=== PATIENT | male | born 1935 | race Caucasian/White ===

== ENCOUNTER 2016-10-24 06:24 | Outpatient (CLI) | payer MEDICARE, BC ==
[~2016-10-24] VITALS: Ht 177.8 cm; Wt 81.8 kg
--- NOTE | ~2016-10-24 | HEMODYNAMI ---
PATIENT:ILIR DINERO MEDICAL RECORD: [id number] : 33 LOCATION:D.CAT ADMISSION DATE: 10/24/16 Generatedon:10/24/20169:52 Patient name: ILIR DINERO Patient #: [id number] SSN: : 1935 Date of study: 10/24/2016 Page: Of Hemodynamic Procedure Report Patient Data Patient Demographics Procedure consent was obtained First Name: ILIR Gender: Male Last Name: BAR : 1935 Middle Initial: L Age: 81 year(s) Patient #: [id number] Race: Additional ID: [id number] Contact details [address]: [address] [place] [address] State: [place] City: [place] Zip code: [address] Past Medical History Allergies Allergen Reaction Date Comments Reported Codeine 12/21/2014 Penicillins 12/21/2014 Demerol 10/24/2016 Penicillins 10/24/2016 Codeine 10/24/2016 Admission Admission Data Admission Date: 10/24/2016 Admission Time: 6:24 Insurance Payor: Medicare Height (in.): 70 BSA: 2 (m2) Height (cm.): 177.8 BMI: 25.83 (kg/m2) Weight (lbs.): 180 Weight (kg.): 81.65 Lab Results Lab Result Date: 10/24/2016 Lab Result Time: 0:00 Biochemistry Name Units Result Min Max BUN mg/dl 15 --(--*-)-- 7 18 Creatinine mg/dl 1 --(--*-)-- 0.6 1.3 CBC Name Units Result Min Max Hemoglobin g/dl 16.5 --(--*-)-- 13.5 17.5 Procedure Procedure Types Cath Procedure Miscellaneous Procedures Moderate Sedation up to 45 minutes Peripheral Cath Diagnostic Procedure Cath Peripheral Xqguy-Ncjhsqu-Ron-Off Peripheral vascular Intervention Angioplasty Angioplasty Fem/Pop Procedure Description Procedure Date Procedure Date: 10/24/2016 Procedure Start Time: 9:14 Procedure End Time: 9:50 Procedure Staff Name Function Yao Irvin MD Performing Physician Dexter Hassan RN Nurse Lloyd Cruz RT Monitor Jose C Piper RT Scrub Procedure Data Cath Procedure Fluoroscopy Diagnostic fluoroscopy Total fluoroscopy Time: 5.6 time: 5.6 min min Diagnostic fluoroscopy Total fluoroscopy dose: 233 dose: 233 mGy mGy Contrast Material Contrast Material Type Amount (ml) Isovue 300 108 Entry Location Entry Primary Successful Side Size Upsize 1 Upsize Entry Closure Lassiter ccessful Closure Location (Fr) (Fr) 2 (Fr) Remarks Device Remarks Femoral Right 5 Fr 6 Fr 6 Fr Exoseal artery Mid-Length Short Estimated blood loss: 10 ml Diagnostic catheters Device Type Used For End Catheter Placement Cordis Tempo 5Fr UF Procedure catheter Diagnostic Infinity 5Fr Procedure IM catheter Procedure Complications No complications Procedure Medications Medication Administration Route Dosage Oxygen NC 2 l/min Lidocaine 2% added to field 20 Heparin Flush Bag added to field 2 bags (1000units/500ml NS) 0.9% NaCl I.V. 100 ml/hr Versed I.V. 1 mg Fentanyl I.V. 50 mcg Heparin Bolus I.V. 7000 units Versed I.V. 0.5 mg Fentanyl I.V. 25 mcg Plavix P.O. 600 mg Hemodynamics Rest BSA: 2 (m2) HGB: 16.5 (g/dl) O2 Consumption: Estimated: 225.86 (ml/min) O2 Consu mption indexed: Estimated:112.93 (ml/min/m) Heart Rate: 67 (bpm) Snapshots Pre Cath Intra NCS Post Cath Vital Signs Time Heart Resp SPO2 etCO2 [id number] NIBP (mmHg) Rhythm Pain Sedation Rate (ipm) (%) (mmHg) (mmHg) Status Level (bpm) 9:00:54 67 22 96 0 0 161/88(109) NSR 0 (11) 10(A) , No pain 9:05:16 67 17 96 0 0 167/86(134) NSR 0 (11) 10(A) , No pain 9:09:36 66 16 96 0 0 149/88(133) NSR 0 (11) 10(A) , No pain 9:13:56 64 16 96 0 0 161/75(109) NSR 0 (11) 10(A) , No pain 9:18:23 57 16 95 0 0 167/73(119) NSR 0 (11) 9(A) , No pain 9:22:43 58 15 96 0 0 150/78(132) NSR 0 (11) 9(A) , No pain 9:27:05 56 17 99 0 0 133/71(109) NSR 0 (11) 9(A) , No pain 9:32:12 57 15 100 0 0 160/81(131) NSR 0 (11) 9(A) , No pain 9:36:38 61 15 96 0 0 114/67(95) NSR 0 (11) 9(A) , No pain 9:40:50 58 15 94 0 0 110/59(92) NSR 0 (11) 9(A) , No pain 9:45:56 56 16 97 0 0 142/75(119) NSR 0 (11) 10(A) , No pain 9:50:12 57 16 96 0 0 156/78(130) NSR 0 (11) 10(A) , No pain Medications Time Medication Route Dose Verified Delivered Reason Notes Effectiveness by by 9:07:36 Oxygen NC 2 Yao Buffie used for l/min Emerson Hassan RN procedure 9:07:42 Lidocaine 2% added 20ml Yao Buffie used for to vial Emerson Hassan RN procedure field 9:07:48 Heparin Flush added 2 Yao Buffie used for Bag to bags Emerson Hassan RN procedure (1000units/500ml field NS) 9:08:10 0.9% NaCl I.V. 100 Yao Buffie Per physician ml/hr Emerson Hassan RN 9:14:06 Versed I.V. 1 mg Yao Buffie for sedation Emerson Hassan RN 9:14:13 Fentanyl I.V. 50 Yao Buffie for sedation mcg Emerson Hassan RN 9:32:48 Heparin Bolus I.V. 7,000 Yao Buffie for verifie d units Emerson Hassan RN anticoagulation with dr irvin 9:34:42 Versed I.V. 0.5 Yao Buffie for sedation mg Emerson Hassan RN 9:34:46 Fentanyl I.V. 25 Yao Buffie for sedation mcg Emerson Hassan RN 9:47:37 Plavix P.O. 600 Yao Buffie for mg Emerson Hassan RN antiplatelet therapy Procedure Log Time Note 8:30:42 Jose C Piper RT(R) sent for patient. Start room use. 8:39:43 Time tracking: Regular hours 8:39:46 Plan of Care:Hemodynamics will remain stable., Cardiac rhythm will remain stable., Comfort level will be maintained., Respiratory function will remain adequate., Patient/ family verbilizes understanding of procedure., Procedure tolerated without complication., Recovers from procedure without complications.. 8:51:33 Patient received from Pre/Post Procedure Room to CCL 1 Alert and oriented. Tansferred to table in Supine position. 8:51:34 Warm blankets applied, and elsa hugger turned on for patient comfort. 8:51:35 Correct patient and procedure confirmed by team. 8:51:36 Signed procedure consent form obtained from patient. 8:51:37 ECG and BP/O2 sat monitors applied to patient. 8:59:41 Vital chart was started 8:59:45 Baseline sample Acquired. 8:59:55 Rhythm: sinus rhythm 8:59:59 Full Disclosure recording started 9:00:28 H&P Date Dictated: 10/16/2016 Within 30 days and on chart., H&P Addendum completed by physician on day of procedure. (MUST COMPLETE FOR ALL OUTPATIENTS). 9:00:31 Pre-procedure instructions explained to patient. 9:00:37 Pre-op teaching completed and patient verbalized understanding. 9:00:41 Family in waiting room. 9:00:45 Patient NPO since Midnight. 9:00:56 Patient allergic to Demerol 9:01:03 Patient allergic to Penicillins 9:01:11 Patient allergic to Codeine 9:01:15 Is the patient allergic to Iodine/contrast media? No. 9:01:21 Is patient on blood thinner?Yes 9:01:30 Patient diabetic? Yes. 9:01:31 If diabetic: On Metformin? Yes 9:01:42 If on Metformin: Last Dose? 10/22/2016 9:01:47 ----Pre-sedation anethsthesia assessment.---- 9:01:53 Previous problem with sedation/anesthesia? No ? 9:01:54 Snore? Yes 9:01:56 Sleep apnea? No 9:01:58 Deviated septum? No 9:02:01 Opens mouth fully? Yes 9:02:03 Sticks out tongue? Yes 9:02:06 Airway obstruction? No ? 9:02:16 Dentures? Yes in tight 9:02:21 Pre procedure: right dorsailis pedis pulse 1+ Palpable, but thready & weak; easily obliterated 9::26 Pre procedure: left dorsailis pedis pulse Doppler 9:02:31 Patient pain scale 0/10 ?. 9:02:46 IV patent on arrival in left forearm with 0.9% NaCl at [facility]. 9::51 Lab Result : BUN 15 mg/dl 9::51 Lab Result : Hemoglobin 16.5 g/dl 9::51 Lab Result : Creatinine 1 mg/dl 9:04:12 Bilateral groins area was prepped with chlora-prep and draped in sterile fashion 9:04:20 Alarms reviewed by R. N. 9:04:21 Sharps counted by scrub and verified by R.N. 9:05:54 Patient Height : 70 inches 9:06:06 Patient Weight : 180 lbs 9:06:06 Insurance Payor : Medicare 9:07:36 Oxygen 2 l/min NC was given by Dexter Hassan RN; used for procedure; 9::42 Lidocaine 2% 20ml vial added to field was given by Dexter Hassan RN; used for procedure; 9:07:48 Heparin Flush Bag (1000units/500ml NS) 2 bags added to field was given by Dexter Hassan RN; used for procedure; 9:08:10 0.9% NaCl 100 ml/hr I.V. was given by Dexter Hassan RN; Per physician; ::02 Zero performed for pressure channel P1 9:: --------ALL STOP TIME OUT------ :: Final Timeout: patient, procedure, and site verified with staff and physician. All members of the team are in agreement. 9:13:11 Bilateral groins site verified by team. 9::15 Physical assessment completed. ASA score P 2 - A patient with mild systemic disease as per Yao Irvin MD. 9:13:19 Sedation plan: IV Moderate Sedation Versed, Fentanyl 9:13:42 Zero performed for pressure channel P1 9:14:06 Versed 1 mg I.V. was given by Buffie Hassan RN; for sedation; 9:14:13 Fentanyl 50 mcg I.V. was given by Dexter Hassan RN; for sedation; 9:14:18 Procedure started. 9:14:21 Local anesthetic to right femoral artery with Lidocaine 2% by Yao Irvin MD.INITIAL ACCESS ONLY 9:16:42 St Charlie 260cm J .035 wire opened to sterile field. 9:16:46 Acist Manifold opened to sterile field. 9:16:46 Acist Hand Control opened to sterile field. 9:16:50 Tegaderm 4 x 4 opened to sterile field. 9:16:51 Terumo 5Fr Oliver Sheath opened to sterile field. 9:16:53 Acist Syringe opened to sterile field. 9:16:54 Bag Decanter opened to sterile field. 9:16:55 Medline Cath Pack opened to sterile field. 9:17:07 A 5 Fr sheath was inserted into the Right Femoral artery 9:17:13 A Yoics 5Fr UF catheter was advanced over the wire and used for Procedure. 9:17:37 Abdominal angiogram w/ runoff was performed. 9:18:54 Left leg runoff performed. 9:19:04 Left leg runoff performed. 9:20:50 Catheter removed. 9:21:03 A Diagnostic Infinity 5Fr IM catheter was advanced over the wire and used for Procedure. 9:22:43 Left leg runoff performed. 9:29:59 Terumo ADVANTAGE 260CM glide wire opened to sterile field. 9:30:20 Terumo 6Fr Oliver Destination Sheath opened to sterile field. 9:32:27 glide wire advanced around horn and down Left SFA to exchange and advance the sheath 9:32:45 Sheath upsized to a 6 Fr Mid-Length. 9:32:48 Heparin Bolus 7,000 units I.V. was given by Dexter Hassan RN; for anticoagulation; verified with dr irvin 9:33:11 [place] Sci Choice PT Extra Support J 300cm .014 gu opened to sterile field. 9:33:12 Merit BasixCompak Inflation Kit opened to sterile field. 9:33:42 Terumo 6Fr Oliver Sheath opened to sterile field. 9:34:06 glide wire removed 9:34:12 PT Extra Support wire advanced. 9:34:42 Versed 0.5 mg I.V. was given by Dexter Hassan RN; for sedation; 9:34:46 Fentanyl 25 mcg I.V. was given by Dexter Hassan RN; for sedation; 9:36:36 Wire advanced across lesion. 9:39:17 Inflation number: 1 A Chocolate 5.0 x 80 x 120 balloon was prepped and advanced across the Proximal Popliteal, Left, then inflated to 8 HAN for 3:02 (min:sec). 9:41:27 Balloon removed over the wire. 9:41:51 Sheath upsized to a 6 Fr Short. 9:43:01 Cordis 6Fr Exoseal opened to sterile field. 9:44:05 Sheath removed intact; hemostasis achieved with Exoseal to the Right Femoral artery. 9:44:07 Procedure ended.(Physican Out) 9:44:10 Fluoroscopy time 05.60 minutes. 9:44:20 Fluoroscopy dose: 233 mGy 9:44:20 Flurop Dose total: 233 9:44:26 Contrast amount:Isovue 300 108ml. 9:44:27 Sharps counted by scrub and verified by R.N. 9:45:28 Insertion/operative site no bleeding no hematoma. 9:45:30 Post-op/insertion site Right Femoral artery dressed using a 4 x 4 and Tegaderm. 9:45:35 Post right femoral artery:stable, soft, clean and dry 9:45:38 Post Procedure Pulses reassessed and unchanged 9:45:40 Post-procedure physical assessment completed. ASA score P 2 - A patient with mild systemic disease as per Yao Irvin MD. 9:45:44 Post procedure rhythm: unchanged. 9:45:47 Estimated blood loss: 10 ml 9:45:49 Post procedure instruction explained to patient.Patient verbalizes understanding. 9:45:49 Patient needs reinforcement of post procedure teaching. 9:47:37 Plavix 600 mg P.O. was given by Dexter Hassan RN; for antiplatelet therapy; 9:48:42 Procedure type changed to Cath procedure, Miscellaneous Procedures, Moderate Sedation up to 45 minutes, Peripheral Cath Diagnostic Procedure, Cath Peripheral, Eguhd-Mguvdbu-Tqi-Off, Peripheral vascular Intervention, Angioplasty, Angioplasty Fem/Pop 9:50:32 Procedure and supply charges have been captured, reviewed, submitted and are correct. 9:50:34 Procedure Complication : No complications 9:50:36 Vital chart was stopped 9:50:37 See physician's report for complete and final results. 9:50:38 Report given to Pre/Post Procedure Room. 9:50:41 Patient transfered to Pre/Post Procedure Room with Stretcher. 9:50:43 Procedure ended. 9:50:43 Full Disclosure recording stopped 9:52:27 ACC-PCI Only Patient was given prescriptions, or instructed by Yao Irvin MD to start/continue the following medications upon discharge: Plavix 9:52:30 End room use (Document Last) Intervention Summary Intervention Notes Time ActionType Lesion and Equipment Action# Pressure Duration Attributes Used 9:39:17 Inflate Proximal Chocolate 1 8 03:02 balloon Popliteal, 5.0 x 80 Left x 120 balloon Device Usage Item Name Manufacture Quantity Catalog Number Hospital Part Current Minim al Lot# / Charge Number Stock Stock Serial# Code Acist Acist 1 [id number] [id number] 138699 5 Manifold [employer] Inc Acist Hand Acist 1 52208 215522 480357 231913 5 Control Medical Systems Inc Tegaderm 4 3M 1 [id number] 349977 315260 073228 5 x 4 Terumo 5Fr Terumo 1 [id number] 148099 171278 687756 40 Oliver Sheath Acist Acist 1 54300 420854 470733 005605 20 Syringe Medical Systems Inc Bag Microtek 1 2002S 796057 29236 721890 5 DecOn Demand [employer] Inc. Medline Cardinal 1 [id number] 705916 44471 330282 5 Cath Pack Health Cordis Cardinal 1 [id number] 004304 346389 781069 10 Tempo 5Fr Health UF catheter Diagnostic Cardinal 1 [id number] 656208 603859 035740 5 Infinity Health 5Fr IM catheter [facility] St Charlie 1 757682 277669 237174 205899 30 260cm J .035 wire Terumo Terumo 1 [id number] 356715 668417 5 ADVANTAGE 260CM glide wire Terumo 6Fr Terumo 1 RSR01 319409 81229 468265 5 Oliver Destination Sheath [place] Sci [place] 1 [id number] 736551 295511 419376 5 Choice PT Scientific Extra Support J 300cm .014 gu Merit Merit 1 [id number] 333412 873341 243547 15 BasixCompak Medical Inflation Kit Terumo 6Fr Terumo 1 [id number] 203407 124445 647888 40 Oliver Sheath Chocolate Cardinal 1 [id number] 089638 54128 529670 5 5.0 x 80 x Health O 120 balloon TW Cordis 6Fr Cardinal 1 EX600 273045 275261 654507 10 Exoseal Health Signature Audit [place] Stage Time Signature Unsigned Intra-Procedure 10/24/2016 Lloyd Cruz 9:52:45 AM RT(R) Signatures Monitor : Lloyd Cruz RT Signature : Date : Time : [id number] [place] [address]
[~2016-10-24 06:24] MED LIST: FLAGYL500 MG PO; GABAPENTIN100 MG PO; GLIPIZIDE10 MG PO; GLUCOPHAGE1000 MG PO; LISINOPRIL10 MG PO; PRILOSEC20 MG PO; TOPROL XL25 MG PO; ZOCOR20 MG PO
[2016-10-24] MEDS ORDERED: ALEVE220 MG PO (06:49)
[2016-10-24] MEDS ORDERED: BAYER CHEWABLE81 MG PO (06:49)
[2016-10-24 06:51] VITALS: BP 191/107; Ht 177.8 cm; Wt 81.8 kg
[2016-10-24 07:06] LABS: BASOPHILS 0.6 % (0.0-2.0); EOSINOPHILS 5.3 % (0-7); HEMATOCRIT 49.8 % (42.0-54.0); HEMOGLOBIN 16.5 g/dL (13.5-17.5); IMMATURE GRANULOCYTES 0.2 % (0-5); LYMPHOCYTES 23.3 % (15-50); MCH 30.1 pg (26.0-34.0); MCHC 33.1 g/dL (31.0-37.0); MCV 90.7 fL (80.0-100.0); MEAN PLATELET VOLUME 10.3 fL (7.4-10.4); MONOCYTES 12.1 % (2-11); NEUTROPHILS 58.5 % (40-80); PLATELET COUNT 182 10x3/uL (130-400); RBC 5.49 10x6/uL (4.20-6.10); RDW 13.9 % (11.5-14.5); WBC 5.1 10x3/uL (4.8-10.8)
[2016-10-24 07:24] LABS: CALC OSMOLALITY 284 mosm/kg (275-300); CALCIUM 9.6 mg/dL (8.5-10.1); CARBON DIOXIDE 27.2 mmol/L (21.0-32.0); CHLORIDE - SERUM 104 mmol/L (98-107); GLUCOSE 204 mg/dL (74-106); POTASSIUM - SERUM 4.1 mmol/L (3.5-5.1); SODIUM 139 mmol/L (136-145); UREA NITROGEN 15 mg/dL (7-18); eGFR NON AFRICAN AMERICAN 76 mL/min (90-120)
--- NOTE | 2016-10-24 07:50 | NUR ---
0750 DR AMBROCIO NOTIFIED OF BP 191/107, PT HAS TAKEN LISINOPRIL 10MG PO THIS AM. NEW ORDER RECEIVED FOR CLONIDINE 0.1MG PO X 1 AND THIS GIVEN PER ORDER.
--- NOTE | 2016-10-24 08:26 | NUR ---
0826 BP RECHECK 160/71 PT DENIES ANY C/O.
[2016-10-24] MEDS ORDERED: PLAVIX75 MG PO (10:16)
--- NOTE | 2016-10-24 10:28 | NUR ---
NSR RATE 68 BP 152/76 CHEST PAIN IS DENIED. 02 AT 2 LITERS NASAL NO DISTRESS NOTED. 6 FR EXOSEAL R/GROIN CDI NO BLEEDING NO HEMATOMA NOTED. PULSES PRESENT AND MARKED. INSTRUCTED PATIENT TO KEEP HEAD FLAT ON PILLOW WITH RLE STRAIGHT
--- NOTE | 2016-10-24 10:56 | NUR ---
VSS WITH CHEST PAIN DENIED. 6 FR EXOSEAL R/GROIN CDI NO BLEEDING NO HEMATOMA NOTED PULSES PRESENT AND MARKED.
--- NOTE | 2016-10-24 11:14 | NUR ---
PATIENT VOIDS 400 CC CLEAR YELLOW URINE TO COLLECTION. 6 FR EXOSEAL R/GROIN REMAINS CDI NO BLEEDING NO HEMATOMA NOTED. SANDWICH AND SODA PROVIDED TO BEDSIDE NAUSEA DENIED
--- NOTE | 2016-10-24 11:48 | NUR ---
1145 PT TOLERATING PO FLUIDS AND SANDWICH WITH NO C/O NAUSEA. 6 FR EXOSEAL TO RIGHT GROINIS CDI, NO BLEEDING OR HEMATOMA NOTED. PEDAL PULSES PALPABLE, CAP REFILL IS BRISK. PT DENIES ANY C/O. AT BEDSIDE, CALL LIGHT IN REACH.
--- NOTE | 2016-10-24 13:00 | NUR ---
1300 NO CHANGE IN ASSESSMENT PAIN IS DENIED VSS WITH AT SIDE
--- NOTE | 2016-10-24 13:44 | NUR ---
REPOSITIONED TO SITTING WITH HOB UP 45 DEGREES CHEST PAIN IS DENIED. VSS 6 FR EXOSEAL R/GROIN CDI
--- NOTE | 2016-10-24 14:19 | NUR ---
DISCHARGE INSTRUCTIONS GONE OVER WITH PATIENT AND BOTH VERBALIZED UNDERSTANDING. CHEST PAIN IS DENIED AND 6 FR EXOSEAL R/GROIN CDI NO BLEEDING NO HEMATOMA NOTED LEFT VIA WC TO PARKING FOR TO DRIVE HOME
--- NOTE | 2016-11-26 08:17 | OP ---
PATIENT NAME: ILIR DINERO MEDICAL RECORD: [id number] :33 LOCATION:D.CAT ADMISSION DATE: SURGEON: YOANNA AMBROCIO M.D. DATE OF OPERATION: 10/24/2016 REFERRING PHYSICIAN: Davin Dash DO PROCEDURES PERFORMED: 1. Aortofemoral runoff. 2. GORE CUTTER to the left popliteal artery INDICATION: An 81-year-old gentleman with history of peripheral vascular disease, presents with recurrent claudication. DESCRIPTION: Right common femoral artery was cannulated and a 5-S[place] Arabian sheath was inserted in retrograde fashion. Next, a UF catheter was advanced to the level of T12. Power injection was performed to visualize the distal aorta. Next, the catheter was pulled down to the level of bifurcation. At this point, right and left lower extremity angiogram was then performed. FINDINGS: The distal aorta is of good caliber. Each kidney received a single arterial supply. There is no evidence of renal artery stenosis. The distal aorta is free of atheroma or stenosis. The right common iliac artery is large in caliber and widely patent. The right common femoral artery is large in caliber and widely patent. Right superficial artery is moderate in caliber. There is no evidence of any stenosis throughout all segments. The right popliteal artery is moderate caliber and has no obstruction. Below the knee appears to be at least 2-vessel runoff. Left common iliac artery is large in caliber and widely patent. Left common femoral artery is large in caliber and widely patent. Left superficial artery has been stented. The stents appear widely patent. However, the left popliteal artery demonstrates a focal 80% stenosis right where the vessel crosses Maurice's canal. Below the knee appears to be at least 2-vessel runoff. DESCRIPTION OF INTERVENTION: A 6-Saudi Arabian Brite Tip sheath was placed in the right common femoral artery. Next, a UF catheter was used to cannulate the bifurcation. A long Glidewire was then placed in the left common femoral artery. Next, the Brite Tip sheath was advanced around the bifurcation and placed at the junction of the left common femoral and superficial arteries. A 7000 units of heparin was infused. A Choice PT guidewire was then directed and placed into the tibioperoneal junction. A 5 mm x 80 mm Chocolate balloon was then advanced and placed across the stenosis. A long inflation was performed at 8 atmospheres. Injections then revealed a 10% residual stenosis. There is no evidence of any flow-limiting dissection. There is brisk flow through the distal vessel beyond the stent. At this point, the wire was removed. IMPRESSION: Successful percutaneous transluminal coronary angioplasty to the left popliteal artery with a 10% residual. TRANSINT:[id number] Voice Confirmation ID: [id number] DOCUMENT ID: [id number] OPERATIVE REPORT [id number] ILIR DINERO TIMOTHY E M.D. at 0817 CC: [id number] DICTATION DATE: 10/24/16 0952 CONTINUING EDUCATION SPECIALIST: 10/24/16 1333 DEP CLI 10/24/16 [id number] [place] [address]
== END 2016-10-24 14:21 | disposition home or self-care (01) ==
LOC: D.CATH 06:24
PROVIDERS: Internal Medicine Cardiovascular Disease
DX: I70.213 Atherosclerosis of native arteries of extremities with intermittent claudication, bilateral legs (principal)

== ENCOUNTER 2017-06-01 18:33 | Inpatient (IN) | payer MEDICARE, BC ==
[~2017-06-01] VITALS: Ht 177.8 cm; Wt 75.6 kg
[~2017-06-01 18:33] MED LIST changes: +ALEVE220 MG PO; +BAYER CHEWABLE81 MG PO; +PLAVIX75 MG PO
[2017-06-01 19:06] LABS: BASOPHILS 0.7 % (0-2); EOSINOPHILS 2.7 % (0-7); HEMATOCRIT 48.1 % (42.0-54.0); HEMOGLOBIN 15.9 g/dL (13.5-17.5); IMMATURE GRANULOCYTES 0.2 % (0-5); LYMPHOCYTES 14.4 % (15-50); MCH 30.6 pg (26.0-34.0); MCHC 33.1 g/dL (31.0-37.0); MCV 92.5 fL (80.0-100.0); MEAN PLATELET VOLUME 10.3 fL (7.4-10.4); MONOCYTES 7.5 % (2-11); NEUTROPHILS 74.5 % (40-80); PLATELET COUNT 197 10x3/uL (130-400); RDW 13.5 % (11.5-14.5); WBC 5.5 10x3/uL (4.8-10.8)
[2017-06-01 19:11] LABS: APTT 32.2 SECONDS (22.8-39.4); INR 1.06 (0.85-1.17); PROTIME 13.7 SECONDS (11.6-15.0)
[2017-06-01 19:17] LABS: ALBUMIN 4.2 g/dL (3.4-5.0); ALKALINE PHOSPHATASE 85 U/L (46-116); ALT (SGPT) 22 U/L (10-68); CALC OSMOLALITY 282 mosm/kg (275-300); CALCIUM 9.8 mg/dL (8.5-10.1); CARBON DIOXIDE 29.3 mmol/L (21.0-32.0); CHLORIDE - SERUM 104 mmol/L (98-107); CREATININE - SERUM 0.9 mg/dL (0.6-1.3); GLUCOSE 162 mg/dL (74-106); POTASSIUM - SERUM 3.8 mmol/L (3.5-5.1); PROTEIN - SERUM 7.9 g/dL (6.4-8.2); SODIUM 140 mmol/L (136-145); UREA NITROGEN 12 mg/dL (7-18); eGFR NON AFRICAN AMERICAN 86 mL/min (90-120)
[2017-06-01 19:43] LABS: CREATINE KINASE 165 UL (21-232); PRO BNP 271 pg/mL (0-450); THYROID STIMULATING HORMONE 1.58 uIU/mL (0.36-3.74); TROPONIN-I < 0.017 ng/mL (0.000-0.060)
[2017-06-01 20:30] LABS: ERYTHROCYTE SEDIMENTATION RATE 5 mm/hr (0-20)
--- NOTE | 2017-06-01 22:25 | NUR ---
PT ARRIVES VIA WC TO ROOM WITH ER NURSE ACCOMPANIED BY DAUGHTER. ADMISSION HISTORY OBTAINED AND MEDICATIONS RECONCILED AT THE BEDSIDE. ASSESSMENT COMPLETED, VSS, AFEBRILE. PLACED ON TELE, NSR ON MONITOR, HR 69. NEURO ASSESSMENT WNL. SPEECH CLEAR. SWALLOWS WITHOUT COUGHING. EQUAL STRENGTH IN EXTREMITIES X4. PUPILS JINNY. UNIT ROUTINES AND PROTOCOLS DISCUSSED WITH PT AND HIS DAUGHTER, THEY BOTH VERBALIZED UNDERSTANDING. WILL CONT TO MONITOR.
[2017-06-01] MEDS ORDERED: LOPRESSOR25 MG PO (22:29)
[2017-06-01 22:33] VITALS: BP 173/79; Ht 177.8 cm; Wt 75.6 kg
[2017-06-02] VITALS: BP 173/79
--- NOTE | 2017-06-02 00:25 | NUR ---
NEURO CHECK COMPLETED AND UNCHANGED. NSR ON TELE, HR 60'S. NO NEEDS VOICED. DAUGHTER REMAINS AT THE BEDSIDE.
[2017-06-02 04:00] VITALS: BP 138/59
--- NOTE | 2017-06-02 07:05 | NUR ---
REPORT RECIVED. RR EVEN AND UNLABORED. PT DENIES NEEDS AT THIS TIME. NEURO CHECK PERFOMRED, NO DEFICITS NOTED. ALERT AND ORIENTED X4. WILL CTM.
[2017-06-02 08:00] VITALS: BP 161/78
[2017-06-02 12:00] VITALS: BP 130/59
--- NOTE | 2017-06-02 14:15 | NUR ---
RATIONALE FOR SCD'S EXPLAINED. REFUSES SCD'S
[2017-06-02 16:00] VITALS: BP 138/77
--- NOTE | 2017-06-02 18:34 | NUR ---
PT RESTING QUIELTY, RR EVEN AND UNLABORED. DENIES NEEDS AT THIS TIME. WILL GIVE REPORT ON PT CONDITON FOR THE DAY.
--- NOTE | 2017-06-02 19:52 | NUR ---
RECEIVED REPORT, WILL ASSUME CARE OF PT, PT SITTING UP IN CHAIR, DENIES ANY NEEDS, CALL LIGHT IN REACH, WILL CONTINUE PLAN OF CARE
[2017-06-02 20:51] VITALS: BP 148/63
[2017-06-03 01:15] VITALS: BP 124/55
[2017-06-03 03:45] VITALS: BP 116/61
--- NOTE | 2017-06-03 03:47 | NUR ---
PT SLEEPING, CALL LIGHT IN REACH, WILL MONITOR
[2017-06-03 05:52] LABS: BASOPHILS 0.5 % (0-2); EOSINOPHILS 5.2 % (0-7); HEMATOCRIT 46.6 % (42.0-54.0); HEMOGLOBIN 15.2 g/dL (13.5-17.5); IMMATURE GRANULOCYTES 0.2 % (0-5); LYMPHOCYTES 21.3 % (15-50); MCH 30.1 pg (26.0-34.0); MCHC 32.6 g/dL (31.0-37.0); MCV 92.3 fL (80.0-100.0); MEAN PLATELET VOLUME 10.6 fL (7.4-10.4); MONOCYTES 9.5 % (2-11); NEUTROPHILS 63.3 % (40-80); PLATELET COUNT 190 10x3/uL (130-400); RBC 5.05 10x6/uL (4.20-6.10); RDW 13.7 % (11.5-14.5); WBC 5.6 10x3/uL (4.8-10.8)
[2017-06-03 06:12] LABS: CALC OSMOLALITY 279 mosm/kg (275-300); CALCIUM 9.4 mg/dL (8.5-10.1); CARBON DIOXIDE 29.4 mmol/L (21.0-32.0); CHLORIDE - SERUM 104 mmol/L (98-107); CREATININE - SERUM 0.9 mg/dL (0.6-1.3); GLUCOSE 139 mg/dL (74-106); POTASSIUM - SERUM 4.1 mmol/L (3.5-5.1); SODIUM 139 mmol/L (136-145); UREA NITROGEN 13 mg/dL (7-18); eGFR NON AFRICAN AMERICAN 86 mL/min (90-120)
--- NOTE | 2017-06-03 07:15 | NUR ---
AM ROUNDS- PT UP TO CHAIR, RESP EVEN AND UNLABORED, LT AC SL. PT DENIES ANY NEEDS AT THIS TIME, CALL LIGHT IN REACH, NAD NOTED, WILL CONTINUE TO MONITOR.
[2017-06-03 08:00] VITALS: BP 141/60
--- NOTE | 2017-06-03 08:17 | NUR ---
AM MEDS GIVEN, PT UP TO SIDE OF BED, EATING BREAKFAST, DENIES ANY NEEDS. FAMILY AT BEDSIDE, CALL LIGHT IN REACH, NAD NOTED, WILL CONTINUE TO MONTIOR.
[2017-06-03 12:00] VITALS: BP 117/60
--- NOTE | 2017-06-03 13:53 | NUR ---
Patient Name: ILIR DINERO Admission Status: ER Accout number: [id number] Admission Date: 06-02-2017 : 1935 Admission Diagnosis: Attending: MIKE RAM Current LOS: 1 Anticipated DC Date:06-03-2017 Planned Disposition: Home Primary Insurance: MEDICARE A & B Discharge Planning Comments: * Is the patient Alert and Oriented? Yes 0 * How many steps to enter\exit or inside your home? 5 0 * PCP DR. RAM 0 * Pharmacy [facility], [facility] OR [facility] [employer] MAIL ORDER 0 * Preadmission Environment Home Alone 0 * ADLs Independent 0 * Equipment Cane 0 * Other Equipment NO MEDICAL EQUIPMENT PROVIDER PREFERENCE 0 * List name and contact numbers for known caregivers / representatives who currently or will assist patient after discharge: SKYLARRONN MULLER, DTR, BEVERLY MULLER, SON IN LAW, 0 * Community resources currently utilized None 0 * Please name any agencies selected above. NONE 0 * Additional services required to return to the preadmission environment? No 0 * Can the patient safely return to the preadmission environment? Yes 0 * Has this patient been hospitalized within the prior 30 days at any hospital? No 0 CM MET WITH PT IN ROOM TO DISCUSS DISCHARGE PLANNING AND NEEDS. PT REPORTS LIVING AT HOME INDEPENDENTLY AND ALONE. PT HAS A CANE WITH NO MEDICAL EQUIPMENT PROVIDER PREFERENCE. PT HAS NO OUTSIDE SERVICES ASSISTING IN THE HOME. CM DISCUSSED AVAILABILITY OF HOME HEALTH, REHAB SERVICES AND MEDICAL EQUIPMENT. PT DENIES DISCHARGE NEEDS, REPORTS HIS DAUGHTER IS HERE TO PICK HIM UP FOR DISCHARGE HOME TODAY. MULCHER OPERATOR NURSE NOTIFIED. Pipe Assembly Worker: Jose Pedro
--- NOTE | 2017-06-03 14:03 | NUR ---
PROVIDED VERBAL AND WRITTEN DISCHARGE TEACHING TO PT AND AT BEDSIDE, BOTH VERBALIZED UNDERSTANDING REGARDING TEACHING. D/C LT AC IV, TIP INTACT. REMOVED TELEMETRY AND TOOK IT TO [employer] OIL OPERATOR. PT LEFT UNIT VIA WHEELCHAIR, NAD NOTED.
--- NOTE | 2017-06-06 16:47 | EC ---
PATIENT:ILIR DINERO DATE OF SERVICE: 06/02/17 SEX: M MEDICAL RECORD: [id number] DATE OF : [birth year] LOCATION:D. D.211 AGE OF PATIENT: 81 ADMISSION DATE: 06/02/17 REFERRING PHYSICIAN: INTERPRETING PHYSICIAN: GABBI PIERCE MD ECHOCARDIOGRAM REPORT ECHO CHARGES 4 ECHO COMPLETE CLINICAL DIAGNOSIS: TIA ECHOCARDIOGRAPHIC MEASUREMENTS (adult normal given) AC root (d.<3.7cm) 2.9 cm LV Septum d (<1.2 cm> 1.5 cm Valve Excursion 1.0 cm LV Septum (systole) 2.1 cm Left Atria (s.<4.0cm> 3.4 cm LVPW d(<1.2cm) 1.4 cm RV (d.<2.3cm) 2.5 cm LVPW (sytole) 2.1 cm LV diastole(<5.6CM) 4.7 cm MV E-F(>70mm/sec) cm LV systole 2.0 cm LVOT Diameter 1.7 cm MV exc.(>10mm) cm Est.ejection fraction (50-75%) % Pericardial Effusion N DOPPLER: LVIT cm/sec A 111 cm/sec E 94.0 cm/sec LA cm/sec RVSP 55.0 mmHg LVOT 145 cm/sec AOP1/2T m/s Asc. Ao 225 cm/sec RVOT 72.0 cm/sec RA cm/sec PA 118 cm/sec AV Gradient Peak 20.3 mmHg AV Mean 11.0 mmHg AV Area 1.8 cm MV Gradient Peak 1.2 mmHg MV Mean 1.7 mmHg MV Area cm COMMENTS: Lens Examiner: Lori AVILADSOE Veneer Sander: 1 Dr. Pierce TAPE# PACS DATE OF SERVICE: 06/02/2017 PROCEDURE: Echocardiogram FINDINGS: 1. Left ventricular chamber size is within normal limits. Left ventricular systolic function is normal. Overall ejection fraction estimated at 65%. 2. Left atrium, right atrium, and right ventricle chamber sizes are within normal limits. 3. Valvular structures: Aortic valve demonstrates heavy calcium sclerosis, ECHOCARDIOGRAM REPORT [id number] ILIR DINERO only mild aortic stenosis present. Valve area calculates to 1.8 cm-squared and there is a gradient of 20 mm across the valve. The remaining valvular structures have normal structure and motion. 4. Doppler interrogation elsewise reveals mild mitral regurgitation, mild tricuspid regurgitation, no other valvular insufficiency or stenosis; however, pulmonary systolic pressure is elevated estimated at 55 mmHg. 5. No evidence of pericardial effusion or left ventricular thrombus. TRANSINT:[id number] Voice Confirmation ID: [id number] DOCUMENT ID: [id number] GABBI PIERCE MD at 1647 CC: [id number] DICTATION DATE: 06/03/17 1053 HAT LACER: 06/03/17 1159 DIS IN 06/03/17 [id number] [place] [address]
== END 2017-06-03 14:17 | disposition home or self-care (01) | DRG 69 ==
LOC: D.ER 18:33 → D.M2 21:09 → OBSVTIME 21:09 → D.M2 21:09
PROVIDERS: Emergency Medicine; Family Medicine; ADMIT Family Medicine
DX: G45.9 Transient cerebral ischemic attack, unspecified (principal); I25.10 Atherosclerotic heart disease of native coronary artery without angina pectoris; E11.65 Type 2 diabetes mellitus with hyperglycemia; E11.40 Type 2 diabetes mellitus with diabetic neuropathy, unspecified; I10 Essential (primary) hypertension; I08.1 Rheumatic disorders of both mitral and tricuspid valves; Z95.5 Presence of coronary angioplasty implant and graft; Z87.891 Personal history of nicotine dependence

== ENCOUNTER 2017-06-10 19:50 | Observation (INO) | payer MEDICARE, BC ==
[~2017-06-10 19:50] MED LIST changes: +LOPRESSOR25 MG PO
[2017-06-10 21:37] LABS: BASOPHILS 0.7 % (0-2); HEMATOCRIT 45.6 % (42.0-54.0); HEMOGLOBIN 14.9 g/dL (13.5-17.5); IMMATURE GRANULOCYTES 0.2 % (0-5); LYMPHOCYTES 15.8 % (15-50); MCH 30.4 pg (26.0-34.0); MCHC 32.7 g/dL (31.0-37.0); MCV 93.1 fL (80.0-100.0); MONOCYTES 10.4 % (2-11); NEUTROPHILS 67.9 % (40-80); PLATELET COUNT 192 10x3/uL (130-400); RDW 13.6 % (11.5-14.5); WBC 5.7 10x3/uL (4.8-10.8)
[2017-06-10 21:44] LABS: APTT 29.9 SECONDS (22.8-39.4); INR 0.96 (0.85-1.17); PROTIME 12.6 SECONDS (11.6-15.0)
[2017-06-10 21:49] LABS: ALBUMIN 3.9 g/dL (3.4-5.0); ALKALINE PHOSPHATASE 78 U/L (46-116); ALT (SGPT) 27 U/L (10-68); CALC OSMOLALITY 285 mosm/kg (275-300); CALCIUM 9.5 mg/dL (8.5-10.1); CARBON DIOXIDE 31.7 mmol/L (21.0-32.0); CHLORIDE - SERUM 105 mmol/L (98-107); CREATININE - SERUM 0.9 mg/dL (0.6-1.3); GLUCOSE 175 mg/dL (74-106); POTASSIUM - SERUM 4.3 mmol/L (3.5-5.1); PROTEIN - SERUM 7.5 g/dL (6.4-8.2); SODIUM 141 mmol/L (136-145); UREA NITROGEN 14 mg/dL (7-18); eGFR NON AFRICAN AMERICAN 86 mL/min (90-120)
[2017-06-10 21:59] LABS: THYROID STIMULATING HORMONE 1.86 uIU/mL (0.36-3.74)
[2017-06-11 01:30] VITALS: BP 198/87; BMI 24.4
[2017-06-11 04:00] VITALS: BP 147/72
--- NOTE | 2017-06-11 08:05 | NUR ---
PT AOX4 RESP EVEN AND NONLABORED PT DENIES NEEDS AT THIS TIME IV TO LEFT AC PATENT AND INTACT AT THIS TIME SRX2 BED IN LOWEST SETTING CALL LIGHT WITHIN REACH WILL CONTINUE TO MONITOR
[2017-06-11 08:54] VITALS: BP 166/77
[2017-06-11 10:29] LABS: ALBUMIN 3.7 g/dL (3.4-5.0); ALKALINE PHOSPHATASE 86 U/L (46-116); ALT (SGPT) 25 U/L (10-68); BILIRUBIN - TOTAL 0.37 mg/dL (0.2-1.3); CALC OSMOLALITY 282 mosm/kg (275-300); CALCIUM 9.5 mg/dL (8.5-10.1); CARBON DIOXIDE 30.8 mmol/L (21.0-32.0); CHLORIDE - SERUM 100 mmol/L (98-107); POTASSIUM - SERUM 4.1 mmol/L (3.5-5.1); PROTEIN - SERUM 7.7 g/dL (6.4-8.2); SODIUM 136 mmol/L (136-145); UREA NITROGEN 14 mg/dL (7-18); eGFR NON AFRICAN AMERICAN 76 mL/min (90-120)
[2017-06-11 10:31] LABS: BASOPHILS 0.6 % (0-2); EOSINOPHILS 4.8 % (0-7); GLUCOSE 270 mg/dL (74-106); HEMATOCRIT 46.9 % (42.0-54.0); HEMOGLOBIN 15.5 g/dL (13.5-17.5); IMMATURE GRANULOCYTES 0.4 % (0-5); LYMPHOCYTES 15.5 % (15-50); MCH 30.6 pg (26.0-34.0); MCV 92.5 fL (80.0-100.0); MEAN PLATELET VOLUME 10.5 fL (7.4-10.4); MONOCYTES 10.7 % (2-11); PLATELET COUNT 203 10x3/uL (130-400); RBC 5.07 10x6/uL (4.20-6.10); RDW 13.5 % (11.5-14.5)
--- NOTE | 2017-06-11 10:34 | NUR ---
Patient Name: ILIR DINERO Admission Status: ER Accout number: [id number] Admission Date: 06-10-2017 : 1935 Admission Diagnosis: Attending: TIMOTHY SANDERSON Current LOS: 1 Anticipated DC Date: 06-14-2017 Planned Disposition: Home Primary Insurance: MEDICARE A & B Discharge Planning Comments: CM MET WITH PATIENT AND DAUGHTER (TUCKER BRODY) REGARDING D/C NEEDS AND PLANS. PATIENT LIVES ALONE AND DAUGHTER WILL DRIVE HIM HOME AT DISCHARGE. PATIENT HAS 2 STEPS W/RAILS TO ENTER HOME AND NO STAIRS INSIDE. PATIENT STATED HE IS INDEPENDENT WITH HIS CARE AND HAS A WHEELCHAIR, WALKER, CANE, AND GLUCOMETER AT HOME. PATIENTS PCP IS DR. RAM AND PHARMACY IS [facility] [address]. PATIENT IS REFUSING HOME HEALTH AT THIS TIME. CM WILL CONTINUE TO FOLLOW PATIENT WITH D/C NEEDS AND PLANS. PCP DR[facility] LEAN[facility] [address] (PHARMACY) [phone] TUCKER BRODY (DAUGHTER) [phone] Investigator Welfare: Dennise Miranda Is the patient Alert and Oriented? Yes 0 * How many steps to enter\exit or inside your home? 2WRAILS 0 * PCP DR. RAM 0 * Pharmacy [facility] [address] 0 * Preadmission Environment Home Alone 0 * ADLs Independent 0 * Equipment Cane Glucometer Walker Wheelchair 0 * List name and contact numbers for known caregivers / representatives who currently or will assist patient after discharge: TUCKER MULLER (DAUGHTER) [phone] 0 * Community resources currently utilized None 0 * Additional services required to return to the preadmission environment? Yes 0 * Can the patient safely return to the preadmission environment? Yes 0 * Has this patient been hospitalized within the prior 30 days at any hospital? Yes 0 Grand Total: 0
[2017-06-11 17:34] VITALS: BP 139/69
--- NOTE | 2017-06-11 19:30 | NUR ---
RECEIVED REPORT FROM DESTINEE. PT AOX4, SITTING UP IN BED. DENIES ANY NEEDS AT THIS TIME. LEFT AC IV PATENT SALINE LOCKED. WILL CONTINUE TO MONITOR.
[2017-06-11 20:00] VITALS: BP 170/84
--- NOTE | 2017-06-11 21:48 | NUR ---
BLOOD SUGAR 227. ADMINISTERED 4 UNITS OF HUMALOG AT THIS TIME. PT STATES MINIMUM PAIN BEHING LEFT EYE STATES THAT IT IS DUE TO BLOOD SUGAR BEING HIGH. CALL LIGHT IN REACH, WILL CONTINUE TO MONITOR.
[2017-06-12 04:00] VITALS: BP 167/81
[2017-06-12 06:12] LABS: ALBUMIN 3.1 g/dL (3.4-5.0); ALKALINE PHOSPHATASE 75 U/L (46-116); ALT (SGPT) 23 U/L (10-68); BILIRUBIN - TOTAL 0.27 mg/dL (0.2-1.3); CALC OSMOLALITY 283 mosm/kg (275-300); CALCIUM 9.1 mg/dL (8.5-10.1); CARBON DIOXIDE 29.9 mmol/L (21.0-32.0); CHLORIDE - SERUM 103 mmol/L (98-107); CREATININE - SERUM 0.8 mg/dL (0.6-1.3); POTASSIUM - SERUM 4.1 mmol/L (3.5-5.1); PROTEIN - SERUM 6.7 g/dL (6.4-8.2); SODIUM 139 mmol/L (136-145); UREA NITROGEN 15 mg/dL (7-18); eGFR NON AFRICAN AMERICAN > 90 mL/min (90-120)
[2017-06-12 06:14] LABS: GLUCOSE 192 mg/dL (74-106)
[2017-06-12 06:20] LABS: BASOPHILS 0.5 % (0-2); EOSINOPHILS 5.7 % (0-7); HEMATOCRIT 45.3 % (42.0-54.0); HEMOGLOBIN 14.9 g/dL (13.5-17.5); IMMATURE GRANULOCYTES 0.2 % (0-5); LYMPHOCYTES 21.2 % (15-50); MCH 30.1 pg (26.0-34.0); MCHC 32.9 g/dL (31.0-37.0); MCV 91.5 fL (80.0-100.0); MEAN PLATELET VOLUME 10.5 fL (7.4-10.4); MONOCYTES 12.3 % (2-11); NEUTROPHILS 60.1 % (40-80); PLATELET COUNT 189 10x3/uL (130-400); RBC 4.95 10x6/uL (4.20-6.10); RDW 13.5 % (11.5-14.5); WBC 5.6 10x3/uL (4.8-10.8)
--- NOTE | 2017-06-12 07:40 | NUR ---
ASSESSMENT COMPLETE. SL TO L AC. PHOTO MANAGER SHOWING SR 68 PER TECH. DENIES ANY NEEDS AT THIS TIME.
[2017-06-12 08:32] VITALS: BP 139/67
[2017-06-12] MEDS ORDERED: ASPIRIN325 MG PO (11:59)
[2017-06-12 12:03] VITALS: BP 165/79
--- NOTE | 2017-06-12 12:39 | NUR ---
CM REASSESSMENT NOTE: PATIENT IS DISCHARGING HOME TODAY/DAUGHTER IS DRIVING HIM HOME. PATIENT STATED HE DID NOT WANT HOME HEALTH AND HAD NO OTHER NEEDS FOR DISCHARGE.
--- NOTE | 2017-06-12 13:55 | NUR ---
SL REMOVED. CATHETER TIP INTACT. ANALOG DEVICE DESIGNER REMOVED. DISCHARGE TEACHING GIVEN TO PATIENT. VOICED UNDERSTANDING. DC'D HOME WITH FAMILY. ESCORTED TO VEHICLE BY SUPERVISOR BELT AND LINK ASSEMBLY WITH BELONGINGS.
== END 2017-06-12 13:55 | disposition home or self-care (01) ==
LOC: D.ER 19:50 → D.MS 22:08 → OBSVTIME 22:08 → D.MS 22:08
PROVIDERS: Family Medicine; ADMIT Family Medicine
DX: G45.9 Transient cerebral ischemic attack, unspecified (principal); I10 Essential (primary) hypertension; E11.40 Type 2 diabetes mellitus with diabetic neuropathy, unspecified; E11.65 Type 2 diabetes mellitus with hyperglycemia; R47.81 Slurred speech; R20.2 Paresthesia of skin; E78.5 Hyperlipidemia, unspecified

== ENCOUNTER 2017-06-14 18:46 | Inpatient (IN) | payer MEDICARE, BC ==
--- NOTE | ~2017-06-14 | HEMODYNAMI ---
PATIENT:ILIR DINERO MEDICAL RECORD: [id number] : [birth year] LOCATION: [id number] ADMISSION DATE: 06/15/17 Generatedon:06/18/201715:49 Patient name: ILIR DINERO Patient #: [id number] SSN: : 1935 Date of study: 06/18/2017 Page: Of Hemodynamic Procedure Report Patient Data Patient Demographics Procedure consent was obtained First Name: ILIR Gender: Male Last Name: BAR : 1935 Middle Initial: L Age: 81 year(s) Patient #: [id number] Race: Additional ID: [id number] Contact details [address]: [address] [place] [address] State: [place] City: [place] Zip code: [address] Past Medical History Allergies Allergen Reaction Date Comments Reported Codeine 12/21/2014 Penicillins 12/21/2014 Demerol 10/24/2016 Penicillins 10/24/2016 Codeine 10/24/2016 Other allergy 06/18/2017 DEMEROL, PCN, CODEINE Admission Admission Data Admission Date: 06/15/2017 Admission Time: 0:27 Room #: [id number].2228 Procedure Procedure Types Cath Procedure Diagnostic Procedure RAYMUNDO Procedure Description Procedure Date Procedure Date: 06/18/2017 Procedure Start Time: 14:00 Procedure Staff Name Function Andrei Kelly MD Performing Physician Dexter Hassan RN Nurse Inés Arreola RT Monitor Rebeca Ochoa RT Circulation Supervisor Lorenzo Fuller CRNA Additional personnel Sergey Alegria RN Nurse Procedure Medications Medication Administration Route Dosage Oxygen NC 6 l/min Refer to Anesthesia Notes for Sedation Medications Hemodynamics Rest Heart Rate: 86 (bpm) Snapshots Pre Cath Intra NCS Post Cath Vital Signs Time Heart Resp SPO2 etCO2 NIBP (mmHg) Rhythm Pain Sedation Rate (ipm) (%) (mmHg) Status Level (bpm) 14:28:34 87 7 95 32.4 182/93(133) NSR 0 (11) 10(A) , No pain 14:33:16 85 14 94 28.6 191/90(145) NSR 0 (11) 10(A) , No pain 14:39:27 91 16 95 16.5 192/87(123) NSR 0 (11) 10(A) , No pain 14:44:14 86 17 94 33.9 159/81(127) NSR 0 (11) 10(A) , No pain 14:48:56 82 18 100 33.2 158/67(117) NSR 0 (11) 10(A) , No pain 15:00:25 84 17 100 18.8 172/79(133) NSR 0 (11) 10(A) , No pain 15:05:09 78 17 100 36.1 167/77(126) NSR 0 (11) 10(A) , No pain 15:09:52 79 16 100 33.9 167/71(118) NSR 0 (11) 10(A) , No pain 15:14:31 83 17 100 34.6 159/81(109) NSR 0 (11) 10(A) , No pain 15:19:07 80 18 100 36.1 170/76(112) NSR 0 (11) 10(A) , No pain 15:23:48 82 18 100 35.4 166/76(130) NSR 0 (11) 10(A) , No pain 15:28:47 89 17 100 15.8 Measuring NSR 0 (11) 10(A) , No pain 15:29:26 82 16 100 32.4 157/81(129) NSR 0 (11) 10(A) , No pain 15:34:02 85 17 100 32.4 167/74(119) NSR 0 (11) 10(A) , No pain 15:38:43 93 18 100 18.8 139/63(98) NSR 0 (11) 9(A) , No pain 15:43:07 89 16 100 21.1 105/45(74) NSR 0 (11) 9(A) , No pain 15:47:29 86 13 100 29.4 97/49(67) NSR 0 (11) 9(A) , No pain Medications Time Medication Route Dose Verified Delivered Reason Notes Effectiven ess by by 15:16:51 Oxygen NC 6 Andrei Renteria Per l/min St. Shamir Hassan RN physician 15:17:01 Refer to Andrei Rincon Anesthesia LeticiaShamir Alegria RN Notes for MD Sedation Medications Procedure Log Time Note 14:00:18 Dexter Hassan RN sent for patient. Start room use. 14:13:24 Time tracking: Regular hours 14:13:28 Plan of Care:Hemodynamics will remain stable., Cardiac rhythm will remain stable., Comfort level will be maintained., Respiratory function will remain adequate., Patient/ family verbilizes understanding of procedure., Procedure tolerated without complication., Recovers from procedure without complications.. 14:20:29 Patient received from Med/Surg to CCL 3 Alert and oriented. Tansferred to table in Supine position. 14:20:30 Warm blankets applied, and elsa hugger turned on for patient comfort. 14:20:31 Correct patient and procedure confirmed by team. 14:20:32 Signed procedure consent form obtained from patient. 14:20:33 ECG and BP/O2 sat monitors applied to patient. 14:20:34 Full Disclosure recording started 14:25:55 Vital chart was started 14:26:00 Rhythm: sinus rhythm 14:26:53 H&P Date Dictated: 06/15/2017 Within 30 days and on chart.. 14:26:55 Pre-procedure instructions explained to patient. 14:26:55 Pre-op teaching completed and patient verbalized understanding. 14:26:57 Family in patients room. 14:26:58 Patient NPO since Midnight. 14:27:24 Patient allergic to Other allergyDEMEROL, PCN, CODEINE 14:27:28 Is patient on blood thinner?No 14:27:30 Patient diabetic? No. 14:27:33 ----Pre-sedation anethsthesia assessment.---- 14:27:47 SEE ANESTHESIA NOTE FOR PRE ASSESSMENT. 14:27:57 Patient pain scale 0/10 ?. 14:28:04 IV patent on arrival in left forearm with 0.9% NaCl at KVO. 14:28:10 Lab results completed and on chart. 14:29:34 ANESTHESIA AND ECHO NOTIFIED PATIENT ARRIVED IN ROOM 14:37:39 LORENZO FULLER present and monitoring patient for TIVA. 14:37:50 OLGA ARSHAD Middleware Solutions Architect present for RAYMUNDO. 14:38:03 Alarms reviewed by RClifford NClifford 14:39:04 Baseline sample Acquired. 15:11:05 Timer 1 started at 2:42 PM, stopped at 3:11 PM, duration 00:28:22 sec. 15:16:51 Oxygen 6 l/min NC was administered by Dexter Hassan RN; Per physician; 15:17:01 Refer to Anesthesia Notes for Sedation Medications was administered by Sergey Alegria RN; ; 15:31:20 Final Timeout: patient, procedure, and site verified with staff and physician. All members of the team are in agreement. 15:31:24 Physical assessment completed. ASA score P 3 - A patient with severe systemic disease as per Andrei Kelly MD. 15:31:28 Sedation plan: TIVA Propofol 15:37:05 RAYMUNDO started. 15:42:04 Procedure ended.(Physican Out) 15:42:44 RAYMUNDO completed. 15:43:42 Post-procedure physical assessment completed. ASA score P 3 - A patient with severe systemic disease as per Andrei Kelly MD. 15:43:54 Post procedure rhythm: unchanged. 15:43:56 Procedure and supply charges have been captured, reviewed, submitted and are correct. 15:44:00 See physician's report for complete and final results. 15:48:43 Vital chart was stopped 15:48:45 Report given to Med/Surg. 15:48:48 Patient transfered to Med/Surg with Bed. 15:49:02 End room use (Document Last) Signature Audit [place] Stage Time Signature Unsigned Intra-Procedure 06/18/2017 Inés 3:49:20 PM Counts RT(R) Signatures Monitor : Inés Signature : Counts RT Date : Time : [id number] [place] [address]
[~2017-06-14 18:46] MED LIST changes: +ASPIRIN325 MG PO
[2017-06-14 20:18] LABS: BASOPHILS 0.4 % (0-2); EOSINOPHILS 4.7 % (0-7); HEMOGLOBIN 15.4 g/dL (13.5-17.5); IMMATURE GRANULOCYTES 0.2 % (0-5); LYMPHOCYTES 19.7 % (15-50); MCH 30.1 pg (26.0-34.0); MCHC 32.8 g/dL (31.0-37.0); MEAN PLATELET VOLUME 10.1 fL (7.4-10.4); MONOCYTES 8.9 % (2-11); NEUTROPHILS 66.1 % (40-80); PLATELET COUNT 176 10x3/uL (130-400); RBC 5.11 10x6/uL (4.20-6.10); RDW 13.4 % (11.5-14.5); WBC 5.3 10x3/uL (4.8-10.8)
[2017-06-14 20:23] LABS: APPEARANCE CLEAR (CLEAR); BILIRUBIN NEGATIVE (NEGATIVE); COLOR STRAW (YELLOW); GLUCOSE 250 mg/dL (NEGATIVE); KETONE NEGATIVE (NEGATIVE); NITRITE NEGATIVE (NEGATIVE); PROTEIN NEGATIVE (NEGATIVE); SPECIFIC GRAVITY 1.005 (1.005-1.020); UROBILINOGEN NORMAL (NORMAL)
[2017-06-14 20:25] LABS: RED CELLS - URINE OCC /hpf (0-5); WHITE CELLS - URINE NSEEN /hpf (0-5)
[2017-06-14 20:26] LABS: BACTERIA FEW /hpf (NONE SEEN); EPITHELIAL CELLS NSEEN /hpf (0-5)
[2017-06-14 20:52] LABS: ALBUMIN 3.7 g/dL (3.4-5.0); ALKALINE PHOSPHATASE 92 U/L (46-116); ALT (SGPT) 29 U/L (10-68); BILIRUBIN - TOTAL 0.35 mg/dL (0.2-1.3); CALC OSMOLALITY 277 mosm/kg (275-300); CALCIUM 9.5 mg/dL (8.5-10.1); CARBON DIOXIDE 28.5 mmol/L (21.0-32.0); CHLORIDE - SERUM 101 mmol/L (98-107); CREATININE - SERUM 0.8 mg/dL (0.6-1.3); GLUCOSE 227 mg/dL (74-106); POTASSIUM - SERUM 4.1 mmol/L (3.5-5.1); PROTEIN - SERUM 7.7 g/dL (6.4-8.2); SODIUM 136 mmol/L (136-145); UREA NITROGEN 11 mg/dL (7-18); eGFR NON AFRICAN AMERICAN > 90 mL/min (90-120)
[2017-06-14 21:04] LABS: CREATINE KINASE 90 UL (21-232); TROPONIN-I < 0.017 ng/mL (0.000-0.060)
--- NOTE | 2017-06-15 01:00 | NUR ---
PT ARRIVED TO UNIT VIA STRETCHER ESCORTED BY ER NURSE AND FAMILY MEMBER. IV IN LEFT HAND SALINE LOCKED. ORIENTED TO ROOM AND CALL LIGHT SYSTEM. BED ALARM IN USE FOR SAFETY.
--- NOTE | 2017-06-15 01:05 | NUR ---
PT STATES HE CANNOT STAND OR WALK. REFUSED TO ATTEMPT BEDSIDE SWALLOW EVAL. BUE WITH EQUAL STRENGTH. BLE WITH EQUAL STRENGTH. PERRLA - 3 MM, WITH NO VISUAL DEFICITS EXPRESSED. LEFT SIDE FACIAL DROOPING NOTED WITH SLIGHT SLURRED SPEECH. BLOOD PRESSURE 220/96 ON ARRIVAL. CALLED ER PHYSICIAN TO REPORT AND RECEIVED ORDER FOR HYDRALAZINE 10 MG IVP Q4 PRN FOR SBP >190, DBP >110.
--- NOTE | 2017-06-15 01:08 | NUR ---
CALLED DR MICHELLE TO REPORT PT HAD ARRIVED ON UNIT AND GAVE REPORT. NO NEW ORDERS.
[2017-06-15 01:23] VITALS: BP 220/96; BMI 25.1
--- NOTE | 2017-06-15 01:43 | NUR ---
GAVE HYDRALAZINE 10 MG IVP PER ORDER FOR BLOOD PRESSURE OF 220/96. WILL MONITOR FOR EFFECTIVENESS.
--- NOTE | 2017-06-15 01:48 | NUR ---
ADMISSION ASSESSMENT AND HISTORY COMPLETE.
[2017-06-15 04:00] VITALS: BP 127/60
--- NOTE | 2017-06-15 05:15 | NUR ---
PT C/O CHEST PAIN AND LEFT ARM PAIN. RECEIVED ORDER FOR EKG AND CARDIAC ENZYMES.
--- NOTE | 2017-06-15 05:21 | NUR ---
GAVE ZOFRAN PER NEW ORDER FOR NAUSEA / VOMITING.
--- NOTE | 2017-06-15 06:05 | NUR ---
PT FEELING BETTER...SITTING UP IN BED WATCHING TV. BED ALARM IN USE FOR SAFETY.
[2017-06-15 07:22] LABS: TROPONIN-I 0.026 ng/mL (0.000-0.060)
--- NOTE | 2017-06-15 08:02 | NUR ---
AWAKE AND ALERT. ORIENTED X3. C/O PAIN TO LEFT ARM AND LEG AT THIS TIME. LUNGS ARE CLEAR BILATERALLY, NO COUGH NOTED. SKIN IS INTACT WITHOUT REDNESS. IV TO LEFT FOREARM IS PATENT WITHOUT REDNESS AT INSERTION SITE. DENIES NEEDS. NEURO CHECKS WNL. REPORTS UNABLE TO SWALLOW EVEN HIS OWN SPIT. WILL MONITOR. HOB UP 45 DEGREES. DENIES NEEDS.
--- NOTE | 2017-06-15 08:12 | NUR ---
SCD'S IN PLACE.
[2017-06-15 08:39] VITALS: BP 110/53
[2017-06-15 11:46] VITALS: BP 155/79
[2017-06-15 16:01] VITALS: BP 190/83
--- NOTE | 2017-06-15 16:04 | NUR ---
GIVEN 10MG HYDRAALZYNE SLOW IVP FOR BP 190/83. WILL MONITOR.
--- NOTE | 2017-06-15 17:05 | NUR ---
RECHECK ON BP WAS 168/74. NO NEEDS NOTED.
--- NOTE | 2017-06-15 18:52 | NUR ---
RESTING QUIETLY IN BED. NO CHANGES NOTED. DENIES NEEDS.
--- NOTE | 2017-06-15 19:00 | NUR ---
REPORT RECEIVED AND CARE OF PT ASSUMED. PT LYING IN SUPINE POSITION WATCHING TV. PT REPORTS STILL UNABLE TO SWALLOW. IV IN LEFT FA PATENT WITH NS INFUSING AT 50 ML / HR. NPO STATUS STILL IN PLACE. WILL MONITOR CLOSLEY FOR NEEDS. BED ALARM IN USE.
[2017-06-15 20:00] VITALS: BP 148/74
--- NOTE | 2017-06-15 21:15 | NUR ---
HS MEDICATIONS GIVEN. FSBS 192 THIS CHECK REQUIRING COVERAGE WITH 2 UNITS OF INSULIN PER SLIDING SCALE. WILL CONTINUE TO MONITOR FOR NEEDS. BED ALARM IN USE.
[2017-06-16] VITALS: BP 137/65
--- NOTE | 2017-06-16 01:01 | NUR ---
PT RESTING IN SUPINE POSITION WITH EYES CLOSED AND UNLABORED BREATHING. BED ALARM IN USE FOR SAFETY.
[2017-06-16 04:00] VITALS: BP 139/65
--- NOTE | 2017-06-16 07:10 | NUR ---
REPORT RECEIVED, ASSUMED CARE OF PT. RESTING, NO COMPLAINTS AT THIS TIME. L FOREARM IV INFUSING ORDERED, DRSG C/D/I. BED IN LOWEST POSITION, SIDE RAILS UP X 2, CALL LIGHT WITHIN REACH.
[2017-06-16 08:30] VITALS: BP 198/90
[2017-06-16 09:41] LABS: BASOPHILS 0.4 % (0-2); EOSINOPHILS 2.7 % (0-7); HEMATOCRIT 46.6 % (42.0-54.0); HEMOGLOBIN 15.3 g/dL (13.5-17.5); IMMATURE GRANULOCYTES 0.1 % (0-5); LYMPHOCYTES 13.6 % (15-50); MCH 30.5 pg (26.0-34.0); MCHC 32.8 g/dL (31.0-37.0); MCV 92.8 fL (80.0-100.0); MEAN PLATELET VOLUME 10.2 fL (7.4-10.4); MONOCYTES 10.4 % (2-11); NEUTROPHILS 72.8 % (40-80); PLATELET COUNT 181 10x3/uL (130-400); RBC 5.02 10x6/uL (4.20-6.10); RDW 13.8 % (11.5-14.5)
[2017-06-16 09:59] LABS: CREATININE - SERUM 0.7 mg/dL (0.6-1.3); UREA NITROGEN 10 mg/dL (7-18)
[2017-06-16 10:00] LABS: ALBUMIN 3.2 g/dL (3.4-5.0); ALKALINE PHOSPHATASE 85 U/L (46-116); BILIRUBIN - TOTAL 0.54 mg/dL (0.2-1.3); CALCIUM 8.6 mg/dL (8.5-10.1); CARBON DIOXIDE 25.9 mmol/L (21.0-32.0); CHLORIDE - SERUM 107 mmol/L (98-107); POTASSIUM - SERUM 4.3 mmol/L (3.5-5.1); PROTEIN - SERUM 6.8 g/dL (6.4-8.2); SODIUM 141 mmol/L (136-145); eGFR NON AFRICAN AMERICAN > 90 mL/min (90-120)
[2017-06-16 10:01] LABS: ALT (SGPT) 20 U/L (10-68); CALC OSMOLALITY 281 mosm/kg (275-300); GLUCOSE 134 mg/dL (74-106)
--- NOTE | 2017-06-16 11:00 | NUR ---
Rehab Note- Acute Rehab Prescreen order received. The patient has an appropriate acute rehab diagnosis. He continues to have a work up- awaiting MBS with ST, is currently NPO and will possibly need a PEG placement, also awaiting PT eval for the patient's functional mobility. Will follow at this time. Will plan for an acute inpatient rehab stay when medically stable and acute hospital work up is completed. Thank you for this referral! Kesha Levin RN Clinical Liaison, [facility] Rehab
[2017-06-16 13:09] VITALS: BP 148/75
[2017-06-16 13:48] VITALS: BMI 22.0
[2017-06-16 16:39] VITALS: BP 205/89
--- NOTE | 2017-06-16 17:27 | NUR ---
OT NOTE: PT COMPLETED BUE AROM EXS FOR INCREASED I WITH FUNCTIONAL AXS. PT COMPLETED SIMPLE ADL WITH SET UP. THANK YOU, SANDRINE KOVACS/Ciro
--- NOTE | 2017-06-16 19:00 | NUR ---
REPORT RECEIVED AND CARE OF PT ASSUMED. PT LYING IN SEMI DELRAOSA'S POSITION WITH EYES CLOSED. IV IN LEFT WRIST PATENT WITH NS INFUSING AT 75 ML / HR AND PROCALAMINE INFUSING AT 75 ML / HR. WILL MONITOR CLOSLEY FOR NEEDS. WILL MONITOR CLOSLEY FOR NEEDS.
[2017-06-16 20:00] VITALS: BP 197/90
--- NOTE | 2017-06-16 20:33 | NUR ---
HS MEDICATION GIVEN TO INCLUDE HYDRALAZINE 10 MG IVP FOR ELEVATED BP OF 197/90. FSBS 127 THIS CHECK REQUIRING NO COVERAGE PER SLIDING SCALE. WILL CONTINUE TO MONITOR FOR NEEDS.
[2017-06-17] VITALS: BP 115/60
[2017-06-17 04:00] VITALS: BP 159/77
[2017-06-17 05:44] LABS: BASOPHILS 0.9 % (0-2); EOSINOPHILS 1.6 % (0-7); HEMOGLOBIN 15.5 g/dL (13.5-17.5); IMMATURE GRANULOCYTES 0.1 % (0-5); LYMPHOCYTES 12.9 % (15-50); MCH 30.2 pg (26.0-34.0); MCV 91.6 fL (80.0-100.0); MEAN PLATELET VOLUME 10.4 fL (7.4-10.4); MONOCYTES 10.6 % (2-11); NEUTROPHILS 73.9 % (40-80); PLATELET COUNT 204 10x3/uL (130-400); RBC 5.13 10x6/uL (4.20-6.10); RDW 13.6 % (11.5-14.5); WBC 6.8 10x3/uL (4.8-10.8)
[2017-06-17 05:53] LABS: ALKALINE PHOSPHATASE 83 U/L (46-116); ALT (SGPT) 20 U/L (10-68); BILIRUBIN - TOTAL 0.49 mg/dL (0.2-1.3); CALC OSMOLALITY 277 mosm/kg (275-300); CALCIUM 8.8 mg/dL (8.5-10.1); CARBON DIOXIDE 23.8 mmol/L (21.0-32.0); CHLORIDE - SERUM 103 mmol/L (98-107); CREATININE - SERUM 0.7 mg/dL (0.6-1.3); GLUCOSE 179 mg/dL (74-106); POTASSIUM - SERUM 3.7 mmol/L (3.5-5.1); PROTEIN - SERUM 6.8 g/dL (6.4-8.2); SODIUM 137 mmol/L (136-145); UREA NITROGEN 12 mg/dL (7-18); eGFR NON AFRICAN AMERICAN > 90 mL/min (90-120)
--- NOTE | 2017-06-17 07:00 | NUR ---
PT REC'D FROM BAMBI SAMUELS. RESTING IN BED WITH DAUGHTER AT BEDSIDE. AAOX4. NO COMPLAINTS OF PAIN. REGULAR HEART RATE AND RHYTHM. LUNG SOUNDS CLEAR AND EQUAL BILAT. BOWEL SOUNDS HYPOACTIVE X4 QUADS. ABD FLAT AND SOFT/FIRM. PIV TO L FA FREE OF REDNESS AND SWELLING. SCD'S ON AT THIS TIME. +2 PEDAL PULSES BILAT. BED LOW, CALL LIGHT IN REACH, DENIES NEEDS. CPOC.
--- NOTE | 2017-06-17 08:25 | NUR ---
MORNING MEDS PASSED AT THIS TIME. TOLERATED WELL. SCD'S UNHOOKED DUE TO PT REQUESTING TO SIT UP ON SIDE OF THE BED. BED LOW, CALL LIGHT IN REACH, DAUGHTER AT BEDSIDE. CPOC.
[2017-06-17 08:52] VITALS: BP 162/74
--- NOTE | 2017-06-17 09:48 | NUR ---
Patient Name: ILIR DINERO Admission Status: ER Accout number: [id number] Admission Date: 06-15-2017 : 1935 Admission Diagnosis: Attending: TIMOTHY SANDERSON Current LOS: 2 Anticipated DC Date: 06-19-2017 Planned Disposition: Inpatient Rehab Primary Insurance: MEDICARE A & B Discharge Planning Comments: CM MET WITH PATIENT AND DAUGHTER (TUCKER BRODY) REGARDING D/C NEEDS AND PLANS. DAUGHTER STATED PATIENT WILL PROBABLY GO TO HER HOME AFTER DISCHARGED FROM HOSPITAL REHAB. PATIENT SHOULD GO TO IP REHAB WHEN STABLE. PATIENT IS INDEPENDENT WITH HIS CARE AND HAS A CANE, WALKER, AND GLUCOMETER (CKS. DAILY) AT HOME. PATIENTS PCP IS DR. RAM AND PHARMACY IS [facility] [address]. CM WILL CONTINUE TO FOLLOW PATIENT WITH D/C NEEDS AND PLANS. PCP DR. LEANNA [facility] [address]- [phone] TUCKER BRODY (DAUGHTER) [phone] Denial Management Representative: Dennise Miranda Is the patient Alert and Oriented? Yes 0 * How many steps to enter\exit or inside your home? 4 /RAILS 0 * PCP DR. RAM 0 * Pharmacy [facility] [address] 0 * Preadmission Environment Home Alone 0 * ADLs Independent 0 * Equipment Cane Glucometer Walker 0 * List name and contact numbers for known caregivers / representatives who currently or will assist patient after discharge: TUCKER BRODY (DAUGHTER) [phone] 0 * Community resources currently utilized None 0 * Additional services required to return to the preadmission environment? Yes 0 * Can the patient safely return to the preadmission environment? No 0 * Has this patient been hospitalized within the prior 30 days at any hospital? Yes 0 Grand Total: 0
--- NOTE | 2017-06-17 11:00 | NUR ---
SENT TO GI LAB VIA BED.
--- NOTE | 2017-06-17 12:15 | NUR ---
REC'D BACK FROM GI LAB VIA BED. AAOX4. NO COMPLAINTS OF PAIN. VSS. DRESSING AROUND PEG TUBE TO RLQ CHANGED DUE TO SATURATION FROM BLOOD. BED LOW, CALL LIGHT IN REACH, DENIES NEEDS. CPOC.
--- NOTE | 2017-06-17 14:00 | NUR ---
ALERTED BY SHARIFA MONTANA, THAT PT WAS SHIVERING, BUT NOT COLD. UPON ENTRANCE OF PT ROOM PT IS SHAKING. CURRENT BP 192/109 ON RLE. PRN HYDRALIZINE ADMINISTERED. DRESSING AROUND PEG TUBE SATURATED AGAIN WITH BLOOD. CHANGED AND ICE APPLIED. STAT ORDERS ENTERED.
--- NOTE | 2017-06-17 14:11 | NUR ---
OT NOTE: PT SOON GOING FOR PEG PLACEMENT. ABLE TO PERFORM BED MOB WITH SBA; SUPINE TO SIT WITH MIN ASSIST. WILL CHECK ON PT IN PM ALSO
[2017-06-17 15:10] LABS: HEMATOCRIT 51.4 % (42.0-54.0); HEMOGLOBIN 16.8 g/dL (13.5-17.5)
--- NOTE | 2017-06-17 15:36 | NUR ---
PT STILL SHAKING. DRESSING CHANGED AGAIN BY BAMBI RAMÍREZ DUE TO SATURATION OF BLOOD. CURRENT BP 158/103 ON RLE, PULSE 110, O2 APPLIED AT 2L READING 95% NOW. ANA SOARES, NOTIFIED. DR. DUQUE PAGED WELL.
[2017-06-17 15:39] LABS: ALBUMIN 3.6 g/dL (3.4-5.0); ALKALINE PHOSPHATASE 99 U/L (46-116); ALT (SGPT) 22 U/L (10-68); BILIRUBIN - TOTAL 0.45 mg/dL (0.2-1.3); CALC OSMOLALITY 288 mosm/kg (275-300); CALCIUM 9.3 mg/dL (8.5-10.1); CARBON DIOXIDE 25.3 mmol/L (21.0-32.0); CHLORIDE - SERUM 105 mmol/L (98-107); GLUCOSE 173 mg/dL (74-106); POTASSIUM - SERUM 3.8 mmol/L (3.5-5.1); PROTEIN - SERUM 7.4 g/dL (6.4-8.2); SODIUM 143 mmol/L (136-145); UREA NITROGEN 13 mg/dL (7-18); eGFR NON AFRICAN AMERICAN 76 mL/min (90-120)
--- NOTE | 2017-06-17 15:57 | NUR ---
LABS REC'D AND STABLE AT THIS TIME. CURRENT BP 171/88. PT NO LONGER SHIVERING. BLOOD ON DRESSING STARTING TO CLOT. BED LOW, CALL LIGHT IN REACH, DENIES NEEDS. CPOC.
--- NOTE | 2017-06-17 16:15 | NUR ---
PATIENT ALERT IN BED WITH FAMILY AND PRIMARY NURSE AT BEDSIDE. NO SIGNS OF DISTRESS NOTED. DENIES NEEDS. SIDE RAILS UP X2. BED IN LOW POSITION. CALL LIGHT IN REACH.
[2017-06-17 16:23] VITALS: BP 156/73
[2017-06-17 17:04] LABS: INR 1.29 (0.85-1.17)
[2017-06-17 17:05] LABS: APTT 81.8 SECONDS (22.8-39.4)
--- NOTE | 2017-06-17 17:29 | NUR ---
OT NOTE: PT COMPLETED BUE AROM AXS FOR INCREASED AX TOLERANCE. THANK YOU, SANDRINE KOVACS/Ciro
--- NOTE | 2017-06-17 19:20 | NUR ---
REPORT RECEIVED. SHIFT ASSESSMENT COMPLETED PER FLOW SHEET. PT LAYING IN BED, AWAKE AND ALERT. S1S2 PRESENT. RADIAL AND PEDAL PULSES PALPABLE. TELEMETRY MONITORING RATE OF 84. BS HYPOACTIVE X4, PASSING FLATUS. PEG TUBE IN PLACE, BLOOD NOTED TO DRESSING, CLOT FORMED OVER INCISION, PRESSURE DRESSING APPLIED. SCD'S ON. LT WRIST PIV INFUSING NS AT 75 MLS/HR AND PROCALAMINE AT 75 MLS/HR. SEE FLOW SHEET FOR COMPLETE ASSESSMENT. DENIES NEEDS AT THIS TIME. CALL LIGHT WITHIN REACH. BED IN LOWEST POSITION. WILL CONTINUE TO MONITOR.
--- NOTE | 2017-06-17 20:27 | NUR ---
PT LAYING IN BED, AWAKE AND ALERT, DAUGHTER AT BEDSIDE. MEDS ADMINISTERED PER EMAR, SEE FOR DETAILS. DENIES NEEDS. DRESSING CDI. CALL LIGHT WITHIN REACH. BED IN LOWEST POSITION. WILL CONTINUE TO MONITOR.
--- NOTE | 2017-06-17 21:51 | NUR ---
PT COMPLAINING OF PAIN AT INCISION SITE, PRN MORPHINE ADMINISTERED, SEE EMAR FOR DETAILS. DRESSING CDI. DENIES FURTHER NEEDS. CALL LIGHT WITHIN REACH. BED IN LOWEST POSITION. WILL CONTINUE TO MONITOR.
--- NOTE | 2017-06-17 23:30 | NUR ---
PT LAYING IN BED, DAUGHTER AT BEDSIDE. DENIES NEEDS. CALL LIGHT WITHIN REACH. BED IN LOWEST POSITION. WILL CONTINUE TO MONITOR.
--- NOTE | 2017-06-18 01:00 | NUR ---
CLOTT NOTED UNDER PEG TUBE DRESSING, NO ACTIVE BLEEDING. PT DENIES NEEDS. DAUGHTER AT BEDSIDE. WILL CONTINUE TO MONITOR. CALL LIGHT WITHIN REACH. BED IN LOWEST POSITION.
[2017-06-18 04:00] VITALS: BP 147/71
--- NOTE | 2017-06-18 04:00 | NUR ---
PT LAYING IN BED,TRICKLING OF BLOOD NOTED RUNNING DOWN PEG TUBE SITE. DRESSING CHANGED. PRESSURE TAPE APPLIED. PT AWAKE AND ALERT, DENIES NAUSEA OR FEELING LIGHT HEADED. DENIES PAIN. STATES "I FEEL GOOD, RIGHT NOW." CALL LIGHT WITHIN REACH. BED IN LOWEST POSITION. WILL CONTINUE TO MONITOR.
--- NOTE | 2017-06-18 04:30 | NUR ---
PATIENT LAYING IN BED AWAKE AND ALERT. DAUGHTER AT BEDSIDE. DRESSING CDI. SCANT AMOUNT OF DRIED BLOOD NOTED TO LT ABDOMEN BUT NO TRICKLING OF BLOOD NOTED. WILL CONTINUE TO MONITOR.
--- NOTE | 2017-06-18 06:00 | NUR ---
PT LAYING IN BED AWAKE AND ALERT, DAUGHTER AT BEDSIDE. NO BLEEDING SEEPING THROUGH DRESSING. DENIES NEEDS. CALL LIGHT WITHIN REACH. BED IN LOWEST POSITION.
[2017-06-18 06:31] LABS: BASOPHILS 0.1 % (0-2); EOSINOPHILS 0.8 % (0-7); HEMATOCRIT 41.4 % (42.0-54.0); HEMOGLOBIN 13.7 g/dL (13.5-17.5); IMMATURE GRANULOCYTES 0.1 % (0-5); LYMPHOCYTES 10.8 % (15-50); MCH 30.4 pg (26.0-34.0); MCHC 33.1 g/dL (31.0-37.0); MEAN PLATELET VOLUME 10.3 fL (7.4-10.4); MONOCYTES 11.7 % (2-11); NEUTROPHILS 76.5 % (40-80); WBC 7.2 10x3/uL (4.8-10.8)
[2017-06-18 06:45] LABS: PLATELET COUNT 170 10x3/uL (130-400)
[2017-06-18 06:54] LABS: ALKALINE PHOSPHATASE 67 U/L (46-116); BILIRUBIN - TOTAL 0.48 mg/dL (0.2-1.3); CALCIUM 8.2 mg/dL (8.5-10.1); CARBON DIOXIDE 24.8 mmol/L (21.0-32.0); CHLORIDE - SERUM 105 mmol/L (98-107); CREATININE - SERUM 0.8 mg/dL (0.6-1.3); GLUCOSE 198 mg/dL (74-106); PROTEIN - SERUM 6.2 g/dL (6.4-8.2); SODIUM 138 mmol/L (136-145); eGFR NON AFRICAN AMERICAN > 90 mL/min (90-120)
[2017-06-18 06:58] LABS: ALBUMIN 2.5 g/dL (3.4-5.0); ALT (SGPT) 15 U/L (10-68); CALC OSMOLALITY 283 mosm/kg (275-300); UREA NITROGEN 17 mg/dL (7-18)
--- NOTE | 2017-06-18 07:45 | NUR ---
ASSESSMENT COMPLETE. IV TO L FA PATENT. NS INFUSING AT 75 CC/HR AND PROCALAMINE INFUSING AT 75 CC/HR VIA PUMP. NPO. PAN HELPER SHOWING SR 78 WITH OCCASIONAL PVC'S. DRESSING INTACT TO PEG TUBE WITH BLOODY DRAINAGE NOTED. DRESSING CHANGED. LARGE BLOOD CLOT NOTED AROUND PEG TUBE INSERTION SITE. AREA CLEANED AND REDRESSED WITH DRAIN SPONGES, 4X4'S, AND MEDIPORE TAPE. WHITE AREAS NOTED TO TONGUE. NYSTATIN IN USE.
[2017-06-18 09:18] VITALS: BP 144/70
--- NOTE | 2017-06-18 10:52 | NUR ---
DRESSING TO PEG TUBE SATURATED WITH BLOODY DRAINAGE AGAIN. AREA CLEANED AND REDRESSED WITH DRAIN SPONGES,4X4'S AND MEDIPORE TAPE. DENIES ANY OTHER NEEDS AT THIS TIME.
--- NOTE | 2017-06-18 12:00 | NUR ---
DRESSING TO PEG SITE REMAINS C/D/I. FAMILY AT BEDSIDE.
[2017-06-18 12:32] VITALS: BP 162/69
[2017-06-18 13:08] LABS: APPEARANCE SLT CLOUDY (CLEAR); BILIRUBIN NEGATIVE (NEGATIVE); COLOR DK YELLOW (YELLOW); GLUCOSE NEGATIVE (NEGATIVE); KETONE SMALL mg/dL (NEGATIVE); NITRITE NEGATIVE (NEGATIVE); PROTEIN NEGATIVE (NEGATIVE); UROBILINOGEN NORMAL (NORMAL)
--- NOTE | 2017-06-18 13:15 | NUR ---
OT NOTE: PT REPORTED NOT FEELING WELL TODAY. REPORTED THAT HIS PEG WAS STILL BLEEDING. PERFORMED BED MOB , BUT DID NOT FEEL LIKE SITTING UP IN CHAIR. BUE AROM IS GOOD. PT STATED THAT HE WOULD PARTICIPATE LATER IN DAY
--- NOTE | 2017-06-18 14:15 | NUR ---
OFF FLOOR TO MANAGER UTILIZATION MANAGEMENT FOR RAYMUNDO.
--- NOTE | 2017-06-18 14:37 | NUR ---
NUTRITION F/U S/P PEG PLACEMENT. NO TUBE FEEDS STARTED SECONDARY BLEEDING FROM PEG SITE. CONTINUES PROCALAMINE @ 75 CC/HR. TUBE FEED RECOMMENDATIONS AVAILABLE IN INITIAL PT NUTRITION ASSESSMENT. RD FOLLOWING
--- NOTE | 2017-06-18 16:10 | NUR ---
RETURNED TO ROOM FROM DIE MAKER TRIM. VSS. DRESSING TO PEG TUBE REMAINS C/D/I. FAMILY AT BEDSIDE. DENIES ANY NEEDS AT THIS TIME.
--- NOTE | 2017-06-18 17:30 | NUR ---
RESTING QUIETLY IN BED. DENIES ANY NEEDS AT THIS TIME.
--- NOTE | 2017-06-18 18:20 | NUR ---
CALLED TO ROOM BY PATIENT'S DAUGHTER. PATIENT SHIVERING. STATES THAT THIS HAS OCCURRED SEVERAL TIMES BEFORE. MORPHINE GIVEN SLOW IVP FOR COMPLAINT OF ABDOMINAL PAIN WITH COUGHING.
[2017-06-18 20:00] VITALS: BP 152/68
[2017-06-19] VITALS: BP 120/54; BP 129/64
--- NOTE | 2017-06-19 00:38 | NUR ---
PATIENT IS AWAKE, ALERT AND ORIENTED X'S 4. RESPIRATIONS ARE EVEN AND UNLABORED ON ROOM AIR. PATIENT HAS AN EMESIS BAG THAT HE IS SPITTING IN. HE STATED HE IS UNABLE TO SWALLOW HIS SPIT SO HE IS SPITTING IT INTO THE EMESIS BAG. ASSESSED PEG SITE, NO SIGNS OF BLEEDING. EDUCATED PATIENT ON SCDS, PATIENT AGREED TO LET ME PUT THEM BACK ON. APPLIED SCDS TO BILATERAL LEGS. PATIENT STATED HE CAN MOVE HIMSELF AROUND IN THE BED INDEPENDENTLY, HE STATED "IF SOMEONE IS IN THE ROOM WITH ME I CAN EVEN GET UP." AGREED WITH PATIENT NOT TO GET UP WITHOUT STAFF IN THE ROOM TO ASSIST. EDUCATED PATIENT ON FALL PRECAUTIONS, BED ALARM ON. EDUCATED PATIENT ON BED ALARM. BED IN LOWEST POSITION, CALL LIGHT IN REACH. BED RAILS UP X'S 2. HOB 30 DEGREES.
[2017-06-19 04:00] VITALS: BP 129/64
[2017-06-19 05:19] LABS: BASOPHILS 0.4 % (0-2); EOSINOPHILS 2.8 % (0-7); HEMATOCRIT 37.4 % (42.0-54.0); HEMOGLOBIN 12.1 g/dL (13.5-17.5); LYMPHOCYTES 12.2 % (15-50); MCHC 32.4 g/dL (31.0-37.0); MCV 92.8 fL (80.0-100.0); MEAN PLATELET VOLUME 10.3 fL (7.4-10.4); MONOCYTES 11.9 % (2-11); NEUTROPHILS 72.7 % (40-80); PLATELET COUNT 158 10x3/uL (130-400); RBC 4.03 10x6/uL (4.20-6.10); RDW 13.7 % (11.5-14.5); WBC 5.4 10x3/uL (4.8-10.8)
[2017-06-19 05:38] LABS: ALBUMIN 2.4 g/dL (3.4-5.0); ALKALINE PHOSPHATASE 54 U/L (46-116); ALT (SGPT) 14 U/L (10-68); CALC OSMOLALITY 285 mosm/kg (275-300); CALCIUM 8.4 mg/dL (8.5-10.1); CARBON DIOXIDE 26.9 mmol/L (21.0-32.0); CHLORIDE - SERUM 107 mmol/L (98-107); CREATININE - SERUM 0.8 mg/dL (0.6-1.3); GLUCOSE 180 mg/dL (74-106); POTASSIUM - SERUM 4.1 mmol/L (3.5-5.1); PROTEIN - SERUM 5.6 g/dL (6.4-8.2); SODIUM 140 mmol/L (136-145); UREA NITROGEN 17 mg/dL (7-18); eGFR NON AFRICAN AMERICAN > 90 mL/min (90-120)
--- NOTE | 2017-06-19 07:25 | NUR ---
RESTING QUIETLY IN BED. DENIES ANY NEEDS AT THIS TIME.
--- NOTE | 2017-06-19 08:10 | NUR ---
ASSESSMENT COMPLETE. IV TO L WRIST PATENT. NS INFUSING AT 30 CC/HR AND PROCALAMINE INFUSING AT 75 CC/HR VIA PUMP. POOL TECHNICIAN SHOWING SR WITH PVC'S 82 PER TECH. O2 2L NC IN USE. SCD'S IN USE TO BILAT LEGS. PEG TUBE CLAMPED. FAMILY AT BEDSIDE.
[2017-06-19 08:30] VITALS: BP 107/63
--- NOTE | 2017-06-19 10:17 | NUR ---
NUTRITION F/U PEG TUBE FEEDS STARTED. JEVITY 1.2 WITH GOAL RATE 65 CC/HR. WILL MONITOR TOLERANCE TO TUBE FEEDS. RD FOLLOWING
--- NOTE | 2017-06-19 10:47 | NUR ---
JEVITY 1.2 SOURAV STARTED AT 15 CC/HR VIA FEEDING PUMP THROUGH PEG TUBE. INSTRUCTED PATIENT NOT TO LAY HEAD ANY LOWER THAN 30 DEGREES OR ALLOW STAFF TO LOWER HEAD WITHOUT PLACING TUBE FEEDING ON HOLD. PATIENT AND DAUGHTER VOICED UNDERSTANDING. DRESSING TO PEG TUBE C/D/I.
[2017-06-19] MEDS ORDERED: Levaquin PREMIX IV (11:28)
[2017-06-19] MEDS ORDERED: LOVENOX60 MG/0.6 SC (11:29)
[2017-06-19] MEDS ORDERED: IPRAT-ALBUT 0.5-3 ML UPD (11:29)
[2017-06-19] MEDS ORDERED: HYDRALAZINE20 MG/ML IV (11:29)
[2017-06-19] MEDS ORDERED: NYSTATIN ORAL SU5 ML PO (11:29)
[2017-06-19] MEDS ORDERED: FLORAJEN3 CAPS460 MG PO (11:30)
[2017-06-19] MEDS ORDERED: HUMALOG 30100 UNITS/ SC (11:30)
[2017-06-19 12:01] VITALS: BP 112/47
--- NOTE | 2017-06-19 12:40 | TEE ---
PATIENT:ILIR DINERO MEDICAL RECORD: [id number] LOCATION:D.[facility] AGE OF PATIENT: 81 ADMISSION DATE: 06/15/17 SEX: M REFERRING PHYSICIAN: INTERPRETING PHYSICIAN: DIEGO GUPTA MD TRANSESOPHAGEAL ECHOCARDIOGRAM RAYMUNDO CHARGE Y INDICATIONS: TIA'S/CVA'S PREMEDICATIONS: PATIENT'S RESPONSE PROCEDURE DOPPLER MEASUREMENTS: LVIT LA PA RA LVOT RVOT Asc. Ao AV Gradient Peak AV Mean AV Area MV Gradient Peak MV Mean MV Area INTERPRETATION: Doppler: 2-D: COLOR FLOW DOPPLER NORMAL SALINE STUDY: MISCELLANOUS: DIAGNOSIS: PLAN: Steel Sampler:3 Dr. Kelly Milk Route Supervisor: 1 OLGA ARSHAD COMMENTS: DATE OF SERVICE: 06/18/2017 Transesophageal Note DESCRIPTION OF PROCEDURE: After general sedation via TIVA via anesthesia, transesophageal Omniplane probe was placed into the distal esophagus and proximal stomach without difficulty. FINDINGS: LVH and LV internal dimensions were normal. Wall motion is normal. TRANSESOPHAGEAL ECHOCARDIOGRAM REPORT [id number] ILIR DINERO EF greater than or equal to 55%. Next, the aortic valve is well visualized, this is tricuspid with good excursion, trivial AI. Left atrium has normal dimensions. Left atrial appendage is well visualized with excellent contractility via Doppler interrogation. The mitral valve is well visualized with good valve excursion and trivial mitral regurgitation. Right-sided chambers again these appear normal with only trivial TR by color flow imaging. Both interatrial and interventricular septa are well visualized without evidence of shunt by color flow imaging. At the end of the procedure, the probe was turned posteriorly and this showed minimal atherosclerotic debris in the descending aorta. IMPRESSION: No cardiac source of an embolic event visualized. TRANSINT:[id number] Voice Confirmation ID: [id number] DOCUMENT ID: [id number] at 1240 CC: [id number] DICTATION DATE: 06/18/17 1553 MECHANICAL PROCESS ENGINEER: 06/19/17 0157 ADM IN [facility] [address] [id number]
--- NOTE | 2017-06-19 14:03 | NUR ---
CM REASSESSMENT NOTE; PATIENT WILL D/C TO IP REHAB TODAY PER ASHANTI.
--- NOTE | 2017-06-19 15:58 | NUR ---
PT RESTING IN BED, FAMILY AT BEDSIDE. NO COMPLAINTS AT THIS TIME. BED IN LOWEST POSITION, SIDE RAILS UP X 2, CALL LIGHT WITHIN REACH.
[2017-06-19 16:13] VITALS: BP 119/56
--- NOTE | 2017-06-19 16:32 | NUR ---
OT NOTE: PT COMPLETED BUE AROM EXS FOR INCREASED FUNCTIONAL I WITH FOCUS ON LUE . PT COMPLETED BED MOB WITH MIN A. THANK YOU, SANDRINE KOVACS/Ciro
--- NOTE | 2017-06-19 17:38 | NUR ---
DISCHARGE INSTRUCTIONS GIVEN TO PT AND DAUGHTER, VERBALIZED UNDERSTANDING AND SIGNED. L WRIST IV SALINE LOCKED, TUBE FEEDINGS INFUSING. TELEMETRY REMOVED AND RETURNED. ALL QUESTIONS ANSWERED.
--- NOTE | 2017-06-19 17:49 | NUR ---
PT DISCHARGED TO REHAB VIA BED WITH HOSPITAL STAFF.
--- NOTE | 2017-06-20 12:36 | OP ---
PATIENT NAME: ILIR DINERO MEDICAL RECORD: [id number] :34 LOCATION:D[id number] ADMISSION DATE:06/15/17 SURGEON: MUNA DUQUE MD DATE OF OPERATION: 06/17/2017 PREOPERATIVE DIAGNOSES: 1. Dysphagia. 2. Cerebrovascular accident. 3. Coronary artery disease. 4. Hypertension. 5. Diabetes mellitus. POSTOPERATIVE DIAGNOSES: 1. Dysphagia. 2. Cerebrovascular accident. 3. Coronary artery disease. 4. Hypertension. 5. Diabetes mellitus. PROCEDURE: PEG tube placement. SURGEON: Muna Duque MD REPORT OF PROCEDURE: An Olympus endoscope was advanced through the mouth and esophagus and into the stomach. The stomach was insufflated and we found an area on the antrum of the stomach to house our PEG tube. The skin was prepped around this area and a total of 5mL of 1% lidocaine was infused into the surrounding tissues and Angiocath needle was inserted through the abdominal wall and a wire was passed through this. The wire was grasped with an Endograsper device and then pulled out through the mouth and esophagus. We then affixed the PEG tube to the wire and pulled this through the mouth and esophagus and out through the abdominal wall until it rested in good position at 5 cm at the skin. We reinserted the endoscope and saw that the PEG tube was in good position in the antrum of the stomach and there was no sign of any internal bleeding. The insufflation and the scope were then removed. COMPLICATIONS: None. CONDITION: Stable. ANESTHESIA: TIVA and local. BLOOD LOSS: Minimal. TRANSINT:[id number] Voice Confirmation ID: [id number] DOCUMENT ID: [id number] MUNA DUQUE MD at 1236 CC: [id number] DICTATION DATE: 06/17/17 1139 RANGE TECHNICIAN: 06/17/17 1151 DIS IN 06/19/[address] [place] [address]
== END 2017-06-19 17:49 | DRG 65 ==
LOC: D.ER 18:46 → D.MS 06-15 00:27
PROVIDERS: Family Medicine; Surgery; ADMIT Family Medicine
PROC: 0DH63UZ Insertion of Feeding Device into Stomach, Percutaneous Approach (ICD-10-PCS; principal; 2017-06-17 10:30)
DX: I63.212 Cerebral infarction due to unspecified occlusion or stenosis of left vertebral artery (principal); G81.94 Hemiplegia, unspecified affecting left nondominant side; I25.10 Atherosclerotic heart disease of native coronary artery without angina pectoris; E11.65 Type 2 diabetes mellitus with hyperglycemia; E78.5 Hyperlipidemia, unspecified; R29.810 Facial weakness; R47.1 Dysarthria and anarthria; I10 Essential (primary) hypertension; R47.02 Dysphasia; E11.40 Type 2 diabetes mellitus with diabetic neuropathy, unspecified

== ENCOUNTER 2017-06-19 17:05 | Inpatient (IN) | payer MEDICARE, BC ==
[~2017-06-19 17:05] MED LIST changes: +FLORAJEN3 CAPS460 MG PO; +HUMALOG 30100 UNITS/ SC; +HYDRALAZINE20 MG/ML IV; +IPRAT-ALBUT 0.5-3 ML UPD; +LOVENOX60 MG/0.6 SC; +Levaquin PREMIX IV; +NYSTATIN ORAL SU5 ML PO
--- NOTE | 2017-06-19 20:00 | NUR ---
PATIENT IN BED, AWAKE. EMPTIED 300ML FROM HIS BEDSIDE URINAL. DENIES NEEDS.
--- NOTE | 2017-06-19 21:32 | NUR ---
PT RESTING IN BED WITH EYES OPEN. ALERT AND ORIENTED X 3. VOICED COMPLAINT OF ABD PAIN LEVEL OF 7 WHICH WAS CAUSING HIM TO HAVE "SHAKES". VSS. O2 IS ON @ 2LPM PER NC. SALINE LOCK NOTED TO LEFT WRIST. JEVITY INFUSING TO PEG TUBE WITHOUT DIFFICULTY. TUBE FLUSHES EASILY WITH H2O. HOB UP 25 DEGREES.SR'S ARE UP X 3 IN BED. CALL LIGHT AND BEDSIDE TABLE ARE WITHIN EASY REACH. BED ALARM IS ON.
--- NOTE | 2017-06-19 21:36 | NUR ---
PT RESTING IN BED WATCHING TV. USING URINAL PRN. NO NEEDS VOICED.
[2017-06-19 22:45] VITALS: BMI 24.4
--- NOTE | 2017-06-20 00:01 | NUR ---
RESTING IN BED WITH EYES CLOSED.
--- NOTE | 2017-06-20 02:10 | NUR ---
GAVE PATIENT 2MG MORPHINE SLOW IVP (DILUTED IN 10ML NS) IN LEFT WRIST S/L FOR PAIN LEVEL OF 8/10 IN HIS PEG SITE.
--- NOTE | 2017-06-20 02:49 | NUR ---
PT IS RESTING IN BED WITH EYES CLOSED.
--- NOTE | 2017-06-20 06:28 | NUR ---
DRESSING TO PEG TUBE SITE CHANGED. SMALL AMOUNT OF DRIED BLOOD NOTED AROUND THE INSERTION SITE. CLEANSED WITH WOUND COMMUNITY MANAGER AND NEW DRESSING APPLIED. PT STATES HE DIDNT SLEEP WELL LAST NIGHT, BUT THOUGHT THAT HE WAS FEELING BETTER THIS AM. NO NEEDS VOICED.
[2017-06-20 07:12] LABS: BASOPHILS 0.3 % (0-2); EOSINOPHILS 4.2 % (0-7); HEMATOCRIT 40.3 % (42.0-54.0); IMMATURE GRANULOCYTES 0.2 % (0-5); LYMPHOCYTES 11.9 % (15-50); MCHC 32.3 g/dL (31.0-37.0); MCV 92.9 fL (80.0-100.0); MEAN PLATELET VOLUME 10.9 fL (7.4-10.4); MONOCYTES 10.7 % (2-11); NEUTROPHILS 72.7 % (40-80); PLATELET COUNT 178 10x3/uL (130-400); RBC 4.34 10x6/uL (4.20-6.10); RDW 13.8 % (11.5-14.5); WBC 5.7 10x3/uL (4.8-10.8)
[2017-06-20 07:22] LABS: CALC OSMOLALITY 282 mosm/kg (275-300); CALCIUM 8.8 mg/dL (8.5-10.1); CARBON DIOXIDE 26.4 mmol/L (21.0-32.0); CHLORIDE - SERUM 103 mmol/L (98-107); CREATININE - SERUM 0.7 mg/dL (0.6-1.3); POTASSIUM - SERUM 3.8 mmol/L (3.5-5.1); SODIUM 138 mmol/L (136-145); UREA NITROGEN 13 mg/dL (7-18); eGFR NON AFRICAN AMERICAN > 90 mL/min (90-120)
[2017-06-20 07:23] LABS: GLUCOSE 229 mg/dL (74-106)
--- NOTE | 2017-06-20 07:35 | NUR ---
SITTING UP IN BED.CL IN REACH.WAIFE AT BEDSIDE.
--- NOTE | 2017-06-20 08:22 | NUR ---
PT RESTING IN BED WITH EYE OPEN CALL LIGHT IN REACH WILL MONITER
[2017-06-20 09:36] VITALS: BP 146/65
[2017-06-20 14:19] VITALS: BMI 24.3
--- NOTE | 2017-06-20 18:18 | NUR ---
PT RESTING IN BED WITH EYES OPEN CALL LIGHT IN REACH WILL MONITER
--- NOTE | 2017-06-20 19:30 | NUR ---
PT IS RESTING IN BED WATCHING TV. ALERT AND ORIENTED X 3. PT STATES: "I DIDNT REALLY HAVE A GOOD DAY", BUT CANNOT STATE ANY SPECIFIC REASON FOR IT. PEG TUBE IS INFUSING GLUCERNA @ 35 CC/HR WITHOUT DIFFICULTY. PT DENIES NAUSEA. 02 IS ON @ 2LPM PER NC. NO SOB NOTED. YANKAUR SUCTION AT BEDSIDE FOR PRN USE. LEFT WRIST SALINE LOCK NOTED. SR'S ARE UP X 3 IN BED. CALL LIGHT AND BEDSIDE TABLE ARE WITHIN EASY REACH.
[2017-06-20 20:00] VITALS: BP 141/76
--- NOTE | 2017-06-20 20:00 | NUR ---
IN BED, AWAKE. DENIES NEEDS.
--- NOTE | 2017-06-20 21:51 | NUR ---
PT RESTING IN BED WITH EYES OPEN. NO NEEDS VOICED. PEG TUBING CHANGED. DRESSING NOT CHANGED, IT WAS ALREADY CHANGED TWICE TODAY. NO NEEDS VOICED.
--- NOTE | 2017-06-21 00:17 | NUR ---
RESTING IN BED WITH EYES CLOSED.
--- NOTE | 2017-06-21 02:25 | NUR ---
ADMISSION ASSESSMENT COMPLETE. DENIES CURRENT NEEDS.
--- NOTE | 2017-06-21 06:25 | NUR ---
PT IS RESTING IN BED WITH EYES CLOSED. NO DISTRESS NOTED.
--- NOTE | 2017-06-21 07:30 | NUR ---
SITTING UP IN BED RESTING QUIETLY. DENIES ANY PAIN OR NEEDS. ALERT AND ORIENTED X4. NO S/SX OF ACUTE DISTRESS. CALL LIGHT WITHIN REACH, BED IN LOWEST POSITION AND ALARM ON. WILL CONTINUE TO MONITOR
[2017-06-21 08:00] VITALS: BP 134/67
--- NOTE | 2017-06-21 08:18 | NUR ---
PT EATING BREAKFAST, DENIES NEEDS. WCTM.
--- NOTE | 2017-06-21 10:24 | NUR ---
SITTING UP IN BED RESTING QUIELTY. FEEDING PUMP RUNNING 45CC/HR NO S/SX OF ACUTE DISTRESS. FAMILY AT BEDSIDE. CALL LIGHT WITHIN REACH, BED LOWEST POSITION AND ALARM ON. WILL CONTINUE TO MONITOR
--- NOTE | 2017-06-21 11:45 | NUR ---
CHECKED RESIDUAL AND NOTICED MEDS STILL FLOATING IN THE RESIDUAL SPOKE TO CRYSTAL ANIMAL CONTROL SPECIALIST AND ADVISED HER THAT HE IS NOT DIGESTING FAST HE SHOULD BE PULLED 225CC RESIDUAL. SHE ADVISED TO HOLD FEEDING FOR AN HOUR AND RECHECK RESIDUAL WELL NOT TO INCREASE FEED AT 1400 PLANNED.
--- NOTE | 2017-06-21 12:01 | NUR ---
Nutrition Follow Up: Pt denied any nausea and stated that he felt better today. Spoke with nursing who reported that pt had significant residuals this am; said that his meds were present in residuals. Nursing and RD agreed that TF may need to advance even slower to encourage tolerance. Will put order in to advance TF 10 ml every 24 hours as tolerated to goal of 80 ml/hr. Water flushes 15 ml/hr. RD following.
--- NOTE | 2017-06-21 13:00 | NUR ---
RECHECKED RESIDUAL AND PULLED 175CC, WILL HOLD FEEDING FOR ANOTHER HOUR AND RECHECK RESIDUAL.
--- NOTE | 2017-06-21 14:10 | NUR ---
RECHECKED RESIDUAL PULLED 30ML, RESTARTED FEEDING 45ML/HR WITH 25ML/HR FLUSH. WILL MONITOR FOR ANY NAUSEA OR DISCOMFORT.
--- NOTE | 2017-06-21 16:24 | NUR ---
IN THERAPY GYM WITH GO/PT. NO S/SX OF DISTRESS.
--- NOTE | 2017-06-21 18:31 | NUR ---
LYING IN BED RESTING QUIETLY. FEEDING RUNNING AT 45ML/HR TOLERATING WELL AT THIS TIME. DENIES ANY NEEDS. CALL LIGHT WITHIN REACH, BED IN LOWEST POSITION AND ALARM ON. WILL CONTINUE TO MONITOR
--- NOTE | 2017-06-21 19:44 | NUR ---
PT IS RESTING IN BED WATCHING TV. NO NEEDS VOICED.
[2017-06-21 20:30] VITALS: BP 139/77
--- NOTE | 2017-06-21 22:05 | NUR ---
RESTING QUIETLY IN BED WITH EYES CLOSED.
--- NOTE | 2017-06-22 01:11 | NUR ---
RESTING IN BED WITH EYES CLOSED.
--- NOTE | 2017-06-22 03:19 | NUR ---
RESTING IN BED WITH EYES CLOSED. NO S/S OF DISTRESS OBSERVED. LEFT WRIST SALINE LOCK PATENT WITH DRESSING INTACT. PEG TUBE CHECKED FOR PATENCY WITH 0 ASPIRATED. GLUCERNA RUNNING CONTINOUS AT 45CC/HR WITH AUTO FLUSH. REMAINS NPO. HOB ELEVATED TO 30 DEGREES. CALL LIGHT AND OVERBED TABLE IN REACH.
--- NOTE | 2017-06-22 06:28 | NUR ---
PT ASSISTED UP TO THE BATHROOM. LARGE FORMED BM NOTED. PT OPTED TO SIT UP IN AND READ THE NEWSPAPER AFTERWARD.
--- NOTE | 2017-06-22 07:30 | NUR ---
SITTING UP IN W/C, ALERT AND ORIENTED X4. DENIES ANY NEEDS OR PAIN. NO S/SX OF ACUTE DISTRESS. CALL LIGHT WITHIN REACH AND W/C ALARM ON AND BRAKES LOCKED. WILL CONTINUE TO MONITOR
--- NOTE | 2017-06-22 11:40 | NUR ---
IN SHOWER ASSISTED BY OMERO SKAGGS. NO S/SX OF DISTRESS. WILL CONTINUE TO MONITO
[2017-06-22 12:07] VITALS: BP 138/67
--- NOTE | 2017-06-22 12:29 | NUR ---
PT RESTING IN ROOM, DENIES NEEDS. WCTM.
--- NOTE | 2017-06-22 15:36 | NUR ---
SITTING UP IN RECLINER. NO S/SX OF ACUTE DISTRESS. FEEDING AT 55ML/HR WITH 25ML/HR FLUSH TOLERATING WELL SO FAR. RESIDUAL 50ML. DENIES ANY NEEDS OR PAIN. CALL LIGHT WITHIN REACH. WILL CONTINUE TO MONITOR
--- NOTE | 2017-06-22 19:24 | NUR ---
PT IS SITTING IN A WC IN HIS ROOM. ALERT AND ORIENTED X 3. DENIES NEEDS AT THIS TIME. PT STATES HE WANTS TO SLEEP IN THE RECLINER TONIGHT. PEG TUBE INFUSING WITHOUT DIFFICULTY. LEFT WRIST SALINE LOCK NOTED. CALL LIGHT AND BEDSIDE TABLE ARE WITHIN EASY REACH.
[2017-06-22 19:56] VITALS: BP 109/63
--- NOTE | 2017-06-22 21:30 | NUR ---
PT RESTING IN A RECLINER IN HIS ROOM. PEG TUBE RESIDUAL NOTED TO BE 40 CC. FEEDING ON HOLD FOR 1 HR. NO NEEDS VOICED.
--- NOTE | 2017-06-22 23:30 | NUR ---
PT RESTING IN RECLINER WITH EYES OPEN. NO COMPLAINT VOICED. PEG TUBE INFUSING WITHOUT DIFFICULTY.
--- NOTE | 2017-06-23 02:04 | NUR ---
ASPIRATED 110CC. WILL PLACE FEEDING ON HOLH AND HOLD INCREASE OF FEEDING. WILL NOTIFY
--- NOTE | 2017-06-23 04:06 | NUR ---
RECHED RESIDUE APPRX. 3 AM. 30CC OF RESIDUE OBTAINED. RECONNECTED FEEDING AND INCREASED 5CC TO 60CC/HR. 3WILL REASSESS AND REPORT TO ONCOMMING NURSE. IV TO LEFT WRIST SALINE LOCKED. NO REDNESS OR SWELLING TO SITE. DRESSING INTACT.
[2017-06-23 05:52] LABS: BASOPHILS 0.6 % (0-2); HEMATOCRIT 40.6 % (42.0-54.0); HEMOGLOBIN 13.3 g/dL (13.5-17.5); IMMATURE GRANULOCYTES 0.2 % (0-5); LYMPHOCYTES 14.4 % (15-50); MCH 30.4 pg (26.0-34.0); MCHC 32.8 g/dL (31.0-37.0); MCV 92.7 fL (80.0-100.0); MEAN PLATELET VOLUME 10.2 fL (7.4-10.4); NEUTROPHILS 69.8 % (40-80); RBC 4.38 10x6/uL (4.20-6.10); RDW 13.4 % (11.5-14.5)
[2017-06-23 05:54] LABS: PLATELET COUNT 225 10x3/uL (130-400)
[2017-06-23 06:14] LABS: CALC OSMOLALITY 287 mosm/kg (275-300); CALCIUM 9.7 mg/dL (8.5-10.1); CARBON DIOXIDE 30.6 mmol/L (21.0-32.0); CHLORIDE - SERUM 102 mmol/L (98-107); CREATININE - SERUM 0.7 mg/dL (0.6-1.3); GLUCOSE 210 mg/dL (74-106); POTASSIUM - SERUM 3.7 mmol/L (3.5-5.1); SODIUM 141 mmol/L (136-145); UREA NITROGEN 15 mg/dL (7-18); eGFR NON AFRICAN AMERICAN > 90 mL/min (90-120)
--- NOTE | 2017-06-23 06:55 | NUR ---
RESTING QUIETLY IN BED. BED IN LOWEST POSITION. CALL LIGHT IN REACH.
--- NOTE | 2017-06-23 08:15 | NUR ---
PT SITTING IN BED SIDE CHAIR WATCHING TV CALL LIGHT IN REACH NO PROBLEMS WILL MONITER
[2017-06-23 08:38] VITALS: BP 132/55
--- NOTE | 2017-06-23 18:15 | NUR ---
PT RESTING IN BED WITH EYES OPEN CALL LIGHT IN REACH NO PROBLEMS WILL MONITER
--- NOTE | 2017-06-23 19:55 | NUR ---
PT. SITTING UP IN W/C AND IS WATCHING TV. TB INFUSING VIA PUMP WITHOUT ANY ALARMS AND PT. HAS HIS CALL LIGHT WITHIN REACH.
--- NOTE | 2017-06-23 20:00 | NUR ---
PT IN WC. TUBE FEEDING INFUSING @ 60ML/HR AND 15ML/HR FLUSH. NPO. FSBS ACHS. RIGHT WRIST SL. NO O2. YONKER. CONTINENT. AISHA ALARM. BED IN LOWEST POSITION AND CALL LIGHT WITHIN REACH.
--- NOTE | 2017-06-23 20:33 | NUR ---
TUBE FEEDING BAG CHANGED.
[2017-06-23 21:00] VITALS: BP 104/63
--- NOTE | 2017-06-23 22:02 | NUR ---
PT HAD 150 ML OF RESIDUAL. WILL HOLD TUBE FEEDINGS AND MEDS FOR 1HR AND WILL RECHECK RESIDUAL.
--- NOTE | 2017-06-23 22:14 | NUR ---
LEFT WRIST IV D/C PER ORDER WITH CATH TIP INTACT. PT STATES "THAT FEELS BETTER."
--- NOTE | 2017-06-23 23:13 | NUR ---
RESIDUAL RECHECKED AND GOT 53ML. TUBE FEEDING RESTARTED.
--- NOTE | 2017-06-24 02:45 | NUR ---
GOT 44ML RESIDUAL. PT NOT TOLERATING 60ML/HR TUBE FEEDING DT HAVING 150ML RESIDUAL EARLIER THIS EVENING.
--- NOTE | 2017-06-24 06:30 | NUR ---
ASSISTED PT INTO WC AND TO BATHROOM. PT SHAVED HIS FACE AND IS NOW SITTING IN WC BY BED.
--- NOTE | 2017-06-24 07:25 | NUR ---
SITTING UP IN W/C ALERT AND ORIENTED X4. TF RUNNING AT 60ML/HR WITH 15ML/HR FLUSH. CHECKED RESIDUAL 60ML. NO ACTION REQUIRED. PT SEEMS TO BE TOLERATING WELL. C/O COLD SORES AND ORAL SECRETIONS. WILL DISCUSS WITH DR. NESS WHEN HE COMES IN. NO OTHER CONCERNS VOICED. CALL LIGHT WITHIN REACH, W/C BRAKES LOCKED. WILL CONTINUE TO MONITOR
[2017-06-24 08:40] VITALS: BP 123/63
--- NOTE | 2017-06-24 12:55 | NUR ---
LYING IN BED RESTING QUIETLY EYES CLOSED. APPROPRIATE RISE AND FALL OF CHEST. NO S/SX OF ACUTE DISTRESS. CALL LIGHT WITHIN REACH, BED IN LOWEST POSITION AND ALARM ON. WILL CONTINUE TO MONITOR
--- NOTE | 2017-06-24 13:54 | NUR ---
Nutrition Follow Up: Pt was asleep at the time of RD visit. Interview deferred. Chart reviewed and spoke with nursing. TF of Glucerna 1.0 infusing at 60 ml/hr. Residuals<100 ml. Per nursing pt's daughter reported that ONION FARMER pt ate a good breakfast, no lunch and a fair dinner. Daughter thinks this may be contributing to pt feeling full with TF. Nursing stated that pt may tolerate bolus TF better so that it is more like his home eating schedule. Will put order in to begin bolus TF of Glucerna 1.0: 2 cans @ 0800 1.5 cans @ 1200 1.5 cans @ 1700 Flush PEG with 60 ml H2O before and after each bolus. Will put order in to start nocturnal continuous TF from 1900 to 0700 @ 60 ml/hr. H2O flush 10 ml/hr. Total kcal, g protein and free water from bolus and nocturnal TF, water flushes are: 1905 kcal, 79 g protein and 2096 ml free water. Rec consider Reglan. RD will continue to monitor pt progress.
--- NOTE | 2017-06-24 15:44 | NUR ---
PATIENT ADMITTED TO REHAB FROM ACUTE FLOOR. PCP IS DR. RAM AND [facility] [address] IS HIS [facility]ARM[facility]Y. DME AT HOME IS [facility]. WILL CONTINUE TO FOLLOW WITH PATIENT AND WILL ASSIST WITH DISCHARGE NEEDS.
--- NOTE | 2017-06-24 16:23 | NUR ---
IN THERAPY GYM WITH LILIA PHYSICAL THERAPIST. NO S/SX OF ACUTE DISTRESS. DENIES ANY NEEDS OR PAIN. WILL CONTINUE TO MONITOR
--- NOTE | 2017-06-24 19:36 | NUR ---
PT. IN BED WITH HOB UP FOR COMFORT AND HAS A VISITOR COMING IN TO SEE HIM. CALL LIGHT WITHIN REACH.
--- NOTE | 2017-06-24 20:00 | NUR ---
PT IN WC. TUBE FEEDING INFUSING @ 60ML/HR AND 10ML/HR FLUSH. NPO. FSBS ACHS. NO IV. NO O2. YONKER. CONTINENT. AISHA ALARM. BED IN LOWEST POSITION AND CALL LIGHT WITHIN REACH.
[2017-06-24 22:09] VITALS: BP 94/48
--- NOTE | 2017-06-25 | NUR ---
PT IN BED WITH HOB UP FOR COMFORT. RESTING QUIETLY. RESPIRATIONS EVEN AND UNLABORED. BED IN LOWEST POSITION AND CALL LIGHT WITHIN REACH.
[2017-06-25 06:11] LABS: BASOPHILS 0.4 % (0-2); EOSINOPHILS 4.6 % (0-7); HEMOGLOBIN 13.4 g/dL (13.5-17.5); IMMATURE GRANULOCYTES 0.3 % (0-5); LYMPHOCYTES 15.4 % (15-50); MCH 29.8 pg (26.0-34.0); MCHC 31.9 g/dL (31.0-37.0); MCV 93.3 fL (80.0-100.0); MEAN PLATELET VOLUME 10.8 fL (7.4-10.4); MONOCYTES 9.6 % (2-11); NEUTROPHILS 69.7 % (40-80); RDW 13.5 % (11.5-14.5)
[2017-06-25 06:32] LABS: PLATELET COUNT 284 10x3/uL (130-400); WBC 6.7 10x3/uL (4.8-10.8)
[2017-06-25 06:38] LABS: CALCIUM 9.9 mg/dL (8.5-10.1); CARBON DIOXIDE 30.8 mmol/L (21.0-32.0); CHLORIDE - SERUM 101 mmol/L (98-107); GLUCOSE 182 mg/dL (74-106); POTASSIUM - SERUM 3.8 mmol/L (3.5-5.1); SODIUM 141 mmol/L (136-145); eGFR NON AFRICAN AMERICAN 86 mL/min (90-120)
[2017-06-25 06:39] LABS: CALC OSMOLALITY 288 mosm/kg (275-300); CREATININE - SERUM 0.9 mg/dL (0.6-1.3); UREA NITROGEN 22 mg/dL (7-18)
[2017-06-25 08:42] VITALS: BP 96/51
--- NOTE | 2017-06-25 09:42 | NUR ---
SITTING IN W/C IN ROOM. DENIES NEEDS. FAMILY IN ROOM WITH PT.
--- NOTE | 2017-06-25 15:19 | NUR ---
CARE TEAM MEETING: DAUGHTER ATTENDED MEETING. DISCHARGE PLANS ARE FOR PATIENT TO DISCHARGE WITH DAUGHTER. TENATIVE DISCHARGE DATE IS 07/03/17. WILL CONTINUE TO FOLLOW WITH PATIENT AND WILL ASSIST WITH DISCHARGE NEEDS.
--- NOTE | 2017-06-25 18:17 | NUR ---
RESTING QUIETLY IN BED. CALL LIGHT IN REACH
--- NOTE | 2017-06-25 19:17 | NUR ---
PT. IN BED WITH HOB UP FOR COMFORT AND TV IS ON. TF VIA PUMP WITHOUT ANY ALARMS. CALL LIGHT WITHIN REACH.
--- NOTE | 2017-06-25 19:30 | NUR ---
PT IN BED WITH HOB @ 30 DEGREES. RESTING QUIETLY. ALERT @ ORIENTED. TF RUNNING AT 60ML/HR AND 10ML/HR FLUSH. NPO. NO O2. NO IV. FSBS ACHS. YONKER. CONTINENT. URINAL. WC. STANDBY TO MIN. ASSIST. AISHA ALARM. BED IN LOWEST POSITION AND CALL LIGHT WITHIN REACH.
[2017-06-25 20:30] VITALS: BP 112/48
--- NOTE | 2017-06-25 20:58 | NUR ---
GOT 72ML RESIDUAL GAVE LOPRESSOR CRUSHED IN 15ML OF WATER. CONTINUED TF ORDERED.
--- NOTE | 2017-06-26 | NUR ---
PT IN BED WITH HOB UP FOR COMFORT. EYES CLOSED. CHEST RISING AND FALLING. BED IN LOWEST POSITION AND CALL LIGHT WITHIN REACH. TUBE FEEDING RUNNING.
--- NOTE | 2017-06-26 03:30 | NUR ---
PT IN BED WITH HOB UP FOR COMFORT. EYES CLOSED. CHEST RISING AND FALLING. BED IN LOWEST POSITION AND CALL LIGHT WITHIN REACH. TUBE FEEDING RUNNING.
--- NOTE | 2017-06-26 06:50 | NUR ---
PT UP IN WC. CL IN REACH.
--- NOTE | 2017-06-26 07:20 | NUR ---
RESTING QUIETLY IN BED. BED IN LOWEST POSITION. CALL LIGHT IN REACH
--- NOTE | 2017-06-26 07:40 | NUR ---
SITTING UP IN W/C. ALERT AND ORIENTED X4. NO S/SX OF DISTRESS. DENIES ANY NEEDS OR PAIN. CALL LIGHT WITHIN REACH, BRAKES LOCKED AND ALARM ON. WILL CONTINUE TO MONITOR
[2017-06-26 08:04] VITALS: BP 139/60
--- NOTE | 2017-06-26 12:15 | NUR ---
SITTING UP IN CHAIR. DENIES ANY NEEDS. CALL LIGHT WITHIN REACH AND ALARM ON. WILL CONTINUE TO MONITOR.
--- NOTE | 2017-06-26 14:16 | NUR ---
SITTING UP IN W/C VISITING WITH FAMILY. DENIES ANY PAIN OR NEEDS. CALL LIGHT WITHIN REACH, ALARM ON AND W/C BRAKES LOCKED. WILL CONTINUE TO MONITOR
[2017-06-26 14:25] LABS: APPEARANCE CLEAR (CLEAR); BILIRUBIN NEGATIVE (NEGATIVE); COLOR YELLOW (YELLOW); GLUCOSE NEGATIVE (NEGATIVE); KETONE NEGATIVE (NEGATIVE); NITRITE NEGATIVE (NEGATIVE); PROTEIN NEGATIVE (NEGATIVE); UROBILINOGEN NORMAL (NORMAL)
--- NOTE | 2017-06-26 19:55 | NUR ---
CHANGING PEG TUBE DRESSING ORDERED.
--- NOTE | 2017-06-26 20:35 | NUR ---
REST IN BED, HOB 30 DEGREE, CALL LIGHT IN REACH.
--- NOTE | 2017-06-26 21:10 | NUR ---
STOPPED FEEDING PUMP AND WITH ASSIST, HELPED PATIENT UP IN BED. HOB UP 30 DEGREES. NOTED PATIENT CONTINUES TO HAVE LIGHT JASPAL BLEEDING (OOZING) FROM [place] HIS PEG SITE. PATIENTS PRIMARY NURSE ALREADY CHANGED HIS DRESSING AND FRESH OOZING IS EVIDENT. PATIENT TRIES TO BE ACTIVE IN BED ATTEMPTING TO PULL HIMSELF UP AND REPOSITION HIMSELF AND I BELIVE THE TRAUMA TO HIS PEG SITE IS DUE TO EXCESSIVE MOVEMENT IN BED AND NOT MAKING SURE HIS FEEDING TUBE IS FREE OF OBSTRUCTION CAUSING SUSANA ON HIS PEG TUBE. BOLSTER IS CINCHED DOWN TO ABD. WALL.
--- NOTE | 2017-06-26 22:50 | NUR ---
PT HAS MODERATE AMOUNT OF BLEEDING IN PEG TUBE SITE, REPORTED IT TO CHARGE, AND CHARGE NURSE CHANGE DRESSING IN PEG TUBE.
[2017-06-26 22:56] VITALS: BP 151/66
--- NOTE | 2017-06-27 01:00 | NUR ---
RESTING IN BED, EYES CLOSED.
--- NOTE | 2017-06-27 02:15 | NUR ---
CONTINUES IN BED, EYES CLOSED. NO DISTRESS EVIDENT.
--- NOTE | 2017-06-27 03:50 | NUR ---
RESTING QUIETLY IN BED. RESPIRING QUIETLY.
[2017-06-27 05:17] LABS: BASOPHILS 0.5 % (0-2); EOSINOPHILS 5.4 % (0-7); HEMATOCRIT 40.1 % (42.0-54.0); HEMOGLOBIN 12.7 g/dL (13.5-17.5); IMMATURE GRANULOCYTES 0.5 % (0-5); LYMPHOCYTES 11.9 % (15-50); MCH 29.5 pg (26.0-34.0); MCHC 31.7 g/dL (31.0-37.0); MEAN PLATELET VOLUME 10.6 fL (7.4-10.4); MONOCYTES 10.3 % (2-11); NEUTROPHILS 71.4 % (40-80); PLATELET COUNT 278 10x3/uL (130-400); RBC 4.31 10x6/uL (4.20-6.10); RDW 13.3 % (11.5-14.5); WBC 5.7 10x3/uL (4.8-10.8)
[2017-06-27 05:30] LABS: CALC OSMOLALITY 292 mosm/kg (275-300); CALCIUM 9.8 mg/dL (8.5-10.1); CARBON DIOXIDE 32.3 mmol/L (21.0-32.0); CHLORIDE - SERUM 103 mmol/L (98-107); CREATININE - SERUM 0.7 mg/dL (0.6-1.3); GLUCOSE 193 mg/dL (74-106); POTASSIUM - SERUM 4.3 mmol/L (3.5-5.1); SODIUM 143 mmol/L (136-145); UREA NITROGEN 21 mg/dL (7-18); eGFR NON AFRICAN AMERICAN > 90 mL/min (90-120)
--- NOTE | 2017-06-27 05:45 | NUR ---
CHANGED PATIENT'S PEG DRESSING USING DRAIN SPONGE TOPPED WITH SPLIT ABD PAD SECURED TIGHTLY TO ABDOMEN WITH MEDIPORE TAPE. CONTINUES TO OOZE DARK BLOOD FROM PEG SITE. FSBS 193. GAVE PATIENT 2 UNITS HUMALOG S/S INSULIN SC IN RIGHT UPPER ARM.
[2017-06-27 09:00] VITALS: BP 171/67
--- NOTE | 2017-06-27 09:03 | RHP ---
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 HISTORY OF PRESENT ILLNESS: The patient is admitted to an inpatient rehab with a stroke secondary to left pontocerebellar infarction with left peripheral pattern. An 81-year-old gentleman, Dr. Dash who discharged on June 12, who is presenting with a left middle cerebral artery distribution, TIA of lacunar type and he is on aspirin 325 daily. On June 14, he begun having an episode of problems with his left eye, but on this occasion over the next hour, he developed incoordination of his left upper extremities and lower extremities without weakness or sensory loss. Now, the next 30 minutes, weakness of the left side of face, slurred speech and inability to swallow, even his own saliva, has lasted by report 2-3 hours and then resolved and recurred. He failed a bedside swallow eval as well as modified barium swallow, was made n.p.o., he states that he has been having problems eating for several months, but over the last 4 days, he has been unable to eat and swallow his own saliva. He underwent a PEG placement on June 17. He has some postop bleeding around the PEG site and his anticoagulants were held, but had been restarted. The bleeding has resolved and tube feedings have been started on Jevity 1.2 with a goal rate of 65 cc per hour. He also has noted this weakness. He is noted to have very high fall risk and lean to the left when standing upright. The patient lives alone and was independent with his ADLs and moderately independent with mobility. He is currently min assist to total assist for ADLs and moderate assist to total assist for mobility. Plan is to return home, hopefully on his prior level of functioning. He does have a daughter that lives close town and he may discharge home with her, he is unable to go home on its own after an acute stay here in the rehab. COMORBIDITIES: Include diabetes, dysphagia, profound pharyngeal deficits, previous left middle cerebral artery distribution, TIA, speech dysarthria, gross dysmetria of the left upper and lower extremities, CVA, dysphagia, hypertension, coronary artery disease, hyperlipidemia and diabetes with acute hyperglycemia. PAST MEDICAL HISTORY: Significant for neuropathy, diabetes, hypertension, angina, coronary artery disease, peripheral vascular disease, claudication, colon cancer, skin cancer, arthritis and some chronic back pain. PAST SURGICAL HISTORY: Includes gallbladder surgery, appendectomy, TURP, left knee fracture in the past, aortic aneurysm, he has had a lumbar epidural spinal injections in the past, colon resection and angioplasty with stent placement. ALLERGIES: MEPERIDINE, PENICILLIN AND CODEINE. CURRENT MEDICATIONS: Include simvastatin 40 mg at bedtime, Glucophage 100 mg b.i.d., Zestril 10 mg daily, Levaquin 500 mg daily, Floranex daily, Glucotrol 10 mg daily, Lovenox 60 mg subQ daily and aspirin 325 mg daily. He is on a glucose replacement protocol as needed. He is on morphine 2 mg q.4 hours p.r.n., Zofran HISTORY AND PHYSICAL [id number] ILIR DINERO 4 mg q.4 hours p.r.n. nausea and vomiting, Nystatin suspension 5 cc t.i.d., metoprolol 25 mg b.i.d. and DuoNeb as needed. He is on a low resistant sliding scale, Apresoline 10 mg q.4 hours p.r.n. systolic blood pressure greater than 190, diastolic blood pressure greater than 110, and polyethylene glycol 17 grams in 8 ounces of water daily. HABITS: No alcohol or tobacco use. FAMILY HISTORY: Noncontributory. SOCIAL HISTORY: The patient once again would like to return home; if not, he will return home with his daughter. REVIEW OF SYSTEMS: GENERAL: Does complain of weakness, worse on one side. HEENT: Denies cold, cough, or congestion. CARDIOVASCULAR: Denies any chest pain. LUNGS: Complains of no shortness of breath. PHYSICAL EXAMINATION: VITAL SIGNS: Stable, afebrile. GENERAL: Elderly gentleman in no acute distress, alert upon exam. HEENT: Normocephalic and atraumatic. Mucosa moist. NECK: Supple. No lymphadenopathy. LUNGS: Clear at this time. HEART: Regular rate and rhythm. ABDOMEN: Soft. His PEG area appears normal and not bleeding or oozing at this time. EXTREMITIES: No clubbing, cyanosis, or edema. NEUROLOGIC: Consistent with CVA. LABORATORY DATA: His white count is 5.7, H&H 13 and 40, and platelet count is 178. Sodium is 138, potassium 3.8, BUN and creatinine of 13 and 0.7, and blood sugars noted to be 229. ASSESSMENT: This is an 81-year-old gentleman, who is admitted to rehab with a working diagnosis of cerebrovascular accident. The patient has potential to make improvement. We instituted the following multidisciplinary therapies including to, but not limited to physical, occupational, respiratory, speech, nutritional services, prosthetics and orthotics. Given his complex condition and risk for more complications, rehabilitation services cannot be provided at a lower level of care such as a [facility] facility. PLAN: 1. Admit to [facility] rehab for intensive inpatient therapy to include the following disciplines: A. Physical therapy to improve gait, all transfer skills and bed mobility to a modified independent level. B. Occupational therapy to improve activities of daily living to a modified independent level. C. Case management to assist with discharge planning and placement options. D. Nutrition to assist with nutritional needs. E. Rehabilitation nursing to assist in monitoring the patient's underlying medical conditions and to assist with any type of bowel or bladder management. 2. The patient's current medications and medical care will be continued. HISTORY AND PHYSICAL [id number] ILIR DINERO 3. The patient will be placed on standard fall precautions. 4. The patient's estimated length of stay is approximately 7-10 days. 5. We will discuss this patient during care team staff meeting this week. Hopefully, get him back home on his own. TRANSINT:[id number] Voice Confirmation ID: [id number] DOCUMENT ID: [id number] BECKY notes whether there has been none or any medical/functional change since admission: - BECKY attests patient continues to be appropriate for IRF: - ELVI NESS MD at 0903 CC: [id number] DICTATION DATE: 06/20/17 0832 SPECIAL EDUCATION SCIENCE TEACHER: 06/20/17 112 ADM IN [facility] [address] [place] [address]
--- NOTE | 2017-06-27 09:15 | NUR ---
PT AM MEDS CRUSHED AND ADMINISTERED THROUGH PEG TUBE. PT TF OF TWO CANS GIVEN AT THIS TIME. PT DENIES NEEDS.
--- NOTE | 2017-06-27 11:21 | NUR ---
Nutrition Follow Up: Pt reported that he felt some better but still feels nauseated throughout the day. Pt is receiving Glucerna 1.0 5 cans/d and nocturnal continuous feeds at 60 ml/hr x 12 hours. +BM 06/26/17. No new wt. Meds and labs reviewed. Rec continue current TF, water flush regimen. Rec consider Reglan. RD following.
--- NOTE | 2017-06-27 13:05 | NUR ---
PT PEG TUBE INSERTION SITE CONTINUES TO BLEED. DR DUQUE CONSULTED AND NOTIFIED.
--- NOTE | 2017-06-27 13:51 | NUR ---
PT TF HELD AT 1220 DUE TO GREATER THAN 240 ML RESIDUAL. PT BOLUS TF GIVEN AT THIS TIME. 110 ML RESIDUAL NOTED PRIOR TO GIVING. PT TAKEN BACK TO THERAPY GYM. WCTM.
--- NOTE | 2017-06-27 14:04 | NUR ---
Wound care consult: LUQ PEG tube noted with large amount of blood on dressing. Dressing removed, skin cleansed and dried. PEG appears stationary, but bleeding at incision site. Redressed with 4x4s and medipore tape. Primary nurse called to inform Dr. Bhatt who placed the PEG on 06/17/17. Will continue to monitor.
--- NOTE | 2017-06-27 18:09 | NUR ---
PT TF RESIDUAL IS 30 MLS. PT TF OF 1.5 CANS GIVEN. PT TOLERATED WELL.
[2017-06-27 18:15] VITALS: BP 115/59
--- NOTE | 2017-06-27 19:11 | NUR ---
PT TF RESIDUAL GREATER THAN 240 MLS AT THIS TIME. WILL START TF AT LATER TIME.
--- NOTE | 2017-06-27 19:15 | NUR ---
DAY SHIFT NURSE REPORTS RESIDUAL IN EXCESS OF 240ML. TF DEFERRED UNTIL <100ML.
--- NOTE | 2017-06-27 20:00 | NUR ---
REINFORCED PEG BULKY PEG DRESSING WITH SPLIT ABD PAD A FEW OF THE 4X4'S HAD FALLEN OUT. TAPED SECURELY WITH MEDIPORE TAPE.
--- NOTE | 2017-06-27 20:25 | NUR ---
DR. DUQUE SAW PATIENT. AFTER REMOVING DRESSING HE CINCHED DOWN THE ABDOMINAL DISC BOLSTER AND HAD ME INSERT A DRAIN SPONGE. SAID HE WILL HOLD PATIENT'S LOVENOX TOMORROW.
--- NOTE | 2017-06-27 21:40 | NUR ---
ASSESSMENT AND HS MEDS COMPLETE. PEG RESIDUAL NOW 25ML. STARTED GLUCERNA 1.0 TF @ 60ML/HR WITH 10ML H2O FLUSH PER HOUR PER FEEDING PUMP. ATTACHED LOPWZ VALVE TO PEG TF SET NIPPLE WOULD NOT ADHERE STAY SECURE IN PEG SOCKET, EVEN AFTER DRYING IT OUT WITH A TISSUE. PATIENT DENIES NEEDS. HOB NOW UP 45 DEGREES TO PROMOTE BETTER GASTRIC DRAINAGE INTO DUODENUM.
--- NOTE | 2017-06-27 22:50 | NUR ---
RESTING IN BED, EYES CLOSED.
--- NOTE | 2017-06-28 00:30 | NUR ---
RESTING IN BED, EYES CLOSED.
--- NOTE | 2017-06-28 02:15 | NUR ---
IN BED, AWAKE. EMPTIED 150 ML FROM BEDSIDE URINAL. SO FAR URINE OUTPUT IS SATISFACTORY, BUT SOMEWHAT DECREASED FROM LAST NIGHT AT THIS TIME.
--- NOTE | 2017-06-28 03:55 | NUR ---
RESTING QUIETLY, EYES CLOSED. RESPIRATIONS UNLABORED. EMPTIED 250 ML FROM BEDSIDE URINAL.
--- NOTE | 2017-06-28 06:25 | NUR ---
FSBS 157. GAVE PATIENT 2 UNITS HUMALOG S/S INSULIN SC IN RIGHT UPPER ARM. ASSISTED HIM TO CHANGE SHIRT. PATIENT HAD REMOVED HIS PULL-UP TO FACILITATE USING URINAL. ASKED THAT IT BE LEFT OFF FOR NOW.
--- NOTE | 2017-06-28 07:31 | NUR ---
sitting up in bed resting. denies any needs. alert and oriented x4. no s/sx of distress. call light within reach, bed alarm on and in lowest position. will continue to monitor
[2017-06-28 08:00] VITALS: BP 134/82
--- NOTE | 2017-06-28 10:03 | NUR ---
SITTING UP IN W/C VISITING WITH DAUGHTERS. DENIES ANY PAIN OR NEEDS. NO S/SX OF DISTRESS. CALL LIGHT WITHIN REACH, W/C BRAKES LOCKED AND BOX ALARM ON. WILL CONTINUE TO MONITOR
--- NOTE | 2017-06-28 11:33 | NUR ---
NUTRITION F/U CHART REVIEWED, PT VISIT. SPOKE WITH PEDRO(NURSING). TRIAL CHANGE TUBE FEED SCHEDULE PT NOT RESTING WELL AT NITE. CURRENT SCHEDULE WILL PROVIDE SLIGHTLY FEWER CALORIES, BUT PT VOICED CONCERNS WITH 2 CAN BOLUS. WILL MONITOR AND ADJUST TUBE FEEDS NEEDED FOR OPTIMAL CALORIES AND PT COMFORT. RD FOLLOWING
--- NOTE | 2017-06-28 13:46 | NUR ---
ASSISTED TO RESTROOM WITH MIN ASSIST. ORIENTED TO CALL LIGHT IN RESTROOM AND WILL CALL WHEN READY.
--- NOTE | 2017-06-28 14:38 | NUR ---
NAPPING.CL IN REACH.
--- NOTE | 2017-06-28 16:00 | NUR ---
ASSISTED WITH SHOWER MIN ASSIST. PT WAS ABLE TO DRESS SELF. SHAVE AND GROOM WHILE SITTING IN W/C AT SINK. CHANGED BED LINENS. DENIES ANY NEEDS OR PAIN. CALL LIGHT WITHIN REACH, W/C BRAKES LOCKED. WILL CONTINUE TO MONITOR
--- NOTE | 2017-06-28 18:34 | NUR ---
SITTING UP IN W/C. DENIES ANY NEEDS OR PAIN. NO S/SX OF ACUTE DISTRESS. CALL LIGHT WITHIN REACH AND W/C BRAKES LOCKED. WILL CONTINUE TO MONITOR
--- NOTE | 2017-06-28 20:10 | NUR ---
REST IN BED, HOB 45 DEGREE, CALL LIGHT IN REACH.
--- NOTE | 2017-06-28 21:05 | NUR ---
CHECK RESIDUAL 35ML, AND GIVEN BOLUS FEEDING ORDERED.
[2017-06-28 22:42] VITALS: BP 126/68
--- NOTE | 2017-06-29 01:25 | NUR ---
IN BED, EYES CLOSED. NO DISTRESS EVIDENT.
--- NOTE | 2017-06-29 03:25 | NUR ---
REST IN BED, EYE CLOSE, CALL LIGHT IN REACH.
--- NOTE | 2017-06-29 05:10 | NUR ---
CHECK PT RESIDUAL 25ML, AND BOLUS FEEDING ORDERED.
--- NOTE | 2017-06-29 07:26 | NUR ---
SITTING UP IN W/C ALERT AND ORIENTED X4. DENIES ANY NEEDS OR PAIN. NO S/SX OF ACUTE DISTRESS. CALL LIGHT WITHIN REACH, W/C BRAKES LOCKED, PERSONAL ITEMS WITHIN REACH. WILL CONTINUE TO MONITOR
[2017-06-29 08:00] VITALS: BP 110/48
--- NOTE | 2017-06-29 08:05 | NUR ---
CHECKED RESIDUAL 110ML, FLUSH 60ML H2O, ADMINISTERED MORNING MEDS, BOLUS 1.5 CANS GLUCERNA 1.0 VIA PEG TUBE FOLLOWED WITH 60ML H20 FLUSH. TOLERATED WELL. DENIES ANY DISCOMFORT. STATES HE FEELS FULL BUT NOT OVER FULL. PT IS SITTING UP IN HIS W/C, BRAKES LOCKED, AND CALL LIGHT WITHIN REACH.
--- NOTE | 2017-06-29 10:48 | NUR ---
SITTING UP IN W/C VISITING WITH FAMILY. DENIES ANY NEEDS OR PAIN. NO S/SX OF ACUTE DISTRESS. CALL LIGHT WITHIN REACH, W/C BRAKES LOCKED. WILL CONTINUE TO MONITOR
--- NOTE | 2017-06-29 12:15 | NUR ---
CHECKED RESIDUAL BEFORE TF 200ML FLUSHED WITH 30ML H2O FLUSH. HELD 1200 BOLUS D/T RESIDUAL.
--- NOTE | 2017-06-29 14:00 | NUR ---
UP IN CHAIR.CL IN REACH.
--- NOTE | 2017-06-29 14:34 | NUR ---
SITTING UP IN CHAIR RESTING. DENIES ANY NEEDS OR PAIN. CALL LIGHT WITHIN REACH. WILL CONTINUE TO MONITOR
--- NOTE | 2017-06-29 16:45 | NUR ---
CHECKED RESIDUAL BEFORE BOLUS NO RESIDUAL. FLUSHED 60ML H2O, BOLUS 1.5 CANS GLUCERNA 1.0 FOLLOWED BY 60ML H2O FLUSH. TOLERATED WELL.
--- NOTE | 2017-06-29 19:30 | NUR ---
PT IS RESTING IN BED WITH EYES OPEN. ALERT AND ORIENTED X 3. DENIES ANY PAIN OR DISCOMFORT AT THIS TIME. PEG TUBE NOTED. DRESSING IS CDI. YANKEUR SUCTION NOTED AT BEDSIDE FOR PRN USE. SR'S ARE UP X 3 IN BED. CALL LIGHT AND BEDSIDE TABLE ARE WITHIN EASY REACH.
[2017-06-29 20:00] VITALS: BP 124/59
--- NOTE | 2017-06-29 20:20 | NUR ---
PT. IN BED LYING ON HIS RIGHT SIDE WITH EYES CLOSED AND RESP. EVEN. CALL LIGHT WITHIN REACH.
--- NOTE | 2017-06-29 20:44 | NUR ---
PT IS RESTING IN BED WITH EYES OPEN. PEG TUBE RESIDUAL NOTED TO BE 28 CC. PT STATES HE IS NOT HUNGRY AT ALL AND REQUESTED TO SKIP THIS FEEDING TIME. GLUCERNA HELD PER HIS REQUEST. MEDS GIVEN, AND TUBE FLUSHED WITH 120 CC H2O.
--- NOTE | 2017-06-30 00:01 | NUR ---
PT ASSISTED UP TO THE BATHROOM WITH SBA. LARGE FORMED BM NOTED. NO FURTHER NEEDS VOICED.
--- NOTE | 2017-06-30 02:47 | NUR ---
RESTING QUIETLY IN BED WITH EYES CLOSED.
[2017-06-30 05:52] LABS: BASOPHILS 0.7 % (0-2); EOSINOPHILS 4.6 % (0-7); HEMATOCRIT 39.7 % (42.0-54.0); HEMOGLOBIN 12.5 g/dL (13.5-17.5); IMMATURE GRANULOCYTES 0.7 % (0-5); LYMPHOCYTES 12.6 % (15-50); MCH 29.5 pg (26.0-34.0); MCHC 31.5 g/dL (31.0-37.0); MCV 93.6 fL (80.0-100.0); MEAN PLATELET VOLUME 10.9 fL (7.4-10.4); MONOCYTES 8.1 % (2-11); NEUTROPHILS 73.3 % (40-80); PLATELET COUNT 309 10x3/uL (130-400); RBC 4.24 10x6/uL (4.20-6.10); RDW 13.4 % (11.5-14.5); WBC 7.1 10x3/uL (4.8-10.8)
--- NOTE | 2017-06-30 06:06 | NUR ---
PT RESTING IN BED WITH EYES CLOSED. AWOKE EASILY TO VERBAL STIMULI. TOLERATED AM TUBE FEEDING WELL THIS AM. 2CC RESIDUAL NOTED PRIOR TO FEEDING.
[2017-06-30 06:07] LABS: CALC OSMOLALITY 282 mosm/kg (275-300); CALCIUM 9.6 mg/dL (8.5-10.1); CARBON DIOXIDE 33.9 mmol/L (21.0-32.0); CHLORIDE - SERUM 102 mmol/L (98-107); CREATININE - SERUM 0.8 mg/dL (0.6-1.3); POTASSIUM - SERUM 4.7 mmol/L (3.5-5.1); SODIUM 139 mmol/L (136-145); UREA NITROGEN 20 mg/dL (7-18); eGFR NON AFRICAN AMERICAN > 90 mL/min (90-120)
[2017-06-30 06:08] LABS: GLUCOSE 126 mg/dL (74-106)
--- NOTE | 2017-06-30 07:58 | NUR ---
SITTING UP EATING BREAKFAST. BED IN LOWEST POSITION. CALL LIGHT IN REACH.
[2017-06-30 09:13] VITALS: BP 135/58
--- NOTE | 2017-06-30 10:08 | NUR ---
PATIENT IN REHAB ROOM. WORKING WITH OCCUPATIONAL THERAPIST. DENIES ANY PAIN/DISC AT THIS TIME.
--- NOTE | 2017-06-30 11:04 | NUR ---
Nutrition Follow Up: Pt reported that he felt okay. He denied any nausea, diarrhea, etc with new TF regimen. Pt said that he likes only doing bolus feeds and no nocturnal TF. RD encouraged pt to make staff aware of any changes - nausea, etc. Pt understood. Rec continue current TF, water flush regimen. RD following.
--- NOTE | 2017-06-30 19:28 | NUR ---
PT IS RESTING IN BED WITH EYES CLOSED. AWOKE EASILY TO VERBAL STIMULI. DENIES NEEDS. NO DISTRESS NOTED. PEG TUBE INTACT TO LUQ ABDOMEN. NO DRAINAGE NOTED. SR'S ARE UP X 3 IN BED. CALL LIGHT AND BEDSIDE TABLE ARE WITHIN EASY REACH.
[2017-06-30 20:00] VITALS: BP 131/66
--- NOTE | 2017-06-30 22:05 | NUR ---
PT IS RESTING QUIELTY IN BED WITH EYES CLOSED. RESPS ARE EVEN AND UNLABORED. NO ACUTE DISTRESS NOTED.
--- NOTE | 2017-06-30 23:52 | NUR ---
RESTING IN BED WITH EYES CLOSED.
--- NOTE | 2017-07-01 03:06 | NUR ---
RESTING IN BED WITH EYES CLOSED. USING URINAL PRN.
--- NOTE | 2017-07-01 05:34 | NUR ---
UP IN W/C WITH EYES CLOSED AT THIS TIME. NO S/S OF DISTRESS OBSERVED. PEG TUBE CHECKED FOR PATENCY WITH 0 ASPIRATED. GLUCERNA 1.O BOLUS 5 TIMES A DAY. CALL LIGHT AND OVERBED TABLE IN REACH.
--- NOTE | 2017-07-01 07:20 | NUR ---
SITTING UP IN W/C ALERT AND ORIENTED X4. PEG SITE WNL BOLSTER AT 6. DENIES ANY PAIN. NO S/SX OF ACUTE DISTRESS. CALL LIGHT WITHIN REACH, W/C BRAKES LOCKED, PERSONAL ITEMS WITHIN REACH. WILL CONTINUE TO MONITOR
[2017-07-01 08:35] VITALS: BP 123/55
--- NOTE | 2017-07-01 11:14 | NUR ---
IN THERAPY GYM WITH LUZMARIA BESS
--- NOTE | 2017-07-01 11:41 | NUR ---
MINNA WITH SPEECH THERAPY REQUESTED TO HAVE SCOPOLAMINE PATCH REMOVED IN ORDER FOR THE PT TO PRODUCE MORE SALIVA FOR SWALLOW STUDY STATES THAT THE PATCH IS KEEPING HIS MOUTH TOO DRY. REMOVED PATCH IN ORDER FOR TEST TO BE PERFORMED.
--- NOTE | 2017-07-01 14:23 | NUR ---
SITTING UP IN W/C RESTING. DENIES ANY PAIN OR NEEDS. CALL LIGHT WITHIN REACH, W/C BRAKES LOCKED. WILL CONTINUE TO MONITOR
[2017-07-01 20:00] VITALS: BP 142/75
--- NOTE | 2017-07-01 20:00 | NUR ---
PT IS RESTING IN HIS WC IN HIS ROOM. ALERT AND ORIENTED X 3. DENIES ANY DISCOMFORT AT THIS TIME. STATES: "I HAD A PRETTY GOOD DAY." PEG TUBE IS INTACT TO LEFT UPPER QUADRANT ABD. NO NEEDS VOICED. AT THIS TIME. BEDSIDE TABLE AND CALL LIGHT ARE WITHIN EASY REACH.
--- NOTE | 2017-07-01 22:11 | NUR ---
TUBE FEEDING AND DRESSING CHANGE DONE TO PEG SITE. 3CC RESIDUAL NOTED PRIOR TO FEEDING. PT DENIES ANY OTHER NEEDS.
--- NOTE | 2017-07-02 01:33 | NUR ---
RESTINGIN BED WITH EYES CLOSED. NO S/S OF DISTRESS OBSERVED. HOB ELEVATED. PEG TUBE CHECKED FOR PATENCY AMD FLUSHED PER ORDERS. CONTINUES TO RECIEVE BOLUS FEEDINGS. CALL LIGHT AND OVERBED TABLE IN REACH.
--- NOTE | 2017-07-02 04:38 | NUR ---
RESTING IN BED WITH EYES CLOSED.
[2017-07-02 07:03] LABS: BASOPHILS 0.5 % (0-2); EOSINOPHILS 2.6 % (0-7); HEMATOCRIT 39.2 % (42.0-54.0); HEMOGLOBIN 12.5 g/dL (13.5-17.5); IMMATURE GRANULOCYTES 0.4 % (0-5); LYMPHOCYTES 15.8 % (15-50); MCH 29.8 pg (26.0-34.0); MCHC 31.9 g/dL (31.0-37.0); MCV 93.6 fL (80.0-100.0); MEAN PLATELET VOLUME 11.4 fL (7.4-10.4); MONOCYTES 8.3 % (2-11); NEUTROPHILS 72.4 % (40-80); PLATELET COUNT 329 10x3/uL (130-400); RBC 4.19 10x6/uL (4.20-6.10); RDW 13.5 % (11.5-14.5); WBC 7.8 10x3/uL (4.8-10.8)
[2017-07-02 07:25] LABS: CALC OSMOLALITY 286 mosm/kg (275-300); CALCIUM 9.6 mg/dL (8.5-10.1); CARBON DIOXIDE 32.9 mmol/L (21.0-32.0); CHLORIDE - SERUM 101 mmol/L (98-107); CREATININE - SERUM 0.9 mg/dL (0.6-1.3); GLUCOSE 143 mg/dL (74-106); POTASSIUM - SERUM 4.9 mmol/L (3.5-5.1); SODIUM 141 mmol/L (136-145); UREA NITROGEN 25 mg/dL (7-18); eGFR NON AFRICAN AMERICAN 86 mL/min (90-120)
[2017-07-02 08:14] VITALS: BP 139/61
--- NOTE | 2017-07-02 08:15 | NUR ---
PT AM MEDS ADMINISTERED. PT DENIES NEEDS AT THIS TIME.
--- NOTE | 2017-07-02 12:15 | NUR ---
PT EATING LUNCH, DENIES NEEDS. WCTM.
--- NOTE | 2017-07-02 15:35 | NUR ---
PATIENT DISCHARGING HOME WITH DAUGHTER.[facility] WILL PROVIDE THERAPY AT HOME. [facility] WILL DELIVER A HOSPITAL BED, WHEELCHAIR AND SHOWER CHAIR TO PATIENT HOME. DR. RAM 07/04/17 @ 9:00, RECORDS SENT TO DR. BARRETO OFFICE AND THEY WILL CALL PATIENT WITH AN APPOINTMENT. DR. DUQUE PATIENT TO CALL IF ANY PROBLEMS FOR AN APPOINTMENT. PATIENT CHOICE FORM FOR HOME HEALTH AND [facility] FORM SIGNED, EXPLAINED AND FILED IN CHART. WILL CONTINUE TO FOLLOW WITH PATIENT UNTIL DISCHARGED
--- NOTE | 2017-07-02 19:03 | NUR ---
PT RESTING IN ROOM, DENIES NEEDS. WCTM.
[2017-07-02 19:45] VITALS: BP 90/49
--- NOTE | 2017-07-02 19:45 | NUR ---
ASSESSMENT PER FLOW SHEET, PEG TUBE NOTED WITH NO REDNESS OR EDEMA AROUND SITE, PT DENIES NEEDS OR PAIN AT THIS TIME
--- NOTE | 2017-07-02 20:30 | NUR ---
PT AWAKE, WATCHING TV, DENIES NEEDS OR PAIN AT THIS TIME
--- NOTE | 2017-07-02 21:12 | NUR ---
THIS RN AND NATHAN GURROLA RN IN ROOM, NATHAN GURROLA RN CHECKS PLACEMENT AND RESIDUAL, RESIDUAL NOTED TO BE 50 MLS AT THIS TIME, NATHAN GURROLA RN ADM REGLAN VIA PEG TUBE, PEG TUBE FLUSHED, NATHAN GURROLA STATES TO WAIT AN HOUR TO RECHECK RESIDUAL AND THEN ADM FEEDING
--- NOTE | 2017-07-02 22:30 | NUR ---
THIS RN AND NATHAN GURROLA, RN IN ROOM, THIS RN CHECKS PLACEMENT AND RESIDUAL, RESIDUAL NOTED TO BE 20ML, ADM GLUCERNA VIA GRAVITY, PEG TUBE FLUSHED WITH 60MLS OF H20, PT LOUISE WELL, BED IN LOW POSITION, SIDE RAILS X 2, CALL LIGHT IN REACH, PT DENIES NEEDS AT THIS TIME
--- NOTE | 2017-07-03 00:08 | NUR ---
PT RESTING WITH EYES CLOSED, RESP QUIET, NO DISTRESS NOTED, LEFT UNDISTURBED AT THIS TIME, BED IN LOW POSITION, SIDE RAILS X 2, CALL LIGHT IN REACH
--- NOTE | 2017-07-03 04:39 | NUR ---
PT AWAKE, NEEDS TO USE THE URINAL, EMPTIED 150 MLS FROM URINAL FIRST FOR PT, PT HANDED URINAL, INFORMED PT THAT I WILL COME BACK IN A FEW MINUTES TO EMPTY THE URINAL AGAIN, PT VERBALIZES UNDERSTANDING
--- NOTE | 2017-07-03 05:13 | NUR ---
PT RESTING WITH EYES CLOSED, AROUSES TO SOFT VERBAL STIMULATION, PEG TUBE PLACEMENT CHECKED, FLUSHED, ADM GLUCERNA TO SLOW GRAVITY, FLUSHED WITH 60MLS OF H20, ADM 0600 MED PER MD ORDERS, SEE GENNA, FSBS 180, INFORMED PT WHAT HIS BLOOD SUGAR WAS AND THAT HE WILL RECEIVE 2 UNITS OF INSULIN, PT VERBALIZES UNDERSTANDING, WASH CLOTH PROVIDED FOR MOUTH, EMPTIED 200 MLS OF URINE FROM URINAL, PT DENIES FURTHER NEEDS OR PAIN AT THIS TIME
--- NOTE | 2017-07-03 06:25 | NUR ---
ADM REGLAN VIA PEG TUBE, FLUSHED BEFORE AND AFTER MED, ADM INSULIN PER MD ORDERS, SEE EMAR, PT DENIES NEEDS OR PAIN AT THIS TIME
--- NOTE | 2017-07-03 06:44 | NUR ---
SHIFT REPORT TO DAY SHIFT
--- NOTE | 2017-07-03 08:09 | NUR ---
PT RESTING, EYES CLOSED. BED LOW. CL IN REACH.
[2017-07-03 08:51] VITALS: BP 141/64
[2017-07-03] MEDS ORDERED: REGLAN5 MG PO (08:56)
[2017-07-03] MEDS ORDERED: TRANSDERM-SCO1 PATCH TRANSDERM (08:57)
--- NOTE | 2017-07-03 09:55 | NUR ---
PT AM MEDS ADMINISTERED WITH AM TF. NOTIFIED AT 0930 THAT PT WAS VOMITING. WILL CONSULT WITH DIETARY.
--- NOTE | 2017-07-03 12:37 | NUR ---
PT RESIDUAL GREATER THAN 120. HOLDING TF AT THIS TIME. MEDS ADMINISTERED.
--- NOTE | 2017-07-03 12:55 | NUR ---
DR NESS NOTIFIED OF PT CONDITION. XRAY 2 VIEW OF ABD ORDERED. WCTM.
--- NOTE | 2017-07-03 12:58 | NUR ---
Nutrition Follow Up: Chart reviewed. Spoke with nursing, RESPIRATORY EQUIPMENT ASSISTANT and pt. Nursing reported that pt has vomited last night and again this am after bolus feedings. Pt stated that he felt "okay." Nursing reported gastric residual >120 so noon bolus was held. Noted pt was to d/c today but this has been held. RD following.
--- NOTE | 2017-07-03 13:50 | NUR ---
RECHECKED STOMACH CONTENTS. PT RESIDUAL IS AT 80 MLS AND IS DARK GREEN/BROWN IN COLOR WITH VERY ACIDIC SMELL. STILL AWAITING XRAY RESULTS AT THIS TIME.
--- NOTE | 2017-07-03 15:30 | NUR ---
DR NESS CONTACTED WITH XRAY RESULTS. REGLAN INCREASED TO 10MG. WCTM.
--- NOTE | 2017-07-03 16:53 | NUR ---
PT GIVEN PRN MIRALAX WITH TF AT THIS TIME. WCTM.
--- NOTE | 2017-07-03 18:19 | NUR ---
PT SITTING UP IN WC. PT STATES HE FEELS FINE. NO N/V REPORTED. WCTM.
--- NOTE | 2017-07-03 19:35 | NUR ---
SITTING UP IN W/C AT BEDSIDE.
[2017-07-03 22:10] VITALS: BP 107/53
--- NOTE | 2017-07-03 22:10 | NUR ---
PATIENT NOW IN BED. ASSESSMENT AND HS MEDS COMPLETE. HELD LOPRESSOR FOR LOW BP OF 107/53. PEG RESIDUAL 20 ML. PATIENT WAS GIVEN SCHEDULED 360ML TF WITH REGLAN 10MG DISSOLVED IN IT. PEG TUBE WAS THEN FLUSHED WITH FRESH WATER. PATIENT DENIES NEEDS. HOB UP 45 DEGREES.
--- NOTE | 2017-07-04 00:20 | NUR ---
RESTING IN BED, EYES CLOSED. HOB REMAINS UP 45 DEGREES. APPEARS COMFORTABLE.
--- NOTE | 2017-07-04 02:15 | NUR ---
CONTINUES IN BED, EYES CLOSED. NO DISTRESS EVIDENT.
--- NOTE | 2017-07-04 04:05 | NUR ---
REMAINS IN BED, RESTING QUIETLY.
--- NOTE | 2017-07-04 07:41 | NUR ---
RESTING QUIETLY IN BED. CALL LIGHT IN REACH. BED IN LOWEST POSITION.
--- NOTE | 2017-07-04 08:15 | NUR ---
PT RESTING IN BED WITH EYES OPEN CALL LIGHT IN REACH NO PROBLEMS WILL MONITER
[2017-07-04 08:18] VITALS: BP 138/70
--- NOTE | 2017-07-04 12:51 | NUR ---
PT UP IN BEDSIDE CHAIR CALL LIGHT IN REACH WILL MONITER
--- NOTE | 2017-07-04 13:48 | NUR ---
Nutrition Note: Pt to be d/c on TF of Glucerna 1.0 7.5 cans/d. This will provide: 1778 kcal (23 kcal/kg), 74 g protein (1 g/kg), 1515 ml free water. Pt may use discretion in times to administer bolus TF. Pt needs to receive 7.5 cans/d with 60 ml water flush before and after each bolus. Each TF bolus should be at least be [address] following.
--- NOTE | 2017-07-04 15:06 | NUR ---
CASE MANAGEMENT NOTE Dr. Nick's office called for appointment. The human service coordinator is off until Friday. I was instructed to fax the referral to the office and told the coordinator will call to schedule appointment when she returns. Fax was sent to request appointment as requested. Noemí Govea [facility] Binding Folder Machine
--- NOTE | 2017-07-04 15:51 | NUR ---
Patient's discharge held due to concerns over swallowing. Discussed with the patient's daughter who request an appt be made with Dr Nick after discharge. See note from Noemí Govea re appt. Patient is to continue home tube feeding bolus with Glucerna 1.0. Ordered Glucerna from [facility]. They will deliver it to the patient this afternoon. HH for PT, ST and OT set up with [facility]. Called [facility] who was unable to supply all three disciplines. Discussed with the patient and he chose [facility] right of choice was signed and witnessed. Faxed the order, H&P, Med Rec, Discharge summary to [facility]. They will see the patient on Friday. Dannielle Moon RN CM .
--- NOTE | 2017-07-04 20:30 | NUR ---
REMAISN UP IN W/C. DENIES NEEDS.
[2017-07-04 22:20] VITALS: BP 115/53
--- NOTE | 2017-07-04 23:00 | NUR ---
ASSISTED PATIENT TO BR VIA W/C. URINATED AND RETURNED TO BED. ASSESSMENT AND HS MEDS COMPLETE. HELD LOPRESSOR DOSE FOR BP OF 115/53. PEG RESIDUAL 20ML. TF GIVEN AND TUBE FLUSHED. PATIENT IN BED NOW WITH HOB UP 45 DEGREES. DENIES CURRENT NEEDS. DID NYSTATIN SWISH AND SPIT ROUTINE WITH MILD RESERVATION, BUT NO APPARENT DIFFICULTY.
--- NOTE | 2017-07-05 00:15 | NUR ---
RESTING IN BED, HOB UP 45 DEGREES. APPEARS COMFORTABLE.
--- NOTE | 2017-07-05 02:00 | NUR ---
RESTING IN BED, HOB UP 45 DEGREES. NO DISTRESS EVIDENT.
[2017-07-05 04:35] VITALS: BP 180/73
[2017-07-05 05:15] VITALS: BP 144/66
--- NOTE | 2017-07-05 05:15 | NUR ---
AT 0435, PATIENT CALLED TO C/O "SHAKING". SAYS DID NOT FEEL COLD AND SINCE HE WAS WARM TO TOUCH, TOOK HIS VS. INITIALLY VS WERE FOLLOWS: T 100.9 ORAL, PULSE 117, RR 22, BP 179/80 WITH PULSEOX MAXING AT 88% ON RA. PLACED PATIENT ON O2 @ 2L AND PULSEOX RESPONDED TO 96%. SERIAL BP'S Q 5 MINUTES SHOWED DECREASE TO 144/66. PATIENT C/O "REFLUX AND FEELING FULL". PEG RESIDUAL IS 25ML. DECLINED SCHEDULED TF AT THIS TIME. GAVE PATIENT X1 DOSE OF TYLENOL 650MG WELL SCHEDULED REGLAN 10MG MIXED IN WATER VIA PEG AND FLUSHED PEG WITH TOTAL OF 120ML BETWEEN MED DILUENT AND FLUSH AFTERWARDS. SINCE PLACING HIM ON O2, SAYS HE'S IS FEELING BETTER AND SHAKING LESS. GAVE PATIENT 4 UNITS HUMALOG S/S INSULIN FOR FSBS 214. PATIENT WAS REPOSITIONED HIGHER UP IN BED WITH HOB AT 45 DEGREES. OF NOTE IS THE FACT THAT PATIENT HAS DEVELOPED SOFT CRACKLES IN HIS LEFT BASE, ALL OTHER SIMMS REMAINING CLEAR TO AUSCULTATION AT THIS TIME. WILL NOTIFY DR. NESS AT END OF SHIFT PATIENT IS CURRENTLY STABLE AND COMFORTABLE, OR CALL HIM SOONER IF FURTHER NEGATIVE CHANGES OCCUR. INFORMED VESSEL SCRAPPER HELPER OF THESE PATIENT CHANGES AND ACTIONS WHEN SHE JUST ROUNDED ON UNIT.
--- NOTE | 2017-07-05 06:45 | NUR ---
PATIENT REMAINS IN BED, HOB UP 45 DEGREES. LOOKS BETTER THAN EARLIER AND SAYS HE FEELS BETTER. CONTINUES ON O2 @ 2L PER N/C.
--- NOTE | 2017-07-05 08:10 | NUR ---
PT RESTING IN BED WITH EYES OPEN NO COMPLAINTS B/P WILL CONTINUE TO MONITER
[2017-07-05 09:03] VITALS: BP 88/42
--- NOTE | 2017-07-05 10:30 | NUR ---
DR NESS NOTIFIED OF PT CHANGE IN VITALS DRS ORDER TO HOLD DISCHARGE AND NEW ORDERS FOR LABS AND CHEST X-RAY NOTIFED DAUGHTER THAT HIS DISCHARGE IS ON HOLD WILL CONTINUE TO MONITER PT
[2017-07-05 10:55] LABS: BASOPHILS 0.2 % (0-2); EOSINOPHILS 0.1 % (0-7); HEMATOCRIT 35.8 % (42.0-54.0); HEMOGLOBIN 11.4 g/dL (13.5-17.5); IMMATURE GRANULOCYTES 0.3 % (0-5); LYMPHOCYTES 4.6 % (15-50); MCH 29.6 pg (26.0-34.0); MCHC 31.8 g/dL (31.0-37.0); MEAN PLATELET VOLUME 10.6 fL (7.4-10.4); MONOCYTES 6.6 % (2-11); NEUTROPHILS 88.2 % (40-80); PLATELET COUNT 333 10x3/uL (130-400); RBC 3.85 10x6/uL (4.20-6.10); RDW 13.2 % (11.5-14.5); WBC 12.9 10x3/uL (4.8-10.8)
[2017-07-05 11:10] LABS: ANION GAP 10.4 mmol/L (8-16); CALCIUM 9.4 mg/dL (8.5-10.1); CARBON DIOXIDE 30.9 mmol/L (21.0-32.0); CREATININE - SERUM 1.2 mg/dL (0.6-1.3); POTASSIUM - SERUM 4.3 mmol/L (3.5-5.1)
--- NOTE | 2017-07-05 13:22 | NUR ---
PT RESTING IN BED WITH EYES OPEN CALL LIGHT IN REACH WILL
--- NOTE | 2017-07-05 14:43 | NUR ---
UP IN W/C WITH FAMILY AT BEDSIDE. PLEASANT AND COOPERATIVE. ALERT AND ORIENTED. DENIES ANY PAIN. PEG TUBE CHECKED FOR PATENCY WITH 75CC ASPIRATED. CONTINUES TO RECIEVE BOLUS FEEDINGS. TOLERATES FEEDINGS. CALL IGHT AND OVERBED TABLE IN REACH.
[2017-07-05 16:30] LABS: APPEARANCE CLEAR (CLEAR); BILIRUBIN NEGATIVE (NEGATIVE); COLOR DK YELLOW (YELLOW); GLUCOSE NEGATIVE (NEGATIVE); KETONE NEGATIVE (NEGATIVE); NITRITE NEGATIVE (NEGATIVE); PROTEIN NEGATIVE (NEGATIVE); SPECIFIC GRAVITY 1.015 (1.005-1.020); UROBILINOGEN NORMAL (NORMAL)
[2017-07-05 19:00] VITALS: BP 131/52
--- NOTE | 2017-07-05 19:20 | NUR ---
SITTING UP IN W/C AT BEDSIDE. DENIES NEEDS.
--- NOTE | 2017-07-05 20:20 | NUR ---
REMAINS UP IN W/C. SAYS HE WANTS TO REMAIN UP AWHILE LONGER.
[2017-07-05 22:20] VITALS: BP 125/65
--- NOTE | 2017-07-05 22:40 | NUR ---
ASSESSMENT AND HS MEDS COMPLETE. MEDS GIVEN PER PEG TUBE DISSOLVED IN WATER, INCLUDING NEWLY-ORDERED FLAGYL 500MG TAB. GLUCERNA 1.0 TUBE FEEDING THEN COMPLETED AND PEG TUBE WAS FLUSHED. PATIENT HAS BEEN IN BED SINCE 2119 HRS.
--- NOTE | 2017-07-06 00:35 | NUR ---
RESTING IN BED, EYES CLOSED. NO DISTRESS EVIDENT.
--- NOTE | 2017-07-06 02:20 | NUR ---
RESTING IN BED, HOB UP 45 DEGREES, EYES CLOSED.
--- NOTE | 2017-07-06 04:40 | NUR ---
RESTING IN BED, EYES CLOSED. RESPIRATIONS UNLABORED.
--- NOTE | 2017-07-06 06:35 | NUR ---
ASSISTED PATIENT TO SHOWER AND CHANGED HIS CLOTHES. CHANGED ALL BED LINENS. ON RETURN TO BED, GAVE HIM HIS SCHEDULED MEDS AND HIS BOLUS TF. CURRENTLY UP IN WITH HOB 45 DEGREES. DENIES NEEDS. SAYS HE FEELS, "PRETTY GOOD", THIS MORNING.
[2017-07-06 08:05] VITALS: BP 128/58
--- NOTE | 2017-07-06 09:28 | NUR ---
AM MEDS CRUSHED AND GIVEN THROUGH PEG TUBE. PT RESIDUAL GREATER THAN 12O AT THIS TIME. 8:00 TF BEING HELD UNTIL RESIDUAL IS LESS THAN 100. WILL RECHECK.
--- NOTE | 2017-07-06 10:26 | NUR ---
PT 8:00 TF GIVEN AT THIS TIME. 10 ML RESIDUAL PRESENT PRIOR TO TF.
--- NOTE | 2017-07-06 14:20 | NUR ---
PT 12:00 TF GIVEN AT THIS TIME. RESIDUAL PRIOR TO TF WAS 50ML.
--- NOTE | 2017-07-06 18:10 | NUR ---
PT 1700 TF ADMINISTERED AT THIS TIME. PT HAD 30ML RESIDUAL PRIOR TO TF. WCTM.
[2017-07-06 19:00] VITALS: BP 128/57
--- NOTE | 2017-07-06 19:20 | NUR ---
UP IN W/C. DENIES NEEDS.
[2017-07-06 21:35] VITALS: BP 110/60
--- NOTE | 2017-07-06 21:35 | NUR ---
AWOKE PATIENT TO TAKE BLOOD PRESSURE AND PEG RESIDUAL TOLD HIM I WILL NOW PREPARE HIS HS MEDS AND TF.
--- NOTE | 2017-07-06 22:05 | NUR ---
ASSESSMENT AND HS MEDS COMPLETE WELL IS SCHEDULED BOLUS TUBE FEEDING. HELD LOPRESSOR FOR BP OF 110/60. HOB IS ELEVATED 45 DEGREES.
--- NOTE | 2017-07-06 22:05 | NUR ---
RESTING WITH EYES CLOSED. APPEARS COMFORTABLE.
--- NOTE | 2017-07-07 00:35 | NUR ---
IN BED, EYES CLOSED. NO EVIDENT DISCOMFORT. HOB REMAINS UP 45 DEGREES.
--- NOTE | 2017-07-07 02:25 | NUR ---
PATIENT AWAKE. EMPTIED 150ML FROM HIS BEDSIDE URINAL.
[2017-07-07 05:38] LABS: BASOPHILS 0.7 % (0-2); EOSINOPHILS 4.8 % (0-7); HEMATOCRIT 36.1 % (42.0-54.0); HEMOGLOBIN 11.5 g/dL (13.5-17.5); IMMATURE GRANULOCYTES 0.7 % (0-5); LYMPHOCYTES 12.6 % (15-50); MCH 29.6 pg (26.0-34.0); MCHC 31.9 g/dL (31.0-37.0); MCV 92.8 fL (80.0-100.0); MEAN PLATELET VOLUME 10.6 fL (7.4-10.4); MONOCYTES 11.9 % (2-11); NEUTROPHILS 69.3 % (40-80); PLATELET COUNT 306 10x3/uL (130-400); RBC 3.89 10x6/uL (4.20-6.10); RDW 13.2 % (11.5-14.5)
[2017-07-07 05:41] LABS: CALCIUM 9.4 mg/dL (8.5-10.1); CARBON DIOXIDE 32.6 mmol/L (21.0-32.0); CHLORIDE - SERUM 101 mmol/L (98-107); POTASSIUM - SERUM 4.3 mmol/L (3.5-5.1); SODIUM 139 mmol/L (136-145); UREA NITROGEN 25 mg/dL (7-18)
[2017-07-07 05:42] LABS: WBC 5.8 10x3/uL (4.8-10.8)
[2017-07-07 05:44] LABS: CALC OSMOLALITY 284 mosm/kg (275-300); CREATININE - SERUM 0.8 mg/dL (0.6-1.3); GLUCOSE 157 mg/dL (74-106); eGFR NON AFRICAN AMERICAN > 90 mL/min (90-120)
--- NOTE | 2017-07-07 06:35 | NUR ---
ASSISTED PATIENT TO COMPLETE DRESSING, THEN TRANSFERRED HIM TO [facility] VIA W/C. WILL CALL WHEN FINISHED.
[2017-07-07] MEDS ORDERED: FLAGYL500 MG PO (08:25)
[2017-07-07 09:00] VITALS: BP 116/57
--- NOTE | 2017-07-07 09:20 | NUR ---
PT AM TF AND MEDS ADMINISTERED AT THIS TIME. PT RESIUDAL 10 ML PRIOR TO TF. PT DISCHARGE INSTRUCTIONS REVIEWED AND PAPERWORK SIGNED. PT DENIES NEEDS.
--- NOTE | 2017-07-07 11:01 | NUR ---
PATIENTS DISCHARGED WAS HELD ON 07/02/17 DUE TO PATIENT NOT FEELING WELL. PATIENT DISCHARGING HOME TODAY WITH DAUGHTER SAME APPOINTMENTS , BUT DR. MOORE OFFICE TO CALL PATIENT WITH AN APPOINTMENT. AND [employer] [facility] WILL PROVIDE THERAPY AT HOME.
--- NOTE | 2017-07-07 12:01 | NUR ---
PT DISCHARGED HOME WITH FAMILY VIA WHEELCHAIR. HOME HEALTH TO FOLLOW.
== END 2017-07-07 12:02 | disposition home health service (06) | DRG 66 ==
LOC: D.REHAB 17:05
PROVIDERS: ADMIT Emergency Medicine
DX: I63.9 Cerebral infarction, unspecified (principal); R47.1 Dysarthria and anarthria; R27.8 Other lack of coordination; R13.12 Dysphagia, oropharyngeal phase; R13.13 Dysphagia, pharyngeal phase; I10 Essential (primary) hypertension; I25.10 Atherosclerotic heart disease of native coronary artery without angina pectoris; E78.5 Hyperlipidemia, unspecified; E11.65 Type 2 diabetes mellitus with hyperglycemia; R53.1 Weakness

== ENCOUNTER 2017-08-28 17:38 | Emergency (ER) | payer MEDICARE, BC ==
[~2017-08-28 17:38] MED LIST changes: +REGLAN5 MG PO; +TRANSDERM-SCO1 PATCH TRANSDERM
[2017-08-28 18:05] LABS: COLOR STRAW (YELLOW)
[2017-08-28 18:06] LABS: APPEARANCE CLEAR (CLEAR); BILIRUBIN NEGATIVE (NEGATIVE); GLUCOSE NEGATIVE (NEGATIVE); KETONE NEGATIVE (NEGATIVE); NITRITE NEGATIVE (NEGATIVE); PROTEIN NEGATIVE (NEGATIVE); UROBILINOGEN NORMAL (NORMAL)
[2017-08-28 18:21] LABS: BASOPHILS 0.1 % (0-2); EOSINOPHILS 0.7 % (0-7); HEMATOCRIT 33.3 % (42.0-54.0); IMMATURE GRANULOCYTES 0.2 % (0-5); MCH 28.9 pg (26.0-34.0); MCV 87.6 fL (80.0-100.0); MEAN PLATELET VOLUME 9.8 fL (7.4-10.4); MONOCYTES 8.7 % (2-11); NEUTROPHILS 77.3 % (40-80); RDW 13.7 % (11.5-14.5); WBC 8.1 10x3/uL (4.8-10.8)
[2017-08-28 18:22] LABS: PLATELET COUNT 199 10x3/uL (130-400)
[2017-08-28 18:45] LABS: ALBUMIN 2.8 g/dL (3.4-5.0); ANION GAP 9.3 mmol/L (8-16); BILIRUBIN - TOTAL 0.18 mg/dL (0.2-1.3); CALCIUM 9.3 mg/dL (8.5-10.1); CREATININE - SERUM 1.1 mg/dL (0.6-1.3); POTASSIUM - SERUM 4.3 mmol/L (3.5-5.1); PROTEIN - SERUM 6.8 g/dL (6.4-8.2)
== END 2017-08-28 19:50 | disposition home or self-care (01) ==
LOC: D.ER 17:38
PROVIDERS: Family Medicine
DX: E11.649 Type 2 diabetes mellitus with hypoglycemia without coma (principal); I63.9 Cerebral infarction, unspecified; R13.10 Dysphagia, unspecified; Z93.1 Gastrostomy status; E87.1 Hypo-osmolality and hyponatremia

== ENCOUNTER → 2017-10-08 12:16 | Outpatient (CLI) | payer MEDICARE, BC | END | disposition home or self-care (01) | LOC: D.RAD 09-29 13:00 | DX: E11.9 Type 2 diabetes mellitus without complications (principal); I10 Essential (primary) hypertension; R13.10 Dysphagia, unspecified; I63.9 Cerebral infarction, unspecified; C18.9 Malignant neoplasm of colon, unspecified ==

== ENCOUNTER → 2017-10-10 19:37 | Outpatient (CLI) | payer MEDICARE, BC ==
[2017-10-10 20:29] LABS: HEMOGLOBIN A1C 8.4 % (4.8-6.0)
[2017-10-10 20:31] LABS: ALBUMIN 3.3 g/dL (3.4-5.0); ALKALINE PHOSPHATASE 100 U/L (46-116); ALT (SGPT) 32 U/L (10-68); BILIRUBIN - TOTAL 0.12 mg/dL (0.2-1.3); CALC OSMOLALITY 277 mosm/kg (275-300); CALCIUM 9.2 mg/dL (8.5-10.1); CARBON DIOXIDE 32.5 mmol/L (21.0-32.0); CHLORIDE - SERUM 97 mmol/L (98-107); CHOLESTEROL, TOTAL 112 mg/dL (0-200); CREATININE - SERUM 0.7 mg/dL (0.6-1.3); HDL CHOLESTEROL 38 mg/dL (32-96); LDL CHOLESTEROL 58 mg/dL (0-100); LDL-HDL RATIO 1.5 ratio (1.5-3.5); POTASSIUM - SERUM 5.4 mmol/L (3.5-5.1); PROTEIN - SERUM 6.3 g/dL (6.4-8.2); SODIUM 136 mmol/L (136-145); TRIGLYCERIDE 83 mg/dL (30-200); UREA NITROGEN 23 mg/dL (7-18); eGFR NON AFRICAN AMERICAN > 90 mL/min (90-120)
[2017-10-10 20:32] LABS: GLUCOSE 140 mg/dL (74-106)
== END | disposition home or self-care (01) ==
LOC: D.LABREF 19:37
PROVIDERS: Family Medicine
DX: E11.9 Type 2 diabetes mellitus without complications (principal)

== ENCOUNTER → 2017-10-15 17:57 | Outpatient (CLI) | payer MEDICARE, BC | END | disposition home or self-care (01) | LOC: D.LABREF 17:57 | DX: E11.9 Type 2 diabetes mellitus without complications (principal); R13.10 Dysphagia, unspecified; Z93.1 Gastrostomy status ==

== ENCOUNTER → 2018-01-08 08:23 | Outpatient (CLI) | payer MEDICARE, BC | END | disposition home or self-care (01) | LOC: D.RAD 08:23 | DX: R13.10 Dysphagia, unspecified (principal) ==

== ENCOUNTER 2018-03-05 06:22 | Outpatient (CLI) | payer MEDICARE, BC ==
[~2018-03-05] VITALS: Ht 177.8 cm; Wt 68.2 kg
--- NOTE | ~2018-03-05 | HEMODYNAMI ---
PATIENT:ILIR DINERO MEDICAL RECORD: [id number] : 33 LOCATION:D.CAT ADMISSION DATE: 03/05/18 Generatedon:03/05/20189:53 Patient name: ILIR DINERO Patient #: [id number] SSN: : 1935 Date of study: 03/05/2018 Page: Of Hemodynamic Procedure Report Patient Data Patient Demographics Procedure consent was obtained First Name: ILIR Gender: Male Last Name: BAR : 1935 Middle Initial: L Age: 82 year(s) Patient #: [id number] Race: Additional ID: [id number] Contact details Address: [address] [place] [address] State: [place] City: [place] Zip code: [address] Past Medical History Allergies Allergen Reaction Date Comments Reported Codeine 12/21/2014 Penicillins 12/21/2014 Demerol 10/24/2016 Penicillins 10/24/2016 Codeine 10/24/2016 Other allergy 06/18/2017 DEMEROL, PCN, CODEINE Other allergy 03/05/2018 CODEINE, DEMEROL, PCN Admission Admission Data Admission Date: 03/05/2018 Admission Time: 6:22 Lab Results Lab Result Date: 03/05/2018 Lab Result Time: 0:00 Biochemistry Name Units Result Min Max BUN mg/dl 27 --(----)-* 7 18 Creatinine mg/dl 0.8 --(-*--)-- 0.6 1.3 CBC Name Units Result Min Max Hemoglobin g/dl 12.2 *-(----)-- 13.5 17.5 Procedure Procedure Types Cath Procedure Peripheral Cath Diagnostic Procedure Cath Peripheral Kbqlm-Yfzeskl-Kat-Off Peripheral vascular Intervention Angioplasty Angioplasty Fem/Pop Procedure Description Procedure Date Procedure Date: 03/05/2018 Procedure Start Time: 9:00 Procedure End Time: 9:48 Procedure Staff Name Function Yao Norman MD Performing Physician Rebeca Ochoa RT Scrub Shelby Jimenez RT Monitor Dextre Hassan RN Nurse Procedure Data Cath Procedure Fluoroscopy Diagnostic fluoroscopy Total fluoroscopy Time: 8.4 time: 8.4 min min Diagnostic fluoroscopy Total fluoroscopy dose: 224 dose: 224 mGy mGy Contrast Material Contrast Material Type Amount (ml) Isovue 300 109 Entry Location Entry Primary Successful Side Size Upsize Upsize Entry Closure Succes sful Closure Location (Fr) 1 (Fr) 2 (Fr) Remarks Device Remarks Femoral Right 5 Fr 6 Fr 6 Fr Exoseal artery Short Long Estimated blood loss: 10 ml Diagnostic catheters Device Type Used For End Catheter Placement DIAGNOSTIC UF 5Fr Procedure catheter ([id number]) DIAGNOSTIC IM 5Fr Procedure catheter ([id number]) Procedure Complications No complications Procedure Medications Medication Administration Route Dosage Oxygen NC 2 l/min Lidocaine 2% added to field 20 Heparin Flush Bag added to field 2 bags (1000units/500ml NS) 0.9% NaCl I.V. 100 ml/hr Versed I.V. 1 mg Fentanyl I.V. 50 mcg Versed I.V. 0.5 mg Fentanyl I.V. 25 mcg Versed I.V. 0.5 mg Fentanyl I.V. 25 mcg Heparin Bolus I.V. 6000 units Plavix 600 mg Hemodynamics Rest HGB: 12.2 (g/dl) Heart Rate: 60 (bpm) Snapshots Pre Cath Intra NCS Post Cath Vital Signs Time Heart Resp SPO2 etCO2 NIBP (mmHg) Rhythm Pain Sedation Rate (ipm) (%) (mmHg) Status Level (bpm) 8:42:58 62 15 93 0 174/80(138) NSR 0 (11) 10(A) , No pain 8:47:18 63 13 96 35.9 161/86(132) NSR 0 (11) 10(A) , No pain 8:51:36 60 15 98 32.2 157/79(119) NSR 0 (11) 10(A) , No pain 8:55:52 59 17 97 0.7 142/80(115) NSR 0 (11) 10(A) , No pain 9:00:04 60 15 95 0 135/76(114) NSR 0 (11) 9(A) , No pain 9:04:14 61 19 99 20.2 139/76(118) NSR 0 (11) 9(A) , No pain 9:08:26 60 17 100 10.4 137/69(111) NSR 0 (11) 9(A) , No pain 9:12:38 61 18 100 14.2 139/69(100) NSR 0 (11) 9(A) , No pain 9:16:50 61 16 100 13.4 136/69(107) NSR 0 (11) 9(A) , No pain 9:20:58 64 18 100 19.4 155/81(99) NSR 0 (11) 9(A) , No pain 9:25:18 58 17 100 0 140/60(102) NSR 0 (11) 9(A) , No pain 9:29:32 62 17 100 12.7 132/69(106) NSR 0 (11) 9(A) , No pain 9:33:42 59 18 100 0 141/69(111) NSR 0 (11) 9(A) , No pain 9:37:58 59 18 100 14.9 125/61(92) NSR 0 (11) 9(A) , No pain 9:42:02 65 15 98 0 146/80(117) NSR 0 (11) 10(A) , No pain 9:46:18 63 18 96 0 116/68(99) NSR 0 (11) 10(A) , No pain Medications Time Medication Route Dose Verified Delivered Reason Notes Effectiveness by by 8:41:25 Oxygen NC 2 Yao Buffie used for l/min Emerson Hassan RN procedure 8:42:31 Lidocaine 2% added 20ml Yao Yao for local to vial Emerson Norman MD anesthetic field 8:42:39 Heparin Flush added 2 Yao Yao used for Bag to bags Emerson Norman MD procedure (1000units/500ml field NS) 8:42:49 0.9% NaCl I.V. 100 Yao Buffie Per physician ml/hr Emerson Hassan RN 8:54:12 Versed I.V. 1 mg Yao Buffie for sedation Emerson Hassan RN 8:54:20 Fentanyl I.V. 50 Yao Buffie for sedation mcg Emerson Hassan RN 9:03:33 Versed I.V. 0.5 Yao Buffie for sedation mg Emerson Hassan RN 9:03:39 Fentanyl I.V. 25 Yao Buffie for sedation mcg Emerson Hassan RN 9:21:52 Versed I.V. 0.5 Yao Chrisie for sedation mg Emerson Hassan RN 9:21:56 Fentanyl I.V. 25 Yao Chrisie for sedation mcg Emerson Hassan RN 9:23:54 Heparin Bolus I.V. 6000 Yao Buffie for verifie d units Emerson Hassan RN anticoagulation with dr norman 9:50:27 Plavix via 600 Yao Buffie for PEG mg Emerson Hassan RN antiplatelet tube therapy Procedure Log Time Note 8:25:13 Diagnostic Cath Status : Elective 8:25:34 Dexter Hassan RN sent for patient. Start room use. 8:25:36 Time tracking: Regular hours (M-F 7:00 - 5:00) 8:25:40 Plan of Care:Hemodynamics will remain stable., Cardiac rhythm will remain stable., Comfort level will be maintained., Respiratory function will remain adequate., Patient/ family verbilizes understanding of procedure., Procedure tolerated without complication., Recovers from procedure without complications.. 8:28:16 H&P Date Dictated: 02/24/2018 Within 30 days and on chart., H&P Addendum completed by physician on day of procedure. (MUST COMPLETE FOR ALL OUTPATIENTS). 8:28:40 Patient allergic to Other allergyCODEINE, DEMEROL, PCN 8:30:55 Lab Result : BUN 27 mg/dl 8:30:55 Lab Result : Creatinine 0.8 mg/dl 8:30:55 Lab Result : Hemoglobin 12.2 g/dl 8:36:13 Patient received from Pre/Post Procedure Room to CCL 2 Alert and oriented. Tansferred to table in Supine position. 8:36:15 Warm blankets applied, and elsa hugger turned on for patient comfort. 8:36:15 Correct patient and procedure confirmed by team. 8:36:16 Signed procedure consent form obtained from patient. 8:36:18 ECG and BP/O2 sat monitors applied to patient. 8:41:25 Oxygen 2 l/min NC was administered by Dexter Hassan RN; used for procedure; 8:41:48 Vital chart was started 8:41:49 Baseline sample Acquired. 8:41:54 Full Disclosure recording started 8:41:55 Pre-procedure instructions explained to patient. 8:41:55 Pre-op teaching completed and patient verbalized understanding. 8:41:57 Family in waiting room. 8:41:59 Patient NPO since Midnight. 8:42:01 Is the patient allergic to Iodine/contrast media? No. 8:42:02 Was the patient premedicated? No 8:42:17 Is patient on blood thinner?No 8:42:19 Patient diabetic? Yes. 8:42:21 If diabetic: On Metformin? Yes 8:42:26 If on Metformin: Last Dose? 03/03/2018 8:42:29 Previous problem with sedation/anesthesia? No ? 8:42:31 Lidocaine 2% 20ml vial added to field was administered by Yao Norman MD; for local anesthetic; 8:42:32 Snore? No 8:42:33 Sleep apnea? No 8:42:34 Deviated septum? No 8:42:35 Opens mouth fully? Yes 8:42:36 Sticks out tongue? Yes 8:42:37 Airway obstruction? No ? 8:42:39 Heparin Flush Bag (1000units/500ml NS) 2 bags added to field was administered by Yao Norman MD; used for procedure; 8:42:41 Dentures? Yes out 8:42:49 0.9% NaCl 100 ml/hr I.V. was administered by Dexter Hassan RN; Per physician; 8:42:51 Pre procedure: right dorsailis pedis pulse 1+ Palpable, but thready & weak; easily obliterated 8:42:54 Pre procedure: left dorsailis pedis pulse 1+ Palpable, but thready & weak; easily obliterated 8:42:56 Patient pain scale 0/10 ?. 8:43:04 IV patent on arrival in left forearm with 0.9% NaCl at O. 8:43:06 Lab results completed and on chart. 8:43:11 Bilateral groins area was prepped with chlora-prep and draped in sterile fashion 8:43:11 Alarms reviewed by R. N. 8:43:12 Sharps counted by scrub and verified by R.N. 8:49:34 Use device set CATH PACK 8:49:35 ACIST Syringe (36039) opened to sterile field. 8:49:36 ACIST Hand Control (71020) opened to sterile field. 8:49:36 ACIST Manifold (75599) opened to sterile field. 8:49:36 Medline Cath Pack ([id number]) opened to sterile field. 8:49:37 Bag Decanter () opened to sterile field. 8:49:37 DIAGNOSTIC WIRE .035 260cm J wire (091182) opened to sterile field. 8:49:43 SHEATH 5FR Orlando (IOQ937) opened to sterile field. 8:52:49 --------ALL STOP TIME OUT------ 8:52:50 Final Timeout: patient, procedure, and site verified with staff and physician. All members of the team are in agreement. 8:52:52 Bilateral groins site verified by team. 8:52:55 Physical assessment completed. ASA score P 2 - A patient with mild systemic disease as per Yao Norman MD. 8:52:58 Sedation plan: IV Moderate Sedation Medication:Versed, Fentanyl 8:54:12 Versed 1 mg I.V. was administered by Dexter Hassan RN; for sedation; 8:54:20 Fentanyl 50 mcg I.V. was administered by Dexter Hassan RN; for sedation; 8:55:44 Zero performed for pressure channel P1 8:55:57 Zero performed for pressure channel P1 8:56:09 Zero performed for pressure channel P1 8:56:28 Zero performed for pressure channel P1 8:56:36 Zero performed for pressure channel P1 8:56:52 Zero performed for pressure channel P1 9:00:33 Baseline sample Acquired. 9:00:41 Rhythm: sinus rhythm 9:00:45 Procedure started. 9:00:55 Local anesthetic to right femoral artery with Lidocaine 2% by Yao Norman MD.INITIAL ACCESS ONLY 9:03:33 Versed 0.5 mg I.V. was administered by Dexter Hassan RN; for sedation; 9:03:39 Fentanyl 25 mcg I.V. was administered by Dexter Hassan RN; for sedation; 9:03:47 A 5 Fr sheath was inserted into the Right Femoral artery 9:04:20 A DIAGNOSTIC UF 5Fr catheter ([id number]) was advanced over the wire and used for Procedure. 9:05:54 Abdominal angiogram w/ runoff was performed. 9:06:29 Right leg runoff performed. 9:07:42 WIRE ADVANCED TO CROSS OVER TO LEFT 9:07:48 Catheter exchanged over wire. 9:08:08 A DIAGNOSTIC IM 5Fr catheter ([id number]) was advanced over the wire and used for Procedure. 9:10:00 Left leg runoff performed. 9:16:30 GLIDE WIRE Angled Super Stiff 180cm ([id number]) opened to sterile field. 9:16:47 GLIDE WIRE EXCHANGED AND ADVANCED 9:17:30 Catheter exchanged over wire. 9:17:56 TUBING High Pressure Extension Tubing (Emerson) ([id number]) opened to sterile field. 9:17:57 INFLATOR Merit BasixCompak (IR9577) opened to sterile field. 9:17:57 SHEATH 6FR Orlando (QYX389) opened to sterile field. 9:19:00 SHEATH 6FR Destination (RSR01) opened to sterile field. 9:19:24 Sheath upsized to a 6 Fr Short. 9:20:12 Sheath upsized to a 6 Fr Long. 9:21:52 Versed 0.5 mg I.V. was administered by Dexter Hassan RN; for sedation; 9:21:56 Fentanyl 25 mcg I.V. was administered by Dexter Hassan RN; for sedation; 9:23:54 Heparin Bolus 6000 units I.V. was administered by Dexter Hassan RN; for anticoagulation; verified with dr norman 9:29:18 Inflate balloon Inflation number: 1 A POWERFLEX PRO 5.0 X 80 X 135 balloon ([id number]) was prepped and advanced across the Distal Femoral, Left, then inflated to 5 HAN for 2:38 (min:sec). 9:29:31 Balloon removed over the wire. 9:35:07 Inflation number: 2 The POWERFLEX PRO 5.0 X 80 X 135 balloon ([id number]) was reinflated across the Distal Femoral, Left, to 7 HAN for 3:14 (min:sec). 9:35:36 Balloon removed over the wire. 9:41:48 LONG SHEATH EXHANCHED FOR SHORT SHEATH 9:42:28 EXOSEAL 6Fr (EX600) opened to sterile field. 9:42:53 Sheath removed intact; hemostasis achieved with Exoseal to the Right Femoral artery. 9:43:30 Procedure ended.(Physican Out) 9:44:00 Fluoroscopy time 08.40 minutes. 9:44:03 Flurop Dose total: 224 9:44:03 Fluoroscopy dose: 224 mGy 9:44:07 Contrast amount:Isovue 300 109ml. 9:44:08 Sharps counted by scrub and verified by R.N. 9:44:14 Post-op/insertion site Right Femoral artery dressed using a 4 x 4 and Tegaderm. 9:44:17 Post right femoral artery:stable, soft, clean and dry 9:44:20 Post-procedure physical assessment completed. ASA score P 2 - A patient with mild systemic disease as per Yao Norman MD. 9:44:23 Post procedure rhythm: sinus rhythm 9:44:25 Estimated blood loss: 10 ml 9:44:29 Post procedure instruction explained to patient.Patient verbalizes understanding. 9:44:29 Patient needs reinforcement of post procedure teaching. 9:45:59 Procedure type changed to Cath procedure, Peripheral Cath Diagnostic Procedure, Cath Peripheral, Wyvca-Lflyqmw-Elb-Off, Peripheral vascular Intervention, Angioplasty, Angioplasty Fem/Pop 9:47:59 Procedure and supply charges have been captured, reviewed, submitted and are correct. 9:48:01 Procedure Complication : No complications 9:48:03 Vital chart was stopped 9:48:03 See physician's report for complete and final results. 9:48:05 Report given to Pre/Post Procedure Room. 9:48:09 Patient transfered to Pre/Post Procedure Room with Bed. 9:48:15 Procedure ended. 9:48:15 Full Disclosure recording stopped 9:48:21 End room use (Document Last) 9:50:27 Plavix 600 mg via PEG tube was administered by Dexter Hassan RN; for antiplatelet therapy; Intervention Summary Intervention Notes Time ActionType Lesion and Equipment Action# Pressure Duration Attributes Used 9:29:18 Inflate Distal POWERFLEX 1 5 02:38 balloon Femoral, PRO 5.0 X Left 80 X 135 balloon ([id number]) 9:35:07 Reinflate Distal POWERFLEX 2 7 03:14 balloon Femoral, PRO 5.0 X Left 80 X 135 balloon ([id number]) Device Usage Item Name Manufacture Quantity Catalog Hospital Part Current Minimal L ot# / Number Charge Number Stock Stock Serial# Code ACIST Acist 1 14397 510073 008150 674376 20 Syringe Ampla [employer]aceuticals (64651) Systems Inc ACIST Hand Acist 1 70020 269228 421403 623675 5 Control Ampla [employer]aceuticals (40758) Systems Inc ACIST Acist 1 97989 622294 062365 601106 5 Manifold Medical (70695) Systems Inc Medline Cardinal 1 [id number] 705111 77001 140836 5 Cath Pack Health ([id number]) Bag Microtek 1 2001S 966473 91995 839504 5 Decanter Medical Inc. () DIAGNOSTIC St Charlie 1 689221 185486 842420 652569 30 WIRE .035 260cm J wire (411341) SHEATH 5FR Terumo 1 SXG951 323619 503454 414738 40 Orlando (BLO358) DIAGNOSTIC Cardinal 1 [id number] 812610 465769 421412 10 UF 5Fr Health catheter ([id number]) DIAGNOSTIC Cardinal 1 [id number] 117832 333384 349476 5 IM 5Fr Health catheter ([id number]) GLIDE WIRE Terumo 1 HE5874 446741 220547 5 Angled Super Stiff 180cm (UJ0074) TUBING High Merit 1 [id number] 306964 14588 392477 10 Pressure Medical Extension Tubing (Norman) (SN8786O) INFLATOR Merit 1 GT8379 325776 006463 887785 15 Merit Medical BasixCompak (WV0675) SHEATH 6FR Terumo 1 HPM178 562350 935147 392738 40 Orlando (GWH517) SHEATH 6FR Terumo 1 RSR01 053001 26686 938050 5 Destination (RSR01) POWERFLEX Cardinal 1 [id number] 916667 821201 5 PRO 5.0 X Health 80 X 135 balloon ([id number]) EXOSEAL 6Fr Cardinal 1 EX600 650590 635464 473537 10 (EX600) Health Signature Audit Hester Stage Time Signature Unsigned Intra-Procedure 03/05/2018 Shelby Jimenez 9:53:33 AM RT(R) Signatures Monitor : Shelby Jimenez Signature : RT Date : Time : [address] [address]
[2018-03-05] MEDS ORDERED: GABAPENTIN100 MG PO (06:36)
[2018-03-05 06:44] VITALS: BP 127/61; Ht 177.8 cm; Wt 68.2 kg
[2018-03-05 06:55] LABS: BASOPHILS 0.8 % (0-2); EOSINOPHILS 7.1 % (0-7); HEMATOCRIT 39.5 % (42.0-54.0); HEMOGLOBIN 12.2 g/dL (13.5-17.5); IMMATURE GRANULOCYTES 0.3 % (0-5); LYMPHOCYTES 15.5 % (15-50); MCHC 30.9 g/dL (31.0-37.0); MCV 90.6 fL (80.0-100.0); MEAN PLATELET VOLUME 10.9 fL (7.4-10.4); MONOCYTES 8.9 % (2-11); NEUTROPHILS 67.4 % (40-80); RBC 4.36 10x6/uL (4.20-6.10); WBC 6.7 10x3/uL (4.8-10.8)
[2018-03-05 07:09] LABS: PLATELET COUNT 258 10x3/uL (130-400)
[2018-03-05 07:22] LABS: CALC OSMOLALITY 293 mosm/kg (275-300); CALCIUM 9.9 mg/dL (8.5-10.1); CARBON DIOXIDE 34.5 mmol/L (21.0-32.0); CHLORIDE - SERUM 101 mmol/L (98-107); CREATININE - SERUM 0.8 mg/dL (0.6-1.3); POTASSIUM - SERUM 4.2 mmol/L (3.5-5.1); SODIUM 142 mmol/L (136-145); UREA NITROGEN 27 mg/dL (7-18); eGFR NON AFRICAN AMERICAN > 90 mL/min (90-120)
[2018-03-05 07:24] LABS: GLUCOSE 214 mg/dL (74-106)
[2018-03-05] MEDS ORDERED: PLAVIX75 MG PO (10:04)
== END 2018-03-05 14:00 | disposition home or self-care (01) ==
LOC: D.CATH 06:22
PROVIDERS: Internal Medicine Cardiovascular Disease
DX: I70.212 Atherosclerosis of native arteries of extremities with intermittent claudication, left leg (principal); Z01.812 Encounter for preprocedural laboratory examination

== ENCOUNTER 2018-09-21 23:21 | Inpatient (IN) | payer MEDICARE, BC ==
[~2018-09-21] VITALS: Ht 177.8 cm; Wt 65.0 kg
[2018-09-22] VITALS (9 sets, daily range): BP systolic 87–121; BP diastolic 43–53; Ht 177.8 cm; Wt 65.0 kg
[2018-09-22 00:33] LABS: HEMATOCRIT 36.9 % (42.0-54.0); HEMOGLOBIN 11.5 g/dL (13.5-17.5); LYMPHOCYTES 1.9 % (15-50); MCH 26.1 pg (26.0-34.0); MCHC 31.2 g/dL (31.0-37.0); MCV 83.7 fL (80.0-100.0); MEAN PLATELET VOLUME 10.9 fL (7.4-10.4); NEUTROPHILS 89.8 % (40-80); PLATELET COUNT 276 10x3/uL (130-400); RBC 4.41 10x6/uL (4.20-6.10); RDW 15.8 % (11.5-14.5); WBC 14.5 10x3/uL (4.8-10.8)
[2018-09-22 00:49] LABS: APTT 25.2 SECONDS (22.8-39.4); INR 1.09 (0.85-1.17); PROTIME 13.6 SECONDS (11.6-15.0)
[2018-09-22 00:55] LABS: ALBUMIN 3.2 g/dL (3.4-5.0); ALKALINE PHOSPHATASE 101 U/L (46-116); ALT (SGPT) 20 U/L (10-68); BILIRUBIN - TOTAL 0.34 mg/dL (0.2-1.3); CALC OSMOLALITY 292 mosm/kg (275-300); CALCIUM 9.4 mg/dL (8.5-10.1); CARBON DIOXIDE 32.4 mmol/L (21.0-32.0); CHLORIDE - SERUM 98 mmol/L (98-107); GLUCOSE 215 mg/dL (74-106); POTASSIUM - SERUM 4.5 mmol/L (3.5-5.1); PROTEIN - SERUM 7.8 g/dL (6.4-8.2); SODIUM 139 mmol/L (136-145); UREA NITROGEN 39 mg/dL (7-18); eGFR NON AFRICAN AMERICAN 76 mL/min (90-120)
[2018-09-22 01:03] LABS: CKMB 0.6 U/L (0.0-3.6); CREATINE KINASE 41 UL (21-232); MAGNESIUM - SERUM 1.7 mg/dL (1.8-2.4); TROPONIN-I 0.018 ng/mL (0.000-0.060)
[2018-09-22 05:08] LABS: BASOPHILS 0.1 % (0-2); EOSINOPHILS 0 % (0-7); HEMATOCRIT 32.1 % (42.0-54.0); IMMATURE GRANULOCYTES 0.2 % (0-5); LYMPHOCYTES 4.4 % (15-50); MCH 26.5 pg (26.0-34.0); MCHC 31.2 g/dL (31.0-37.0); MCV 84.9 fL (80.0-100.0); MEAN PLATELET VOLUME 10.8 fL (7.4-10.4); MONOCYTES 7.6 % (2-11); NEUTROPHILS 87.7 % (40-80); PLATELET COUNT 265 10x3/uL (130-400); RBC 3.78 10x6/uL (4.20-6.10); RDW 16.5 % (11.5-14.5); WBC 16.9 10x3/uL (4.8-10.8)
[2018-09-22 05:27] LABS: ANION GAP 9.9 mmol/L (8-16); CALCIUM 8.2 mg/dL (8.5-10.1); CARBON DIOXIDE 32.2 mmol/L (21.0-32.0); CREATININE - SERUM 1.1 mg/dL (0.6-1.3); POTASSIUM - SERUM 5.1 mmol/L (3.5-5.1)
--- NOTE | 2018-09-22 11:32 | MORECARE ---
CASE MANAGEMENT DISCHARGE SUMMARY PATIENT: ILIR DINERO UNIT: [id number] ADM DATE: 09/22/18 AGE: 83 : 34 SEX: M ROOM/BED: D.E12 AUTHOR: ALMA MAC PHYSICIAN: REFERRING PHYSICIAN: RUDY BARROSO MD DATE OF SERVICE: 09/22/18 Discharge Plan Patient Name: ILIR DINERO Facility: [facility]:[place] : 1935 Planned Disposition: Anticipated Discharge Date: 09/26/18 Discharge Date: Expected LOS: 4 Initial Reviewer: [email or web address] Initial Review Date: 09/22/2018 Generated: 09/22/18 12:31 pm Patient Name: ILIR DINERO Page 09491 at 1132 All edits/amendments must be made on the electronic document DICTATION DATE: 09/22/18 113 GLAZE SPRAYER: JERI 09/22/18 1131 RPT#: [id number] DC DATE: STATUS: ADM IN [facility] [address] [place] [address] END OF REPORT
--- NOTE | 2018-09-22 11:41 | MORECARE ---
CASE MANAGEMENT DISCHARGE SUMMARY PATIENT: ILIR DINERO UNIT: [id number] ADM DATE: 09/22/18 AGE: 83 : 34 SEX: M ROOM/BED: D.E12 AUTHOR: ESTEFANIADOC PHYSICIAN: REFERRING PHYSICIAN: RUDY BARROSO MD DATE OF SERVICE: 09/22/18 Discharge Plan Patient Name: ILIR DINERO Facility: [facility]:[place] : 1935 Planned Disposition: Anticipated Discharge Date: 09/26/18 Discharge Date: Expected LOS: 4 Initial Reviewer: [email or web address] Initial Review Date: 09/22/2018 Generated: 09/22/18 12:41 pm DCP- Discharge Planning Updated by [email or web address]: Keke Rincon on 09/22/18 10:[address] Patient Name: ILIR DINERO Admission Status: ER Accout number: [id number] Admission Date: 09-22-2018 : 1935 Admission Diagnosis: Attending: RUDY BARROSO Current LOS: 1 Anticipated DC Date: 09-26-2018 Planned Disposition: Primary Insurance: MEDICARE A & B Discharge Planning Comments: CM met with patient and his daughter to complete initial dc planning assessment. CM educated patient and daughter on the CM role and verbal consent given by patient's daughter to complete assessment. Patient lives at home with her and is independent in his care at home. Patient's sole source of nutrition is through a feeding tube. He is not able to swallow. At discharge patient;s daughter plans for him to return home with her and feels this is a safe discharge. She said he may need therapy to regain his strength if he is weak. CM discussed availability of home health, rehab services, and medical equipment. Patient's denied known discharge needs at this time. CM will continue to follow and will assist as needed with dc plans/needs. Gsa Coordinator: Keke Rincon RN, [facility] DCPIA - Discharge Planning Initial Assessment Updated by [email or web address]: Keke Rincon on 09/22/18 11:38 am * Is the patient Alert and Oriented? Yes * How many steps to enter\exit or inside your home? ramp or 4 * PCP Dr. Dash * Pharmacy [facility] * Preadmission Environment Home with Family * ADLs Independent * Equipment Hospital Bed Rolling Walker Shower Chair Wheelchair * List name and contact numbers for known caregivers / representatives who currently or will assist patient after discharge: Adriana Martinez - daughter - [phone] * Verbal permission to speak to the caregivers and representatives has been obtained from the patient. Yes * Community resources currently utilized None * Please name any agencies selected above. None * Can the patient safely return to the preadmission environment? No * Has this patient been hospitalized within the prior 30 days at any hospital? No Last DP export: 09/22/18 10:32 a Patient Name: ILIR DINERO Page 51207 at 1141 All edits/amendments must be made on the electronic document DICTATION DATE: 09/22/181139 EXTENSION WORK INSTRUCTOR: JERI 09/22/18 1140 RPT#: [id number] DC DATE: STATUS: ADM IN [facility] [address] [place] [address] END OF REPORT
[2018-09-22 14:16] LABS: APPEARANCE HAZY (CLEAR); BILIRUBIN NEGATIVE (NEGATIVE); COLOR YELLOW (YELLOW); GLUCOSE NEGATIVE (NEGATIVE); KETONE MODERATE mg/dL (NEGATIVE); NITRITE NEGATIVE (NEGATIVE); PROTEIN TRACE mg/dL (NEGATIVE); SPECIFIC GRAVITY 1.015 (1.005-1.020); UROBILINOGEN NORMAL (NORMAL)
[2018-09-22 14:18] LABS: BACTERIA MODERATE /hpf (NONE SEEN); EPITHELIAL CELLS RARE /hpf (0-5); RED CELLS - URINE RARE /hpf (0-5)
[2018-09-22 18:42] LABS: COLOR YELLOW (YELLOW)
[2018-09-22 18:43] LABS: APPEARANCE CLEAR (CLEAR); BACTERIA FEW /hpf (NONE SEEN); BILIRUBIN NEGATIVE (NEGATIVE); GLUCOSE NEGATIVE (NEGATIVE); KETONE NEGATIVE (NEGATIVE); NITRITE NEGATIVE (NEGATIVE); PROTEIN TRACE mg/dL (NEGATIVE); RED CELLS - URINE 0-5 /hpf (0-5); SPECIFIC GRAVITY 1.015 (1.005-1.020); UROBILINOGEN NORMAL (NORMAL); WHITE CELLS - URINE 25-50 /hpf (0-5)
[2018-09-23] VITALS: BP 118/56
[2018-09-23 05:41] LABS: BASOPHILS 0.2 % (0-2); EOSINOPHILS 0.5 % (0-7); HEMATOCRIT 31.6 % (42.0-54.0); HEMOGLOBIN 9.6 g/dL (13.5-17.5); IMMATURE GRANULOCYTES 0.3 % (0-5); LYMPHOCYTES 5.9 % (15-50); MCH 25.9 pg (26.0-34.0); MCHC 30.4 g/dL (31.0-37.0); MCV 85.4 fL (80.0-100.0); MEAN PLATELET VOLUME 10.9 fL (7.4-10.4); MONOCYTES 7.3 % (2-11); NEUTROPHILS 85.8 % (40-80); PLATELET COUNT 259 10x3/uL (130-400); RDW 16.9 % (11.5-14.5)
[2018-09-23 05:52] LABS: WBC 10.7 10x3/uL (4.8-10.8)
[2018-09-23 06:22] LABS: CALC OSMOLALITY 296 mosm/kg (275-300); CALCIUM 8.8 mg/dL (8.5-10.1); CARBON DIOXIDE 33.1 mmol/L (21.0-32.0); CHLORIDE - SERUM 103 mmol/L (98-107); CREATININE - SERUM 0.9 mg/dL (0.6-1.3); GLUCOSE 224 mg/dL (74-106); MAGNESIUM - SERUM 1.9 mg/dL (1.8-2.4); PHOSPHOROUS 2.1 mg/dL (2.5-4.9); POTASSIUM - SERUM 3.6 mmol/L (3.5-5.1); PRO BNP 969 pg/mL (0-450); SODIUM 142 mmol/L (136-145); UREA NITROGEN 31 mg/dL (7-18); eGFR NON AFRICAN AMERICAN 85 mL/min (90-120)
[2018-09-23 08:15] VITALS: BP 131/57
[2018-09-23 11:14] VITALS: BP 133/58
[2018-09-23 14:39] LABS: % SATURATION 5 % (15-55); IRON 12 ug/dl (35-150); TOTAL IRON BIND CAPACITY 228 ug/dl (260-445); UNSAT IRON BIND CAPACITY 216 ug/dl (150-375)
[2018-09-23 15:09] VITALS: BP 129/60
[2018-09-23 20:00] VITALS: BP 145/66
[2018-09-24 00:14] VITALS: BP 120/57
[2018-09-24 04:00] VITALS: BP 135/66
[2018-09-24 06:16] LABS: BASOPHILS 0.3 % (0-2); EOSINOPHILS 2.6 % (0-7); HEMATOCRIT 30.7 % (42.0-54.0); HEMOGLOBIN 9.2 g/dL (13.5-17.5); IMMATURE GRANULOCYTES 0.1 % (0-5); LYMPHOCYTES 6.4 % (15-50); MCH 25.8 pg (26.0-34.0); MCV 86.2 fL (80.0-100.0); MEAN PLATELET VOLUME 10.8 fL (7.4-10.4); MONOCYTES 8.2 % (2-11); NEUTROPHILS 82.4 % (40-80); PLATELET COUNT 250 10x3/uL (130-400); RBC 3.56 10x6/uL (4.20-6.10)
[2018-09-24 06:30] LABS: CALC OSMOLALITY 290 mosm/kg (275-300); CALCIUM 8.6 mg/dL (8.5-10.1); CARBON DIOXIDE 33.6 mmol/L (21.0-32.0); CHLORIDE - SERUM 103 mmol/L (98-107); CREATININE - SERUM 0.7 mg/dL (0.6-1.3); GLUCOSE 249 mg/dL (74-106); POTASSIUM - SERUM 3.6 mmol/L (3.5-5.1); SODIUM 141 mmol/L (136-145); eGFR NON AFRICAN AMERICAN > 90 mL/min (90-120)
[2018-09-24 06:34] LABS: WBC 7.7 10x3/uL (4.8-10.8)
[2018-09-24 06:36] LABS: UREA NITROGEN 19 mg/dL (7-18)
[2018-09-24 08:03] VITALS: BP 122/50
[2018-09-24 09:19] LABS: FOLATE (FOLIC ACID) - SERUM >20.0 ng/mL (>3.0)
[2018-09-24 11:30] VITALS: BP 117/54
[2018-09-24 15:29] VITALS: BP 135/58
[2018-09-24 20:00] VITALS: BP 144/68
[2018-09-25] VITALS: BP 162/75
[2018-09-25 04:00] VITALS: BP 154/70
[2018-09-25 06:11] LABS: BASOPHILS 0.5 % (0-2); EOSINOPHILS 5.6 % (0-7); HEMATOCRIT 31.8 % (42.0-54.0); HEMOGLOBIN 9.5 g/dL (13.5-17.5); IMMATURE GRANULOCYTES 0.1 % (0-5); LYMPHOCYTES 10.1 % (15-50); MCH 25.9 pg (26.0-34.0); MCHC 29.9 g/dL (31.0-37.0); MCV 86.6 fL (80.0-100.0); MEAN PLATELET VOLUME 10.9 fL (7.4-10.4); MONOCYTES 8.9 % (2-11); NEUTROPHILS 74.8 % (40-80); PLATELET COUNT 252 10x3/uL (130-400); RBC 3.67 10x6/uL (4.20-6.10); RDW 16.9 % (11.5-14.5); WBC 7.3 10x3/uL (4.8-10.8)
[2018-09-25 06:31] LABS: CARBON DIOXIDE 32.6 mmol/L (21.0-32.0); CHLORIDE - SERUM 104 mmol/L (98-107); CREATININE - SERUM 0.6 mg/dL (0.6-1.3); GLUCOSE 247 mg/dL (74-106); SODIUM 143 mmol/L (136-145); eGFR NON AFRICAN AMERICAN > 90 mL/min (90-120)
[2018-09-25 06:34] LABS: CALC OSMOLALITY 293 mosm/kg (275-300); POTASSIUM - SERUM 4.6 mmol/L (3.5-5.1); UREA NITROGEN 14 mg/dL (7-18)
[2018-09-25 09:21] VITALS: BP 145/64
[2018-09-25 12:52] VITALS: BP 122/63
[2018-09-25 16:12] VITALS: BP 142/70
--- NOTE | 2018-09-25 16:39 | MORECARE ---
CASE MANAGEMENT DISCHARGE SUMMARY PATIENT: ILIR DINERO UNIT: [id number] ADM DATE: 09/22/18 AGE: 83 : 34 SEX: M ROOM/BED: D.2106 AUTHOR: ESTEFANIADOC PHYSICIAN: REFERRING PHYSICIAN: RUDY BARROSO MD DATE OF SERVICE: 09/25/18 Discharge Plan Patient Name: ILIR DINERO Facility: [facility]:[place] : 1935 Planned Disposition: Home with Home Health Anticipated Discharge Date: 09/26/18 Discharge Date: Expected LOS: 4 Initial Reviewer: [email or web address] Initial Review Date: 09/22/2018 Generated: 09/25/18 5:39 pm DCP- Discharge Planning Updated by [id number]: Keke Rincon on 09/22/18 10:[address] Patient Name: ILIR DINERO Admission Status: ER Accout number: [id number] Admission Date: 09-22-2018 : 1935 Admission Diagnosis: Attending: RUDY BARROSO Current LOS: 1 Anticipated DC Date: 09-26-2018 Planned Disposition: Primary Insurance: MEDICARE A & B Discharge Planning Comments: CM met with patient and his daughter to complete initial dc planning assessment. CM educated patient and daughter on the CM role and verbal consent given by patient's daughter to complete assessment. Patient lives at home with her and is independent in his care at home. Patient's sole source of nutrition is through a feeding tube. He is not able to swallow. At discharge patient;s daughter plans for him to return home with her and feels this is a safe discharge. She said he may need therapy to regain his strength if he is weak. CM discussed availability of home health, rehab services, and medical equipment. Patient's denied known discharge needs at this time. CM will continue to follow and will assist as needed with dc plans/needs. Tire Repairman: Keke Rincon RN, [facility] DCPIA - Discharge Planning Initial Assessment Updated by [email or web address]: Keke Rincon on 09/22/18 11:38 am * Is the patient Alert and Oriented? Yes * How many steps to enter\exit or inside your home? ramp or 4 * PCP Dr. Dash * Pharmacy [facility] * Preadmission Environment Home with Family * ADLs Independent * Equipment Hospital Bed Rolling Walker Shower Chair Wheelchair * List name and contact numbers for known caregivers / representatives who currently or will assist patient after discharge: Adriana Martinez - daughter - [phone] * Verbal permission to speak to the caregivers and representatives has been obtained from the patient. Yes * Community resources currently utilized None * Please name any agencies selected above. None * Can the patient safely return to the preadmission environment? No * Has this patient been hospitalized within the prior 30 days at any hospital? No External Providers External Provider: [facility] Next Contact Date: 09/25/2018 Service Request Date: Service Type: Resolution: Reviewer: Comments: Coverage Notice Reviewer: [id number] Jairo Pedro Notice Issued Date-Time: 09/25/2018 15:30 Notice Type: Patient Choice Letter Notice Delivered To: Family Member Relationship to Patient: Daughter Carbon Lamp Cleaner Name: TUCKER MARTINEZ Delivery Method: HAND - Hand Delivered Yenifer Days: Prior Verbal Notification: Recipient Understood Notice: Yes Recipient Signature: Yes Med Rec Note Co-signed by Attending: Coverage Notice Comment: [facility] Reviewer: [id number] Jairo Pedro Notice Issued Date-Time: 09/25/2018 15:30 Notice Type: IM Discharge Notice Notice Delivered To: Family Member Relationship to Patient: Daughter Carbon Lamp Cleaner Name: TUCKER MARTINEZ Delivery Method: HAND - Hand Delivered Yenifer Days: Prior Verbal Notification: Recipient Understood Notice: Yes Recipient Signature: Yes Med Rec Note Co-signed by Attending: Coverage Notice Comment: Last DP export: 09/22/18 10:41 a Patient Name: ILIR DINERO Page 11643 at 1639 All edits/amendments must be made on the electronic document DICTATION DATE: 09/25/181637 DIRECTOR STRATEGIC ACCOUNT MANAGEMENT: JERI 09/25/18 163 RPT#: [id number] DC DATE: STATUS: ADM IN [facility] [address] [place] [address] END OF REPORT
--- NOTE | 2018-09-25 17:02 | MORECARE ---
CASE MANAGEMENT DISCHARGE SUMMARY PATIENT: ILIR DINERO UNIT: [id number] ADM DATE: 09/22/18 AGE: 83 : 34 SEX: M ROOM/BED: D.2106 AUTHOR: ESTEFANIA,DOC PHYSICIAN: REFERRING PHYSICIAN: RUDY BARROSO MD DATE OF SERVICE: 09/25/18 Discharge Plan Patient Name: ILIR DINERO Facility: [facility]:[place] : 1935 Planned Disposition: Home with Home Health Anticipated Discharge Date: 09/26/18 Discharge Date: Expected LOS: 4 Initial Reviewer: [id number] Initial Review Date: 09/22/2018 Generated: 09/25/18 6:02 pm Comments DCP- Discharge Planning Updated by [email or web address]: Lori Pierre on 09/25/18 4:[address] Patient Name: ILIR DINERO Encounter No: [id number] : 1935 Primary Insurance: MEDICARE A & B Anticipated DC Date: 09-26-2018 Planned Disposition: Home with Home Health External Planned Provider: [facility] DCP follow-up note: CM RECEIVED ORDER FOR INPATIENT REHAB PRESCREENING. CM MET WITH PT AND DAUGHTER IN ROOM TO DISCUSS DISCHARGE PLANNING AND NEEDS. ERIKA DINERO provided verbal consent to discuss current and ongoing needs with/in the presence of: DAUGHTER TUCKER BRODY. CM DISCUSSED AVAILABILITY OF INPATIENT AND SENIOR LIVING REHAB SERVICES. PT DECLINED BOTH. PT WILL ACCEPT HOME HEALTH WITH [facility] FOR NURSING AND THERAPY AT HOME. CHOICE SIGNED. IMPORTANT MESSAGE FROM MEDICARE PROVIDED AND EXPLAINED. PT'S DAUGHTER REPORTS PT GETS TUBE FEEDING SUPPLIES AND FOOD FROM [facility] ([facility]), THEY WERE DOING BOLUS FEEDS AT HOME PRIOR TO THIS. DAUGHTER IS UNSURE IF PT WILL NEED A MACHINE OR IF HIS NUTRITIONAL MATERIAL WILL CHANGE. IF SO, SHE ASKED THAT [facility] BE CONSULTED TO PROVIDE WHAT PT NEEDS AT HOME. DR. BARROSO ADVISED PT WILL NEED HOME HEALTH FOLLOW UP AT DISCHARGE HOME. DAUGHTER WILL TRANSPORT HOME AT DISCHARGE. CM CALLED [facility], , SPOKE TO ALHAJI WHO TOOK REFERRAL. CM FAXED REFERRAL FOR HOME HEALTH TO [facility] AT [phone]. PHYSICAL ADDRESS FOR DISCHARGE IS [address] [place], [place] [address]. FOR DISCHARGE, IF PT'S FEEDING MATERIAL HAS CHANGED OR IF PT NEEDS FEEDING PUMP, CONTACT [facility] IN [place]. DOCTOR WILL N JOSÉ ANTONIO TO PROVIDE SPECIFIC HOME HEALTH ORDER, FAX WITH DISCHARGE INFORMATION TO [facility] AT [phone]. NOTIFY [facility] AT [phone]. LORI PIERRE, CASE MANAGEMENT DCP- Discharge Planning Updated by [email or web address]: Keke Rincon on 09/22/18 10:[address] Patient Name: ILIR DINERO Admission Status: ER Accout number: [id number] Admission Date: 09-22-2018 : 1935 Admission Diagnosis: Attending: RUDY BARROSO Current LOS: 1 Anticipated DC Date: 09-26-2018 Planned Disposition: Primary Insurance: MEDICARE A & B Discharge Planning Comments: CM met with patient and his daughter to complete initial dc planning assessment. CM educated patient and daughter on the CM role and verbal consent given by patient's daughter to complete assessment. Patient lives at home with her and is independent in his care at home. Patient's sole source of nutrition is through a feeding tube. He is not able to swallow. At discharge patient;s daughter plans for him to return home with her and feels this is a safe discharge. She said he may need therapy to regain his strength if he is weak. CM discussed availability of home health, rehab services, and medical equipment. Patient's denied known discharge needs at this time. CM will continue to follow and will assist as needed with dc plans/needs. Blood Typer: Keke Rincon RN, [facility] DCPIA - Discharge Planning Initial Assessment Updated by [email or web address]: Keke Rincon on 09/22/18 11:38 am * Is the patient Alert and Oriented? Yes * How many steps to enter\exit or inside your home? ramp or 4 * PCP Dr. Dash * Pharmacy [facility] * Preadmission Environment Home with Family * ADLs Independent * Equipment Hospital Bed Rolling Walker Shower Chair Wheelchair * List name and contact numbers for known caregivers / representatives who currently or will assist patient after discharge: Adriana Martinez - daughter - [phone] * Verbal permission to speak to the caregivers and representatives has been obtained from the patient. Yes * Community resources currently utilized None * Please name any agencies selected above. None * Can the patient safely return to the preadmission environment? No * Has this patient been hospitalized within the prior 30 days at any hospital? No Coverage Notice Reviewer: [id number] Pierre Notice Issued Date-Time: 09/25/2018 15:30 Notice Type: Patient Choice Letter Notice Delivered To: Family Member Relationship to Patient: Daughter Frame Straightener Name: TUCKER MARTINEZ Delivery Method: HAND - Hand Delivered Yenifer Days: Prior Verbal Notification: Recipient Understood Notice: Yes Recipient Signature: Yes Med Rec Note Co-signed by Attending: Coverage Notice Comment: [facility] Reviewer: [id number] Jairo Pierre Notice Issued Date-Time: 09/25/2018 15:30 Notice Type: IM Discharge Notice Notice Delivered To: Family Member Relationship to Patient: Daughter Frame Straightener Name: TUCKER MARTINEZ Delivery Method: HAND - Hand Delivered Yenifer Days: Prior Verbal Notification: Recipient Understood Notice: Yes Recipient Signature: Yes Med Rec Note Co-signed by Attending: Coverage Notice Comment: Last DP export: 09/25/18 3:39 p Patient Name: ILIR DINERO Page 05541 at 1702 All edits/amendments must be made on the electronic document DICTATION DATE: 09/25/181701 KINESIOLOGY PROFESSOR: JERI 09/25/181701 RPT#: [id number] DC DATE: STATUS: ADM IN [facility] [address] [place] [address] END OF REPORT
--- NOTE | 2018-09-25 18:02 | OP ---
PATIENT NAME: ILIR DINERO MEDICAL RECORD: [id number] :[birth year] LOCATION:D. D.2106 ADMISSION DATE:09/22/18 SURGEON: ALVIN WHITT MD DATE OF OPERATION: 09/24/2018 PREOPERATIVE DIAGNOSIS: Infected sebaceous cyst of the back. POSTOPERATIVE DIAGNOSIS: Infected sebaceous cyst of the back. PROCEDURE: Incision and evacuation of infected sebaceous cyst of the back. SURGEON: Alvin Whitt MD WOOD BOATBUILDER: None. BLOOD LOSS: Minimal. ANESTHESIA: Local. This procedure was performed at the bedside. The risks, possible complications, and alternatives to the procedure were explained to the patient. He elects to proceed. OPERATIVE COURSE: The patient was positioned in a sitting position with his arms over a bedside stand. The back was sterilely prepped and draped. A local anesthetic was used to infiltrate skin and subcutaneous tissues around the inflamed, infected sebaceous cyst. I then incised into the cyst, unroofing a portion of the cyst. I was able to express not only keratin debris but also purulent material. A sterile dressing was then applied. The patient has a number of other sebaceous cysts. I told him that when his condition improves, if he would like to have these incised and evacuated, I would be happy to see him in my office. His infected sebaceous cyst should be self-limiting and the antibiotic he is currently on should be sufficient to resolve the infectious process. No follow up is necessary unless he develops a complication related to this operative procedure. TRANSINT:[id number] Voice Confirmation ID: [id number] DOCUMENT ID: [id number] ALVIN WHITT MD at 1802 CC: RUDY BARROSO MD [id number] DICTATION DATE: 09/24/18 1402 QUALITY ASSURANCE MANAGER: 09/24/18 1751 ADM IN [facility] [address] [place] [address]
[2018-09-25 20:00] VITALS: BP 132/66
[2018-09-26] VITALS: BP 163/77
[2018-09-26 04:00] VITALS: BP 138/73
[2018-09-26 06:22] LABS: CALC OSMOLALITY 285 mosm/kg (275-300); CALCIUM 8.9 mg/dL (8.5-10.1); CARBON DIOXIDE 33.5 mmol/L (21.0-32.0); CHLORIDE - SERUM 103 mmol/L (98-107); CREATININE - SERUM 0.7 mg/dL (0.6-1.3); GLUCOSE 229 mg/dL (74-106); SODIUM 139 mmol/L (136-145); UREA NITROGEN 15 mg/dL (7-18); eGFR NON AFRICAN AMERICAN > 90 mL/min (90-120)
[2018-09-26 06:38] LABS: POTASSIUM - SERUM 3.9 mmol/L (3.5-5.1)
[2018-09-26 07:01] LABS: HEMATOCRIT 29.7 % (42.0-54.0); HEMOGLOBIN 9.2 g/dL (13.5-17.5); LYMPHOCYTES 11.9 % (15-50); MCH 26.4 pg (26.0-34.0); MCV 85.1 fL (80.0-100.0); MEAN PLATELET VOLUME 10.2 fL (7.4-10.4); NEUTROPHILS 75.6 % (40-80); PLATELET COUNT 223 10x3/uL (130-400); RBC 3.49 10x6/uL (4.20-6.10); RDW 15.8 % (11.5-14.5); WBC 4.4 10x3/uL (4.8-10.8)
[2018-09-26 10:34] VITALS: BP 151/70
[2018-09-26 13:06] VITALS: BP 112/69
[2018-09-26 16:17] VITALS: BP 133/66
[2018-09-26 19:54] VITALS: BP 154/74
[2018-09-27 03:44] VITALS: BP 154/77
[2018-09-27 05:16] LABS: BASOPHILS 0.5 % (0-2); EOSINOPHILS 6.7 % (0-7); HEMATOCRIT 31.4 % (42.0-54.0); HEMOGLOBIN 9.5 g/dL (13.5-17.5); IMMATURE GRANULOCYTES 0.2 % (0-5); LYMPHOCYTES 11.6 % (15-50); MCH 25.7 pg (26.0-34.0); MCHC 30.3 g/dL (31.0-37.0); MCV 84.9 fL (80.0-100.0); MEAN PLATELET VOLUME 10.2 fL (7.4-10.4); MONOCYTES 11.4 % (2-11); NEUTROPHILS 69.6 % (40-80); PLATELET COUNT 245 10x3/uL (130-400); RDW 16.6 % (11.5-14.5); WBC 5.5 10x3/uL (4.8-10.8)
[2018-09-27 05:26] LABS: CALC OSMOLALITY 290 mosm/kg (275-300); CALCIUM 8.8 mg/dL (8.5-10.1); CARBON DIOXIDE 32.4 mmol/L (21.0-32.0); CHLORIDE - SERUM 104 mmol/L (98-107); CREATININE - SERUM 0.6 mg/dL (0.6-1.3); GLUCOSE 274 mg/dL (74-106); POTASSIUM - SERUM 4.2 mmol/L (3.5-5.1); SODIUM 141 mmol/L (136-145); UREA NITROGEN 13 mg/dL (7-18); eGFR NON AFRICAN AMERICAN > 90 mL/min (90-120)
[2018-09-27 09:27] VITALS: BP 159/78
--- NOTE | 2018-09-27 10:52 | EC ---
PATIENT:ILIR DINERO DATE OF SERVICE: 09/22/18 SEX: M MEDICAL RECORD: [id number] DATE OF : [birth year] LOCATION:D.M2 D.210 AGE OF PATIENT: 83 ADMISSION DATE: 09/22/18 REFERRING PHYSICIAN: INTERPRETING PHYSICIAN: GABBI PIERCE MD ECHOCARDIOGRAM REPORT ECHO CHARGES 4 ECHO COMPLETE Date: 09/24/18 CLINICAL DIAGNOSIS: CHF HX OF CAD/STENTS ECHOCARDIOGRAPHIC MEASUREMENTS (adult normal given) AC root (d.<3.7cm) 3.3 cm LV Septum d (<1.2 cm> 1.1 cm Valve Excursion 1.1 cm LV Septum (systole) 1.2 cm Left Atria (s.<4.0cm> 3.9 cm LVPW d(<1.2cm) 1.3 cm RV (d.<2.3cm) 3.6 cm LVPW (sytole) 1.5 cm LV diastole(<5.6CM) 5.0 cm MV E-F(>70mm/sec) cm LV systole 3.6 cm LVOT Diameter 1.8 cm MV exc.(>10mm) 1.3 cm Est.ejection fraction (50-75%) % DOPPLER: LVIT cm/sec A 101 cm/sec E 89.0 cm/sec LA cm/sec RVSP 30 mmHg LVOT 102 cm/sec AOP1/2T m/s Asc. Ao 111 cm/sec RVOT 104 cm/sec RA cm/sec PA 136 cm/sec AV Gradient Peak 4.96 mmHg AV Mean 2.67 mmHg AV Area 2.2 cm MV Gradient Peak mmHg MV Mean mmHg MV Area cm COMMENTS: Barrel Assembler: Alie VALE Nursing Staffing Coordinator: 1 Dr. Pierce TAPE# PACS Pericardial Effusion N DATE OF SERVICE: 09/24/2018 PROCEDURE: Echocardiogram. FINDINGS: 1. Left ventricular chamber size is within normal limits. Left ventricular systolic function is normal. Overall ejection fraction estimated 55% to 60%. 2. Left atrium, right atrium, and right ventricle chamber sizes are within normal limits. 3. Valvular structures have normal structure and motion. ECHOCARDIOGRAM REPORT [id number] ILIR DINERO 4. Doppler interrogation reveals mild aortic insufficiency, mild mitral regurgitation, mild tricuspid regurgitation, no other valvular insufficiency or stenosis. Pulmonary systolic pressure is normal estimated 30 mmHg. 5. No evidence of pericardial effusion or left ventricular thrombus. TRANSINT:[id number] Voice Confirmation ID: [id number] DOCUMENT ID: [id number] GABBI PIERCE MD at 1052 CC: [id number] DICTATION DATE: 09/24/18 1213 CHIEF PHARMACIST: 09/24/18 1306 ADM IN [facility] [address] [place] [id number]
[2018-09-27 11:42] VITALS: BP 155/76
[2018-09-27 15:57] VITALS: BP 181/78
[2018-09-27 20:00] VITALS: BP 176/81
[2018-09-28 04:00] VITALS: BP 149/68
[2018-09-28 08:56] VITALS: BP 145/68
[2018-09-28 14:47] LABS: BASOPHILS 0.7 % (0-2); EOSINOPHILS 4.8 % (0-7); HEMATOCRIT 32.8 % (42.0-54.0); HEMOGLOBIN 10.1 g/dL (13.5-17.5); IMMATURE GRANULOCYTES 0.4 % (0-5); LYMPHOCYTES 10.1 % (15-50); MCHC 30.8 g/dL (31.0-37.0); MCV 84.3 fL (80.0-100.0); MEAN PLATELET VOLUME 9.7 fL (7.4-10.4); MONOCYTES 10.4 % (2-11); NEUTROPHILS 73.6 % (40-80); PLATELET COUNT 273 10x3/uL (130-400); RBC 3.89 10x6/uL (4.20-6.10); RDW 16.5 % (11.5-14.5); WBC 5.5 10x3/uL (4.8-10.8)
[2018-09-28 15:09] LABS: ALBUMIN 2.2 g/dL (3.4-5.0); ALKALINE PHOSPHATASE 109 U/L (46-116); ALT (SGPT) 35 U/L (10-68); CALC OSMOLALITY 288 mosm/kg (275-300); CALCIUM 8.9 mg/dL (8.5-10.1); CARBON DIOXIDE 32.7 mmol/L (21.0-32.0); CHLORIDE - SERUM 104 mmol/L (98-107); CREATININE - SERUM 0.7 mg/dL (0.6-1.3); POTASSIUM - SERUM 4.1 mmol/L (3.5-5.1); PROTEIN - SERUM 6.7 g/dL (6.4-8.2); SODIUM 142 mmol/L (136-145); UREA NITROGEN 13 mg/dL (7-18); eGFR NON AFRICAN AMERICAN > 90 mL/min (90-120)
[2018-09-28 15:10] LABS: GLUCOSE 213 mg/dL (74-106)
[2018-09-28 20:00] VITALS: BP 169/82
[2018-09-29 00:30] VITALS: BP 160/81
[2018-09-29 04:00] VITALS: BP 143/66
[2018-09-29 05:17] LABS: BASOPHILS 0.8 % (0-2); HEMATOCRIT 33.6 % (42.0-54.0); HEMOGLOBIN 10.4 g/dL (13.5-17.5); IMMATURE GRANULOCYTES 0.4 % (0-5); LYMPHOCYTES 10.8 % (15-50); MCH 25.9 pg (26.0-34.0); MCV 83.8 fL (80.0-100.0); MEAN PLATELET VOLUME 10.2 fL (7.4-10.4); MONOCYTES 11.6 % (2-11); NEUTROPHILS 69.4 % (40-80); PLATELET COUNT 306 10x3/uL (130-400); RBC 4.01 10x6/uL (4.20-6.10); RDW 16.5 % (11.5-14.5)
[2018-09-29 05:40] LABS: ALBUMIN 2.2 g/dL (3.4-5.0); ALKALINE PHOSPHATASE 110 U/L (46-116); ALT (SGPT) 30 U/L (10-68); BILIRUBIN - TOTAL 0.19 mg/dL (0.2-1.3); CALC OSMOLALITY 284 mosm/kg (275-300); CALCIUM 8.9 mg/dL (8.5-10.1); CARBON DIOXIDE 31.7 mmol/L (21.0-32.0); CHLORIDE - SERUM 103 mmol/L (98-107); CREATININE - SERUM 0.6 mg/dL (0.6-1.3); GLUCOSE 177 mg/dL (74-106); MAGNESIUM - SERUM 1.8 mg/dL (1.8-2.4); POTASSIUM - SERUM 3.5 mmol/L (3.5-5.1); PROTEIN - SERUM 6.7 g/dL (6.4-8.2); SODIUM 141 mmol/L (136-145); UREA NITROGEN 12 mg/dL (7-18); eGFR NON AFRICAN AMERICAN > 90 mL/min (90-120)
[2018-09-29 07:00] VITALS: BP 146/73
--- NOTE | 2018-09-29 08:30 | MORECARE ---
CASE MANAGEMENT DISCHARGE SUMMARY PATIENT: ILIR DINERO UNIT: [id number] ADM DATE: 09/22/18 AGE: 83 : [birth year] SEX: M ROOM/BED: D.2106 AUTHOR: ESTEFANIA,DOC PHYSICIAN: REFERRING PHYSICIAN: RUDY BARROSO MD DATE OF SERVICE: 09/29/18 Discharge Plan Patient Name: ILIR DINERO Facility: [facility]:[place] : 1935 Planned Disposition: Home with Home Health Anticipated Discharge Date: 09/26/18 Discharge Date: Expected LOS: 4 Initial Reviewer: [email or web address] Initial Review Date: 09/22/2018 Generated: 09/29/18 9:29 am Comments DCP- Discharge Planning Updated by [id number]: Lori Pierre on 09/25/18 4:[address] Patient Name: ILIR DINERO Encounter No: [id number] : 1935 Primary Insurance: MEDICARE A & B Anticipated DC Date: 09-26-2018 Planned Disposition: Home with Home Health External Planned Provider: [facility] DCP follow-up note: CM RECEIVED ORDER FOR INPATIENT REHAB PRESCREENING. CM MET WITH PT AND DAUGHTER IN ROOM TO DISCUSS DISCHARGE PLANNING AND NEEDS. ERIKA DINERO provided verbal consent to discuss current and ongoing needs with/in the presence of: DAUGHTER TUCKER BRODY. CM DISCUSSED AVAILABILITY OF INPATIENT AND [facility]P REHAB SERVICES. PT DECLINED BOTH. PT WILL ACCEPT HOME HEALTH WITH [facility] FOR NURSING AND THERAPY AT HOME. CHOICE SIGNED. IMPORTANT MESSAGE FROM MEDICARE PROVIDED AND EXPLAINED. PT'S DAUGHTER REPORTS PT GETS TUBE FEEDING SUPPLIES AND FOOD FROM [facility] ([facility]), THEY WERE DOING BOLUS FEEDS AT HOME PRIOR TO THIS. DAUGHTER IS UNSURE IF PT WILL NEED A MACHINE OR IF HIS NUTRITIONAL MATERIAL WILL CHANGE. IF SO, SHE ASKED THAT [facility] BE CONSULTED TO PROVIDE WHAT PT NEEDS AT HOME. DR. BARROSO ADVISED PT WILL NEED HOME HEALTH FOLLOW UP AT DISCHARGE HOME. DAUGHTER WILL TRANSPORT HOME AT DISCHARGE. CM CALLED [facility], , SPOKE TO ALHAJI WHO TOOK REFERRAL. CM FAXED REFERRAL FOR HOME HEALTH TO [facility] AT [phone]. PHYSICAL ADDRESS FOR DISCHARGE IS [address] [place], [place] [address]. FOR DISCHARGE, IF PT'S FEEDING MATERIAL HAS CHANGED OR IF PT NEEDS FEEDING PUMP, CONTACT [facility] IN [place]. DOCTOR WILL N JOSÉ ANTONIO TO PROVIDE SPECIFIC HOME HEALTH ORDER, FAX WITH DISCHARGE INFORMATION TO [facility] AT [phone]. NOTIFY [facility] AT [phone]. LORI PIERRE, CASE MANAGEMENT DCP- Discharge Planning Updated by [id number]: Keke Rincon on 09/22/18 10:[address] Patient Name: ILIR DINERO Admission Status: ER Accout number: [id number] Admission Date: 09-22-2018 : 1935 Admission Diagnosis: Attending: RUDY BARROSO Current LOS: 1 Anticipated DC Date: 09-26-2018 Planned Disposition: Primary Insurance: MEDICARE A & B Discharge Planning Comments: CM met with patient and his daughter to complete initial dc planning assessment. CM educated patient and daughter on the CM role and verbal consent given by patient's daughter to complete assessment. Patient lives at home with her and is independent in his care at home. Patient's sole source of nutrition is through a feeding tube. He is not able to swallow. At discharge patient;s daughter plans for him to return home with her and feels this is a safe discharge. She said he may need therapy to regain his strength if he is weak. CM discussed availability of home health, rehab services, and medical equipment. Patient's denied known discharge needs at this time. CM will continue to follow and will assist as needed with dc plans/needs. Vapor Coater: Keke Rincon RN, [facility] DCPIA - Discharge Planning Initial Assessment Updated by [email or web address]: Keke Rincon on 09/22/18 11:38 am * Is the patient Alert and Oriented? Yes * How many steps to enter\exit or inside your home? ramp or 4 * PCP Dr. Dash * Pharmacy [facility] * Preadmission Environment Home with Family * ADLs Independent * Equipment Hospital Bed Rolling Walker Shower Chair Wheelchair * List name and contact numbers for known caregivers / representatives who currently or will assist patient after discharge: Adriana Martinez - daughter - [phone] * Verbal permission to speak to the caregivers and representatives has been obtained from the patient. Yes * Community resources currently utilized None * Please name any agencies selected above. None * Can the patient safely return to the preadmission environment? No * Has this patient been hospitalized within the prior 30 days at any hospital? No External Providers External Provider: Jevon Welch Contact Date: 09/29/2018 Service Request Date: Service Type: Resolution: Reviewer: Comments: Coverage Notice Reviewer: LONA Pierre Notice Issued Date-Time: 09/25/2018 15:30 Notice Type: Patient Choice Letter Notice Delivered To: Family Member Relationship to Patient: Daughter Trophy Assembler Name: TUCKER MARTINEZ Delivery Method: HAND - Hand Delivered Yenifer Days: Prior Verbal Notification: Recipient Understood Notice: Yes Recipient Signature: Yes Med Rec Note Co-signed by Attending: Coverage Notice Comment: [facility] Reviewer: [email or web address] Pierre Notice Issued Date-Time: 09/25/2018 15:30 Notice Type: IM Discharge Notice Notice Delivered To: Family Member Relationship to Patient: Daughter Trophy Assembler Name: TUCKER MARTINEZ Delivery Method: HAND - Hand Delivered Yenifer Days: Prior Verbal Notification: Recipient Understood Notice: Yes Recipient Signature: Yes Med Rec Note Co-signed by Attending: Coverage Notice Comment: Reviewer: LONA Pierre Notice Issued Date-Time: 09/29/2018 8:15 Notice Type: IM Discharge Notice Notice Delivered To: Patient Relationship to Patient: Trophy Assembler Name: Delivery Method: HAND - Hand Delivered Yenifer Days: Prior Verbal Notification: Recipient Understood Notice: Yes Recipient Signature: Yes Med Rec Note Co-signed by Attending: Coverage Notice Comment: Last DP export: 09/25/18 4:02 p Patient Name: ILIR DINERO Page 26152 at 0830 All edits/amendments must be made on the electronic document DICTATION DATE: 09/29/18828 WELL DRILL OPERATOR ROTARY DRILL: DM 09/29/18828 RPT#: [id number] DC DATE: STATUS: ADM IN [facility] [address] [place] [address] END OF REPORT
--- NOTE | 2018-09-29 08:57 | MORECARE ---
CASE MANAGEMENT DISCHARGE SUMMARY PATIENT: ILIR DINERO UNIT: [id number] ADM DATE: 09/22/18 AGE: 83 : 34 SEX: M ROOM/BED: D.2106 AUTHOR: ESTEFANIA,DOC PHYSICIAN: REFERRING PHYSICIAN: RUDY BARROSO MD DATE OF SERVICE: 09/29/18 Discharge Plan Patient Name: ILIR DINERO Facility: [facility]:[place] : 1935 Planned Disposition: Home with Home Health Anticipated Discharge Date: 09/26/18 Discharge Date: Expected LOS: 4 Initial Reviewer: [id number] Initial Review Date: 09/22/2018 Generated: 09/29/18 9:57 am Comments DCP- Discharge Planning Updated by [id number]: Jose Pierre on 09/25/18 4:[address] Patient Name: ILIR DINERO Encounter No: [id number] : 1935 Primary Insurance: MEDICARE A & B Anticipated DC Date: 09-26-2018 Planned Disposition: Home with Home Health External Planned Provider: [facility] DCP follow-up note: CM RECEIVED ORDER FOR INPATIENT REHAB PRESCREENING. CM MET WITH PT AND DAUGHTER IN ROOM TO DISCUSS DISCHARGE PLANNING AND NEEDS. ERIKA DINERO provided verbal consent to discuss current and ongoing needs with/in the presence of: DAUGHTER TUCKER BRODY. CM DISCUSSED AVAILABILITY OF INPATIENT AND SENIOR LIVING REHAB SERVICES. PT DECLINED BOTH. PT WILL ACCEPT HOME HEALTH WITH [facility] FOR NURSING AND THERAPY AT HOME. CHOICE SIGNED. IMPORTANT MESSAGE FROM MEDICARE PROVIDED AND EXPLAINED. PT'S DAUGHTER REPORTS PT GETS TUBE FEEDING SUPPLIES AND FOOD FROM [facility] ([place]), THEY WERE DOING BOLUS FEEDS AT HOME PRIOR TO THIS. DAUGHTER IS UNSURE IF PT WILL NEED A MACHINE OR IF HIS NUTRITIONAL MATERIAL WILL CHANGE. IF SO, SHE ASKED THAT [facility] BE CONSULTED TO PROVIDE WHAT PT NEEDS AT HOME. DR. BARROSO ADVISED PT WILL NEED HOME HEALTH FOLLOW UP AT DISCHARGE HOME. DAUGHTER WILL TRANSPORT HOME AT DISCHARGE. CM CALLED [facility], , SPOKE TO ALHAJI WHO TOOK REFERRAL. CM FAXED REFERRAL FOR HOME HEALTH TO [facility] AT [phone]. PHYSICAL ADDRESS FOR DISCHARGE IS [address] [place], [place] [address]. FOR DISCHARGE, IF PT'S FEEDING MATERIAL HAS CHANGED OR IF PT NEEDS FEEDING PUMP, CONTACT [facility] IN [place]. DOCTOR WILL N JOSÉ ANTONIO TO PROVIDE SPECIFIC HOME HEALTH ORDER, FAX WITH DISCHARGE INFORMATION TO [facility] AT [phone]. NOTIFY [facility] AT [phone]. JOSE PIERRE, CASE MANAGEMENT DCP- Discharge Planning Updated by [email or web address]: Keke Rincon on 09/22/18 10:[address] Patient Name: ILIR DINERO Admission Status: ER Accout number: [id number] Admission Date: 09-22-2018 : 1935 Admission Diagnosis: Attending: RUDY BARROSO Current LOS: 1 Anticipated DC Date: 09-26-2018 Planned Disposition: Primary Insurance: MEDICARE A & B Discharge Planning Comments: CM met with patient and his daughter to complete initial dc planning assessment. CM educated patient and daughter on the CM role and verbal consent given by patient's daughter to complete assessment. Patient lives at home with her and is independent in his care at home. Patient's sole source of nutrition is through a feeding tube. He is not able to swallow. At discharge patient;s daughter plans for him to return home with her and feels this is a safe discharge. She said he may need therapy to regain his strength if he is weak. CM discussed availability of home health, rehab services, and medical equipment. Patient's denied known discharge needs at this time. CM will continue to follow and will assist as needed with dc plans/needs. Obstetric Assistant: Keke Rincon RN, [facility] DCPIA - Discharge Planning Initial Assessment Updated by [email or web address]: Keke Rincon on 09/22/18 11:38 am * Is the patient Alert and Oriented? Yes * How many steps to enter\exit or inside your home? ramp or 4 * PCP Dr. Dash * Pharmacy [facility] * Preadmission Environment Home with Family * ADLs Independent * Equipment Hospital Bed Rolling Walker Shower Chair Wheelchair * List name and contact numbers for known caregivers / representatives who currently or will assist patient after discharge: Adriana Martinez - daughter - [phone] * Verbal permission to speak to the caregivers and representatives has been obtained from the patient. Yes * Community resources currently utilized None * Please name any agencies selected above. None * Can the patient safely return to the preadmission environment? No * Has this patient been hospitalized within the prior 30 days at any hospital? No External Providers External Provider: OTHER-OTHER Next Contact Date: 09/29/2018 Service Request Date: Service Type: Resolution: Reviewer: Comments: Coverage Notice Reviewer: LONA Pierre Notice Issued Date-Time: 09/25/2018 15:30 Notice Type: Patient Choice Letter Notice Delivered To: Family Member Relationship to Patient: Daughter Account Manager Education Name: TUCKER MARTINEZ Delivery Method: HAND - Hand Delivered Yenifer Days: Prior Verbal Notification: Recipient Understood Notice: Yes Recipient Signature: Yes Med Rec Note Co-signed by Attending: Coverage Notice Comment: [facility] Reviewer: [email or web address] Pierre Notice Issued Date-Time: 09/25/2018 15:30 Notice Type: IM Discharge Notice Notice Delivered To: Family Member Relationship to Patient: Daughter Account Manager Education Name: TUCKER MARTINEZ Delivery Method: HAND - Hand Delivered Yenifer Days: Prior Verbal Notification: Recipient Understood Notice: Yes Recipient Signature: Yes Med Rec Note Co-signed by Attending: Coverage Notice Comment: Reviewer: LONA Pierre Notice Issued Date-Time: 09/29/2018 8:15 Notice Type: IM Discharge Notice Notice Delivered To: Patient Relationship to Patient: Account Manager Education Name: Delivery Method: HAND - Hand Delivered Yenifer Days: Prior Verbal Notification: Recipient Understood Notice: Yes Recipient Signature: Yes Med Rec Note Co-signed by Attending: Coverage Notice Comment: Last DP export: 09/29/18 7:29 a Patient Name: ILIR DINERO Page 08002 at 0857 All edits/amendments must be made on the electronic document DICTATION DATE: 09/29/18 0857 RETAIL PERFORMANCE SPECIALIST: DM 09/29/18 0857 RPT#: [id number] DC DATE: STATUS: ADM IN [facility] [address] [place] [address] END OF REPORT
--- NOTE | 2018-09-29 09:29 | MORECARE ---
CASE MANAGEMENT DISCHARGE SUMMARY PATIENT: ILIR DINERO UNIT: [id number] ADM DATE: 09/22/18 AGE: 83 : 34 SEX: M ROOM/BED: D.2106 AUTHOR: ESTEFANIA,DOC PHYSICIAN: REFERRING PHYSICIAN: RUDY BARROSO MD DATE OF SERVICE: 09/29/18 Discharge Plan Patient Name: ILIR DINERO Facility: [facility]:[place] : 1935 Planned Disposition: Home with Home Health Anticipated Discharge Date: 09/29/18 Discharge Date: Expected LOS: 7 Initial Reviewer: [email or web address] Initial Review Date: 09/22/2018 Generated: 09/29/18 10:28 am Comments DCP- Discharge Planning Updated by [email or web address]: Lori Pierre on 09/25/18 4:[address] Patient Name: ILIR DINERO Encounter No: [id number] : 1935 Primary Insurance: MEDICARE A & B Anticipated DC Date: 09-26-2018 Planned Disposition: Home with Home Health External Planned Provider: [facility] DCP follow-up note: CM RECEIVED ORDER FOR INPATIENT REHAB PRESCREENING. CM MET WITH PT AND DAUGHTER IN ROOM TO DISCUSS DISCHARGE PLANNING AND NEEDS. ERIKA DINERO provided verbal consent to discuss current and ongoing needs with/in the presence of: DAUGHTER TUCKER BRODY. CM DISCUSSED AVAILABILITY OF INPATIENT AND [facility]DC REHAB SERVICES. PT DECLINED BOTH. PT WILL ACCEPT HOME HEALTH WITH [facility] FOR NURSING AND THERAPY AT HOME. CHOICE SIGNED. IMPORTANT MESSAGE FROM MEDICARE PROVIDED AND EXPLAINED. PT'S DAUGHTER REPORTS PT GETS TUBE FEEDING SUPPLIES AND FOOD FROM [facility]), THEY WERE DOING BOLUS FEEDS AT HOME PRIOR TO THIS. DAUGHTER IS UNSURE IF PT WILL NEED A MACHINE OR IF HIS NUTRITIONAL MATERIAL WILL CHANGE. IF SO, SHE ASKED THAT [facility] BE CONSULTED TO PROVIDE WHAT PT NEEDS AT HOME. DR. BARROSO ADVISED PT WILL NEED HOME HEALTH FOLLOW UP AT DISCHARGE HOME. DAUGHTER WILL TRANSPORT HOME AT DISCHARGE. CM CALLED [facility], , SPOKE TO ALHAJI WHO TOOK REFERRAL. CM FAXED REFERRAL FOR HOME HEALTH TO [facility] AT [phone]. PHYSICAL ADDRESS FOR DISCHARGE IS [address] [place], [place] [address]. FOR DISCHARGE, IF PT'S FEEDING MATERIAL HAS CHANGED OR IF PT NEEDS FEEDING PUMP, CONTACT [facility] IN [place]. DOCTOR WILL N JOSÉ ANTONIO TO PROVIDE SPECIFIC HOME HEALTH ORDER, FAX WITH DISCHARGE INFORMATION TO [facility] AT [phone]. NOTIFY [facility] AT [phone]. LORI PIERRE, CASE MANAGEMENT DCP- Discharge Planning Updated by [email or web address]: Keke Rincon on 09/22/18 10:[address] Patient Name: ILIR DINERO Admission Status: ER Accout number: [id number] Admission Date: 09-22-2018 : 1935 Admission Diagnosis: Attending: RUDY BARROSO Current LOS: 1 Anticipated DC Date: 09-26-2018 Planned Disposition: Primary Insurance: MEDICARE A & B Discharge Planning Comments: CM met with patient and his daughter to complete initial dc planning assessment. CM educated patient and daughter on the CM role and verbal consent given by patient's daughter to complete assessment. Patient lives at home with her and is independent in his care at home. Patient's sole source of nutrition is through a feeding tube. He is not able to swallow. At discharge patient;s daughter plans for him to return home with her and feels this is a safe discharge. She said he may need therapy to regain his strength if he is weak. CM discussed availability of home health, rehab services, and medical equipment. Patient's denied known discharge needs at this time. CM will continue to follow and will assist as needed with dc plans/needs. Bottle House Quality Control Technician: Keke Rincon RN, [facility] DCPIA - Discharge Planning Initial Assessment Updated by [email or web address]: Keke Rincon on 09/22/18 11:38 am * Is the patient Alert and Oriented? Yes * How many steps to enter\exit or inside your home? ramp or 4 * PCP Dr. Dash * Pharmacy [facility] * Preadmission Environment Home with Family * ADLs Independent * Equipment Hospital Bed Rolling Walker Shower Chair Wheelchair * List name and contact numbers for known caregivers / representatives who currently or will assist patient after discharge: Adriana Martinez - daughter - [phone] * Verbal permission to speak to the caregivers and representatives has been obtained from the patient. Yes * Community resources currently utilized None * Please name any agencies selected above. None * Can the patient safely return to the preadmission environment? No * Has this patient been hospitalized within the prior 30 days at any hospital? No Coverage Notice Reviewer: LONA Pierre Notice Issued Date-Time: 09/25/2018 15:30 Notice Type: Patient Choice Letter Notice Delivered To: Family Member Relationship to Patient: Daughter Claim Processing Specialist Name: TUCKER MARTINEZ Delivery Method: HAND - Hand Delivered Yenifer Days: Prior Verbal Notification: Recipient Understood Notice: Yes Recipient Signature: Yes Med Rec Note Co-signed by Attending: Coverage Notice Comment: [facility] Reviewer: LONA Pierre Notice Issued Date-Time: 09/25/2018 15:30 Notice Type: IM Discharge Notice Notice Delivered To: Family Member Relationship to Patient: Daughter Claim Processing Specialist Name: TUCKER MARTINEZ Delivery Method: HAND - Hand Delivered Yenifer Days: Prior Verbal Notification: Recipient Understood Notice: Yes Recipient Signature: Yes Med Rec Note Co-signed by Attending: Coverage Notice Comment: Reviewer: LONA Pierre Notice Issued Date-Time: 09/29/2018 8:15 Notice Type: IM Discharge Notice Notice Delivered To: Patient Relationship to Patient: Claim Processing Specialist Name: Delivery Method: HAND - Hand Delivered Yenifer Days: Prior Verbal Notification: Recipient Understood Notice: Yes Recipient Signature: Yes Med Rec Note Co-signed by Attending: Coverage Notice Comment: Last DP export: 09/29/18 7:57 a Patient Name: ILIR DINERO Page 31337 at 0929 All edits/amendments must be made on the electronic document DICTATION DATE: 09/29/18927 ELECTRICAL INSTRUMENT REPAIRER: JERI 09/29/18927 RPT#: [id number] DC DATE: STATUS: ADM IN [facility] [address] [place] [address] END OF REPORT
--- NOTE | 2018-09-29 09:41 | MORECARE ---
CASE MANAGEMENT DISCHARGE SUMMARY PATIENT: ILIR DINERO UNIT: [id number] ADM DATE: 09/22/18 AGE: 83 : 34 SEX: M ROOM/BED: D.2106 AUTHOR: ESTEFANIA,DOC PHYSICIAN: REFERRING PHYSICIAN: RUDY BARROSO MD DATE OF SERVICE: 09/29/18 Discharge Plan Patient Name: ILIR DINERO Facility: [facility]:[place] : 1935 Planned Disposition: Home with Home Health Anticipated Discharge Date: 09/29/18 Discharge Date: Expected LOS: 7 Initial Reviewer: [id number] Initial Review Date: 09/22/2018 Generated: 09/29/18 10:41 am Comments DCP- Discharge Planning Updated by [email or web address]: Lori Pedro on 09/29/18 8:[address] Patient Name: ILIR DINERO Encounter No: [id number] : 1935 Primary Insurance: MEDICARE A & B Anticipated DC Date: 09-29-2018 Planned Disposition: Home with Home Health External Planned Provider: [facility] DCP follow-up note: CM RECEIVED ORDERS FOR TUBE FEEDING PUMP, NEBULIZER AND NEBULIZER MEDICATION WELL HOME HEALTH. CM MET WITH PT IN ROOM TO DISCUSS DISCHARGE PLANNING AND NEEDS. PT WOULD LIKE TO GO HOME TODAY WITH [facility] FOR NURSE AND THERAPY. PT WOULD LIKE EQUIPMENT FROM [facility]. IMPORTANT MESSAGE FROM MEDICARE PROVIDED AND DISCUSSED. CM CALLED [facility], , SPOKE TO HARDEEP AND PROVIDED NEBULIZER AND DUONEB ORDERS. CM FAXED REFERRAL TO [facility] AT [phone]. HARDEEP TO ORDER DUONEB AND ARRANGE DELIVERY OF NEBULIZER WITH PT'S DAUGHTER FOR DISCHARGE HOME TODAY. CM CALLED [facility], , SPOKE TO DUSTIN AND PROVIDED ORDERS FOR PUMP AND NEW FORMULA. CM FAXED REFERRAL TO [facility] AT [phone]. DUSTIN WILL ARRANGE DELIVERY OF EQUIPMENT AND FEEDING SUPPLIES FOR DISCHARGE HOME TODAY AND WILL ALSO SEND BUTTON BROACHER TO EDUCATE PT AND DAUGHTER ON NEW PUMP FEEDINGS. CM CALLED [facility], , SPOKE TO ALHAJI WHO HAS PT'S INFORMATION AND WAITING DISCHARGE FOR HOME HEALTH ADMISSION. CM NOTIFIED OF PLANNED DISCHARGE TODAY, PT ON SCHEDULE FOR HOME HEALTH ADMIT TOMORROW. CM FAXED UPDATE TO [facility] AT [phone]. FOR DISCHARGE, NOTIFY [facility] AT [phone], FAX DISCHARGE INFORMATION TO [facility] AT [phone]. CM TO CONTINUE TO FOLLOW AND ASSIST NEEDED. Lori Pedro CASE MANAGEMENT DCP- Discharge Planning Updated by [id number]: Lori Pedro on 09/25/18 4:[address] Patient Name: ILIR DINERO Encounter No: [id number] : 1935 Primary Insurance: MEDICARE A & B Anticipated DC Date: 09-26-2018 Planned Disposition: Home with Home Health External Planned Provider: [facility] DCP follow-up note: CM RECEIVED ORDER FOR INPATIENT REHAB PRESCREENING. CM MET WITH PT AND DAUGHTER IN ROOM TO DISCUSS DISCHARGE PLANNING AND NEEDS. ERIKA DINERO provided verbal consent to discuss current and ongoing needs with/in the presence of: DAUGHTER TUCKER BRODY. CM DISCUSSED AVAILABILITY OF INPATIENT AND FDC REHAB SERVICES. PT DECLINED BOTH. PT WILL ACCEPT HOME HEALTH WITH [facility] FOR NURSING AND THERAPY AT HOME. CHOICE SIGNED. IMPORTANT MESSAGE FROM MEDICARE PROVIDED AND EXPLAINED. PT'S DAUGHTER REPORTS PT GETS TUBE FEEDING SUPPLIES AND FOOD FROM [facility]), THEY WERE DOING BOLUS FEEDS AT HOME PRIOR TO THIS. DAUGHTER IS UNSURE IF PT WILL NEED A MACHINE OR IF HIS NUTRITIONAL MATERIAL WILL CHANGE. IF SO, SHE ASKED THAT [facility] BE CONSULTED TO PROVIDE WHAT PT NEEDS AT HOME. DR. BARROSO ADVISED PT WILL NEED HOME HEALTH FOLLOW UP AT DISCHARGE HOME. DAUGHTER WILL TRANSPORT HOME AT DISCHARGE. CM CALLED [facility], , SPOKE TO ALHAJI WHO TOOK REFERRAL. CM FAXED REFERRAL FOR HOME HEALTH TO [facility] AT [phone]. PHYSICAL ADDRESS FOR DISCHARGE IS [address] [place] [address]. [id number]. FOR DISCHARGE, IF PT'S FEEDING MATERIAL HAS CHANGED OR IF PT NEEDS FEEDING PUMP, CONTACT [facility] IN [place]. DOCTOR WILL N EED TO PROVIDE SPECIFIC HOME HEALTH ORDER, FAX WITH DISCHARGE INFORMATION TO [facility] AT [phone]. NOTIFY [facility] AT [phone]. LORI IGNACIO, CASE MANAGEMENT DCP- Discharge Planning Updated by [id number]: Keke Rincon on 09/22/18 10:[address] Patient Name: ILIR DINERO Admission Status: ER Accout number: [id number] Admission Date: 09-22-2018 : 1935 Admission Diagnosis: Attending: RUDY BARROSO Current LOS: 1 Anticipated DC Date: 09-26-2018 Planned Disposition: Primary Insurance: MEDICARE A & B Discharge Planning Comments: CM met with patient and his daughter to complete initial dc planning assessment. CM educated patient and daughter on the CM role and verbal consent given by patient's daughter to complete assessment. Patient lives at home with her and is independent in his care at home. Patient's sole source of nutrition is through a feeding tube. He is not able to swallow. At discharge patient;s daughter plans for him to return home with her and feels this is a safe discharge. She said he may need therapy to regain his strength if he is weak. CM discussed availability of home health, rehab services, and medical equipment. Patient's denied known discharge needs at this time. CM will continue to follow and will assist as needed with dc plans/needs. Floor Scraper: Keke Rincon RN, [facility] DCPIA - Discharge Planning Initial Assessment Updated by [id number]: Keke Rincon on 09/22/18 11:38 am * Is the patient Alert and Oriented? Yes * How many steps to enter\exit or inside your home? ramp or 4 * PCP Dr. Dash * Pharmacy [facility] * Preadmission Environment Home with Family * ADLs Independent * Equipment Hospital Bed Rolling Walker Shower Chair Wheelchair * List name and contact numbers for known caregivers / representatives who currently or will assist patient after discharge: Adriana Martinez - daughter - [phone] * Verbal permission to speak to the caregivers and representatives has been obtained from the patient. Yes * Community resources currently utilized None * Please name any agencies selected above. None * Can the patient safely return to the preadmission environment? No * Has this patient been hospitalized within the prior 30 days at any hospital? No Coverage Notice Reviewer: [id number] - Lori Pedro Notice Issued Date-Time: 09/25/2018 15:30 Notice Type: Patient Choice Letter Notice Delivered To: Family Member Relationship to Patient: Daughter Board Writer Name: TUCKER MARTINEZ Delivery Method: HAND - Hand Delivered Yenifer Days: Prior Verbal Notification: Recipient Understood Notice: Yes Recipient Signature: Yes Med Rec Note Co-signed by Attending: Coverage Notice Comment: [facility] Reviewer: [id number] Pedro Notice Issued Date-Time: 09/25/2018 15:30 Notice Type: IM Discharge Notice Notice Delivered To: Family Member Relationship to Patient: Daughter Board Writer Name: TUCKER MARTINEZ Delivery Method: HAND - Hand Delivered Yenifer Days: Prior Verbal Notification: Recipient Understood Notice: Yes Recipient Signature: Yes Med Rec Note Co-signed by Attending: Coverage Notice Comment: Reviewer: LONA Pedro Notice Issued Date-Time: 09/29/2018 8:15 Notice Type: IM Discharge Notice Notice Delivered To: Patient Relationship to Patient: Board Writer Name: Delivery Method: HAND - Hand Delivered Yenifer Days: Prior Verbal Notification: Recipient Understood Notice: Yes Recipient Signature: Yes Med Rec Note Co-signed by Attending: Coverage Notice Comment: Last DP export: 09/29/18 8:28 a Patient Name: ILIR DINERO Page 34902 at 0941 All edits/amendments must be made on the electronic document DICTATION DATE: 09/29/18939 SUPERVISOR REFRACTORY PRODUCTS: JERI 09/29/18939 RPT#: [id number] DC DATE: STATUS: ADM IN [facility] [address] [place] [address] END OF REPORT
--- NOTE | 2018-09-29 12:06 | MORECARE ---
CASE MANAGEMENT DISCHARGE SUMMARY PATIENT: ILIR DINERO UNIT: [id number] ADM DATE: 09/22/18 AGE: 83 : [birth year] SEX: M ROOM/BED: D.2106 AUTHOR: ESTEFANIA,DOC PHYSICIAN: REFERRING PHYSICIAN: RUDY BARROSO MD DATE OF SERVICE: 09/29/18 Discharge Plan Patient Name: ILIR DINERO Facility: [facility]:[place] : 1935 Planned Disposition: Home with Home Health Anticipated Discharge Date: 09/29/18 Discharge Date: Expected LOS: 7 Initial Reviewer: [id number] Initial Review Date: 09/22/2018 Generated: 09/29/18 1:05 pm Comments DCP- Discharge Planning Updated by [id number]: Lori Pierre on 09/29/18 11:[address] Patient Name: ILIR DINERO Encounter No: [id number] : 1935 Primary Insurance: MEDICARE A & B Anticipated DC Date: 09-29-2018 Planned Disposition: Home with Home Health External Planned Provider: [facility] DCP follow-up note: CM RECEIVED ORDERS FOR TUBE FEEDING PUMP, NEBULIZER AND NEBULIZER MEDICATION WELL HOME HEALTH. CM MET WITH PT IN ROOM TO DISCUSS DISCHARGE PLANNING AND NEEDS. PT WOULD LIKE TO GO HOME TODAY WITH [facility] FOR NURSE AND THERAPY. PT WOULD LIKE EQUIPMENT FROM [facility]. IMPORTANT MESSAGE FROM MEDICARE PROVIDED AND DISCUSSED. CM CALLED [facility], , SPOKE TO HARDEEP AND PROVIDED NEBULIZER AND DUONEB ORDERS. CM FAXED REFERRAL TO [facility] AT [phone]. HARDEEP TO ORDER DUONEB AND ARRANGE DELIVERY OF NEBULIZER WITH PT'S DAUGHTER FOR DISCHARGE HOME TODAY. CM CALLED [facility], , SPOKE TO DUSTIN AND PROVIDED ORDERS FOR PUMP AND NEW FORMULA. CM FAXED REFERRAL TO [facility] AT [phone]. DUSTIN WILL ARRANGE DELIVERY OF EQUIPMENT AND FEEDING SUPPLIES FOR DISCHARGE HOME TODAY AND WILL ALSO SEND ASSOCIATE FIELD SERVICE ENGINEER TO EDUCATE PT AND DAUGHTER ON NEW PUMP FEEDINGS. CM CALLED [facility], , SPOKE TO ALHAJI WHO HAS PT'S INFORMATION AND WAITING DISCHARGE FOR HOME HEALTH ADMISSION. CM NOTIFIED OF PLANNED DISCHARGE TODAY, PT ON SCHEDULE FOR HOME HEALTH ADMIT TOMORROW. CM FAXED UPDATE TO [facility] AT [phone]. FOR DISCHARGE, NOTIFY [facility] AT [phone], FAX DISCHARGE INFORMATION TO [facility] AT [phone]. CM TO CONTINUE TO FOLLOW AND ASSIST NEEDED. Lori Pierre, CASE MANAGEMENT Appended by Lori Pierre on 09/29/2018 12:05 LAMINATION MACHINE OPERATOR: CM SPOKE TO YO OF [facility], THEY HAVE PLACED PT ON SCHEDULE FOR HOME HEALTH ADMIT TONIGHT. FOR DISCHARGE, NOTIFY [facility] AT [phone], FAX DISCHARGE INFORMATION TO [facility] AT [phone]. CM TO CONTINUE TO FOLLOW AND ASSIST NEEDED. Lori Pierre, CASE MANAGEMENT DCP- Discharge Planning Updated by [id number]: Lori Pierre on 09/25/18 4:[address] Patient Name: ILIR DINERO Encounter No: [id number] : 1935 Primary Insurance: MEDICARE A & B Anticipated DC Date: 09-26-2018 Planned Disposition: Home with Home Health External Planned Provider: [facility] DCP follow-up note: CM RECEIVED ORDER FOR INPATIENT REHAB PRESCREENING. CM MET WITH PT AND DAUGHTER IN ROOM TO DISCUSS DISCHARGE PLANNING AND NEEDS. ERIKA MCCARTNEYEY provided verbal consent to discuss current and ongoing needs with/in the presence of: DAUGHTER TUCKER BRODY. CM DISCUSSED AVAILABILITY OF INPATIENT AND CARE HOME REHAB SERVICES. PT DECLINED BOTH. PT WILL ACCEPT HOME HEALTH WITH [facility] FOR NURSING AND THERAPY AT HOME. CHOICE SIGNED. IMPORTANT MESSAGE FROM MEDICARE PROVIDED AND EXPLAINED. PT'S DAUGHTER REPORTS PT GETS TUBE FEEDING SUPPLIES AND FOOD FROM [facility] [place]), THEY WERE DOING BOLUS FEEDS AT HOME PRIOR TO THIS. DAUGHTER IS UNSURE IF PT WILL NEED A MACHINE OR IF HIS NUTRITIONAL MATERIAL WILL CHANGE. IF SO, SHE ASKED THAT [facility] BE CONSULTED TO PROVIDE WHAT PT NEEDS AT HOME. DR. BARROSO ADVISED PT WILL NEED HOME HEALTH FOLLOW UP AT DISCHARGE HOME. DAUGHTER WILL TRANSPORT HOME AT DISCHARGE. CM CALLED [facility], , SPOKE TO ALHAJI WHO TOOK REFERRAL. CM FAXED REFERRAL FOR HOME HEALTH TO [facility] AT [phone]. PHYSICAL ADDRESS FOR DISCHARGE IS [address] [place]. [address]. FOR DISCHARGE, IF PT'S FEEDING MATERIAL HAS CHANGED OR IF PT NEEDS FEEDING PUMP, CONTACT [facility] IN [place]. DOCTOR WILL N JOSÉ ANTONIO TO PROVIDE SPECIFIC HOME HEALTH ORDER, FAX WITH DISCHARGE INFORMATION TO [facility] AT [phone]. NOTIFY [facility] AT [phone]. LORI PIERRE, CASE MANAGEMENT DCP- Discharge Planning Updated by [id number]: Keke Rincon on 09/22/18 10:[address] Patient Name: ILIR DINERO Admission Status: ER Accout number: [id number] Admission Date: 09-22-2018 : 1935 Admission Diagnosis: Attending: RUDY BARROSO Current LOS: 1 Anticipated DC Date: 09-26-2018 Planned Disposition: Primary Insurance: MEDICARE A & B Discharge Planning Comments: CM met with patient and his daughter to complete initial dc planning assessment. CM educated patient and daughter on the CM role and verbal consent given by patient's daughter to complete assessment. Patient lives at home with her and is independent in his care at home. Patient's sole source of nutrition is through a feeding tube. He is not able to swallow. At discharge patient;s daughter plans for him to return home with her and feels this is a safe discharge. She said he may need therapy to regain his strength if he is weak. CM discussed availability of home health, rehab services, and medical equipment. Patient's denied known discharge needs at this time. CM will continue to follow and will assist as needed with dc plans/needs. Instructor Of Education: Keke Rincon RN, [facility] DCPIA - Discharge Planning Initial Assessment Updated by [id number]: Keke Rincon on 09/22/18 11:38 am * Is the patient Alert and Oriented? Yes * How many steps to enter\exit or inside your home? ramp or 4 * PCP Dr. Dash * Pharmacy [facility] * Preadmission Environment Home with Family * ADLs Independent * Equipment Hospital Bed Rolling Walker Shower Chair Wheelchair * List name and contact numbers for known caregivers / representatives who currently or will assist patient after discharge: Adriana Martinez - daughter - [phone] * Verbal permission to speak to the caregivers and representatives has been obtained from the patient. Yes * Community resources currently utilized None * Please name any agencies selected above. None * Can the patient safely return to the preadmission environment? No * Has this patient been hospitalized within the prior 30 days at any hospital? No Coverage Notice Reviewer: [id number] Pierre Notice Issued Date-Time: 09/25/2018 15:30 Notice Type: Patient Choice Letter Notice Delivered To: Family Member Relationship to Patient: Daughter Cash Poster Name: TUCKER MARTINEZ Delivery Method: HAND - Hand Delivered Yenifer Days: Prior Verbal Notification: Recipient Understood Notice: Yes Recipient Signature: Yes Med Rec Note Co-signed by Attending: Coverage Notice Comment: [facility] Reviewer: [id number] Jairo Pierre Notice Issued Date-Time: 09/25/2018 15:30 Notice Type: IM Discharge Notice Notice Delivered To: Family Member Relationship to Patient: Daughter Cash Poster Name: TUCKER MARTINEZ Delivery Method: HAND - Hand Delivered Yenifer Days: Prior Verbal Notification: Recipient Understood Notice: Yes Recipient Signature: Yes Med Rec Note Co-signed by Attending: Coverage Notice Comment: Reviewer: [id number] Pierre Notice Issued Date-Time: 09/29/2018 8:15 Notice Type: IM Discharge Notice Notice Delivered To: Patient Relationship to Patient: Cash Poster Name: Delivery Method: HAND - Hand Delivered Yenifer Days: Prior Verbal Notification: Recipient Understood Notice: Yes Recipient Signature: Yes Med Rec Note Co-signed by Attending: Coverage Notice Comment: Last DP export: 09/29/18 8:41 a Patient Name: ILIR DINERO Page 30060 at 1206 All edits/amendments must be made on the electronic document DICTATION DATE: 09/29/18 1205 FREELANCE DISPLAYER: DM 09/29/18 1205 RPT#: [id number] DC DATE: STATUS: ADM IN [facility] [address] [place] [address] END OF REPORT
[2018-09-29 13:02] VITALS: BP 137/65
--- NOTE | 2018-09-29 15:12 | MORECARE ---
CASE MANAGEMENT DISCHARGE SUMMARY PATIENT: ILIR DINERO UNIT: [id number] ADM DATE: 09/22/18 AGE: 83 : 34 SEX: M ROOM/BED: D.2106 AUTHOR: ESTEFANIA,DOC PHYSICIAN: REFERRING PHYSICIAN: RUDY BARROSO MD DATE OF SERVICE: 09/29/18 Discharge Plan Patient Name: ILIR DINERO Facility: [facility]:[place] : 1935 Planned Disposition: Home with Home Health Anticipated Discharge Date: 09/29/18 Discharge Date: Expected LOS: 7 Initial Reviewer: [id number] Initial Review Date: 09/22/2018 Generated: 09/29/18 4:12 pm Comments DCP- Discharge Planning Updated by [email or web address]: Lori Pierre on 09/29/18 11:[address] Patient Name: ILIR DINERO Encounter No: [id number] : 1935 Primary Insurance: MEDICARE A & B Anticipated DC Date: 09-29-2018 Planned Disposition: Home with Home Health External Planned Provider: [facility] DCP follow-up note: CM RECEIVED ORDERS FOR TUBE FEEDING PUMP, NEBULIZER AND NEBULIZER MEDICATION WELL HOME HEALTH. CM MET WITH PT IN ROOM TO DISCUSS DISCHARGE PLANNING AND NEEDS. PT WOULD LIKE TO GO HOME TODAY WITH [facility] FOR NURSE AND THERAPY. PT WOULD LIKE EQUIPMENT FROM [facility]. IMPORTANT MESSAGE FROM MEDICARE PROVIDED AND DISCUSSED. CM CALLED [facility], , SPOKE TO HARDEEP AND PROVIDED NEBULIZER AND DUONEB ORDERS. CM FAXED REFERRAL TO [facility] AT [phone]. HARDEEP TO ORDER DUONEB AND ARRANGE DELIVERY OF NEBULIZER WITH PT'S DAUGHTER FOR DISCHARGE HOME TODAY. CM CALLED [facility], , SPOKE TO DUSTIN AND PROVIDED ORDERS FOR PUMP AND NEW FORMULA. CM FAXED REFERRAL TO [facility] AT [phone]. DUSTIN WILL ARRANGE DELIVERY OF EQUIPMENT AND FEEDING SUPPLIES FOR DISCHARGE HOME TODAY AND WILL ALSO SEND NUMERICAL TOOL PROGRAMMER TO EDUCATE PT AND DAUGHTER ON NEW PUMP FEEDINGS. CM CALLED [facility], , SPOKE TO ALHAJI WHO HAS PT'S INFORMATION AND WAITING DISCHARGE FOR HOME HEALTH ADMISSION. CM NOTIFIED OF PLANNED DISCHARGE TODAY, PT ON SCHEDULE FOR HOME HEALTH ADMIT TOMORROW. CM FAXED UPDATE TO [facility] AT [phone]. FOR DISCHARGE, NOTIFY [facility] AT [phone], FAX DISCHARGE INFORMATION TO [facility] AT [phone]. CM TO CONTINUE TO FOLLOW AND ASSIST NEEDED. Lori Pierre, CASE MANAGEMENT Appended by Lori Pierre on 09/29/2018 12:05 WEB COORDINATOR: CM SPOKE TO YO OF [facility], THEY HAVE PLACED PT ON SCHEDULE FOR HOME HEALTH ADMIT TONIGHT. FOR DISCHARGE, NOTIFY [facility] AT [phone], FAX DISCHARGE INFORMATION TO [facility] AT [phone]. CM TO CONTINUE TO FOLLOW AND ASSIST NEEDED. Lori Pierre, CASE MANAGEMENT DCP- Discharge Planning Updated by [email or web address]: Lori Pierre on 09/25/18 4:[address] Patient Name: ILIR DINERO Encounter No: [id number] : 1935 Primary Insurance: MEDICARE A & B Anticipated DC Date: 09-26-2018 Planned Disposition: Home with Home Health External Planned Provider: [facility] DCP follow-up note: CM RECEIVED ORDER FOR INPATIENT REHAB PRESCREENING. CM MET WITH PT AND DAUGHTER IN ROOM TO DISCUSS DISCHARGE PLANNING AND NEEDS. ERIKA MCCARTNEYEY provided verbal consent to discuss current and ongoing needs with/in the presence of: DAUGHTER TUCKER BRODY. CM DISCUSSED AVAILABILITY OF INPATIENT AND [facility] REHAB SERVICES. PT DECLINED BOTH. PT WILL ACCEPT HOME HEALTH WITH [facility] FOR NURSING AND THERAPY AT HOME. CHOICE SIGNED. IMPORTANT MESSAGE FROM MEDICARE PROVIDED AND EXPLAINED. PT'S DAUGHTER REPORTS PT GETS TUBE FEEDING SUPPLIES AND FOOD FROM [facility]), THEY WERE DOING BOLUS FEEDS AT HOME PRIOR TO THIS. DAUGHTER IS UNSURE IF PT WILL NEED A MACHINE OR IF HIS NUTRITIONAL MATERIAL WILL CHANGE. IF SO, SHE ASKED THAT [facility] BE CONSULTED TO PROVIDE WHAT PT NEEDS AT HOME. DR. BARROSO ADVISED PT WILL NEED HOME HEALTH FOLLOW UP AT DISCHARGE HOME. DAUGHTER WILL TRANSPORT HOME AT DISCHARGE. CM CALLED [facility], , SPOKE TO ALHAJI WHO TOOK REFERRAL. CM FAXED REFERRAL FOR HOME HEALTH TO [facility] AT [phone]. PHYSICAL ADDRESS FOR DISCHARGE IS [address], [place] [address]. FOR DISCHARGE, IF PT'S FEEDING MATERIAL HAS CHANGED OR IF PT NEEDS FEEDING PUMP, CONTACT [facility] IN [place]. DOCTOR WILL N JOSÉ ANTONIO TO PROVIDE SPECIFIC HOME HEALTH ORDER, FAX WITH DISCHARGE INFORMATION TO [facility] AT [phone]. NOTIFY [facility] AT [phone]. LORI PIERRE, CASE MANAGEMENT DCP- Discharge Planning Updated by [id number]: Keke Rincon on 09/22/18 10:[address] Patient Name: ILIR DINERO Admission Status: ER Accout number: [id number] Admission Date: 09-22-2018 : 1935 Admission Diagnosis: Attending: RUDY BARROSO Current LOS: 1 Anticipated DC Date: 09-26-2018 Planned Disposition: Primary Insurance: MEDICARE A & B Discharge Planning Comments: CM met with patient and his daughter to complete initial dc planning assessment. CM educated patient and daughter on the CM role and verbal consent given by patient's daughter to complete assessment. Patient lives at home with her and is independent in his care at home. Patient's sole source of nutrition is through a feeding tube. He is not able to swallow. At discharge patient;s daughter plans for him to return home with her and feels this is a safe discharge. She said he may need therapy to regain his strength if he is weak. CM discussed availability of home health, rehab services, and medical equipment. Patient's denied known discharge needs at this time. CM will continue to follow and will assist as needed with dc plans/needs. Client Relation Specialist: Keke Rincon RN, [facility] DCPIA - Discharge Planning Initial Assessment Updated by [email or web address]: Keke Rincon on 09/22/18 11:38 am * Is the patient Alert and Oriented? Yes * How many steps to enter\exit or inside your home? ramp or 4 * PCP Dr. Dash * Pharmacy [facility] * Preadmission Environment Home with Family * ADLs Independent * Equipment Hospital Bed Rolling Walker Shower Chair Wheelchair * List name and contact numbers for known caregivers / representatives who currently or will assist patient after discharge: Adriana Martinez - daughter - [phone] * Verbal permission to speak to the caregivers and representatives has been obtained from the patient. Yes * Community resources currently utilized None * Please name any agencies selected above. None * Can the patient safely return to the preadmission environment? No * Has this patient been hospitalized within the prior 30 days at any hospital? No Coverage Notice Reviewer: [id number] Pierre Notice Issued Date-Time: 09/25/2018 15:30 Notice Type: Patient Choice Letter Notice Delivered To: Family Member Relationship to Patient: Daughter Hourly Associate Name: TUCKER MARTINEZ Delivery Method: HAND - Hand Delivered Yenifer Days: Prior Verbal Notification: Recipient Understood Notice: Yes Recipient Signature: Yes Med Rec Note Co-signed by Attending: Coverage Notice Comment: [facility] Reviewer: [id number] Jairo Pierre Notice Issued Date-Time: 09/25/2018 15:30 Notice Type: IM Discharge Notice Notice Delivered To: Family Member Relationship to Patient: Daughter Hourly Associate Name: TUCKER MARTINEZ Delivery Method: HAND - Hand Delivered Yenifer Days: Prior Verbal Notification: Recipient Understood Notice: Yes Recipient Signature: Yes Med Rec Note Co-signed by Attending: Coverage Notice Comment: Reviewer: [id number] Pierre Notice Issued Date-Time: 09/29/2018 8:15 Notice Type: IM Discharge Notice Notice Delivered To: Patient Relationship to Patient: Hourly Associate Name: Delivery Method: HAND - Hand Delivered Yenifer Days: Prior Verbal Notification: Recipient Understood Notice: Yes Recipient Signature: Yes Med Rec Note Co-signed by Attending: Coverage Notice Comment: Last DP export: 09/29/18 11:06 a Patient Name: ILIR DINERO Page [id number] at 1512 All edits/amendments must be made on the electronic document DICTATION DATE: 09/29/18 1511 CAMERA TECHNICIAN: JERI 09/29/18 1511 RPT#: [id number] DC DATE: STATUS: ADM IN [facility] [address] [place] [address] END OF REPORT
--- NOTE | 2018-09-29 15:20 | MORECARE ---
CASE MANAGEMENT DISCHARGE SUMMARY PATIENT: ILIR DINERO UNIT: [id number] ADM DATE: 09/22/18 AGE: 83 : 34 SEX: M ROOM/BED: D.2106 AUTHOR: ESTEFANIA,DOC PHYSICIAN: REFERRING PHYSICIAN: RUDY BARROSO MD DATE OF SERVICE: 09/29/18 Discharge Plan Patient Name: ILIR DINERO Facility: [facility]:[place] : 1935 Planned Disposition: Home with Home Health Anticipated Discharge Date: 09/29/18 Discharge Date: Expected LOS: 7 Initial Reviewer: [id number] Initial Review Date: 09/22/2018 Generated: 09/29/18 4:20 pm Comments DCP- Discharge Planning Updated by [email or web address]: Lori Pierre on 09/29/18 2:[address] Patient Name: ILIR DINERO Encounter No: [id number] : 1935 Primary Insurance: MEDICARE A & B Anticipated DC Date: 09-29-2018 Planned Disposition: Home with Home Health External Planned Provider: [facility] DCP follow-up note: CM RECEIVED ORDERS FOR TUBE FEEDING PUMP, NEBULIZER AND NEBULIZER MEDICATION WELL HOME HEALTH. CM MET WITH PT IN ROOM TO DISCUSS DISCHARGE PLANNING AND NEEDS. PT WOULD LIKE TO GO HOME TODAY WITH [facility] FOR NURSE AND THERAPY. PT WOULD LIKE EQUIPMENT FROM [facility]. IMPORTANT MESSAGE FROM MEDICARE PROVIDED AND DISCUSSED. CM CALLED [facility], , SPOKE TO HARDEEP AND PROVIDED NEBULIZER AND DUONEB ORDERS. CM FAXED REFERRAL TO [facility] AT [phone]. HARDEEP TO ORDER DUONEB AND ARRANGE DELIVERY OF NEBULIZER WITH PT'S DAUGHTER FOR DISCHARGE HOME TODAY. CM CALLED [facility], , SPOKE TO DUSTIN AND PROVIDED ORDERS FOR PUMP AND NEW FORMULA. CM FAXED REFERRAL TO [facility] AT [phone]. DUSTIN WILL ARRANGE DELIVERY OF EQUIPMENT AND FEEDING SUPPLIES FOR DISCHARGE HOME TODAY AND WILL ALSO SEND CITY DESIGNER TO EDUCATE PT AND DAUGHTER ON NEW PUMP FEEDINGS. CM CALLED [facility], , SPOKE TO ALHAJI WHO HAS PT'S INFORMATION AND WAITING DISCHARGE FOR HOME HEALTH ADMISSION. CM NOTIFIED OF PLANNED DISCHARGE TODAY, PT ON SCHEDULE FOR HOME HEALTH ADMIT TOMORROW. CM FAXED UPDATE TO [facility] AT [phone]. FOR DISCHARGE, NOTIFY [facility] AT [phone], FAX DISCHARGE INFORMATION TO [facility] AT [phone]. CM TO CONTINUE TO FOLLOW AND ASSIST NEEDED. Lori Pierre, CASE MANAGEMENT Appended by Lori Pierre on 09/29/2018 12:05 [place]ER: CM SPOKE TO [place] OF [facility], THEY HAVE PLACED PT ON SCHEDULE FOR HOME HEALTH ADMIT TONIGHT. FOR DISCHARGE, NOTIFY [facility] AT [phone], FAX DISCHARGE INFORMATION TO [facility] AT [phone]. CM TO CONTINUE TO FOLLOW AND ASSIST NEEDED. Lori Pierre CASE MANAGEMENT Appended by Lori Pierre on 09/29/2018 15:13 SPRING WINDER: CM RECEIVED DISCHARGE ORDERS, NOTIFIED [facility] AT [phone], FAXED DISCHARGE INFORMATION TO [facility] AT [phone]. NO FURHTER DISCHARGE NEEDS IDENTIFIED. LORI PIERRE CASE MANAGEMENT DCP- Discharge Planning Updated by [email or web address]: Lori Pierre on 09/25/18 4:[address] Patient Name: ILIR DINERO Encounter No: [id number] : 1935 Primary Insurance: MEDICARE A & B Anticipated DC Date: 09-26-2018 Planned Disposition: Home with Home Health External Planned Provider: [facility] DCP follow-up note: CM RECEIVED ORDER FOR INPATIENT REHAB PRESCREENING. CM MET WITH PT AND DAUGHTER IN ROOM TO DISCUSS DISCHARGE PLANNING AND NEEDS. ERIKA MCCARTNEYEY provided verbal consent to discuss current and ongoing needs with/in the presence of: DAUGHTER TUCKER BRODY. CM DISCUSSED AVAILABILITY OF INPATIENT AND ALF REHAB SERVICES. PT DECLINED BOTH. PT WILL ACCEPT HOME HEALTH WITH [facility] FOR NURSING AND THERAPY AT HOME. CHOICE SIGNED. IMPORTANT MESSAGE FROM MEDICARE PROVIDED AND EXPLAINED. PT'S DAUGHTER REPORTS PT GETS TUBE FEEDING SUPPLIES AND FOOD FROM [facility] THEY WERE DOING BOLUS FEEDS AT HOME PRIOR TO THIS. DAUGHTER IS UNSURE IF PT WILL NEED A MACHINE OR IF HIS NUTRITIONAL MATERIAL WILL CHANGE. IF SO, SHE ASKED THAT [facility] BE CONSULTED TO PROVIDE WHAT PT NEEDS AT HOME. DR. BARROSO ADVISED PT WILL NEED HOME HEALTH FOLLOW UP AT DISCHARGE HOME. DAUGHTER WILL TRANSPORT HOME AT DISCHARGE. CM CALLED [facility], , SPOKE TO ALHAJI WHO TOOK REFERRAL. CM FAXED REFERRAL FOR HOME HEALTH TO [facility] AT [phone]. PHYSICAL ADDRESS FOR DISCHARGE IS [address] [place] [address]. FOR DISCHARGE, IF PT'S FEEDING MATERIAL HAS CHANGED OR IF PT NEEDS FEEDING PUMP, CONTACT [facility] IN [place]. DOCTOR WILL N EED TO PROVIDE SPECIFIC HOME HEALTH ORDER, FAX WITH DISCHARGE INFORMATION TO [facility] AT [phone]. NOTIFY [facility] AT [phone]. LORI PIERRE, CASE MANAGEMENT DCP- Discharge Planning Updated by [id number]: Keke Rincon on 09/22/18 10:[address] Patient Name: ILIR DINERO Admission Status: ER Accout number: [id number] Admission Date: 09-22-2018 : 1935 Admission Diagnosis: Attending: RUDY BARROSO Current LOS: 1 Anticipated DC Date: 09-26-2018 Planned Disposition: Primary Insurance: MEDICARE A & B Discharge Planning Comments: CM met with patient and his daughter to complete initial dc planning assessment. CM educated patient and daughter on the CM role and verbal consent given by patient's daughter to complete assessment. Patient lives at home with her and is independent in his care at home. Patient's sole source of nutrition is through a feeding tube. He is not able to swallow. At discharge patient;s daughter plans for him to return home with her and feels this is a safe discharge. She said he may need therapy to regain his strength if he is weak. CM discussed availability of home health, rehab services, and medical equipment. Patient's denied known discharge needs at this time. CM will continue to follow and will assist as needed with dc plans/needs. Retread Operator: Keke Rincon RN, [facility] DCPIA - Discharge Planning Initial Assessment Updated by [id number]: Keke Rincon on 09/22/18 11:38 am * Is the patient Alert and Oriented? Yes * How many steps to enter\exit or inside your home? ramp or 4 * PCP Dr. Dash * Pharmacy [facility] * Preadmission Environment Home with Family * ADLs Independent * Equipment Hospital Bed Rolling Walker Shower Chair Wheelchair * List name and contact numbers for known caregivers / representatives who currently or will assist patient after discharge: Adriana Martinez - daughter - [phone] * Verbal permission to speak to the caregivers and representatives has been obtained from the patient. Yes * Community resources currently utilized None * Please name any agencies selected above. None * Can the patient safely return to the preadmission environment? No * Has this patient been hospitalized within the prior 30 days at any hospital? No Coverage Notice Reviewer: LONA Pierre Notice Issued Date-Time: 09/25/2018 15:30 Notice Type: Patient Choice Letter Notice Delivered To: Family Member Relationship to Patient: Daughter [place] Hand Name: TUCKER MARTINEZ Delivery Method: HAND - Hand Delivered Yenifer Days: Prior Verbal Notification: Recipient Understood Notice: Yes Recipient Signature: Yes Med Rec Note Co-signed by Attending: Coverage Notice Comment: BRANDON CASTILLO Reviewer: LONA Pierre Notice Issued Date-Time: 09/25/2018 15:30 Notice Type: IM Discharge Notice Notice Delivered To: Family Member Relationship to Patient: Daughter [place] Hand Name: TUCKER MARTINEZ Delivery Method: HAND - Hand Delivered Yenifer Days: Prior Verbal Notification: Recipient Understood Notice: Yes Recipient Signature: Yes Med Rec Note Co-signed by Attending: Coverage Notice Comment: Reviewer: LONA Pierre Notice Issued Date-Time: 09/29/2018 8:15 Notice Type: IM Discharge Notice Notice Delivered To: Patient Relationship to Patient: [place] Hand Name: Delivery Method: HAND - Hand Delivered Yenifer Days: Prior Verbal Notification: Recipient Understood Notice: Yes Recipient Signature: Yes Med Rec Note Co-signed by Attending: Coverage Notice Comment: Last DP export: 09/29/18 2:12 p Patient Name: ILIR DINERO Page [id number] at 1520 All edits/amendments must be made on the electronic document DICTATION DATE: 09/29/18 152 BEHAVIORIST: JERI 09/29/18 1520 RPT#: [id number] DC DATE: STATUS: ADM IN [facility] [address] [place] [address] END OF REPORT
== END 2018-09-29 16:33 | disposition home health service (06) | DRG 177 ==
LOC: D.ER 23:21 → D.EDHOLD 09-22 01:34 → D.M2 09-22 01:34
PROVIDERS: Family Medicine; ADMIT Internal Medicine Nephrology
PROC: 0H96XZZ Drainage of Back Skin, External Approach (ICD-10-PCS; principal; 2018-09-23)
DX: J69.0 Pneumonitis due to inhalation of food and vomit (principal); J96.01 Acute respiratory failure with hypoxia; N17.9 Acute kidney failure, unspecified; N39.0 Urinary tract infection, site not specified; E83.42 Hypomagnesemia; D64.9 Anemia, unspecified; L72.3 Sebaceous cyst; E78.5 Hyperlipidemia, unspecified; I10 Essential (primary) hypertension; I25.10 Atherosclerotic heart disease of native coronary artery without angina pectoris; J44.9 Chronic obstructive pulmonary disease, unspecified; K21.9 Gastro-esophageal reflux disease without esophagitis; E11.40 Type 2 diabetes mellitus with diabetic neuropathy, unspecified; E11.51 Type 2 diabetes mellitus with diabetic peripheral angiopathy without gangrene; K59.00 Constipation, unspecified; Z86.73 Personal history of transient ischemic attack (TIA), and cerebral infarction without residual deficits

== ENCOUNTER 2018-10-04 20:26 | Emergency (ER) | payer MEDICARE, BC ==
[~2018-10-04] VITALS: Ht 177.8 cm; Wt 62.3 kg
[2018-10-04 20:27] VITALS: Ht 177.8 cm; Wt 62.3 kg
[2018-10-04 21:54] VITALS: BP 146/78
== END 2018-10-04 21:54 | disposition home or self-care (01) ==
LOC: D.ER 20:26
DX: K94.23 Gastrostomy malfunction (principal); Z86.73 Personal history of transient ischemic attack (TIA), and cerebral infarction without residual deficits; E11.9 Type 2 diabetes mellitus without complications; I10 Essential (primary) hypertension

== ENCOUNTER 2018-10-30 19:28 | Observation (INO) | payer MEDICARE, BC ==
[~2018-10-30] VITALS: Ht 177.8 cm; Wt 63.5 kg
--- NOTE | 2018-10-30 20:00 | NUR ---
ATTEMPTED TO UNCLOG PEG TUBE WITH COKE AND PRESSURE AND WAS UNSUCCESSFUL. NOTIFIED EDP GRIMES
[2018-10-30 20:51] LABS: BASOPHILS 0.5 % (0-2); EOSINOPHILS 3.6 % (0-7); HEMATOCRIT 34.3 % (42.0-54.0); HEMOGLOBIN 10.8 g/dL (13.5-17.5); IMMATURE GRANULOCYTES 0.3 % (0-5); LYMPHOCYTES 15.6 % (15-50); MCH 26.2 pg (26.0-34.0); MCHC 31.5 g/dL (31.0-37.0); MCV 83.3 fL (80.0-100.0); MEAN PLATELET VOLUME 11.2 fL (7.4-10.4); MONOCYTES 9.7 % (2-11); NEUTROPHILS 70.3 % (40-80); RBC 4.12 10x6/uL (4.20-6.10); RDW 15.9 % (11.5-14.5); WBC 6.4 10x3/uL (4.8-10.8)
--- NOTE | 2018-10-30 21:00 | NUR ---
RECEIVED PT TO FLOOR VIA W/C ACCOMPANIED BY ER HOSPITAL STAFF AND DAUGHTER. ALERT AND ORIENTED X4 DENIES ANY PAIN OR NEEDS. ORIENTED TO ROOM AND RESTROOM, FUNCTIONS OF CALL LIGHT AND TV REMOTE, PROVIDED URINAL, BLUE SCRUBS. LEFT IV NS @ 150ML/HR.
[2018-10-30 21:02] LABS: PLATELET COUNT 232 10x3/uL (130-400)
[2018-10-30 21:10] LABS: ALBUMIN 3.4 g/dL (3.4-5.0); ALKALINE PHOSPHATASE 112 U/L (46-116); ALT (SGPT) 24 U/L (10-68); BILIRUBIN - TOTAL 0.23 mg/dL (0.2-1.3); CALC OSMOLALITY 281 mosm/kg (275-300); CALCIUM 9.8 mg/dL (8.5-10.1); CARBON DIOXIDE 33.2 mmol/L (21.0-32.0); CHLORIDE - SERUM 98 mmol/L (98-107); CREATININE - SERUM 0.6 mg/dL (0.6-1.3); GLUCOSE 137 mg/dL (74-106); POTASSIUM - SERUM 4.7 mmol/L (3.5-5.1); SODIUM 138 mmol/L (136-145); UREA NITROGEN 23 mg/dL (7-18); eGFR NON AFRICAN AMERICAN > 90 mL/min (90-120)
[2018-10-31 00:42] VITALS: BP 156/52; BMI 20.1
--- NOTE | 2018-10-31 01:42 | NUR ---
LYING IN BED SUPINE EYES CLOSED RESTING. APPROPRIATE RISE AND FALL OF CHEST. CALL LIGHT AND URINAL WITHIN REACH, FALL PRECAUTIONS IN PLACE. WILL CONTINUE TO MONITOR
--- NOTE | 2018-10-31 02:30 | NUR ---
PT RESTING QUIETLY, EYES CLOSED. NO DISTRESS NOTED. AGREE WITH PROPULSION MOTOR AND GENERATOR REPAIRER'S ASSESSMENT. CONTINUE WITH PLAN OF CARE.
[2018-10-31 05:10] VITALS: BP 118/58
--- NOTE | 2018-10-31 06:44 | NUR ---
SITTING UP IN BED EYES OPEN ALERT. ONLY SLEPT 2 HOURS LAST NIGHT. DENIES ANY NEEDS OR PAIN. RR EVEN AND UNLABORED. CALL LIGHT WITHIN REACH
--- NOTE | 2018-10-31 07:40 | NUR ---
ASSESSMENT COMPLETE. IV TO L FA PATENT. PEG TUBE CLAMPED. FAMILY AT BEDSIDE. DENIES ANY NEEDS AT THIS TIME.
--- NOTE | 2018-10-31 09:40 | NUR ---
PATIENT WORRIED THAT BLOOD SUGAR IS ELEVATED. BLOOD SUGAR CHECKED PER PATIENT REQUEST. BLOOD SUGAR =124.
[2018-10-31 15:05] VITALS: Ht 177.8 cm; Wt 63.5 kg
--- NOTE | 2018-10-31 15:20 | NUR ---
PEG TUBE EXCHANGED BY DR CARREON WITH 16 AZERBAIJANI GASTROSTOMY TUBE. OK TO DC FROM SURGICAL STANDPOINT.
--- NOTE | 2018-10-31 15:33 | NUR ---
SPOKE DR ALONSO TO NOTIFY THAT PATIENT IS OK TO DC FROM SURGICAL STANDPOINT. STATES HE WILL PUT DISCHARGE ORDERS IN SOON POSSIBLE.
--- NOTE | 2018-10-31 16:55 | NUR ---
IV REMOVED. CATHETER TIP INTACT. DISCHARGE TEACHING GIVEN TO PATIENT AND DAUGHTER. VOICED UNDERSTANDING.
--- NOTE | 2018-10-31 17:15 | NUR ---
DC'D HOME WITH FAMILY. ESCORTED TO VEHICLE BY RECREATION ATTENDANT VIA WC WITH BELONGINGS.
== END 2018-10-31 17:15 | disposition home or self-care (01) ==
LOC: D.ER 19:28 → D.EDHOLD 20:13 → OBSVTIME 20:28 → D.M3 20:29
PROVIDERS: Family Medicine; ADMIT Family Medicine
DX: K94.23 Gastrostomy malfunction (principal); Y84.9 Medical procedure, unspecified as the cause of abnormal reaction of the patient, or of later complication, without mention of misadventure at the time of the procedure; Z86.73 Personal history of transient ischemic attack (TIA), and cerebral infarction without residual deficits; Z85.89 Personal history of malignant neoplasm of other organs and systems; E11.9 Type 2 diabetes mellitus without complications

== ENCOUNTER → 2019-01-15 16:34 | Outpatient (CLI) | payer MEDICARE, BC ==
[2019-01-15 17:21] LABS: BASOPHILS 0.7 % (0-2); EOSINOPHILS 3.6 % (0-7); HEMATOCRIT 38.8 % (42.0-54.0); HEMOGLOBIN 12.1 g/dL (13.5-17.5); IMMATURE GRANULOCYTES 0.5 % (0-5); MCH 26.2 pg (26.0-34.0); MCHC 31.2 g/dL (31.0-37.0); MCV 84.2 fL (80.0-100.0); MEAN PLATELET VOLUME 11.5 fL (7.4-10.4); MONOCYTES 8.5 % (2-11); NEUTROPHILS 66.7 % (40-80); RBC 4.61 10x6/uL (4.20-6.10); RDW 15.3 % (11.5-14.5); WBC 7.4 10x3/uL (4.8-10.8)
[2019-01-15 17:26] LABS: PLATELET COUNT 290 10x3/uL (130-400)
== END | disposition home or self-care (01) ==
LOC: D.LABREF 16:34
PROVIDERS: ATTEND Legal Medicine
DX: C18.9 Malignant neoplasm of colon, unspecified (principal)

== ENCOUNTER → 2019-03-08 10:57 | Outpatient (CLI) | payer MEDICARE, BC | END | disposition home or self-care (01) | LOC: D.CT 10:57 | PROVIDERS: ATTEND Family Medicine | DX: R94.39 Abnormal result of other cardiovascular function study (principal) ==

== ENCOUNTER → 2019-04-09 12:24 | Outpatient (CLI) | payer MEDICARE, BC | END | disposition home or self-care (01) | LOC: D.MRI 12:24 | PROVIDERS: ATTEND Internal Medicine Cardiovascular Disease | DX: I63.9 Cerebral infarction, unspecified (principal); I65.23 Occlusion and stenosis of bilateral carotid arteries ==

== ENCOUNTER 2019-05-11 07:42 | Day surgery (SDC) | payer MEDICARE, BC ==
[~2019-05-11] VITALS: Ht 177.8 cm; Wt 63.6 kg
--- NOTE | ~2019-05-11 | HEMODYNAMI ---
PATIENT:ILIR DINERO MEDICAL RECORD: [id number] : 33 LOCATION:[facility] ADMISSION DATE: 05/11/19 Generatedon:05/11/201911:00 Patient name: ILIR DINERO Patient #: [id number] SSN: : 1935 Date of study: 05/11/2019 Page: Of Hemodynamic Procedure Report Patient Data Patient Demographics Procedure consent was obtained First Name: ILIR Gender: Male Last Name: BAR : 1935 [facility] Initial: L Age: 83 year(s) Patient #: [id number] Race: Additional ID: [id number] Contact details [address]: [address] [place] [address] [place] State: [place] City: [place] Zip code: [address] Past Medical History Allergies Allergen Reaction Date Comments Reported Codeine 12/21/2014 Penicillins 12/21/2014 Demerol 10/24/2016 Penicillins 10/24/2016 Codeine 10/24/2016 Other allergy 06/18/2017 DEMEROL, PCN, CODEINE Other allergy 03/05/2018 CODEINE, DEMEROL, PCN Other allergy 05/11/2019 Demoral,pcn and codiene Admission Admission Data Admission Date: 05/11/2019 Admission Time: 7:40 Room #: [facility] Procedure Procedure Types Cath Procedure Peripheral Cath Diagnostic Procedure Miscellaneous Procedure Description Procedure Date Procedure Date: 05/11/2019 Procedure Start Time: 10:17 Procedure Staff Name Function Alonso Garcia MD Performing Physician Dann Durbin RT Monitor Carolyn Acuna RT Scrub Lynn Guzman RN Nurse Shahana Rojas RN Nurse Procedure Data Cath Procedure Fluoroscopy Diagnostic fluoroscopy Total fluoroscopy Time: 2.2 time: 2.2 min min Diagnostic fluoroscopy Total fluoroscopy dose: 110 dose: 110 mGy mGy Contrast Material Contrast Material Type Amount (ml) Isovue 300 32 Entry Location Entry Primary Successful Side Size Upsize Upsize Entry Closure Succes sful Closure Location (Fr) 1 (Fr) 2 (Fr) Remarks Device Remarks Femoral Right 5 Fr artery Diagnostic catheters Device Type Used For End Catheter Placement Kathie Tobar 5FR. 100CM catheter ([id number]) Procedure Medications Medication Administration Route Dosage Heparin Flush Bag added to field 4 bags (1000units/500ml NS) Lidocaine 1% added to field 20 Versed I.V. 0.5 mg Fentanyl I.V. 25 mcg Heparin Bolus I.V. 4000 units Hemodynamics Rest Heart Rate: 72 (bpm) Snapshots Pre Cath Intra NCS Post Cath Vital Signs Time Heart Resp SPO2 etCO2 NIBP (mmHg) Rhythm Pain Sedation Rate (ipm) (%) (mmHg) Status Level (bpm) 9:56:28 76 8 100 39.8 Measuring NSR 0 (11) 10(A) , No pain 9:57:50 72 14 100 33.1 Time NSR 0 (11) 10(A) Exceeded , No pain 10:02:16 75 8 100 34.6 148/70(119) NSR 0 (11) 10(A) , No pain 10:06:32 68 14 37.6 162/71(122) NSR 0 (11) 10(A) , No pain 10:10:59 68 6 100 36.8 115/60(64) NSR 0 (11) 10(A) , No pain 10:15:57 68 12 100 36.8 Measuring NSR 0 (11) 10(A) , No pain 10:16:55 70 13 100 30.1 170/81(129) NSR 0 (11) 10(A) , No pain 10:21:17 70 12 100 36 181/83(141) NSR 0 (11) 10(A) , No pain 10:25:41 66 11 100 33.8 170/90(135) NSR 0 (11) 8(A) , No pain 10:30:05 64 11 38.3 165/79(128) NSR 0 (11) 8(A) , No pain 10:34:28 64 7 100 29.3 178/74(99) NSR 0 (11) 8(A) , No pain 10:38:54 67 8 100 38.3 170/78(125) NSR 0 (11) 8(A) , No pain 10:43:16 66 11 100 39.1 161/79(125) NSR 0 (11) 8(A) , No pain 10:47:38 66 10 100 39.1 153/74(117) NSR 0 (11) 8(A) , No pain 10:51:59 65 10 100 38.3 169/71(125) NSR 0 (11) 8(A) , No pain 10:56:25 64 9 100 40.6 157/68(93) NSR 0 (11) 8(A) , No pain Medications Time Medication Route Dose Verified Delivered Reason Notes Effec tiveness by by 9:58:14 Heparin Flush added 4 Alonso Gupta used for Bag to bags Jose lemus (1000units/500ml field MD ALBERTS NS) 9:58:32 Lidocaine 1% added 20ml Alonso Gupta used for to vial Jose woo MD, MD 10:21:20 Versed I.V. 0.5 Alonso Mezai for mg Jose Rojas RN sedation 10:21:34 Fentanyl I.V. 25 Alonso Mezai for mcg Jose Rojas RN sedation 10:26:26 Heparin Bolus I.V. 4000 Alonso Harkins used for units Jose lemus MD Procedure Log Time Note 9:47:05 Lynn Guzman RN sent for patient. Start room use. 9:47:13 Time tracking: Regular hours (M-F 7:00 - 5:00) 9:47:18 Plan of Care:Hemodynamics will remain stable., Cardiac rhythm will remain stable., Comfort level will be maintained., Respiratory function will remain adequate., Patient/ family verbilizes understanding of procedure., Procedure tolerated without complication., Recovers from procedure without complications.. 9:47:25 Patient received from Outpatients to IR Alert and oriented. Tansferred to table in Supine position. 9:47:30 Use device set IR Diagnostic 9:47:32 ACIST Syringe (97162) opened to sterile field. 9:47:32 ACIST Hand Control (84143) opened to sterile field. 9:47:33 ACIST Manifold (64679) opened to sterile field. 9:47:33 Bag Decanter (2002S) opened to sterile field. 9:47:33 Sterile Angiographic Pack opened to sterile field. 9:47:34 Tegaderm 4 x 4 (1626W) opened to sterile field. 9:47:40 Signed procedure consent form obtained from patient. 9:47:45 Correct patient and procedure confirmed by team. 9:47:45 ECG and BP/O2 sat monitors applied to patient. 9:47:47 Full Disclosure recording started 9:47:48 - 9:47:51 H&P Date Dictated: 05/11/2019 H&P Addendum completed by physician on day of procedure. (MUST COMPLETE FOR ALL OUTPATIENTS). 9:47:52 Pre-procedure instructions explained to patient. 9:47:53 Pre-op teaching completed and patient verbalized understanding. 9:47:54 Family in waiting room. 9:47:56 Patient NPO since Midnight. 9:48:20 Patient allergic to Other allergyDemoral,pcn and codiene 9:48:59 Is the patient allergic to Iodine/contrast media? No. 9:49:03 Is patient on blood thinner?Yes 9:49:10 ACC The patient was administered the following blood thiners within the last 24 hours: ACCPlavix 9:49:12 Patient diabetic? Yes. 9:49:15 If diabetic: On Metformin? Yes 9:49:29 If on Metformin: Last Dose? 05/09/2019 9:50:46 - 9:50:47 ----Pre-sedation anethsthesia assessment.---- 9:50:55 Previous problem with sedation/anesthesia? No ? 9:50:57 Snore? No 9:50:59 Sleep apnea? No 9:51:00 Deviated septum? No 9:51:04 Opens mouth fully? Yes 9:51:07 Sticks out tongue? Yes 9:51:09 Airway obstruction? No ? 9:52:34 Pre procedure: right dorsailis pedis pulse 1+ Palpable, but thready & weak; easily obliterated 9:52:51 Pre procedure: right posterior tibial pulse Doppler 9:54:39 Vital chart was started 9:57:15 Baseline sample Acquired. 9:58:14 Heparin Flush Bag (1000units/500ml NS) 4 bags added to field was administered by Alonso Garcia MD; used for procedure; 9:58:32 Lidocaine 1% 20ml vial added to field was administered by Alonso rutherford MD; used for procedure; 10:01:39 Patient pain scale 0/10 no pain. 10:02:31 IV patent on arrival in left wrist with 0.45%NaCl at [facility]. 10:02:35 Right groin area was prepped with chlora-prep and draped in sterile fashion 10:02:36 Alarms reviewed by R. N. 10:02:36 Sharps counted by scrub and verified by R.N. 10:16:52 Physician arrived 10:16:52 --------ALL STOP TIME OUT------ 10:16:53 Final Timeout: patient, procedure, and site verified with staff and physician. All members of the team are in agreement. 10:16:55 Right groin site verified by team. 10:17:00 Fire Safety Assessment: A--An alcohol-based skin anteseptic being used preoperatively., C--Open oxygen or nitrous oxide is being used. 10:17:05 Sedation plan: IV Moderate Sedation Medication:Versed, Fentanyl 10:17:13 --------ALL STOP TIME OUT------ 10:17:15 2) 60-89 Mildly reduced kidney function, and other findings (as for stage 1) point to kidney disease. 10:17:27 Procedure started. 10:17:32 Local anesthetic to right femoral artery with Lidocaine 1% by Alosno Garcia MD.INITIAL ACCESS ONLY 10:17:38 Access obtained with 4Fr micropunture. 10:17:50 A 5 Fr sheath was inserted into the Right Femoral artery 10:17:55 SHEATH 5FR [place] ([id number]) opened to sterile field. 10:17:55 Micropuncture VSI 4FR kit opened to sterile field. 10:17:56 BENTSON 145cm wire (C32839) opened to sterile field. 10:17:56 TUBING Contrast Injection High Pressure (OGD061A) opened to sterile field. 10:17:58 A Merit Eufemia Tobar 5FR. 100CM catheter ([id number]) was advanced over the wire and used for . 10:21:20 Versed 0.5 mg I.V. was administered by Shahana Rojas RN; for sedation; 10:21:34 Fentanyl 25 mcg I.V. was administered by Shahana Rojas RN; for sedation; 10:26:26 Heparin Bolus 4000 units I.V. was administered by Shahana Rojas RN; used for procedure; 10:30:04 ROADRUNNER .035 145 glide wire ([id number]) opened to sterile field. 10:44:26 EXOSEAL 5Fr (EX500) opened to sterile field. 10:44:32 Procedure ended.(Physican Out) 10:44:56 Fluoroscopy time 02.20 minutes. 10:45:08 Fluoroscopy dose: 110 mGy 10:45:08 Flurop Dose total: 110 10:46:07 Contrast amount:Isovue 300 32ml. 10:46:16 Sharps counted by scrub and verified by R.N. 10:46:22 Insertion/operative site no bleeding no hematoma. 10:46:26 Post-op/insertion site Right Femoral artery dressed using a 4 x 4 and Tegaderm. 10:46:29 Post right femoral artery:stable 10:46:31 Post Procedure Pulses reassessed and unchanged 10:46:32 Post procedure instruction explained to patient.Patient verbalizes understanding. 10:52:01 Procedure and supply charges have been captured, reviewed, submitted an d are correct. 10:59:49 Report given to Outpatients. 10:59:53 Patient transfered to Outpatients with Stretcher. 11:00:29 Vital chart was stopped Device Usage Item Name Manufacture Quantity Catalog Hospital Part Current Minima l Lot# / Number Charge Number Stock Stock Serial# Code ACIST Syringe Acist 1 15502 089931 858715 447655 20 (74527) [employer] ACIST Hand Acist 1 01473 147535 171763 926873 5 Control Medical (19054) Sidense Inc ACIST Acist 1 97965 820566 473967 339378 5 Manifold Medical (34734) Systems Inc Bag Decanter Microtek 1 2001S 103484 77729 671420 5 (2001S) Medical Inc. Sterile Cardinal 1 [id number] 573664 741980 5 Angiographic Health Pack Tegaderm 4 x 3M 1 1626W 807862 278205 082066 5 4 (1626W) SHEATH 5FR Terumo 1 [id number] 443872 934045 487907 5 [place] (BIB317) Micropuncture VSI VASCULAR 1 7266V 304783 993729 5 VSI 4FR kit SOLUTIONS BENTSON 145cm Cook Medical 1 L26644 554243 409766 5 wire (B14919) TUBING Merit 1 [id number] 831429 223249 810092 5 Contrast Medical Injection High Pressure ([id number]) Merit Impress Merit 1 [id number] 657552 269958 5 Tobar Medical 5FR. 100CM catheter (437135EUH) ROADRUNNER Cook Medical 1 Z05200 772301 248385 745187 5 5347834 .035 145 glide wire (S46282) EXOSEAL 5Fr Cardinal 1 EX500 140873 692547 750637 10 [id number] (EX500) Health Signature Audit Jaffrey Stage Time Signature Unsigned Intra-Procedure 05/11/2019 Dann 11:00:25 AM Ramakrishna RT (R) (CV) Signatures Monitor : Dann Signature : Ramakrishna RT Date : Time : [place] [address] [place] [address]
[2019-05-11 08:01] LABS: BASOPHILS 0.3 % (0-2); EOSINOPHILS 4.6 % (0-7); HEMATOCRIT 36.6 % (42.0-54.0); HEMOGLOBIN 11.7 g/dL (13.5-17.5); IMMATURE GRANULOCYTES 0.1 % (0-5); LYMPHOCYTES 16.4 % (15-50); MCH 26.6 pg (26.0-34.0); MCV 83.2 fL (80.0-100.0); MEAN PLATELET VOLUME 10.3 fL (7.4-10.4); MONOCYTES 10.4 % (2-11); NEUTROPHILS 68.2 % (40-80); RDW 15.8 % (11.5-14.5); WBC 7.1 10x3/uL (4.8-10.8)
[2019-05-11 08:06] LABS: CALC OSMOLALITY 287 mosm/kg (275-300); CALCIUM 10.5 mg/dL (8.5-10.1); CARBON DIOXIDE 36.6 mmol/L (21.0-32.0); CHLORIDE - SERUM 99 mmol/L (98-107); GLUCOSE 136 mg/dL (74-106); POTASSIUM - SERUM 5.2 mmol/L (3.5-5.1); SODIUM 139 mmol/L (136-145); UREA NITROGEN 36 mg/dL (7-18); eGFR NON AFRICAN AMERICAN 76 mL/min (90-120)
[2019-05-11 08:21] LABS: PLATELET COUNT 200 10x3/uL (130-400)
[2019-05-11 08:22] LABS: APTT 30.6 SECONDS (22.8-39.4); INR 1.02 (0.85-1.17); PROTIME 12.9 SECONDS (11.6-15.0)
[2019-05-11] MEDS ORDERED: PLAVIX75 MG PO (08:42)
[2019-05-11] MEDS ORDERED: [UNRECOGNIZED DRUG - OTHER] (08:45)
[2019-05-11 08:57] VITALS: BP 108/54; Ht 177.8 cm; Wt 63.6 kg
--- NOTE | 2019-05-11 13:24 | NUR ---
1110 VITAL SIGNS ARE BEING RECORDED ON POST PROCEDURE FORM AND PART OF THE PAPER CHART TO BE SCANNED.
--- NOTE | 2019-05-11 15:30 | NUR ---
PT DC INSTRUCTIONS REVIEWED AT THIS TIME, PT VERBALIZES UNDERSTANDING. PT IV REMOVED AT THIS TIME, NO REDNESS OR SWELLING NOTED AT SITE. PT PEDAL PULES TO L LEG STRONG/REGULAR.
--- NOTE | 2019-05-11 15:32 | NUR ---
PT LEAVING OPS AT THIS TIME VIA WC, NAD NOTED.
--- NOTE | 2019-05-11 15:38 | NUR ---
SEE VITAL SIGN SHEET FOR VITALS RECORD.
== END 2019-05-11 15:32 | disposition home or self-care (01) ==
LOC: D.OPS 07:42 → EDSTATUS 10:00 → D.SDCHOLD 10:00 → D.OPS 15:32
PROVIDERS: ATTEND Radiology Diagnostic Radiology
DX: I65.21 Occlusion and stenosis of right carotid artery (principal)

== ENCOUNTER → 2019-06-03 12:28 | Outpatient (CLI) | payer MEDICARE, BC ==
[~2019-06-03 12:28] MED LIST changes: +[UNRECOGNIZED DRUG - OTHER]
== END | disposition home or self-care (01) ==
LOC: D.RT 12:28
PROVIDERS: ATTEND Internal Medicine Pulmonary Disease
DX: J44.9 Chronic obstructive pulmonary disease, unspecified (principal)

== ENCOUNTER 2019-06-12 09:33 | Inpatient (IN) | payer MEDICARE, BC ==
[~2019-06-12] VITALS: Ht 177.8 cm; Wt 65.8 kg
--- NOTE | 2019-06-12 09:45 | NUR ---
PATIENT GIVEN A URINAL TO COLLECT A URINE SPECIMEN
--- NOTE | 2019-06-12 10:16 | NUR ---
PATIENT UNABLE TO COLLECT A URINE SPECIMEN AT THIS TIME; STATES HE WILL KEEP TRYING; UPDATED ON PLAN OF CARE AND DELAYS IN CARE; WILL CONTINUE TO MONITOR. FAMILY AT BEDSIDE.
[2019-06-12 10:18] LABS: BASOPHILS 0.4 % (0-2); EOSINOPHILS 4.7 % (0-7); HEMATOCRIT 33.8 % (42.0-54.0); HEMOGLOBIN 10.3 g/dL (13.5-17.5); IMMATURE GRANULOCYTES 0.1 % (0-5); LYMPHOCYTES 17.6 % (15-50); MCH 26.5 pg (26.0-34.0); MCHC 30.5 g/dL (31.0-37.0); MCV 87.1 fL (80.0-100.0); MEAN PLATELET VOLUME 10.8 fL (7.4-10.4); MONOCYTES 10.2 % (2-11); PLATELET COUNT 214 10x3/uL (130-400); RBC 3.88 10x6/uL (4.20-6.10); RDW 15.8 % (11.5-14.5); WBC 7.2 10x3/uL (4.8-10.8)
[2019-06-12 10:35] LABS: ALBUMIN 3.3 g/dL (3.4-5.0); ALKALINE PHOSPHATASE 150 U/L (46-116); ALT (SGPT) 51 U/L (10-68); BILIRUBIN - TOTAL 0.32 mg/dL (0.2-1.3); CALC OSMOLALITY 288 mosm/kg (275-300); CALCIUM 9.3 mg/dL (8.5-10.1); CHLORIDE - SERUM 100 mmol/L (98-107); CREATININE - SERUM 1.9 mg/dL (0.6-1.3); GLUCOSE 117 mg/dL (74-106); POTASSIUM - SERUM 5.5 mmol/L (3.5-5.1); PROTEIN - SERUM 7.8 g/dL (6.4-8.2); SODIUM 136 mmol/L (136-145); UREA NITROGEN 58 mg/dL (7-18); eGFR NON AFRICAN AMERICAN 36 mL/min (90-120)
[2019-06-12 10:36] LABS: AMYLASE - SERUM 61 U/L (25-115); LIPASE 114 U/L (73-393); TROPONIN-I < 0.017 ng/mL (0.000-0.060)
--- NOTE | 2019-06-12 12:00 | NUR ---
URINE SENT TO THE LAB.
[2019-06-12 12:26] VITALS: BP 104/43
[2019-06-12 12:32] LABS: APPEARANCE CLEAR (CLEAR); BILIRUBIN NEGATIVE (NEGATIVE); COLOR YELLOW (YELLOW); GLUCOSE NEGATIVE (NEGATIVE); KETONE NEGATIVE (NEGATIVE); NITRITE NEGATIVE (NEGATIVE); PROTEIN NEGATIVE (NEGATIVE); SPECIFIC GRAVITY 1.005 (1.005-1.020); UROBILINOGEN NORMAL (NORMAL)
[2019-06-12 13:51] LABS: APTT 35.5 SECONDS (22.8-39.4); INR 1.02 (0.85-1.17); PROTIME 12.9 SECONDS (11.6-15.0)
[2019-06-12 14:02] VITALS: BP 99/38; BMI 20.8
[2019-06-12 15:46] LABS: CKMB 0.7 U/L (0.0-3.6); CREATINE KINASE 49 UL (21-232)
[2019-06-12 16:22] LABS: TROPONIN-I < 0.017 ng/mL (0.000-0.060)
--- NOTE | 2019-06-12 19:00 | NUR ---
BEDSIDE REPORT RECEIVED AND CARE OF PT ASSUMED. PT LYING IN LOW DELAROSA'S POSTION WATCHING TV. IV TO LEFT FA JUST PULLED OUT...RE-SITED BY BAMBI ORTIZ TO LEFT WRIST USING 22 GUAGE CATHETER. IV FLUIDS RE-STARTED. TELEMETRY IN [facility] AND READING 69 SR AT THIS ASSESSMENT. PEG TUBE CLAMPED.
--- NOTE | 2019-06-12 20:02 | NUR ---
HS MEDICATIONS GIVE VIA PEG TUBE...FLUSHED WITH 30 ML WATER BEFORE AND AFTER MED. TUBE CLAMPED.
[2019-06-12 20:10] VITALS: BP 103/72
[2019-06-12 20:29] LABS: CKMB 0.7 U/L (0.0-3.6); CREATINE KINASE 40 UL (21-232); TROPONIN-I < 0.017 ng/mL (0.000-0.060)
[2019-06-13 00:23] VITALS: BP 107/46
[2019-06-13 01:51] LABS: BASOPHILS 0.6 % (0-2); EOSINOPHILS 4.8 % (0-7); HEMATOCRIT 28.7 % (42.0-54.0); HEMOGLOBIN 8.7 g/dL (13.5-17.5); IMMATURE GRANULOCYTES 0.2 % (0-5); LYMPHOCYTES 15.3 % (15-50); MCH 26.1 pg (26.0-34.0); MCHC 30.3 g/dL (31.0-37.0); MCV 86.2 fL (80.0-100.0); MEAN PLATELET VOLUME 10.9 fL (7.4-10.4); MONOCYTES 14.1 % (2-11); PLATELET COUNT 192 10x3/uL (130-400); RBC 3.33 10x6/uL (4.20-6.10); RDW 15.3 % (11.5-14.5)
[2019-06-13 02:03] LABS: WBC 5.2 10x3/uL (4.8-10.8)
[2019-06-13 02:18] LABS: ALBUMIN 2.7 g/dL (3.4-5.0); ALKALINE PHOSPHATASE 114 U/L (46-116); BILIRUBIN - TOTAL 0.35 mg/dL (0.2-1.3); CALC OSMOLALITY 288 mosm/kg (275-300); CALCIUM 8.5 mg/dL (8.5-10.1); CARBON DIOXIDE 31.4 mmol/L (21.0-32.0); CHLORIDE - SERUM 102 mmol/L (98-107); CKMB 0.6 U/L (0.0-3.6); CREATINE KINASE 42 UL (21-232); CREATININE - SERUM 1.7 mg/dL (0.6-1.3); GLUCOSE 120 mg/dL (74-106); MAGNESIUM - SERUM 1.5 mg/dL (1.8-2.4); POTASSIUM - SERUM 4.7 mmol/L (3.5-5.1); PROTEIN - SERUM 6.4 g/dL (6.4-8.2); SODIUM 137 mmol/L (136-145); TROPONIN-I < 0.017 ng/mL (0.000-0.060); UREA NITROGEN 51 mg/dL (7-18); eGFR NON AFRICAN AMERICAN 41 mL/min (90-120)
[2019-06-13 02:20] LABS: ALT (SGPT) 37 U/L (10-68)
[2019-06-13 06:09] VITALS: BP 96/48
--- NOTE | 2019-06-13 06:52 | NUR ---
MAG LEVEL 1.5 THIS AM REQUIRING COVERAGE WITH 1 MG MAG RIDER Q 1 HOUR X2 BAGS PER THE ELECTROLYTE PROTOCOL.
[2019-06-13 08:18] VITALS: BP 108/47
--- NOTE | 2019-06-13 08:26 | NUR ---
PT ALERT X 4. BREATH SOUNDS CLEAR BILAT. TELEMETRY IN PLACE. PEG TUBE IN USE FOR MEDICATIONS, FEEDINGS ON HOLD. PT UNABLE TO SWALLOW. IV TO LEFT WRIST, PATENT, DRESSING CDI. RUNNING MAGNESIUM SULFATE PER PROTOCOL. PT REPORTING PAIN OF 5/10 TO LEGS, THIS IS HIS BASELINE. BED LOW, CALL LIGHT IN REACH. NO OTHER NEEDS AT THIS TIME.
[2019-06-13 09:20] LABS: % SATURATION 25 % (15-55); IRON 61 ug/dl (35-150); TOTAL IRON BIND CAPACITY 243 ug/dl (260-445); UNSAT IRON BIND CAPACITY 182 ug/dl (150-375)
[2019-06-13 13:33] VITALS: BP 126/51
[2019-06-13 16:14] VITALS: BP 125/52
[2019-06-13 19:00] VITALS: BP 146/55
--- NOTE | 2019-06-13 19:00 | NUR ---
BEDSIDE REPORT RECEIVED AND CARE OF PT ASSUMED. PT LYING IN SUPINE POSITION. IV TO LEFT WRIST PATENT WITH D5NS INFUSING AT 125 ML/HR. TELEMETRY IN PLACE AND READING SR AT THIS ASSESSMENT. PEG TUBE CLAMPED. WILL MONITOR FOR NEEDS. BED ALARM IN USE.
--- NOTE | 2019-06-13 20:45 | NUR ---
ASSISTED PT UP TO RESTROOM WITH STAND BY ASSIST.
--- NOTE | 2019-06-13 21:00 | NUR ---
CRAIG MEDICATIONS GIVEN VIA PEG TUBE. FLUSHED WITH 30 ML WATER BEFORE AND AFTER MEDS. FSBS 138 THIS CHECK REQUIRING NO COVERAGE PER SLIDING SCALE.
[2019-06-14] VITALS: BP 153/54
[2019-06-14 04:00] VITALS: BP 135/58
[2019-06-14 04:46] LABS: BASOPHILS 0.6 % (0-2); EOSINOPHILS 5.4 % (0-7); HEMATOCRIT 30.1 % (42.0-54.0); HEMOGLOBIN 9.2 g/dL (13.5-17.5); LYMPHOCYTES 12.3 % (15-50); MCH 26.2 pg (26.0-34.0); MCHC 30.6 g/dL (31.0-37.0); MCV 85.8 fL (80.0-100.0); MONOCYTES 13.9 % (2-11); NEUTROPHILS 67.8 % (40-80); PLATELET COUNT 214 10x3/uL (130-400); RBC 3.51 10x6/uL (4.20-6.10); RDW 15.2 % (11.5-14.5)
[2019-06-14 05:13] LABS: ANION GAP 7.9 mmol/L (8-16); BILIRUBIN - TOTAL 0.23 mg/dL (0.2-1.3); CALCIUM 8.6 mg/dL (8.5-10.1); CARBON DIOXIDE 32.9 mmol/L (21.0-32.0); CREATININE - SERUM 1.3 mg/dL (0.6-1.3); MAGNESIUM - SERUM 1.6 mg/dL (1.8-2.4); PHOSPHOROUS 2.9 mg/dL (2.5-4.9); POTASSIUM - SERUM 4.8 mmol/L (3.5-5.1); PROTEIN - SERUM 6.8 g/dL (6.4-8.2)
--- NOTE | 2019-06-14 07:00 | NUR ---
PATIENT RECIEVED FROM PREVIOUS SHIFT RESTING WITH NO ACUTE DISTRESS, CL IN REACH
[2019-06-14 08:11] VITALS: BP 142/63
[2019-06-14 09:40] VITALS: Ht 177.8 cm; Wt 65.8 kg
--- NOTE | 2019-06-14 11:57 | MORECARE ---
CASE MANAGEMENT DISCHARGE SUMMARY PATIENT: ILIR DINERO UNIT: [id number] ADM DATE: 06/12/19 AGE: 83 : 34 SEX: M ROOM/BED: D.2204 AUTHOR: ALMA MAC PHYSICIAN: REFERRING PHYSICIAN: LUCILLE ZUNIGA DO DATE OF SERVICE: 06/14/19 Discharge Plan Patient Name: ILIR DINERO Facility: [facility]:[place] : 1935 Planned Disposition: Home or Self Care Anticipated Discharge Date: Discharge Date: Expected LOS: Initial Reviewer: [email or web address] Initial Review Date: 06/12/2019 Generated: 06/14/19 12:57 pm DCPIA - Discharge Planning Initial Assessment Updated by [email or web address]: Merna Whipple on 06/14/19 11:51 am * Is the patient Alert and Oriented? Yes * How many steps to enter\exit or inside your home? * PCP LEANNA * Pharmacy [facility] * Preadmission Environment Home with Family * ADLs Partial Dependent * Partial ADLs (Assistance needed) Eating * Equipment Enteral Feeding and Supplies Oxygen Rolling Walker Shower Chair Walker Wheelchair * List name and contact numbers for known caregivers / representatives who currently or will assist patient after discharge: TUCKER (DAUGHTER) [phone] * Verbal permission to speak to the caregivers and representatives has been obtained from the patient. Yes * Community resources currently utilized None * Additional services required to return to the preadmission environment? No * Can the patient safely return to the preadmission environment? Yes * Has this patient been hospitalized within the prior 30 days at any hospital? No Coverage Notice Reviewer: [id number] - Merna Whipple Notice Issued Date-Time: 06/14/2019 11:30 Notice Type: IM Discharge Notice Notice Delivered To: Patient Relationship to Patient: Catalogue And Special Products Manager Name: Delivery Method: HAND - Hand Delivered Yenifer Days: Prior Verbal Notification: Recipient Understood Notice: Yes Recipient Signature: Yes Med Rec Note Co-signed by Attending: Coverage Notice Comment: Patient Name: ILIR DINERO Page 82679 at 1157 All edits/amendments must be made on the electronic document DICTATION DATE: 06/14/191156 WOOD SCRAP HANDLER: DM 06/14/191156 RPT#: [id number] DC DATE: STATUS: ADM IN [facility] [address] [place] [address] END OF REPORT
--- NOTE | 2019-06-14 12:00 | NUR ---
TUBE FEEDING STARTED AT 10ML/HR TWOKAL. H20 10 ML/HR. TO INCREASE BY 10 ML/HR IF TOLERATING EVERY 8 HOURS TO GOAL OF 40 ML HR
--- NOTE | 2019-06-14 12:06 | MORECARE ---
CASE MANAGEMENT DISCHARGE SUMMARY PATIENT: ILIR DINERO UNIT: [id number] ADM DATE: 06/12/19 AGE: 83 : 34 SEX: M ROOM/BED: D.2204 AUTHOR: ESTEFANIADOC PHYSICIAN: REFERRING PHYSICIAN: LUCILLE ZUNIGA DO DATE OF SERVICE: 06/14/19 Discharge Plan Patient Name: ILIR DINERO Facility: [facility]:[place] : 1935 Planned Disposition: Home or Self Care Anticipated Discharge Date: Discharge Date: Expected LOS: Initial Reviewer: [email or web address] Initial Review Date: 06/12/2019 Generated: 06/14/19 1:05 pm Comments DCP- Discharge Planning Updated by [id number]: Merna Whipple on 06/14/19 11:[address] Patient Name: ILIR DINERO Admission Status: ER Accout number: [id number] Admission Date: 06-12-2019 : 1935 Admission Diagnosis: Attending: LUCILLE ZUNIGA Current LOS: 2 Anticipated DC Date: Planned Disposition: Home or Self Care Primary Insurance: MEDICARE A & B Discharge Planning Comments: CM met with patient to complete initial dc planning assessment. CM educated patient on the CM role and verbal consent given by patient to complete assessment. Patient lives at home with his daughter where he is independent at home, except he gets help with his feeding. At discharge patient plans to return home and feels this is a safe discharge. CM discussed availability of home health, rehab services, and medical equipment. He does not want home health or rehab. He has home O2 (but does not use) has PEG tub with feeding pump and supplies ([employer]), walker, wheel chair, shower chair at home. At dc his daughter will be his class c driver home. IMM served and explained, signed copy on chart. Patient denied known discharge needs at this time. CM will continue to follow and will assist as needed with dc plans/needs. Cathodic Protection Technician: Merna Whipple DCPIA - Discharge Planning Initial Assessment Updated by [email or web address]: Merna Whipple on 06/14/19 11:51 am * Is the patient Alert and Oriented? Yes * How many steps to enter\exit or inside your home? * PCP LEANNA * Pharmacy [facility] * Preadmission Environment Home with Family * ADLs Partial Dependent * Partial ADLs (Assistance needed) Eating * Equipment Enteral Feeding and Supplies Oxygen Rolling Walker Shower Chair Walker Wheelchair * List name and contact numbers for known caregivers / representatives who currently or will assist patient after discharge: TUCKER (DAUGHTER) [phone] * Verbal permission to speak to the caregivers and representatives has been obtained from the patient. Yes * Community resources currently utilized None * Additional services required to return to the preadmission environment? No * Can the patient safely return to the preadmission environment? Yes * Has this patient been hospitalized within the prior 30 days at any hospital? No Coverage Notice Reviewer: [email or web address] Jairo Whipple Notice Issued Date-Time: 06/14/2019 11:30 Notice Type: IM Discharge Notice Notice Delivered To: Patient Relationship to Patient: Emt Intermediate Name: Delivery Method: HAND - Hand Delivered Yenifer Days: Prior Verbal Notification: Recipient Understood Notice: Yes Recipient Signature: Yes Med Rec Note Co-signed by Attending: Coverage Notice Comment: Last DP export: 06/14/19 10:57 a Patient Name: ILIR DINERO Page [phone] at 1206 All edits/amendments must be made on the electronic document DICTATION DATE: 06/14/191204 ARBORICULTURIST: JERI 06/14/191204 RPT#: [id number] DC DATE: STATUS: ADM IN [facility] [address] [place] [address] END OF REPORT
--- NOTE | 2019-06-14 13:13 | NUR ---
Nutrition consult: Per Dr. Smith: TF formula changed to Glucerna 1.5 iron @ 50 ml/hr due to elevated glucose. RDN following.
[2019-06-14 14:15] VITALS: BP 168/66
[2019-06-14 16:41] VITALS: BP 162/69
--- NOTE | 2019-06-14 20:00 | NUR ---
ALERT RESTING IN BED, DENIES PAIN, NAUSEA OR VOMITING, PEG TUBE WITH FFEDING INFUSING AT 10CC/HR INCREASED TO 20 CC/HR ORDERED, SEE SHIFT ASSESSMENT, CALL LIGHT IN REACH
[2019-06-14 20:24] VITALS: BP 118/60
[2019-06-15 00:30] VITALS: BP 120/76
--- NOTE | 2019-06-15 04:25 | NUR ---
PEG TUBE FEEDING INCREASED TO 30 CC/HR ORDERED
[2019-06-15 05:11] VITALS: BP 124/60
[2019-06-15 05:36] LABS: BASOPHILS 0.5 % (0-2); EOSINOPHILS 6.4 % (0-7); HEMATOCRIT 29.2 % (42.0-54.0); HEMOGLOBIN 9.2 g/dL (13.5-17.5); IMMATURE GRANULOCYTES 0.2 % (0-5); LYMPHOCYTES 17.9 % (15-50); MCHC 31.5 g/dL (31.0-37.0); MCV 85.6 fL (80.0-100.0); MEAN PLATELET VOLUME 11.1 fL (7.4-10.4); MONOCYTES 14.4 % (2-11); NEUTROPHILS 60.6 % (40-80); PLATELET COUNT 215 10x3/uL (130-400); RBC 3.41 10x6/uL (4.20-6.10); RDW 15.4 % (11.5-14.5); WBC 4.4 10x3/uL (4.8-10.8)
[2019-06-15 06:18] LABS: ALBUMIN 2.8 g/dL (3.4-5.0); ALKALINE PHOSPHATASE 113 U/L (46-116); ALT (SGPT) 28 U/L (10-68); BILIRUBIN - TOTAL 0.12 mg/dL (0.2-1.3); CALC OSMOLALITY 294 mosm/kg (275-300); CARBON DIOXIDE 31.4 mmol/L (21.0-32.0); CHLORIDE - SERUM 110 mmol/L (98-107); GLUCOSE 149 mg/dL (74-106); MAGNESIUM - SERUM 1.4 mg/dL (1.8-2.4); POTASSIUM - SERUM 4.1 mmol/L (3.5-5.1); PROTEIN - SERUM 6.3 g/dL (6.4-8.2); SODIUM 146 mmol/L (136-145); UREA NITROGEN 14 mg/dL (7-18); eGFR NON AFRICAN AMERICAN 76 mL/min (90-120)
--- NOTE | 2019-06-15 07:00 | NUR ---
PATIENT RECIEVED RESTING WITH NO NEEDS VOICED, TOLERATING TUBE FEEDING WELL. DENIES PAIN, RESPIRATIONS NON-LABORED
[2019-06-15 08:28] VITALS: BP 157/68
--- NOTE | 2019-06-15 09:45 | NUR ---
TUBE FEEDING INCREASED TO 40 ML/HR GOAL RATE WITH H20 RATE INCREASED TO 50 ML/HR GOAL RATE. WILL CONT TO MONITOR
[2019-06-15 13:13] VITALS: BP 145/59
--- NOTE | 2019-06-15 14:09 | NUR ---
IV REMOVED WITH NO REDNESS OR EDEMA NOTED. DISCHARGE INSTRUCTIONS GIVEN TO PATIENT AND DAUGHTER WITH UNDERSTANDING VOICED. PATIENT TAKEN BY WHEELCHAIR TO PRIVATE CAR
--- NOTE | 2019-06-17 08:14 | MORECARE ---
CASE MANAGEMENT DISCHARGE SUMMARY PATIENT: ILIR DINERO UNIT: [id number] ADM DATE: 06/12/19 AGE: 83 : 34 SEX: M ROOM/BED: D.2204 AUTHOR: ALMA MAC PHYSICIAN: REFERRING PHYSICIAN: LUCILLE ZUNIGA DO DATE OF SERVICE: 06/17/19 Discharge Plan Patient Name: ILIR DINERO Facility: [facility]:[place] : 1935 Planned Disposition: Home or Self Care Anticipated Discharge Date: Discharge Date: 06/15/2019 Expected LOS: 0 Initial Reviewer: [email or web address] Initial Review Date: 06/12/2019 Generated: 06/17/19 9:13 am Comments DCP- Discharge Planning Updated by [id number]: Merna Whipple on 06/14/19 11:[address] Patient Name: ILIR DINERO Admission Status: ER Accout number: [id number] Admission Date: 06-12-2019 : 1935 Admission Diagnosis: Attending: LUCILLE ZUNIGA Current LOS: 2 Anticipated DC Date: Planned Disposition: Home or Self Care Primary Insurance: MEDICARE A & B Discharge Planning Comments: CM met with patient to complete initial dc planning assessment. CM educated patient on the CM role and verbal consent given by patient to complete assessment. Patient lives at home with his daughter where he is independent at home, except he gets help with his feeding. At discharge patient plans to return home and feels this is a safe discharge. CM discussed availability of home health, rehab services, and medical equipment. He does not want home health or rehab. He has home O2 (but does not use) has PEG tub with feeding pump and supplies ([employer]), walker, wheel chair, shower chair at home. At dc his daughter will be his special needs bus driver home. IMM served and explained, signed copy on chart. Patient denied known discharge needs at this time. CM will continue to follow and will assist as needed with dc plans/needs. Fisher Swordfish: Merna Whipple DCPIA - Discharge Planning Initial Assessment Updated by [email or web address]: Merna Whipple on 06/14/19 11:51 am * Is the patient Alert and Oriented? Yes * How many steps to enter\exit or inside your home? * PCP LEANNA * Pharmacy [facility] * Preadmission Environment Home with Family * ADLs Partial Dependent * Partial ADLs (Assistance needed) Eating * Equipment Enteral Feeding and Supplies Oxygen Rolling Walker Shower Chair Walker Wheelchair * List name and contact numbers for known caregivers / representatives who currently or will assist patient after discharge: TUCKER (DAUGHTER) [phone] * Verbal permission to speak to the caregivers and representatives has been obtained from the patient. Yes * Community resources currently utilized None * Additional services required to return to the preadmission environment? No * Can the patient safely return to the preadmission environment? Yes * Has this patient been hospitalized within the prior 30 days at any hospital? No Coverage Notice Reviewer: [id number] Jairo Whipple Notice Issued Date-Time: 06/14/2019 11:30 Notice Type: IM Discharge Notice Notice Delivered To: Patient Relationship to Patient: Master Deputy Sheriff Court Security Name: Delivery Method: HAND - Hand Delivered Yenifer Days: Prior Verbal Notification: Recipient Understood Notice: Yes Recipient Signature: Yes Med Rec Note Co-signed by Attending: Coverage Notice Comment: Last DP export: 06/14/19 11:06 a Patient Name: ILIR DINERO Page 13688 at 0814 All edits/amendments must be made on the electronic document DICTATION DATE: 06/17/19812 SCRAP BURNER: JERI 06/17/19812 RPT#: [id number] DC DATE:06/15/19 STATUS: DIS IN [facility] [address] [place] [address] END OF REPORT
== END 2019-06-15 14:11 | disposition home or self-care (01) | DRG 684 ==
LOC: D.ER 09:33 → D.MS 12:08
PROVIDERS: Family Medicine; Internal Medicine Nephrology; ADMIT Family Medicine; ATTEND Family Medicine
DX: N17.9 Acute kidney failure, unspecified (principal); E87.5 Hyperkalemia; R13.10 Dysphagia, unspecified; D64.9 Anemia, unspecified; E83.42 Hypomagnesemia; E78.5 Hyperlipidemia, unspecified; I25.10 Atherosclerotic heart disease of native coronary artery without angina pectoris; E11.65 Type 2 diabetes mellitus with hyperglycemia; K59.00 Constipation, unspecified; I10 Essential (primary) hypertension; E86.0 Dehydration; Z85.038 Personal history of other malignant neoplasm of large intestine; Z86.73 Personal history of transient ischemic attack (TIA), and cerebral infarction without residual deficits; Z93.1 Gastrostomy status

== ENCOUNTER → 2019-07-20 10:05 | Outpatient (CLI) | payer MEDICARE, BC ==
[2019-06-14 09:40] VITALS: BMI 20.8
== END | disposition home or self-care (01) ==
LOC: D.HCCECHO 10:05 → D.HCCARDIO 11:00
PROVIDERS: ATTEND Internal Medicine Cardiovascular Disease
DX: I35.9 Nonrheumatic aortic valve disorder, unspecified (principal)

== ENCOUNTER 2019-12-03 22:03 | Emergency (ER) | payer MEDICARE, BC ==
[~2019-12-03] VITALS: Ht 177.8 cm; Wt 75.0 kg
[2019-12-03 22:04] VITALS: BP 133/56; Ht 177.8 cm; Wt 75.0 kg
== END 2019-12-03 22:45 | disposition home or self-care (01) ==
LOC: D.ER 22:03
DX: Z43.1 Encounter for attention to gastrostomy (principal); I10 Essential (primary) hypertension; E11.9 Type 2 diabetes mellitus without complications; Z79.84 Long term (current) use of oral hypoglycemic drugs; I25.2 Old myocardial infarction; Z86.73 Personal history of transient ischemic attack (TIA), and cerebral infarction without residual deficits

== ENCOUNTER 2019-12-06 00:30 | Emergency (ER) | payer MEDICARE, BC ==
[~2019-12-06] VITALS: Ht 177.8 cm; Wt 65.9 kg
[2019-12-06 00:33] VITALS: Ht 177.8 cm; Wt 65.9 kg
[2019-12-06 01:30] VITALS: BP 153/70
== END 2019-12-06 01:30 | disposition home or self-care (01) ==
LOC: D.ER 00:30
DX: K94.23 Gastrostomy malfunction (principal); I10 Essential (primary) hypertension; I25.2 Old myocardial infarction; Z86.73 Personal history of transient ischemic attack (TIA), and cerebral infarction without residual deficits; E11.9 Type 2 diabetes mellitus without complications; Z79.84 Long term (current) use of oral hypoglycemic drugs

== ENCOUNTER → 2021-01-22 12:17 | Outpatient (CLI) | payer MEDICARE, BC ==
[2020-07-24 23:05] VITALS: BMI 22.7
[~2021-01-22 12:17] MED LIST changes: +BACLOFEN10 MG PO; +CLEOCIN HCL300 MG PO; +FLUTICASONE PRO16 GM NASAL; +GLUCOTROL 5 MG T5 MG; +OMNICEF300 MG PO; +REGLAN SOL10 MG/10 M PO; +ULTRAM50 MG PO; +UNK MUSCLE RELAXER; +ZOFRAN4 MG PO
== END | disposition home or self-care (01) ==
LOC: D.RAD 12:00
PROVIDERS: ATTEND Nurse Practitioner
DX: R10.9 Unspecified abdominal pain (principal)

== ENCOUNTER 2021-01-24 17:23 | Inpatient (IN) | payer MEDICARE, BC ==
[~2021-01-24] VITALS: Ht 177.8 cm; Wt 68.0 kg
[2021-01-24 18:36] VITALS: BP 115/50; BMI 21.5
--- NOTE | 2021-01-24 19:00 | NUR ---
PT DIRECT ADMIT FROM OFFICE, PT IN BED, AAO X 4, FAMILY AT BEDSIDE, RESP EVEN AND UNLABORED, NO DISTRESS NOTED, CL IN REACH, SR UP X 2.
[2021-01-24 20:31] LABS: BASOPHILS 0.5 % (0-2); EOSINOPHILS 3.2 % (0-7); HEMATOCRIT 30.5 % (42.0-54.0); HEMOGLOBIN 9.6 g/dL (13.5-17.5); LYMPHOCYTES 12.6 % (15-50); MCH 23.6 pg (26.0-34.0); MCHC 31.5 g/dL (31.0-37.0); MCV 74.9 fL (80.0-100.0); MEAN PLATELET VOLUME 8.5 fL (7.4-10.4); MONOCYTES 9.1 % (2-11); NEUTROPHILS 74.6 % (40-80); PLATELET COUNT 279 10x3/uL (130-400); RBC 4.08 10x6/uL (4.20-6.10); RDW 17.1 % (11.5-14.5); WBC 9.4 10x3/uL (4.8-10.8)
[2021-01-24 20:41] LABS: INR 1.08 (0.85-1.17)
[2021-01-24 20:42] LABS: D-DIMER-QUANTITATIVE 0.81 ug/mLFEU (0.20-0.54)
[2021-01-24 20:59] LABS: ALBUMIN 3.5 g/dL (3.4-5.0); ALKALINE PHOSPHATASE 112 U/L (30-120); ALT (SGPT) 23 U/L (10-68); BILIRUBIN - TOTAL 0.17 mg/dL (0.2-1.3); CALCIUM 11.5 mg/dL (8.5-10.1); CARBON DIOXIDE 28.5 mmol/L (21.0-32.0); CHLORIDE - SERUM 94 mmol/L (98-107); CKMB 1.6 U/L (0.0-3.6); CREATINE KINASE 68 UL (21-232); MAGNESIUM - SERUM 2.6 mg/dL (1.8-2.4); POTASSIUM - SERUM 4.5 mmol/L (3.5-5.1); PRO BNP 403 pg/mL (0-450); PROTEIN - SERUM 8.4 g/dL (6.4-8.2); SODIUM 133 mmol/L (136-145); UREA NITROGEN 100 mg/dL (7-18); eGFR NON AFRICAN AMERICAN 21 mL/min (90-120)
[2021-01-24 21:00] VITALS: BP 132/56
[2021-01-24 21:01] LABS: CALC OSMOLALITY 294 mosm/kg (275-300); GLUCOSE 62 mg/dL (74-106); TROPONIN-I < 0.017 ng/mL (0.000-0.060)
[2021-01-24 22:01] LABS: % SATURATION 6 % (15-55); IRON 22 ug/dl (35-150); TOTAL IRON BIND CAPACITY 332 ug/dl (260-445); UNSAT IRON BIND CAPACITY 310 ug/dl (150-375)
[2021-01-25] VITALS: BP 136/70
[2021-01-25 00:55] LABS: BILIRUBIN NEGATIVE (NEGATIVE); KETONE NEGATIVE (NEGATIVE); NITRITE NEGATIVE (NEGATIVE); UROBILINOGEN NORMAL mg/dL (< 2)
[2021-01-25 00:57] LABS: BACTERIA MODERATE HPF (NONE SEEN); SQUAMOUS EPITHELIAL 0-5 HPF (0-4)
[2021-01-25 04:00] VITALS: BP 133/54
--- NOTE | 2021-01-25 04:10 | NUR ---
I have reviewed this patient and I concur with the Shift Assessment completed by the Licensed Practical Nurse today this shift.
[2021-01-25 06:27] LABS: ANION GAP 12.5 mmol/L (8-16); BILIRUBIN - TOTAL 0.26 mg/dL (0.2-1.3); CALCIUM 10.7 mg/dL (8.5-10.1); CARBON DIOXIDE 28.9 mmol/L (21.0-32.0); CREATININE - SERUM 2.7 mg/dL (0.6-1.3); MAGNESIUM - SERUM 2.4 mg/dL (1.8-2.4); POTASSIUM - SERUM 4.4 mmol/L (3.5-5.1); PROTEIN - SERUM 7.5 g/dL (6.4-8.2)
[2021-01-25 06:29] LABS: BASOPHILS 0.5 % (0-2); EOSINOPHILS 4.7 % (0-7); HEMATOCRIT 28.2 % (42.0-54.0); HEMOGLOBIN 9.1 g/dL (13.5-17.5); LYMPHOCYTES 13.6 % (15-50); MCH 24.3 pg (26.0-34.0); MCHC 32.3 g/dL (31.0-37.0); MCV 75.4 fL (80.0-100.0); MEAN PLATELET VOLUME 8.7 fL (7.4-10.4); NEUTROPHILS 73.2 % (40-80); PLATELET COUNT 257 10x3/uL (130-400); RBC 3.74 10x6/uL (4.20-6.10); RDW 16.8 % (11.5-14.5); WBC 9.8 10x3/uL (4.8-10.8)
--- NOTE | 2021-01-25 07:20 | NUR ---
Lying in bed, awake/alert/oriented, T/R self ad regi, cont of B/B with use of urinal/bedpan ad regi, denies pain/other discomfort at this time, call light/phone/water within reach, no s/s of acute distress observed.
[2021-01-25 08:40] VITALS: BP 135/56
[2021-01-25 11:40] VITALS: BP 142/62
[2021-01-25 13:17] VITALS: Ht 177.8 cm; Wt 68.0 kg
[2021-01-25 16:03] VITALS: BP 97/61
--- NOTE | 2021-01-25 19:30 | NUR ---
PT IN BED, AAO X 3, FAMILY AT BEDSIDE, PT RESP EVEN AND UNLABORED, NO DISTRESS NOTED, CL IN REACH, SR UP X 2.
[2021-01-25 22:32] VITALS: BP 145/57
--- NOTE | 2021-01-26 01:54 | NUR ---
I have reviewed this patient and I concur with the Shift Assessment completed by the Licensed Practical Nurse today this shift.
[2021-01-26 05:18] VITALS: BP 123/51
[2021-01-26 06:08] LABS: BASOPHILS 0.6 % (0-2); EOSINOPHILS 4.2 % (0-7); HEMATOCRIT 27.8 % (42.0-54.0); HEMOGLOBIN 8.9 g/dL (13.5-17.5); LYMPHOCYTES 8.6 % (15-50); MCH 24.1 pg (26.0-34.0); MCV 75.3 fL (80.0-100.0); MEAN PLATELET VOLUME 8.4 fL (7.4-10.4); MONOCYTES 6.6 % (2-11); PLATELET COUNT 281 10x3/uL (130-400); RBC 3.69 10x6/uL (4.20-6.10); WBC 8.6 10x3/uL (4.8-10.8)
[2021-01-26 06:45] LABS: ALBUMIN 2.9 g/dL (3.4-5.0); ANION GAP 14.6 mmol/L (8-16); BILIRUBIN - TOTAL 0.21 mg/dL (0.2-1.3); CALCIUM 9.7 mg/dL (8.5-10.1); CARBON DIOXIDE 25.7 mmol/L (21.0-32.0); POTASSIUM - SERUM 4.3 mmol/L (3.5-5.1); PROTEIN - SERUM 7.2 g/dL (6.4-8.2)
--- NOTE | 2021-01-26 07:50 | NUR ---
Lying in bed, awake/alert/oriented, T/R self ad regi, cont of B/B with use of urinal/bedpan with assist ad regi, denies pain/other discomfort at this time, G-tub placement checked per A/A without issue, 2Cal infusing via pump @ 20 ml/hr with 100 mL flush of H2O every 4 hrs with flushes of 60 mL before and after medications, kiya well, call light/phone/water within reach, no s/s of acute distress observed.
[2021-01-26 08:06] VITALS: BP 122/50
[2021-01-26 12:32] VITALS: BP 113/62
--- NOTE | 2021-01-26 13:44 | NUR ---
Nutrition Follow-up: Nursing reports pt tolerating TF @ 20 mL/hr at time of visit this AM with plans to increase by 5 mL/hr q 12 hrs as tolerated to goal rate. No N/V/D reported. Renal function improving. Noted plans to d/c. Diet: TwoCal HN - goal rate 40 mL/hr + H2O flushes 20 mL q hr Wt: 150# (01/25) Labs noted: BUN 74, Cre 2.0, GFR 34, Alb 2.9 Meds noted: Pepcid, NS @ 125, electrolyte protocol -Increase TF to goal rate as tolerated. -Need new wt. -RD follow-up: 01/29
--- NOTE | 2021-01-26 13:59 | MORECARE ---
CASE MANAGEMENT DISCHARGE SUMMARY PATIENT: ILIR DINERO UNIT: [id number] ADM DATE: 01/24/21 AGE: 85 : 34 SEX: M ROOM/BED: D.2137 AUTHOR: ESTEFANIA,DOC PHYSICIAN: REFERRING PHYSICIAN: SYLVIA ALONSO MD DATE OF SERVICE: 01/26/21 Case Management Discharge Planning Summary DCP REVIEW SUMMARY ANTICIPATED D/C DATE: 01/26/2021 EXPECTED LOS : 2 CASE STATUS: DCP Initiated INITIAL REVIEW: 01/24/2021 INITIAL REVIEWER: Mai Queen FINAL DISCHARGE DISPOSITION: 06 : Discharged/Trans to Home Under Care of Organized Home Health Service in Anticipation of Skilled Care FINAL REVIEWER: FINAL REVIEW DATE: DCP Focus Questions & Answers QUESTION: ANSWER : PROVIDER NETWORKING REVIEW DATE: 01/26/2021 SERVICE TYPE: Home Health Care REVIEWER: Mai Queen PATIENT: ILIR DINERO ENCOUNTER: [id number] MEDICAL RECORD#: [id number] ADMISSION DATE: 01/24/2021 DISCHARGE DATE: ATTENDING MD: SYLVIA GARCIA : AGE: 85 MARITAL STATUS: W DC PLAN ID: [id number] FACILITY: [facility] PRINTED ON: 01/26/21 13:59 CT All edits/amendments must be made on the electronic document DICTATION DATE: 01/26/21 135 IMMIGRATION SERVICES OFFICER: JERI 01/26/21 1359 RPT#: [id number] DC DATE: STATUS: ADM IN [facility] [address] [place] [address] END OF REPORT
--- NOTE | 2021-01-26 14:14 | MORECARE ---
CASE MANAGEMENT DISCHARGE SUMMARY PATIENT: ILIR DINERO UNIT: [id number] ADM DATE: 01/24/21 AGE: 85 : 34 SEX: M ROOM/BED: D.2137 AUTHOR: ESTEFANIADOC PHYSICIAN: REFERRING PHYSICIAN: SYLVIA ALONSO MD DATE OF SERVICE: 01/26/21 Case Management Discharge Planning Summary DCP REVIEW SUMMARY ANTICIPATED D/C DATE: 01/26/2021 EXPECTED LOS : 2 CASE STATUS: DCP Initiated INITIAL REVIEW: 01/24/2021 INITIAL REVIEWER: Mai Queen FINAL DISCHARGE DISPOSITION: 06 : Discharged/Trans to Home Under Care of Organized Home Health Service in Anticipation of Skilled Care FINAL REVIEWER: FINAL REVIEW DATE: DCP Focus Questions & Answers DCP Screen QUESTION: ANSWER High Risk Factors: : None Walking limitation: Patient stated self rated walking limitation present? : No Age: : 79 + Prior living environment: : Lives with others Disability ranking: : Grade 1: No significant disability DCP Evaluation QUESTION: ANSWER Patient and/or caregiver agree upon recommended discharge plan? : Yes Patient's current cognitive status: : *Oriented to person, place, situation, time and present Patient's ability to cope with chronic illness : d. No chronic illness Family / Caregiver's ability to cope with chronic illness: : a. Adequate (ability to meet patient's medical needs, ensures patient attends medical appts.) Does the patient have the ability to pay for or attain post discharge needs / services? : Yes Functional screen assessment: : Basic needs can adequately be met by self Family / Caregiver's ability to cope with chronic illness: : a. Adequate (ability to meet patient's medical needs, ensures patient attends medical appts.) Physical Status: : Compromised nutritional status Equipment needed for post hospitalization: : None Is there a likelihood that the patient will require additional services to return to the preadmission environment? : No Living Arrangements: : Home with Extended Family Results of this evaluation have been discussed with: : Patient Patient with capacity for self-care or can be cared for in same environment as prior to hospitalization? : Yes Baseline cognitive status: : *Oriented to person, place, situation, time and present Living arrangements comments: : Lives with daughter Esteban Barton Physical environment modification needed / anticipated for discharge: : No Medication Management: : Patient states can afford medications Medication Management: : Patient states they do have transportation to fern picker medications Medication Management: : Patient states can read and understand medication labels Planned post hospital services available for patient? : Yes Pharmacy name(s): : [facility] in [place] Planned post hospital services covered by insurance plan? : Yes Does Patient have transportation to get home and to follow-up medical appointments when discharged from the hospital? : Yes Would patient like to participate in any Care Coordination programs (if applicable): : Not applicable Does the patient have electricity at home? : Yes Does the patient have running water in their house? : Yes Equipment in use: : Nebulizer Equipment in use: : Peg Tube feeding/maintenance Equipment in use: : Shower Chair Equipment in use: : Walker - Standard Equipment in use: : Wheelchair Other Equipment comments: : NO NEEDS Mental health screen: : No mental health history Psychosocial status: : Independent adult (65+) Abuse/Neglect: : None Resources / Services in place: : Home health Contact information for resources in use: : BRANDON KELLEY Re-evaluation QUESTION: ANSWER Would patient like to participate in any Care Coordination programs (if applicable): : Not applicable PROVIDER NETWORKING REVIEW DATE: 01/26/2021 SERVICE TYPE: Home Health Care REVIEWER: Mai Queen PATIENT: ILIR DINERO ENCOUNTER: [id number] MEDICAL RECORD#: [id number] ADMISSION DATE: 01/24/2021 DISCHARGE DATE: ATTENDING MD: SYLVIA GARCIA : AGE: 85 MARITAL STATUS: W DC PLAN ID: [id number] FACILITY: [facility] PRINTED ON: 01/26/21 14:14 CT All edits/amendments must be made on the electronic document DICTATION DATE: 01/26/211413 EGG BREAKING MACHINE OPERATOR: JERI 01/26/211413 RPT#: [id number] DC DATE: STATUS: ADM IN [facility] [address] [place] [address] END OF REPORT
--- NOTE | 2021-01-26 14:28 | MORECARE ---
CASE MANAGEMENT DISCHARGE SUMMARY PATIENT: ILIR DINERO UNIT: [id number] ADM DATE: 01/24/21 AGE: 85 : 34 SEX: M ROOM/BED: D.2137 AUTHOR: ESTEFANIA,DOC PHYSICIAN: REFERRING PHYSICIAN: SYLVIA ALONSO MD DATE OF SERVICE: 01/26/21 Case Management Discharge Planning Summary COMMENTS ENTERED DATE: 01/26/21 14:10 CT COMMENT TYPE: Discharge Planning REVIEWER: Mai Queen CM met with patient to complete discharge planning assessment and offer availability of needed services. Patient states that he lives independently at home with his daughter Esteban Martinez ([phone]). PT verified that home environment is safe and has electricity and running water. Patient denies need for transportation and state that they have funds for services and medications if needed. PCP is Dr Dash in [place] and patient uses [facility] for medications. CM offered and discussed home health, rehab services, and need for any additional medical equipment. Patient does have [facility] currently. Pt denies need for additional equipment, does not remember name of [employer] company, but states he doesn't need anything except PT for strengthening. Transportation home will be provided by daughter Esteban Barton. Pt order sent to [facility] for PT evaluation and treatment. Pt verbalize understanding. ORP REVIEW SUMMARY ANTICIPATED D/C DATE: 01/26/2021 EXPECTED LOS : 2 CASE STATUS: DCP Initiated INITIAL REVIEW: 01/24/2021 INITIAL REVIEWER: Mai Queen FINAL DISCHARGE DISPOSITION: 06 : Discharged/Trans to Home Under Care of Organized Home Health Service in Anticipation of Skilled Care FINAL REVIEWER: FINAL REVIEW DATE: ORP Focus Questions & Answers DCP Screen QUESTION: ANSWER High Risk Factors: : None Walking limitation: Patient stated self rated walking limitation present? : No Age: : 79 + Prior living environment: : Lives with others Disability ranking: : Grade 1: No significant disability DCP Evaluation QUESTION: ANSWER Patient and/or caregiver agree upon recommended discharge plan? : Yes Patient's current cognitive status: : *Oriented to person, place, situation, time and present Patient's ability to cope with chronic illness : d. No chronic illness Family / Caregiver's ability to cope with chronic illness: : a. Adequate (ability to meet patient's medical needs, ensures patient attends medical appts.) Does the patient have the ability to pay for or attain post discharge needs / services? : Yes Functional screen assessment: : Basic needs can adequately be met by self Family / Caregiver's ability to cope with chronic illness: : a. Adequate (ability to meet patient's medical needs, ensures patient attends medical appts.) Physical Status: : Compromised nutritional status Equipment needed for post hospitalization: : None Is there a likelihood that the patient will require additional services to return to the preadmission environment? : No Living Arrangements: : Home with Extended Family Results of this evaluation have been discussed with: : Patient Patient with capacity for self-care or can be cared for in same environment as prior to hospitalization? : Yes Baseline cognitive status: : *Oriented to person, place, situation, time and present Living arrangements comments: : Lives with daughter Esteban Barton Physical environment modification needed / anticipated for discharge: : No Medication Management: : Patient states can afford medications Medication Management: : Patient states they do have transportation to orange picker machine operator medications Medication Management: : Patient states can read and understand medication labels Planned post hospital services available for patient? : Yes Pharmacy name(s): : [facility] in [place] Planned post hospital services covered by insurance plan? : Yes Does Patient have transportation to get home and to follow-up medical appointments when discharged from the hospital? : Yes Would patient like to participate in any Care Coordination programs (if applicable): : Not applicable Does the patient have electricity at home? : Yes Does the patient have running water in their house? : Yes Equipment in use: : Nebulizer Equipment in use: : Peg Tube feeding/maintenance Equipment in use: : Shower Chair Equipment in use: : Walker - Standard Equipment in use: : Wheelchair Other Equipment comments: : NO NEEDS Mental health screen: : No mental health history Psychosocial status: : Independent adult (65+) Abuse/Neglect: : None Resources / Services in place: : Home health Contact information for resources in use: : RBANDON KELLEY Re-evaluation QUESTION: ANSWER Would patient like to participate in any Care Coordination programs (if applicable): : Not applicable PROVIDER NETWORKING REVIEW DATE: 01/26/2021 SERVICE TYPE: Home Health Care REVIEWER: Mai Queen PATIENT: ILIR DINERO ENCOUNTER: [id number] MEDICAL RECORD#: [id number] ADMISSION DATE: 01/24/2021 DISCHARGE DATE: ATTENDING MD: SYLVIA GARCIA : AGE: 85 MARITAL STATUS: W DC PLAN ID: [id number] FACILITY: [facility] PRINTED ON: 01/26/21 14:28 CT All edits/amendments must be made on the electronic document DICTATION DATE: 01/26/211427 HIGH SCHOOL FOREIGN LANGUAGE TUTOR: JERI 01/26/211427 RPT#: [id number] DC DATE: STATUS: ADM IN [facility] [address] [place] [address] END OF REPORT
[2021-01-26 16:53] VITALS: BP 115/50
--- NOTE | 2021-01-26 17:57 | NUR ---
Provided written/verbal discharge instructions/education to which pt spouse verbally stated understanding, discontinued IV access/cardiac telemetry monitoring at this time as well, no s/s of acute distress observed.
--- NOTE | 2021-01-26 18:15 | NUR ---
Discharged home to self care in stable condition via w/c accompanied by hospital staff and family member, will have services of HH as prior, no s/s of acute distress observed.
--- NOTE | 2021-01-26 18:40 | MORECARE ---
CASE MANAGEMENT DISCHARGE SUMMARY PATIENT: ILIR DINERO UNIT: [id number] ADM DATE: 01/24/21 AGE: 85 : 34 SEX: M ROOM/BED: D.2137 AUTHOR: ESTEFANIA,DOC PHYSICIAN: REFERRING PHYSICIAN: SYLVIA ALONSO MD DATE OF SERVICE: 01/26/21 Case Management Discharge Planning Summary COMMENTS ENTERED DATE: 01/26/21 14:10 CT COMMENT TYPE: Discharge Planning REVIEWER: Mai Queen CM met with patient to complete discharge planning assessment and offer availability of needed services. Patient states that he lives independently at home with his daughter Esteban Martinez ([phone]). PT verified that home environment is safe and has electricity and running water. Patient denies need for transportation and state that they have funds for services and medications if needed. PCP is Dr Dash in [place] and patient uses [facility] for medications. CM offered and discussed home health, rehab services, and need for any additional medical equipment. Patient does have [facility] currently. Pt denies need for additional equipment, does not remember name of [employer] company, but states he doesn't need anything except PT for strengthening. Transportation home will be provided by daughter Esteban Barton. Pt order sent to [facility] for PT evaluation and treatment. Pt verbalize understanding. RIP REVIEW SUMMARY ANTICIPATED D/C DATE: 01/26/2021 EXPECTED LOS : 2 CASE STATUS: DCP Initiated INITIAL REVIEW: 01/24/2021 INITIAL REVIEWER: Mai Queen FINAL DISCHARGE DISPOSITION: 06 : Discharged/Trans to Home Under Care of [facility] in Anticipation of Skilled Care FINAL REVIEWER: FINAL REVIEW DATE: RIP Focus Questions & Answers DCP Screen QUESTION: ANSWER High Risk Factors: : None Walking limitation: Patient stated self rated walking limitation present? : No Age: : 79 + Prior living environment: : Lives with others Disability ranking: : Grade 1: No significant disability DCP Evaluation QUESTION: ANSWER Patient and/or caregiver agree upon recommended discharge plan? : Yes Patient's current cognitive status: : *Oriented to person, place, situation, time and present Patient's ability to cope with chronic illness : d. No chronic illness Family / Caregiver's ability to cope with chronic illness: : a. Adequate (ability to meet patient's medical needs, ensures patient attends medical appts.) Does the patient have the ability to pay for or attain post discharge needs / services? : Yes Functional screen assessment: : Basic needs can adequately be met by self Family / Caregiver's ability to cope with chronic illness: : a. Adequate (ability to meet patient's medical needs, ensures patient attends medical appts.) Physical Status: : Compromised nutritional status Equipment needed for post hospitalization: : None Is there a likelihood that the patient will require additional services to return to the preadmission environment? : No Living Arrangements: : Home with Extended Family Results of this evaluation have been discussed with: : Patient Patient with capacity for self-care or can be cared for in same environment as prior to hospitalization? : Yes Baseline cognitive status: : *Oriented to person, place, situation, time and present Living arrangements comments: : Lives with daughter Esteban Barton Physical environment modification needed / anticipated for discharge: : No Medication Management: : Patient states can afford medications Medication Management: : Patient states they do have transportation to potato picker medications Medication Management: : Patient states can read and understand medication labels Planned post hospital services available for patient? : Yes Pharmacy name(s): : [facility] in [place] Planned post hospital services covered by insurance plan? : Yes Does Patient have transportation to get home and to follow-up medical appointments when discharged from the hospital? : Yes Would patient like to participate in any Care Coordination programs (if applicable): : Not applicable Does the patient have electricity at home? : Yes Does the patient have running water in their house? : Yes Equipment in use: : Nebulizer Equipment in use: : Peg Tube feeding/maintenance Equipment in use: : Shower Chair Equipment in use: : Walker - Standard Equipment in use: : Wheelchair Other Equipment comments: : NO NEEDS Mental health screen: : No mental health history Psychosocial status: : Independent adult (65+) Abuse/Neglect: : None Resources / Services in place: : Home health Contact information for resources in use: : BRANDON KELLEY Re-evaluation QUESTION: ANSWER Would patient like to participate in any Care Coordination programs (if applicable): : Not applicable PROVIDER NETWORKING REVIEW DATE: 01/26/2021 SERVICE TYPE: Home Health Care REVIEWER: Mai Queen PATIENT: ILIR DINERO ENCOUNTER: [id number] MEDICAL RECORD#: [id number] ADMISSION DATE: 01/24/2021 DISCHARGE DATE: 01/26/2021 ATTENDING MD: SYLVIA GARCIA : AGE: 85 MARITAL STATUS: W DC PLAN ID: [id number] FACILITY: [facility] PRINTED ON: 01/26/21 18:40 CT All edits/amendments must be made on the electronic document DICTATION DATE: 01/26/211839 ORTHO ASSISTANT: JERI 01/26/211839 RPT#: [id number] DC DATE:01/26/21 STATUS: DIS IN [facility] [address] [place] [address] END OF REPORT
--- NOTE | 2021-01-28 19:04 | MORECARE ---
CASE MANAGEMENT DISCHARGE SUMMARY PATIENT: ILIR DINERO UNIT: [id number] ADM DATE: 01/24/21 AGE: 85 : 34 SEX: M ROOM/BED: D.2137 AUTHOR: ESTEFANIA,DOC PHYSICIAN: REFERRING PHYSICIAN: SYLVIA ALONSO MD DATE OF SERVICE: 01/28/21 Case Management Discharge Planning Summary COMMENTS ENTERED DATE: 01/26/21 14:10 CT COMMENT TYPE: Discharge Planning REVIEWER: Mai Queen CM met with patient to complete discharge planning assessment and offer availability of needed services. Patient states that he lives independently at home with his daughter Esteban Martinez ([phone]). PT verified that home environment is safe and has electricity and running water. Patient denies need for transportation and state that they have funds for services and medications if needed. PCP is Dr Dash in [place] and patient uses [facility] pharmacy for medications. CM offered and discussed home health, rehab services, and need for any additional medical equipment. Patient does have [facility] currently. Pt denies need for additional equipment, does not remember name of [employer] company, but states he doesn't need anything except PT for strengthening. Transportation home will be provided by daughter Esteban Barton. Pt order sent to [facility] for PT evaluation and treatment. Pt verbalize understanding. PRP REVIEW SUMMARY ANTICIPATED D/C DATE: 01/26/2021 EXPECTED LOS : 2 CASE STATUS: DCP Initiated INITIAL REVIEW: 01/24/2021 INITIAL REVIEWER: Mai Queen FINAL DISCHARGE DISPOSITION: 06 : Discharged/Trans to Home Under Care of [facility] in Anticipation of Skilled Care FINAL REVIEWER: FINAL REVIEW DATE: PRP Focus Questions & Answers DCP Screen QUESTION: ANSWER High Risk Factors: : None Walking limitation: Patient stated self rated walking limitation present? : No Age: : 79 + Prior living environment: : Lives with others Disability ranking: : Grade 1: No significant disability DCP Evaluation QUESTION: ANSWER Patient and/or caregiver agree upon recommended discharge plan? : Yes Family / Caregiver's ability to cope with chronic illness: : a. Adequate (ability to meet patient's medical needs, ensures patient attends medical appts.) Patient's current cognitive status: : *Oriented to person, place, situation, time and present Patient's ability to cope with chronic illness : d. No chronic illness Does the patient have the ability to pay for or attain post discharge needs / services? : Yes Functional screen assessment: : Basic needs can adequately be met by self Family / Caregiver's ability to cope with chronic illness: : a. Adequate (ability to meet patient's medical needs, ensures patient attends medical appts.) Physical Status: : Compromised nutritional status Equipment needed for post hospitalization: : None Is there a likelihood that the patient will require additional services to return to the preadmission environment? : No Living Arrangements: : Home with Extended Family Results of this evaluation have been discussed with: : Patient Patient with capacity for self-care or can be cared for in same environment as prior to hospitalization? : Yes Living arrangements comments: : Lives with daughter Esteban Barton Baseline cognitive status: : *Oriented to person, place, situation, time and present Physical environment modification needed / anticipated for discharge: : No Medication Management: : Patient states can read and understand medication labels Medication Management: : Patient states they do have transportation to garbage pick up man medications Medication Management: : Patient states can afford medications Planned post hospital services available for patient? : Yes Pharmacy [facility] [place] Planned post hospital services covered by insurance plan? : Yes Does Patient have transportation to get home and to follow-up medical appointments when discharged from the hospital? : Yes Would patient like to participate in any Care Coordination programs (if applicable): : Not applicable Does the patient have electricity at home? : Yes Does the patient have running water in their house? : Yes Equipment in use: : Wheelchair Equipment in use: : Walker - Standard Equipment in use: : Shower Chair Equipment in use: : Peg Tube feeding/maintenance Equipment in use: : Nebulizer Other Equipment comments: : NO NEEDS Mental health screen: : No mental health history Psychosocial status: : Independent adult (65+) Abuse/Neglect: : None Resources / Services in place: : Home health Contact information for resources in use: : [facility] Re-evaluation QUESTION: ANSWER Would patient like to participate in any Care Coordination programs (if applicable): : Not applicable PROVIDER NETWORKING REVIEW DATE: 01/26/2021 SERVICE TYPE: Home Health Care REVIEWER: Mai Queen PATIENT: ILIR DINERO ENCOUNTER: [id number] MEDICAL RECORD#: [id number] ADMISSION DATE: 01/24/2021 DISCHARGE DATE: 01/26/2021 ATTENDING MD: SYLVIA GARCIA : AGE: 85 MARITAL STATUS: W DC PLAN ID: [id number] FACILITY: [facility] PRINTED ON: 01/28/21 19:04 CT All edits/amendments must be made on the electronic document DICTATION DATE: 01/28/211903 PACKAGING DESIGNER: JERI 01/28/211903 RPT#: [id number] DC DATE:01/26/21 STATUS: DIS IN [facility] [address] [place] [address] END OF REPORT
--- NOTE | 2021-01-29 11:25 | MORECARE ---
CASE MANAGEMENT DISCHARGE SUMMARY PATIENT: ILIR DINERO UNIT: [id number] ADM DATE: 01/24/21 AGE: 85 : 34 SEX: M ROOM/BED: D.2137 AUTHOR: ESTEFANIA,DOC PHYSICIAN: REFERRING PHYSICIAN: SYLVIA ALONSO MD DATE OF SERVICE: 01/29/21 Case Management Discharge Planning Summary COMMENTS ENTERED DATE: 01/26/21 14:10 CT COMMENT TYPE: Discharge Planning REVIEWER: Mai Queen CM met with patient to complete discharge planning assessment and offer availability of needed services. Patient states that he lives independently at home with his daughter Esteban Martinez ([phone]). PT verified that home environment is safe and has electricity and running water. Patient denies need for transportation and state that they have funds for services and medications if needed. PCP is Dr Dash in [place] and patient uses [facility] for medications. CM offered and discussed home health, rehab services, and need for any additional medical equipment. Patient does have [facility] currently. Pt denies need for additional equipment, does not remember name of [employer] company, but states he doesn't need anything except PT for strengthening. Transportation home will be provided by daughter Esteban Barton. Pt order sent to [facility] for PT evaluation and treatment. Pt verbalize understanding. NJP REVIEW SUMMARY ANTICIPATED D/C DATE: 01/26/2021 EXPECTED LOS : 2 CASE STATUS: DCP Initiated INITIAL REVIEW: 01/24/2021 INITIAL REVIEWER: Mai Queen FINAL DISCHARGE DISPOSITION: 06 : Discharged/Trans to Home Under Care of [facility] in Anticipation of Skilled Care FINAL REVIEWER: FINAL REVIEW DATE: NJP Focus Questions & Answers DCP Screen QUESTION: ANSWER High Risk Factors: : None Walking limitation: Patient stated self rated walking limitation present? : No Age: : 79 + Prior living environment: : Lives with others Disability ranking: : Grade 1: No significant disability DCP Evaluation QUESTION: ANSWER Patient and/or caregiver agree upon recommended discharge plan? : Yes Family / Caregiver's ability to cope with chronic illness: : a. Adequate (ability to meet patient's medical needs, ensures patient attends medical appts.) Patient's current cognitive status: : *Oriented to person, place, situation, time and present Patient's ability to cope with chronic illness : d. No chronic illness Does the patient have the ability to pay for or attain post discharge needs / services? : Yes Functional screen assessment: : Basic needs can adequately be met by self Family / Caregiver's ability to cope with chronic illness: : a. Adequate (ability to meet patient's medical needs, ensures patient attends medical appts.) Physical Status: : Compromised nutritional status Equipment needed for post hospitalization: : None Is there a likelihood that the patient will require additional services to return to the preadmission environment? : No Living Arrangements: : Home with Extended Family Results of this evaluation have been discussed with: : Patient Patient with capacity for self-care or can be cared for in same environment as prior to hospitalization? : Yes Living arrangements comments: : Lives with daughter Esteban Barton Baseline cognitive status: : *Oriented to person, place, situation, time and present Physical environment modification needed / anticipated for discharge: : No Medication Management: : Patient states can read and understand medication labels Medication Management: : Patient states they do have transportation to leaf size picker medications Medication Management: : Patient states can afford medications Planned post hospital services available for patient? : Yes Pharmacy name(s): : [facility] in [place] Planned post hospital services covered by insurance plan? : Yes Does Patient have transportation to get home and to follow-up medical appointments when discharged from the hospital? : Yes Would patient like to participate in any Care Coordination programs (if applicable): : Not applicable Does the patient have electricity at home? : Yes Does the patient have running water in their house? : Yes Equipment in use: : Wheelchair Equipment in use: : Walker - Standard Equipment in use: : Shower Chair Equipment in use: : Peg Tube feeding/maintenance Equipment in use: : Nebulizer Other Equipment comments: : NO NEEDS Mental health screen: : No mental health history Psychosocial status: : Independent adult (65+) Abuse/Neglect: : None Resources / Services in place: : Home health Contact information for resources in use: : [facility] Re-evaluation QUESTION: ANSWER Would patient like to participate in any Care Coordination programs (if applicable): : Not applicable PROVIDER NETWORKING REVIEW DATE: 01/26/2021 SERVICE TYPE: Home Health Care REVIEWER: Mai Queen PATIENT: ILIR DINERO ENCOUNTER: [id number] MEDICAL RECORD#: [id number] ADMISSION DATE: 01/24/2021 DISCHARGE DATE: 01/26/2021 ATTENDING MD: SYLVIA GARCIA : AGE: 85 MARITAL STATUS: W DC PLAN ID: [id number] FACILITY: [facility] PRINTED ON: 01/29/21 11:25 CT All edits/amendments must be made on the electronic document DICTATION DATE: 01/29/211124 STATISTICAL ENGINEER: JERI 01/29/215 RPT#: [id number] DC DATE:01/26/21 STATUS: DIS IN [facility] [address] [place] [address] END OF REPORT
== END 2021-01-26 18:04 | disposition home health service (06) | DRG 682 ==
LOC: D.M2 17:23
PROVIDERS: ADMIT Family Medicine Adult Medicine; ATTEND Family Medicine Adult Medicine
DX: N17.9 Acute kidney failure, unspecified (principal); E43 Unspecified severe protein-calorie malnutrition; E87.1 Hypo-osmolality and hyponatremia; J96.11 Chronic respiratory failure with hypoxia; E86.0 Dehydration; I25.10 Atherosclerotic heart disease of native coronary artery without angina pectoris; E78.5 Hyperlipidemia, unspecified; K21.9 Gastro-esophageal reflux disease without esophagitis; Z68.21 Body mass index [BMI] 21.0-21.9, adult; E11.22 Type 2 diabetes mellitus with diabetic chronic kidney disease; E11.65 Type 2 diabetes mellitus with hyperglycemia; I12.9 Hypertensive chronic kidney disease with stage 1 through stage 4 chronic kidney disease, or unspecified chronic kidney disease; D50.9 Iron deficiency anemia, unspecified; D63.1 Anemia in chronic kidney disease; N18.30 Chronic kidney disease, stage 3 unspecified; Z85.038 Personal history of other malignant neoplasm of large intestine; Z86.73 Personal history of transient ischemic attack (TIA), and cerebral infarction without residual deficits

== ENCOUNTER 2021-02-19 11:10 | Inpatient (IN) | payer MEDICARE, BC ==
[~2021-02-19] VITALS: Ht 177.8 cm; Wt 65.3 kg
[2021-02-19 12:41] LABS: CALC OSMOLALITY 284 mosm/kg (275-300); CALCIUM 10.9 mg/dL (8.5-10.1); CARBON DIOXIDE 27.1 mmol/L (21.0-32.0); CHLORIDE - SERUM 90 mmol/L (98-107); CREATININE - SERUM 2.3 mg/dL (0.6-1.3); GLUCOSE 164 mg/dL (74-106); POTASSIUM - SERUM 5.1 mmol/L (3.5-5.1); SODIUM 125 mmol/L (136-145); UREA NITROGEN 93 mg/dL (7-18); eGFR NON AFRICAN AMERICAN 29 mL/min (90-120)
[2021-02-19 12:45] LABS: BASOPHILS 0.2 % (0-2); EOSINOPHILS 0 % (0-7); HEMATOCRIT 27.6 % (42.0-54.0); HEMOGLOBIN 8.8 g/dL (13.5-17.5); LYMPHOCYTES 4.5 % (15-50); MCH 23.4 pg (26.0-34.0); MCV 73.3 fL (80.0-100.0); MEAN PLATELET VOLUME 8.5 fL (7.4-10.4); MONOCYTES 6.4 % (2-11); NEUTROPHILS 88.9 % (40-80); PLATELET COUNT 297 10x3/uL (130-400); RBC 3.76 10x6/uL (4.20-6.10); RDW 16.7 % (11.5-14.5); WBC 23.8 10x3/uL (4.8-10.8)
[2021-02-19 12:47] LABS: APTT 34.4 SECONDS (22.8-39.4); INR 1.17 (0.85-1.17); PROTIME 13.8 SECONDS (11.6-15.0)
[2021-02-19 12:57] LABS: ALBUMIN 2.9 g/dL (3.4-5.0); ALKALINE PHOSPHATASE 96 U/L (30-120); ALT (SGPT) 19 U/L (10-68); BILIRUBIN - TOTAL 0.23 mg/dL (0.2-1.3); CKMB 2.2 U/L (0.0-3.6); CREATINE KINASE 171 UL (21-232); MAGNESIUM - SERUM 1.8 mg/dL (1.8-2.4); PROTEIN - SERUM 7.6 g/dL (6.4-8.2)
[2021-02-19 12:59] LABS: TROPONIN-I < 0.017 ng/mL (0.000-0.060)
[2021-02-19 15:57] LABS: BACTERIA MANY HPF (<MOD); BILIRUBIN NEGATIVE (NEGATIVE); KETONE NEGATIVE mg/dL (< 1+); NITRITE NEGATIVE (NEGATIVE); UROBILINOGEN NORMAL mg/dL (< 2); WHITE CELLS - URINE 38 HPF (0-1)
[2021-02-19 16:31] VITALS: BP 130/54
--- NOTE | 2021-02-19 22:48 | NUR ---
PT RESTING WELL. VSS AND NO S/S OF DISTRESS. NEW IV STARTED D/T INFILTRATION OF PREVIOUS ONE. WAITING FOR BED ASSIGNMENT.
[2021-02-19 23:01] LABS: % SATURATION 4 % (15-55); IRON 9 ug/dl (35-150); TOTAL IRON BIND CAPACITY 215 ug/dl (260-445); UNSAT IRON BIND CAPACITY 206 ug/dl (150-375)
[2021-02-20 01:45] VITALS: BP 122/50
--- NOTE | 2021-02-20 02:00 | NUR ---
PATIENT CLEANED AND PLACED ON A REGULAR BED. DENEIS PAIN NO SS OF DISTRESS NOTED AT THIS TIME.
[2021-02-20 04:45] VITALS: BP 135/46
--- NOTE | 2021-02-20 05:00 | NUR ---
REPORT HANDED OFF FROM BAMBI MAI AT THIS TIME.
[2021-02-20 05:56] VITALS: BP 145/45
[2021-02-20 06:21] LABS: ALBUMIN 2.6 g/dL (3.4-5.0); ANION GAP 13.3 mmol/L (8-16); BILIRUBIN - TOTAL 0.2 mg/dL (0.2-1.3); CALCIUM 10.2 mg/dL (8.5-10.1); CARBON DIOXIDE 23.3 mmol/L (21.0-32.0); CREATININE - SERUM 1.9 mg/dL (0.6-1.3); MAGNESIUM - SERUM 1.9 mg/dL (1.8-2.4); POTASSIUM - SERUM 4.6 mmol/L (3.5-5.1); PROTEIN - SERUM 7.2 g/dL (6.4-8.2)
[2021-02-20 06:30] LABS: BASOPHILS 0.1 % (0-2); EOSINOPHILS 0.2 % (0-7); HEMATOCRIT 26.6 % (42.0-54.0); HEMOGLOBIN 8.5 g/dL (13.5-17.5); LYMPHOCYTES 5.8 % (15-50); MCH 23.7 pg (26.0-34.0); MCV 74.2 fL (80.0-100.0); MEAN PLATELET VOLUME 8.6 fL (7.4-10.4); MONOCYTES 6.1 % (2-11); NEUTROPHILS 87.8 % (40-80); PLATELET COUNT 258 10x3/uL (130-400); RBC 3.59 10x6/uL (4.20-6.10); RDW 16.6 % (11.5-14.5); WBC 20.9 10x3/uL (4.8-10.8)
--- NOTE | 2021-02-20 07:53 | NUR ---
SCD APPLIED AT THIS TIME.
[2021-02-20 11:34] VITALS: BP 109/58; BMI 20.7
[2021-02-20 12:16] VITALS: BMI 20.6
[2021-02-20 12:54] VITALS: Ht 177.8 cm; Wt 65.3 kg
[2021-02-20 15:23] LABS: ERYTHROCYTE SEDIMENTATION RATE 38 mm/hr (0-30)
[2021-02-20 16:00] VITALS: BP 139/54
--- NOTE | 2021-02-20 16:00 | NUR ---
CONFUSED. RESTING IN BED. DAUGHTER AT BEDSIDE. CONDOM CATH DRAINING BY GRAVITY. URINE BAG IN ICE FOR 24hr COLLECTION. INITIATE TUBE FEEDINGS ORDERED. DENIES ANY NEEDS. CONTINUE PLAN OF CARE AND SAFETY PRECAUTIONS.
[2021-02-20 21:21] VITALS: BP 141/47
[2021-02-21 00:27] VITALS: BP 138/51
[2021-02-21 06:16] VITALS: BP 134/63
[2021-02-21 06:21] LABS: BASOPHILS 0.3 % (0-2); EOSINOPHILS 2.2 % (0-7); HEMATOCRIT 24.1 % (42.0-54.0); HEMOGLOBIN 7.7 g/dL (13.5-17.5); LYMPHOCYTES 6.8 % (15-50); MCH 23.8 pg (26.0-34.0); MCV 74.3 fL (80.0-100.0); MONOCYTES 6.7 % (2-11); PLATELET COUNT 247 10x3/uL (130-400); RBC 3.24 10x6/uL (4.20-6.10); RDW 17.1 % (11.5-14.5)
[2021-02-21 07:10] LABS: ALBUMIN 2.3 g/dL (3.4-5.0); BILIRUBIN - TOTAL 0.12 mg/dL (0.2-1.3); CALCIUM 9.3 mg/dL (8.5-10.1); CARBON DIOXIDE 22.1 mmol/L (21.0-32.0); CREATININE - SERUM 1.7 mg/dL (0.6-1.3); MAGNESIUM - SERUM 1.8 mg/dL (1.8-2.4); PROTEIN - SERUM 6.7 g/dL (6.4-8.2)
[2021-02-21 07:11] LABS: ANION GAP 15.6 mmol/L (8-16); POTASSIUM - SERUM 3.7 mmol/L (3.5-5.1)
[2021-02-21 09:00] VITALS: BP 129/56
[2021-02-21 12:00] VITALS: BP 121/76
[2021-02-21 14:11] LABS: SPE - A/G RATIO 0.7 (0.7-1.7); SPE - ALBUMIN 2.8 g/dL (2.9-4.4); SPE - ALPHA-1 GLOBULIN 0.4 g/dL (0.0-0.4); SPE - ALPHA-2 GLOBULIN 1.4 g/dL (0.4-1.0); SPE - BETA GLOBULIN 0.9 g/dL (0.7-1.3); SPE - GAMMA GLOBULIN 1.4 g/dL (0.4-1.8); SPE - M-SPIKE Not Observed g/dL (Not Observed); SPE - TOTAL PROTEIN 6.9 g/dL (6.0-8.5)
[2021-02-21] MEDS ORDERED: LEVOFLOXACIN500 MG PO (16:06)
[2021-02-21] MEDS ORDERED: DIFLUCAN200 MG PO (16:09)
--- NOTE | 2021-02-21 16:32 | NUR ---
PATIENT AGREEABLE TO IRF. DAUGHTER AT BEDSIDE FOR CONVERSATION NOTIFIED BAMBI CHAUHNA, CM OF PATIENT'S DECISION.SCREEN IN PROGRESS.-RUPA CEBALLOS LPN, CLINICAL LIAISON
--- NOTE | 2021-02-21 18:21 | NUR ---
ATTEMPTED TO CALL REPORT, NURSE STATED THEY DO NOT HAVE A CHART YET AND CANNOT RECEIVE REPORT AT THIS TIME.
--- NOTE | 2021-02-21 19:23 | NUR ---
NOTIFIED PATIENT'S NURSE, NATHAN, THAT PATIENT WAS ACCEPTED TO ACUTE REHAB AND ASSIGNED TO ROOM 1108B. ATTEMPTED TO NOTIFY PIN STICKER VIA PHONE WITH NO ANSWER-RUPA CEBALLOS LPN, CLINICAL LIAISON
--- NOTE | 2021-02-21 20:32 | NUR ---
TRIED TO CALL REPORT X2.
== END 2021-02-21 22:55 | DRG 689 ==
LOC: D.ER 11:10 → D.EDHOLD 17:58 → D.M2 02-20 11:03
PROVIDERS: Emergency Medicine; Internal Medicine Nephrology; ADMIT Family Medicine; ATTEND Family Medicine
DX: N39.0 Urinary tract infection, site not specified (principal); G93.41 Metabolic encephalopathy; E43 Unspecified severe protein-calorie malnutrition; E87.1 Hypo-osmolality and hyponatremia; J96.11 Chronic respiratory failure with hypoxia; N17.9 Acute kidney failure, unspecified; E11.22 Type 2 diabetes mellitus with diabetic chronic kidney disease; I12.9 Hypertensive chronic kidney disease with stage 1 through stage 4 chronic kidney disease, or unspecified chronic kidney disease; N18.30 Chronic kidney disease, stage 3 unspecified; Z79.84 Long term (current) use of oral hypoglycemic drugs; K21.9 Gastro-esophageal reflux disease without esophagitis; E78.5 Hyperlipidemia, unspecified; I25.10 Atherosclerotic heart disease of native coronary artery without angina pectoris; M19.90 Unspecified osteoarthritis, unspecified site; Z99.81 Dependence on supplemental oxygen; G89.29 Other chronic pain; M54.9 Dorsalgia, unspecified; M25.559 Pain in unspecified hip; D50.9 Iron deficiency anemia, unspecified; Z68.21 Body mass index [BMI] 21.0-21.9, adult; E11.65 Type 2 diabetes mellitus with hyperglycemia; E83.52 Hypercalcemia; Z87.01 Personal history of pneumonia (recurrent); B96.1 Klebsiella pneumoniae [K. pneumoniae] as the cause of diseases classified elsewhere; I69.991 Dysphagia following unspecified cerebrovascular disease; R13.10 Dysphagia, unspecified; Z85.038 Personal history of other malignant neoplasm of large intestine; Z95.5 Presence of coronary angioplasty implant and graft; Z72.0 Tobacco use

== ENCOUNTER 2021-02-21 23:19 | Inpatient (IN) | payer MEDICARE, BC ==
[~2021-02-21] VITALS: Ht 177.8 cm; Wt 67.1 kg
--- NOTE | 2021-02-21 22:40 | NUR ---
PT ADMITTED TO IP REHAB UNDER CARE OF DR. NESS FROM ACUTE CARE FLOOR (M2). RECEIVED PT VIA BED ACCOMPANIED BY HOSPITAL STAFF. PT WAS FOUND TO BE INCONTINENT TO BLADDER. BEDBATH AND FULL LINEN CHANGE PERFORMED AFTER ARRIVING TO UNIT WITH ASSISTANCE FROM SHARIFA PARRA. CONDOM CATH PLACED (GREEN) AND STAT LOCK SECURED TO RIGHT THIGH. PT IS ALERT AND ORIENTED X2. REORIENTED TO TIME AND SITUATION. DENIES ANY PAIN. TELEMETRY INTACT 82 SINUS PER PREPARATION SUPERVISOR CANNING. RIGHT AC IV SALINE LOCKED, PATENT NO SIGNS OF INFILTRATION. DRESSING AND SWAB CAP INTACT. LEFT FOREARM IV SALINE LOCKED, UPON FLUSH FOUND IV INFILTRATED. DC LEFT FOREARM IV WITH CATH TIP INTACT. PRESSURE DRESSING SECURED. PT IS ON O2/2L VIA NC. SUCTION SET UP PROVIDED, PT IS UNABLE TO SPIT OUT MUCUS, SWALLOWING PRECAUTIONS D/T DIFFICULTY SWALLOWING HX OF DYSPHAGIA. PT IS NPO, ON CONTINUOUS PEG FEEDING WITH SUPLENA 1.8 SOURAV RUNNING AT 30ML/HR WITH 20ML/HR FLUSH. GOAL IS 40ML/HR PT IS UNABLE TO TOLERATE THIS RATE. PEG IS POSITIONED AT LUQ OF ABDOMEN SITE IS SLIGHTLY REDDENED WITHOUT DRAINAGE. PT REFUSED DRESSING AT PEG SITE. EDUCATED PT ON IMPORTANCE OF DRESSING. PT VERBALIZED UNDERSTANDING. PT STATES IT CAUSES HIM DISCOMFORT. BUTTOCKS/COCCYX IS REDDENED AND BLANCHABLE BUTTPASTE APPLIED. PT IS WEAKER ON LEFT SIDE. PT ORIENTED TO ROOM AND CALL REMOTE FUNCTIONS. CALL LIGHT PLACED WITHIN REACH. AISHA ALARM ON.
[~2021-02-21 23:19] MED LIST changes: +DIFLUCAN200 MG PO; +GLIPIZIDE5 MG PO; -GLUCOTROL 5 MG T5 MG; +LEVOFLOXACIN500 MG PO
[2021-02-22 01:09] VITALS: BP 118/52; BMI 21.2
--- NOTE | 2021-02-22 02:45 | NUR ---
D/C CONDOM CATH FOUND CATH LEAKING NOT DRAINING INTO CAMPA BAG, READJUSTED TUBING WITHOUT ANY SUCCESS. INCONTINENCE CARE PROVIDED WITH ASSIST FROM SHARIFA BETTS. BUTTPASTE APPLIED TO BUTTOCKS. PT DENIES ANY OTHER NEEDS. CALL LIGHT WITHIN REACH.
--- NOTE | 2021-02-22 02:55 | NUR ---
RESIDUAL CHECKED 125ML
--- NOTE | 2021-02-22 03:00 | NUR ---
NEW KANGAROO BAGS FOR FEEDING PROVIDED. FOUND DASHAWN VALVE LEAKING, VALVE UNABLE TO SECURE PROPERLY IN PEG TUBING. REMOVED DASHAWN VALVE AND PLACED FEEDING DIRECTLY TO PEG TUBING SECURLY WITHOUT ANY FURTHER LEAKING NOTED.
--- NOTE | 2021-02-22 05:26 | NUR ---
PT LYING IN BED PROPPED UP ON LEFT SIDE USING PILLOW, EYES CLOSED RESTING. RR EVEN AND UNLABORED. CONTINUES ON O2/2L VIA NC. NO ACUTE CHANGES IN CONDITION THIS SHIFT. CALL LIGHT WITHIN REACH. AISHA ALARM ON
[2021-02-22 06:16] LABS: BASOPHILS 0.4 % (0-2); EOSINOPHILS 3.5 % (0-7); HEMATOCRIT 25.1 % (42.0-54.0); LYMPHOCYTES 9.9 % (15-50); MCH 23.8 pg (26.0-34.0); MCHC 31.9 g/dL (31.0-37.0); MCV 74.6 fL (80.0-100.0); MEAN PLATELET VOLUME 8.2 fL (7.4-10.4); MONOCYTES 6.7 % (2-11); NEUTROPHILS 79.5 % (40-80); PLATELET COUNT 257 10x3/uL (130-400); RBC 3.36 10x6/uL (4.20-6.10); RDW 16.7 % (11.5-14.5)
[2021-02-22 06:25] LABS: WBC 7.8 10x3/uL (4.8-10.8)
[2021-02-22 06:26] LABS: CALCIUM 9.6 mg/dL (8.5-10.1); CARBON DIOXIDE 26.8 mmol/L (21.0-32.0); CREATININE - SERUM 1.7 mg/dL (0.6-1.3); POTASSIUM - SERUM 3.8 mmol/L (3.5-5.1)
--- NOTE | 2021-02-22 07:43 | NUR ---
PT RESTING IN BED WITH EYES OPEN CALL LIGHT IN REACH WILL MONITER
[2021-02-22 08:09] VITALS: BP 151/59
--- NOTE | 2021-02-22 10:00 | NUR ---
I have reviewed this patient and I concur with the Shift Assessment completed by the Licensed Practical Nurse today this shift.
[2021-02-22 15:12] VITALS: Ht 177.8 cm; Wt 67.1 kg
--- NOTE | 2021-02-22 17:18 | NUR ---
PT UP IN WHEELCHAIR IN ROOM WITH DAUGHTER AT BEDSIDE CALL LIGHT I REACH NO PROBLEMS AT THIS TIME WILL BILLIEER
--- NOTE | 2021-02-22 19:13 | NUR ---
PM ROUNDS MADE, PT WATCHING TV, INFORMED PT THAT I WILL BE BACK SHORTLY TO DO ASSESSMENT, PT VERBALIZES UNDERSTANDING, DENIES NEEDS AT THIS TIME, FALL PRECAUTIONS IN PLACE
--- NOTE | 2021-02-22 21:37 | NUR ---
PT AWAKE, RESIDUAL CHECKED, ADM MED VIA PEG TUBE, SITE CDI WITH NO REDNESS AT SITE, SALINE LOCK TO RIGHT AC INTACT WITH NO REDNESS OR EDEMA, TELEMETRY IN PLACE, YONKER TO HAND, PT DENIES NEEDS AT THIS TIME, FALL PRECAUTIONS IN PLACE
[2021-02-22 22:00] VITALS: BP 128/53
--- NOTE | 2021-02-22 22:30 | NUR ---
PT AWAKE, WATCHING TV, DENIES NEEDS, FALL PRECAUTIONS IN PLACE
--- NOTE | 2021-02-23 02:18 | NUR ---
PT RESTING WITH EYES CLOSED, RESP QUIET, NO DISTRESS NOTED, LEFT UNDISTURBED AT THIS TIME, FALL PRECAUTIONS IN PLACE
--- NOTE | 2021-02-23 05:00 | NUR ---
PT AROUSES TO ME IN ROOM, PUMP CLEARED, DENIES NEEDS, PT HAD LIQUIDY BM, CLEANED UP PER LINE PALLETIZER
[2021-02-23 07:19] LABS: BASOPHILS 0.3 % (0-2); EOSINOPHILS 2.6 % (0-7); HEMOGLOBIN 7.9 g/dL (13.5-17.5); LYMPHOCYTES 12.1 % (15-50); MCH 23.8 pg (26.0-34.0); MCHC 31.8 g/dL (31.0-37.0); MCV 75.1 fL (80.0-100.0); MEAN PLATELET VOLUME 8.2 fL (7.4-10.4); MONOCYTES 8.2 % (2-11); NEUTROPHILS 76.8 % (40-80); PLATELET COUNT 269 10x3/uL (130-400); RBC 3.33 10x6/uL (4.20-6.10); RDW 16.9 % (11.5-14.5); WBC 8.4 10x3/uL (4.8-10.8)
[2021-02-23 07:27] LABS: ANION GAP 11.5 mmol/L (8-16); CALCIUM 9.9 mg/dL (8.5-10.1); CARBON DIOXIDE 26.8 mmol/L (21.0-32.0); CREATININE - SERUM 1.7 mg/dL (0.6-1.3); POTASSIUM - SERUM 4.3 mmol/L (3.5-5.1)
--- NOTE | 2021-02-23 07:30 | NUR ---
PT RESTING IN BED WITH EYES OPEN CALL LIGHT IN REACH NO PROBLEMS WILL MONITER
[2021-02-23 08:00] VITALS: BP 137/69
--- NOTE | 2021-02-23 15:44 | NUR ---
PATIENT ADMITTS TO REHB FROM ACUTE FLOOR. HIS PCP IS DR. ALONSO. DISCHARGE PLANS ARE UNCERTAIN AT THIS TIME. PATIENT HAS HOME O2 AT HOME. WILL CONTINUE TO FOLLOW WITH PATIENT.
--- NOTE | 2021-02-23 18:27 | NUR ---
PT RESTING IN BED WITH EYES OPEN CALL LIGHT IN REACH WILL MONITER
--- NOTE | 2021-02-23 20:00 | NUR ---
PATIENT RECEIVED SITTING UP 45 DEGREES. ASSESSMENT & VITAL SIGNS DONE. PEG TUBE IN PLACE TO AUSCULATION. KANGAROO PUMP SETTINGS PER ORDER. BED LOW. ALARM ON. CALL LIGHT WITHIN REACH. WILL CONTINUE TO MONITOR.
[2021-02-23 21:13] VITALS: BP 161/62
--- NOTE | 2021-02-24 02:23 | NUR ---
PATIENT USED CALL LIGHT FOR ASSIST. PATIENT URINAL HAD 450 CC OF YELLOW COLOR URINE. SOFT BM. PATIENT FEEDING STOPPED. HEAD LOWERED. PATIENT TURNED SIDE TO SIDE. PATIENT CLEANED BUTT PASTE APPLIED. HOB RETURNED TO 45 DEGREES. FEEDING CONTINUED. BED LOW. ALARM ON. CALL LIGHT WITHIN REACH. WILL CONTINUE TO MONITOR.
--- NOTE | 2021-02-24 05:43 | NUR ---
I have reviewed this patient and I concur with the Shift Assessment completed by the Licensed Practical Nurse today this shift.
[2021-02-24 07:28] VITALS: BP 177/69
--- NOTE | 2021-02-24 07:48 | NUR ---
HE IS ALERT, ORIENTATED. HE HAS A PEG TUBE, HOB AT 40 DEGREES. HE IS WET FROM URINE THIS MORNING. BED LINEN CHANGED AND PATIENT CLEANED UP. HE IS WEARING TELE SR, WT PAC'S PER PROCESS CONTROL TECHNICIAN. WEARING 2 LITERS NC. THE CALL LIGHT IS WITHIN REACH AND THE BED ALARM IS ON.
--- NOTE | 2021-02-24 19:06 | NUR ---
PATIENT RECEIVED SITTING UP 30 DEGREES. ASSESSMENT & VITAL SIGNS DONE. KANGAROO PUMP CONTINUES AT 30 SUPLENA & 20 WATER FLUSH. NO C/O PAIN OR DISTRESS. BED LOW. ALARM ON. CALL LIGHT WITHIN REACH. WILL CONTINUE TO MONITOR.
[2021-02-24 20:00] VITALS: BP 126/63
--- NOTE | 2021-02-25 01:26 | NUR ---
I have reviewed this patient and I concur with the Shift Assessment completed by the Licensed Practical Nurse today this shift.
[2021-02-25 06:37] VITALS: BP 136/64
--- NOTE | 2021-02-25 07:15 | NUR ---
PT IS RESTING IN BED WITH EYES CLOSED. RESPIRATIONS ARE EVEN AND UNLABORED. PT IS EASILY AROUSED WITH VERBAL STIMULATION AND IS AAOX 4 UPON AROUSAL. PT DENIES PRESENCE OF DYSPNEA/SOB AT THIS TIME. PEG TUBE FEEDING RUNNING AT 30ML/HR SUPLENA WITH 20ML H2O FLUSH Q HOUR. 0 RESIDUAL AT THIS TIME. PEG TUBE DRESSING IS CDI. PT DENIES PRESENCE OF ABDOMINAL PAIN AT THIS TIME. PIV TO RIGHT AC IS SL AND FLUSHES WITHOUT DIFFICULTY. O2 VIA NC @ 2L PRN. HOB AT 30 DEGREES. BS ACTIVE X 4. BED IS IN THE LOWEST POSITION. CALL LIGHT AND BEDSIDE TABLE ARE WITHIN REACH. SIDE RAILS X 2. PT DENIES FURTHER NEEDS. WILL CONT TO MONITOR.
--- NOTE | 2021-02-25 08:10 | NUR ---
MEDICATIONS ADMINISTERED PER MAR VIA PEG. TUBE FEEDING PAUSED. PEG FLUSHED WITH 30 ML H2O PRIOR TO ADMINISTRATION 10ML H20 USED TO DILUTE MEDICATION AND FLUSHED WITH 30ML H20 AFTER MEDICATION ADMINISTRATION. PT DENIES PRESENCE OF PAIN/N/V AT THIS TIME. HOB AT 30 DEGREES. TUBE FEEDINGS RESTARTED PER ORDER. BED IS IN THE LOWEST POSITION. CALL LIGHT AND BEDSIDE TABLE ARE WITHIN REACH. SIDE RAILS X 2. FALL PRECAUTIONS IN PLACE. WILL CONT TO MONITOR.
--- NOTE | 2021-02-25 13:22 | NUR ---
PT WITH EPISODE OF INCONTIENT BOWEL AND BLADDER. UNMEASURABLE AMOUNT OF W[place]ERY BROWN STOOL NOTED AND DARK YELLOW URINE. PT CLEANED AND [place] CARE GIVEN. LINENS AND PADS CHANGED. PASTE APPLIED TO BUTTOCK AND COCCYX. PT REPOSITIONED SLIGHTLY TO LEFT SIDE TO RELEIVE PRESSURE. PEG FEED RUNNING PER ORDER. HOB AT 30 DEGREES. PT DENIES FURTHER NEEDS. FALL PRECAUTIONS IN PLACE. BED IS IN THE LOWEST POSITION. CALL LIGHT AND BEDSIDE TABLE ARE WITHIN REACH. SIDE RAILS X 2. WILL CONT TO MONITOR.
--- NOTE | 2021-02-25 14:30 | NUR ---
RESTING QUIETLY WITH EYES CLOSED. CALL LIGHT WITHIN REACH
[2021-02-25 19:00] VITALS: BP 133/70
--- NOTE | 2021-02-25 19:16 | NUR ---
PATIENT RECEIVED SITTING UP IN BED. HOB 30 DEGREES. FEEDING PUMP CONTINUES PER ORDER. NO RESIDUAL. BED LOW. SUCTION YONKER IN LEFT HAND. BED LOW. CALL LIGHT WITHIN REACH. WILL CONTINUE TO MONITOR.
--- NOTE | 2021-02-25 22:58 | NUR ---
PATIENT TELEMETRY TAKEN OFF. SINUS RYTHUM DAILY. SENT UPSTAIRS WITH ENVIRONMENTAL SCIENTIST.
--- NOTE | 2021-02-26 03:02 | NUR ---
I have reviewed this patient and I concur with the Shift Assessment completed by the Licensed Practical Nurse today this shift.
--- NOTE | 2021-02-26 03:30 | NUR ---
PATIENT AWAKE. ROOM HOT. FAN BLOWING HOT AIR TURNED OFF. FEEDING PUMP CONTINUES. BED LOW. CALL LIGHT WITHIN REACH. WILL CONTINUE TO MONITOR.
--- NOTE | 2021-02-26 04:50 | NUR ---
WHILE ON ROUNDS PATIENT HAD A BM. PATIENT CLEANED. NEW PAD UNDER. URINAL IN REACH. BED LOW. HOB 30 DEGREES. ALARM ON. CALL LIGHT & SUTION WITHIN REACH. WILL CONTINUE TO MONITOR.
[2021-02-26 07:29] LABS: BASOPHILS 0.4 % (0-2); HEMATOCRIT 28.8 % (42.0-54.0); LYMPHOCYTES 5.1 % (15-50); MCH 23.2 pg (26.0-34.0); MCHC 31.4 g/dL (31.0-37.0); MCV 74.1 fL (80.0-100.0); MEAN PLATELET VOLUME 7.7 fL (7.4-10.4); MONOCYTES 7.2 % (2-11); NEUTROPHILS 86.3 % (40-80); RBC 3.89 10x6/uL (4.20-6.10); RDW 16.6 % (11.5-14.5); WBC 10.2 10x3/uL (4.8-10.8)
--- NOTE | 2021-02-26 07:31 | NUR ---
PT RESTING IN BED WITH EYES OPEN CALL LIGHT IN REACH WILL MONITER
[2021-02-26 07:44] LABS: ANION GAP 10.7 mmol/L (8-16); CARBON DIOXIDE 28.1 mmol/L (21.0-32.0); CREATININE - SERUM 1.6 mg/dL (0.6-1.3); POTASSIUM - SERUM 3.8 mmol/L (3.5-5.1)
[2021-02-26 07:46] LABS: PLATELET COUNT 347 10x3/uL (130-400)
[2021-02-26 08:10] VITALS: BP 119/68
--- NOTE | 2021-02-26 18:10 | NUR ---
PT RESTING IN BED WITH EYES OPEN CALL LIGHT IN REACH WILL MONITER
--- NOTE | 2021-02-26 19:00 | NUR ---
RECEIVED BEDSIDE REPORT FROM DARRELL AMEZCUA RN, PT SLIGHTLY LETHARGIC, WILL CHECK BS
--- NOTE | 2021-02-26 19:14 | NUR ---
OBTAINED BS, BS 35, INFORMED YVON GLORIA, RN, CHARGE NURSE
--- NOTE | 2021-02-26 19:20 | NUR ---
YVON GLORIA, PROFESSOR OF FOREST PLANNING NURSE ADM GLUCAGEN IV PUSH PER MD ORDERS, SEE EMAR, SHE REPORTS TO RECHECK BS IN 15-20 MINUTES
--- NOTE | 2021-02-26 20:12 | NUR ---
ASSESSMENT PER FLOW SHEET, VS OBTAINED PER CODING ANALYST, SALINE LOCK TO RIGHT AC INTACT WITH NO REDNESS OR EDEMA, PEG TUBE IN PLACE, NO REDNESS OR EDEMA, INFUSING VIA FEEDING PUMP SUPLENA 1.8 PER MD ORDERS, PT REPORTS FLATUS, AND BM TODAY, OBTAINED BS, PT DENIES NEEDS OR PAIN AT THIS TIME
[2021-02-26 21:37] VITALS: BP 90/50
--- NOTE | 2021-02-26 21:39 | NUR ---
OBTAINED BS, BS 77, INFORMED DONALD FUENTES, TRAVEL JOURNALIST NURSE, WILL ADM INSTA GLUCOSE PER MD ORDERS
--- NOTE | 2021-02-26 22:03 | NUR ---
OBTAINED BS, BS 93, INFORMED DONALD HEATON, DINKEY ENGINE OPERATOR NURSE, SHE REPORTS TO RECHECK BS IN 30 MINUTES
--- NOTE | 2021-02-26 22:06 | NUR ---
ADM INSTA GLUCOSE VIA PEG TUBE, DONALD HEATON, DIGITAL ACCOUNT SUPERVISOR NURSE REPORTS TO RECHECK BS IN 1 HOUR
--- NOTE | 2021-02-26 22:43 | NUR ---
PT UP TO BR VIA WC PER THIS RN AND DONALD HEATON, BAMBI, PT TO COMMODE, VOIDED AND HAD BM, PT BACK TO BED, DENIES FURTHER NEEDS, FALL PRECAUTIONS IN PLACE
--- NOTE | 2021-02-26 23:39 | NUR ---
BS OBTAINED PER DRIVER LIFTER OF SANITATION TRUCK
--- NOTE | 2021-02-27 00:22 | NUR ---
PT AWAKE, WATCHING TV, DENIES NEEDS OR PAIN AT THIS TIME, FALL PRECAUTIONS IN PLACE
--- NOTE | 2021-02-27 02:18 | NUR ---
PT RESTING WITH EYES CLOSED, RESP QUIET, NO DISTRESS NOTED, LEFT UNDISTURBED AT THIS TIME, FALL PRECAUTIONS IN PLACE
--- NOTE | 2021-02-27 05:50 | NUR ---
PT RECEIVED BED BATH PER FINANCIAL RETIREMENT PLAN SPECIALIST, FINANCIAL RETIREMENT PLAN SPECIALIST OBTAINED FSBS, FSBS46, INFORMED DONALD HEATON, FRAMER NURSE, SHE REPORTS TO ADM INSTA GLUCOSE AT THIS TIME, ADM VIA PEG TUBE PER MD ORDERS, SEE EMAR, FALL PRECAUTIONS IN PLACE
[2021-02-27 07:59] VITALS: BP 119/50
--- NOTE | 2021-02-27 12:19 | RHP ---
PATIENT: ILIR DINERO MEDICAL RECORD: [id number] ACCOUNT: [id number] LOCATION:[facility]1108 : 34 ADMISSION DATE: 02/21/21 REHABILITATION HISTORY AND PHYSICAL EXAMINATION POST ADMISSION PHYSICIAN EXAMINATION ADMITTING DIAGNOSIS: Metabolic encephalopathy. HISTORY OF PRESENT ILLNESS: The patient is an 85-year-old gentleman who has a history of CVA, dysphagia, aspiration pneumonia, coronary artery disease, chronic kidney disease, home O2 dependence, PEG placement, chronic pain due to his chronic dysphagia and trouble with secretions. He is fed via G-tube. He presented to the ED on 02/19/2021 with a several day history of progressive weakness, particularly when transferring from bed to chair, urinary incontinence and confusion. His white count was 24,000. Sodium was 125. His BUN and creatinine were both elevated. Chest x-ray did not show anything acutely. His UA was positive for leukocyte esterase and bacteria. He was admitted with UTI, metabolic encephalopathy, hyponatremia, chronic kidney disease. Previously, few days before the admission he was able to transfer from bed to wheelchair and was mobile around the house, into the bathroom with a wheelchair. He has a condom cath during his hospitalization. Lives with his daughter and son-in-law. They provided a standby and set up assist when needed. Currently cannot transfer himself, complains of being very weak. He requires moderate assist from supine to sit due to proximal muscle weakness. He also complains of knee pain with movement, requires max assist to stand. He demonstrates forward flexed posture and standing, but was able to sit for 3 minutes when bed linens were changed. He requires inpatient therapy to return home with his prior level of functioning. Barriers to his discharge included deficits in his ADLs, weakness, fatigue malnutrition and deficits in safety awareness. COMORBIDITIES: Include acute kidney injury, altered mental status, chronic anemia, chronic back pain, chronic pain, confusion, debility, decrease in mobility, dysphagia, electrolyte imbalance, gastroesophageal reflux disease, hyperglycemia, hyponatremia, low albumin, metabolic encephalopathy, nausea, protein-calorie malnutrition, safety problems, TIA, incontinence and UTI. PAST MEDICAL HISTORY: Significant for CVA, dysphagia, aspiration pneumonia, gastroesophageal reflux disease, hypertension, hyperlipidemia, coronary artery disease, chronic kidney disease, chronic hypoxic respiratory failure, colon cancer, osteoarthritis, chronic back pain, cataracts, anemia of chronic disease. PAST SURGICAL HISTORY: Includes colon resection with PEG placement. He has stents and angioplasty, cholecystectomy, knee surgery, appendectomy and transurethral resection of the prostate. ALLERGIES: PENICILLIN, CODEINE AND DEMEROL. CURRENT MEDICATIONS: Include Levaquin he uses 250 for 7 days; Zocor 20 mg at bedtime; Floranex daily; he is on Levaquin 500 mg, he got a single dose of this; he is on metoprolol 25 mg b.i.d.; glipizide 5 mg per PEG daily; he is on Flonase nasal spray; Diflucan he is going to get 10 doses of 200 mg tablet; Plavix 75 mg daily; metformin 1000 mg b.i.d. with meals; he is on the electrolyte protocol at this time. HABITS: No alcohol or tobacco use. HISTORY AND PHYSICAL [id number] ILIR DINERO FAMILY HISTORY: Noncontributory. SOCIAL HISTORY: The patient hopes to return back with his family members at his prior level of functioning. REVIEW OF SYSTEMS: GENERAL: Does complain of weakness and fatigue. HEENT: Denies cold, cough or congestion. CARDIOVASCULAR: Denies any chest pain. PHYSICAL EXAMINATION: VITAL SIGNS: Stable, afebrile. GENERAL: An elderly gentleman who is in no acute distress, alert upon exam. HEENT: Normocephalic and atraumatic. Mucosa is somewhat dry. TMs appear normal. NECK: Supple with no lymphadenopathy. LUNGS: Clear in upper [place]. No wheezing or rales. HEART: Regular rate and rhythm. He does have a holosystolic murmur. ABDOMEN: Soft. Noted PEG tube in place. No signs of infection. EXTREMITIES: No clubbing, cyanosis or edema. NEUROLOGIC: He is a little slow to mentate. He has post-CVA type changes and diffuse weakness. LABORATORY DATA: His white count is 7.8, H&H of 8 and 25 and platelet count is noted to be 257. Sodium 138, potassium 3.8, BUN and creatinine of 47 and 1.7, blood sugar is noted to be 252. ASSESSMENT: This is an 85-year-old gentleman admitted to the rehab with a working diagnosis of metabolic encephalopathy secondary to recent urinary tract infection. The patient has potential to make improvement. We instituted the following multidisciplinary therapies including, not limited to physical, occupational, respiratory, speech, nutritional services, prosthetics and orthotics. Given his complex medical condition and risks for more complications rehabilitation services cannot be provided at a low level of care such as skilled nurse facility. PLAN: [facility] following services; A. Physical therapy to improve gait, all transfer skills and bed mobility to a modified independent level. B. Occupational therapy to improve activities of daily living. C. Case management to help with discharge planning and placement options. D. Nutrition to assist with nutritional needs. E. Rehabilitation nursing to assist in monitoring the patient's underlying medical condition and to assist with any type of bowel or bladder management. 2. The patient's current medications and medical care will be continued. 3. He will be placed on standard fall precautions. 4. The patient's estimated length of stay is approximately 7-10 days. 5. Discus this patient during care team staff meeting this week. Continue on antibiotics as prescribed and I will see again in the a.m. Discussed this patient with care team as needed. TRANSINT:[id number] Voice Confirmation ID: [id number] DOCUMENT ID: [id number] HISTORY AND PHYSICAL [id number] ILIR DINERO notes whether there has been none or any medical/functional change since admission: - No change in since preadmission screen. BECKY attests patient continues to be appropriate for IRF: - Continues to be appropriate. INA NESS MD at 1219 CC: [id number] DICTATION DATE: 02/22/21 0824 GOVERNMENT AFFAIRS MANAGER: 02/22/21 0921 ADM IN [facility] [address] [id number]
--- NOTE | 2021-02-27 13:27 | NUR ---
Nutrition Note: RD spoke with patient's nurse. Patient has been experiencing low blood glucose levels. Patient TF not at goal rate of 40 cc/hr due to stated unable to tolerated TF. Patient with 0cc residuals recorded this am. Okay for patient's TF to gradually increased to goal rate of 40 cc/hr and to add 4 oz of juice to help provide extra carbohydrates via PEG tube. 60 cc water flush before and after each juice. Patient to hold diabetes medications at this time due to low blood glucose levels.
--- NOTE | 2021-02-27 18:52 | NUR ---
BEDSIDE REPORT COMPLETE. RECEIVED PT SITTING UP IN BED. ALERT AND ORIENTED X4. DENIES ANY NEEDS OR PAIN. LUQ PEG SITE WITHOUT REDNESS OR DRAINAGE. TF RUNNING AT 40ML/HR WITH 30ML/HR FLUSH. RIGHT AC SL PATENT WNL. DRESSING AND SWAB CAP INTACT. NO DISTRESS NOTED. CALL LIGHT WITHIN REACH. AISHA ALARM ON. CPOC
[2021-02-27 19:36] VITALS: BP 125/59
--- NOTE | 2021-02-27 20:42 | NUR ---
PT HAS BEEN HAVING ISSUES WITH BS, CRUSHED MEDS AND PLACED IN 4OZ OF APPLE JUICE. ADMINISTERED VIA PEG. FLUSHED WITH 30ML WATER. PT TOLERATED WELL.
--- NOTE | 2021-02-28 05:25 | NUR ---
PT LYING IN BED AWAKE. DENIES ANY NEEDS OR PAIN. URINAL EMPTIED 300ML CLEAR YELLOW URINE. NO ACUTE CHANGES IN CONDITION THIS SHIFT. CALL LIGHT WITHIN REACH. AISHA ALARM ON
--- NOTE | 2021-02-28 05:52 | NUR ---
TF BAGS REPLACED AND PUMP CLEARED AND VTBD PROGRAMMED. RESIDUAL CHECKED NO RESIDUAL NOTED. FSBS 256.
[2021-02-28 07:38] VITALS: BP 130/56
--- NOTE | 2021-02-28 08:38 | NUR ---
PATIENT IS ALERT/ORIENT. IN REHAB ROOM WORKING WITH PHYSICAL THERAPIST. DENIES ANY NEEDS AT THIS TIME. WILL CONTINUE WITH PLAN OF CARE
[2021-02-28 09:51] LABS: BASOPHILS 0.7 % (0-2); EOSINOPHILS 3.3 % (0-7); HEMATOCRIT 26.8 % (42.0-54.0); HEMOGLOBIN 8.7 g/dL (13.5-17.5); LYMPHOCYTES 16.4 % (15-50); MCH 24.4 pg (26.0-34.0); MCHC 32.5 g/dL (31.0-37.0); MCV 75.1 fL (80.0-100.0); MONOCYTES 9.1 % (2-11); NEUTROPHILS 70.5 % (40-80); PLATELET COUNT 327 10x3/uL (130-400); RBC 3.57 10x6/uL (4.20-6.10); WBC 7.7 10x3/uL (4.8-10.8)
[2021-02-28 09:54] LABS: ANION GAP 12.2 mmol/L (8-16); CARBON DIOXIDE 28.9 mmol/L (21.0-32.0); CREATININE - SERUM 1.9 mg/dL (0.6-1.3); POTASSIUM - SERUM 4.1 mmol/L (3.5-5.1)
--- NOTE | 2021-02-28 11:11 | NUR ---
PATIENT BACK IN ROOM AFTER REHAB. SITTING UP IN WHEELCHAIR AT BEDSIDE. CALL LIGHT WITHIN REACH. REMAINS ON CONTINUOUS PEG TUBE FEEDING. TOTALERATING WELL. NO RESIDUAL.
--- NOTE | 2021-02-28 12:00 | NUR ---
I have reviewed this patient and I concur with the Shift Assessment completed by the Licensed Practical Nurse today this shift.
--- NOTE | 2021-02-28 16:15 | NUR ---
CARE TEAM MEETING: PATIENT IS PROGRESSING IN THERAPY. HIS TENATIVE DC DATE IS 03/09/21. DISCHARGE PLANS ARE FOR HIM TO RETURN TO HIS HOME. WILL CONTINUE TO FOLLOW WITH PATIENT.
[2021-02-28 20:18] VITALS: BP 108/66
--- NOTE | 2021-02-28 22:39 | NUR ---
RESTING IN BED, NO DISTRESS NOTED, TUBE FEEDING INFUSING AT 40 PER PEG TUBED, 10CC RESIDUAL AT CHECK, MEDS CRUSHED AND GIVEN PER PEG, CONT TO MONITOR SUGARS
--- NOTE | 2021-03-01 07:28 | NUR ---
PT RESTING IN BED WITH EYES OPEN CALL LIGHT IN REACH WILL MONITER
[2021-03-01 08:02] VITALS: BP 133/51
--- NOTE | 2021-03-01 14:37 | NUR ---
Nutrition reassessment: Diet order: NPO PEG tube with Suplena @ 40 ml/hr Labs reviewed; Glucose running high since juice being used to prevent hypoglycemia; juice being used for med pass Wt: 148# Suplena @ 40 ml/hr is providin kcal, 43 gm protein Estimated needs remain the same as initial assessment on 02/22/21. Nutrition diagnosis, goals, interventions remain the same. Renal function improving; will continue to monitor pts progress in 5-7 days.
--- NOTE | 2021-03-01 18:07 | NUR ---
PT RESTING IN BED DAUGHTER AT BEDSIDE CALL LIGHT IN REACH WILL MONITER
--- NOTE | 2021-03-01 18:55 | NUR ---
BEDSIDE REPORT COMPLETE. RECEIVED PT SITTING UP IN BED AWAKE. ALERT AND ORIENTED X3. DENIES ANY PAIN OR NEEDS. NO IV OR OXYGEN NOTED. LUQ PEG WITHOUT REDNESS OR DRAINAGE. TF RUNNING @ 40ML/HR SUPLENA 1.8CAL WITH 30ML/HR H2O FLUSH. PT TOLERATING WELL. RIGHT AC IV SL. PATENT, DRESSING AND SWAB CAP INTACT. NO DISTRESS NOTED. CALL LIGHT AND YONKER WITHIN REACH. AISHA ALARM ON. CPOC
[2021-03-01 22:08] VITALS: BP 120/66
--- NOTE | 2021-03-02 01:54 | NUR ---
PT LYING IN BED SUPINE EYES CLOSED RESTING. HOB ELEVATED. RR EVEN AND UNLABORED. AISHA ALARM ON
--- NOTE | 2021-03-02 06:30 | NUR ---
PT LYING IN BED AWAKE. ALERT AND ORIENTED X3. DENIES ANY NEEDS OR PAIN. NO DISTRESSS NOTED. NO ACUTE CHANGES IN CONDITION THIS SHIFT. CALL LIGHT WITHIN REACH. AISHA ALARM ON
[2021-03-02 07:10] LABS: HEMATOCRIT 23.9 % (42.0-54.0); HEMOGLOBIN 7.7 g/dL (13.5-17.5); MCH 24.1 pg (26.0-34.0); MCHC 32.3 g/dL (31.0-37.0); MCV 74.7 fL (80.0-100.0); MEAN PLATELET VOLUME 8.6 fL (7.4-10.4); PLATELET COUNT 277 10x3/uL (130-400); RDW 16.5 % (11.5-14.5)
[2021-03-02 07:29] LABS: ANION GAP 13.5 mmol/L (8-16); CALCIUM 9.5 mg/dL (8.5-10.1); CARBON DIOXIDE 26.5 mmol/L (21.0-32.0); CREATININE - SERUM 2.1 mg/dL (0.6-1.3)
[2021-03-02 08:28] VITALS: BP 109/47
[2021-03-02 11:08] LABS: EOSINOPHILS 2 % (0-7); LYMPHOCYTES 10 % (15-50); MONOCYTES 12 % (2-11); NEUTROPHILS 76 % (40-80); PLATELET ESTIMATE NORMAL
--- NOTE | 2021-03-02 13:15 | NUR ---
1 UNIT PRBC STARTED PT PRE MEDICATED GABRIEL BARNEY
--- NOTE | 2021-03-02 16:45 | NUR ---
PT BLOOD SUGAR 67 60Z APPLE JUICE PUT IN PT G TUBE WILL MONITER.
--- NOTE | 2021-03-02 17:14 | NUR ---
PT REFUSED GLUOPHAGE DUE TO LOW BLOOD SUGAR
--- NOTE | 2021-03-02 18:18 | NUR ---
PT RESTING IN BED WITH EYES OPEN CALL LIGHT IN REACH WILL MONITER
--- NOTE | 2021-03-02 18:50 | NUR ---
BEDSIDE REPORT COMPLETE. RECEIVED PT SITTING UP IN BED. ALERT AND ORIENTED X4/ DENIES ANY NEEDS OR PAIN. TF RUNNING 40ML/HR WITH 30ML/HR H2O FLUSH. NO DISTRESS NOTED. RIGHT AC IV INFUSING PRBC @ 125ML/HR (2ND UNIT), CALL LIGHT AND WATER WITHIN REACH. AISHA ALARM ON. CPOC
[2021-03-02 22:07] VITALS: BP 158/66
--- NOTE | 2021-03-03 03:13 | NUR ---
PT LYING IN BED SUPINE EYES CLOSED RESTING. RR EVEN AND UNLABORED. AISHA ALARM ON
--- NOTE | 2021-03-03 05:22 | NUR ---
TF BAGS REPLACED AND PUMP CLEARED AND SET. PT LYING IN BED RESTING. NO DISTRESS NOTED. AISHA ALARM ON
[2021-03-03 07:00] VITALS: BP 137/58
--- NOTE | 2021-03-03 09:23 | NUR ---
HE IS SETTING UP IN BED, HOB 45 DEGREEE, HAS A TUBE FEEDING VIA PEG TUBE 40 CC/HR. HE HAS 2 AREAS ON HIS COCCYX. I TURNED HIM TO HIS RIGHT SIDE. EDUCATED HIM ABOUT TURNING OFF HIS BOTTOM EVERY 2 HOURS. THE CALL LIGHT IS WITHIN REACH AND THE ALARM IS ON.
[2021-03-03 14:50] LABS: BASOPHILS 0.7 % (0-2); EOSINOPHILS 4.5 % (0-7); LYMPHOCYTES 12.9 % (15-50); MCH 24.6 pg (26.0-34.0); MCHC 32.4 g/dL (31.0-37.0); MEAN PLATELET VOLUME 8.2 fL (7.4-10.4); NEUTROPHILS 74.9 % (40-80); PLATELET COUNT 274 10x3/uL (130-400); RDW 16.9 % (11.5-14.5); WBC 7.5 10x3/uL (4.8-10.8)
[2021-03-03 14:54] LABS: HEMATOCRIT 33.9 % (42.0-54.0); RBC 4.46 10x6/uL (4.20-6.10)
--- NOTE | 2021-03-03 16:01 | NUR ---
APPLIED MILE CREAM TO HIS COCCYX. HE HAS A BLOODY OPEN PLACE AT THE TOP. I TURNED HIM TO THE LEFT. THE CALL LIGHT IS WITHIN REACH AND THE BED ALARM IS ON.
[2021-03-03 19:00] VITALS: BP 163/74
--- NOTE | 2021-03-03 20:07 | NUR ---
RESTING IN BED, NO DISTRESS NOTED, SUPLENA INFUSING AT 40 PER PEG TUBE, CONT TO MONITOR RESIDUAL, CHECK SUGARS Q 6, CONT TO MONITOR
--- NOTE | 2021-03-04 01:21 | NUR ---
SUGAR CK 53, APPLE JUICE GIVEN AND REPEATED SUGAR 81
[2021-03-04 07:00] VITALS: BP 133/67
--- NOTE | 2021-03-04 08:50 | NUR ---
HE IS TURNED TO THE LEFT SIDE, HOB ELEVATED TO 40 DEGREES. MILE APPLIED TO HIS BOTTOM. HE IS USING THE WHEELCHAIR TO GO INTO THE BATHROOM.THE CALL LIGHT IS WITHIN REACH AND THE BED ALARM IS ON.
[2021-03-04 19:00] VITALS: BP 153/69
--- NOTE | 2021-03-04 20:47 | NUR ---
RESTING IN BED, NO DISTRESS NOTED, CONT TO MONITOR SUGARS, FEEDING INFUSING AT 40, TURNED WITH STAFF ASSIST, MILE TO COCCYX AREA
--- NOTE | 2021-03-05 06:39 | NUR ---
APRON OPERATOR FOUND A TICK ON PT DURING BATHING, AREA AROUND TICK CLEANED WITH ALCOHOL AND REMOVED WITH TWIZERS, LOUISE WELL, CONT TO MONITOR AREA TO R UPPER ARM
[2021-03-05 06:56] LABS: ANION GAP 8.8 mmol/L (8-16); BASOPHILS 1.2 % (0-2); CALCIUM 9.7 mg/dL (8.5-10.1); CARBON DIOXIDE 33.4 mmol/L (21.0-32.0); CREATININE - SERUM 1.5 mg/dL (0.6-1.3); EOSINOPHILS 5.3 % (0-7); HEMATOCRIT 34.9 % (42.0-54.0); HEMOGLOBIN 11.1 g/dL (13.5-17.5); LYMPHOCYTES 10.9 % (15-50); MCH 24.5 pg (26.0-34.0); MCHC 31.7 g/dL (31.0-37.0); MCV 77.2 fL (80.0-100.0); MEAN PLATELET VOLUME 8.5 fL (7.4-10.4); NEUTROPHILS 74.6 % (40-80); PLATELET COUNT 285 10x3/uL (130-400); POTASSIUM - SERUM 4.2 mmol/L (3.5-5.1); RBC 4.52 10x6/uL (4.20-6.10); RDW 17.2 % (11.5-14.5); WBC 6.3 10x3/uL (4.8-10.8)
--- NOTE | 2021-03-05 07:35 | NUR ---
PT UP IN WHEELCHAIR IN [place] WITH THERAPY WILL MONITER
[2021-03-05 08:11] VITALS: BP 147/63
--- NOTE | 2021-03-05 18:09 | NUR ---
PT RESTING IN BED WITH EYES OPEN CALL LIGHT IN REACH WILL MONITER
--- NOTE | 2021-03-05 19:00 | NUR ---
BEDSIDE REPORT COMPLETE. RECEIVED PT LYING IN BED WITH HOB ELEVATED. ALERT AND ORIENTED X3. DENIES ANY NEEDS OR PAIN. TF RUNNING SUPLENA 1.8CAL 40ML/HR WITH 30ML/HR FLUSH. RIGHT AC IV SL NO S/S OF INFECTION. PATENT, DRESSING AND SWAB CAP INTACT. NO DISTRESS NOTED. CALL LIGHT AND PERSONAL ITEMS WITHIN REACH. AISHA ALARM ON. CPOC
[2021-03-05 20:40] VITALS: BP 141/66
--- NOTE | 2021-03-06 03:30 | NUR ---
PT LYING IN BED ON SUPINE EYES CLOSED RESTING. RR EVEN AND UNLABORED. AISHA ALARM ON
--- NOTE | 2021-03-06 05:57 | NUR ---
PT LYING IN BED AWAKE. DENIES ANY NEEDS OR PAIN. NO DISTRESS NOTED. FEEDING PUMP CLEARED. NO ACUTE CHANGES IN CONDITION THIS SHIFT. CALL LIGHT AND PERSONAL ITEMS WITHIN REACH. AISHA ALARM ON.
--- NOTE | 2021-03-06 08:00 | NUR ---
PT UP IN BED 30 DEGREES CALL LIGHT IN REACH WILL MONITER
[2021-03-06 08:08] VITALS: BP 145/69
--- NOTE | 2021-03-06 14:06 | NUR ---
Nutrition Re-Assessment Diet: NPO TF order: Suplena @ 40mL/hr + H2O @ 30mL/hr -This provides: 1728kcal, 43gms protein and meets estimated nutrition needs. Last BM: 03/06/21 Wt: 148# (02/22/21) Meds noted: probiotics, glipizide, metformin Labs noted: BUN 35(H), Cr 1.5(H), GFR 47(L), Glu 164(H), POC Glu 190(H) -Renal function appears to be improving. -Estimated nutrition needs remain the same as initial nutrition assessment on 02/22/21. -Nutrition diagnosis, goals, and interventions remain the same. -Recommend twice weekly weights. -RD will follow-up 03/09/21.
--- NOTE | 2021-03-06 18:49 | NUR ---
PT RESTING IN BED WITH EYES OPEN CALL LIGHT IN REACH NO PROBLEMS WILL MONITER
--- NOTE | 2021-03-06 19:00 | NUR ---
BEDSIDE REPORT COMPLETE. RECEIVED PT LYING IN BED AWAKE. HOB ELEVATED. ALERT AND ORIENTED X3. REORIENTED TO TIME. CURRENTLY ON ROOM AIR O2 SAT 97%. O2/2L PRN. RIGHT AC IV SL, PATENT, NO S/S OF INFILTRATION. DRESSING AND SWAB CAP INTACT. TF INFUSING SUPLENA 1.8CAL 40ML/HR WITH 30ML/HR FLUSH. RESIDUAL CHECKED 20ML RESIDUAL WNL NOTED AND PLACED BACK IN PEG AND FLUSHED. PEG SITE WITHOUT REDNESS OR DRAINAGE. PT DENIES ANY NEEDS OR PAIN. NO DISTRESS NOTED. CALL LIGHT AND WATER WITHIN REACH. SUCTION WORKING PROPERLY WITH YONKER ATTACHED AND CLEAN. AISHA ALARM ON. CPOC
[2021-03-06 20:36] VITALS: BP 145/59
--- NOTE | 2021-03-07 02:27 | NUR ---
PT LYING IN BED SUPINE EYES CLOSED RESTING. HOB ELEVATED. RR EVEN AND UNLABORED. AISHA ALARM ON
--- NOTE | 2021-03-07 05:15 | NUR ---
REMOVED OLD TF BAG AND PLACED NEW [place] BAG WITH SUPLENA 1.8CAL 948ML AND 1000ML H2O. CHECKED RESIDUAL 20ML/REPLACED IN PEG. FLUSHED WITH 40ML H2O. RESTARTED TF AT 40ML/HR WITH 30ML/HR FLUSH. CLEARED PUMP. PT DENIES ANY NEEDS OR PAIN. NO DISTRESS NOTED. AISHA ALARM ON
[2021-03-07 06:29] LABS: ANION GAP 8.3 mmol/L (8-16); CALCIUM 9.8 mg/dL (8.5-10.1); CARBON DIOXIDE 32.4 mmol/L (21.0-32.0); CREATININE - SERUM 1.5 mg/dL (0.6-1.3); POTASSIUM - SERUM 3.7 mmol/L (3.5-5.1)
[2021-03-07 06:36] LABS: BASOPHILS 2.1 % (0-2); EOSINOPHILS 6.7 % (0-7); HEMATOCRIT 34.3 % (42.0-54.0); HEMOGLOBIN 10.9 g/dL (13.5-17.5); LYMPHOCYTES 16.9 % (15-50); MCH 24.7 pg (26.0-34.0); MCHC 31.9 g/dL (31.0-37.0); MCV 77.4 fL (80.0-100.0); MEAN PLATELET VOLUME 8.7 fL (7.4-10.4); MONOCYTES 8.8 % (2-11); NEUTROPHILS 65.5 % (40-80); PLATELET COUNT 300 10x3/uL (130-400); RBC 4.44 10x6/uL (4.20-6.10); RDW 17.4 % (11.5-14.5); WBC 5.9 10x3/uL (4.8-10.8)
[2021-03-07 07:00] VITALS: BP 158/66
[2021-03-07 08:00] VITALS: BP 158/66
--- NOTE | 2021-03-07 18:49 | NUR ---
BEDSIDE REPORT COMPLETE. RECEIVED PT LYING IN BED. ALERT AND ORIENTED X3. REORIENTED TO TIME. NO DISTRESS NOTED. DENIES ANY NEEDS OR PAIN. TF RUNNING 40ML/HR WITH 30ML/HR FLUSH. LUQ PEG SITE WNL. NO IV OR OXYGEN NOTED. CALL LIGHT AND URINAL WITHIN REACH. AISHA ALARM ON. CPOC
[2021-03-07 21:31] VITALS: BP 151/67
--- NOTE | 2021-03-08 03:31 | NUR ---
PT LYING IN BED LEFT SIDE EYES CLOSED RESTING. RR EVEN AND UNLABORED. AISHA ALARM ON
[2021-03-08 05:58] VITALS: BP 160/69
--- NOTE | 2021-03-08 09:00 | NUR ---
HE IS SETTING UP IN THE WHEELCHAIR. I APPLIED JOSE LUIS TO HIS COCCYX. HE HAS THE PEG TUBE WITH FEEDING RUNNING AT 40 CC HOUR. TOLERATING IS WELL. DENIES ANY PAIN, TURNS HIMSELF. LOOKING FORWARD TO BEING DISCHARGED TOMORROW. THE CALL LIGHT IS WITHIN REACH AND THE BED ALARM IS ON.
--- NOTE | 2021-03-08 19:16 | NUR ---
RECEIVED BEDSIDE SHIFT REPORT, PT UP IN WC, INFORMED PT THAT I WILL BE BACK SHORTLY TO DO ASSESSMENT, PT VERBALIZES UNDERSTANDING, DENIES NEEDS AT THIS TIME, FALL PRECAUTIONS IN PLACE
[2021-03-08 19:33] VITALS: BP 171/57
--- NOTE | 2021-03-08 21:40 | NUR ---
PT BACK IN BED, ASSESSMENT PER FLOW SHEET, VS OBTAINED PER MOLECULAR BIOLOGY SCIENTIST, PT REPORTS FLATUS, BM TODAY, AND VOIDING WITH NO DIFFICULTY, FEEDING TUBE PLACEMENT CHECKED, ADM 2100 MEDS VIA PEG TUBE PER MD ORDERS, SEE EMAR, PT USES YONKER NEEDED, FRESH SPIT CUP PROVIDED, PT DENIES FURTHER NEEDS, FALL PRECAUTIONS IN PLACE
--- NOTE | 2021-03-09 00:20 | NUR ---
FSBS OBTAINED PER PAINT TRIMMER PIPE BOWLS
--- NOTE | 2021-03-09 02:21 | NUR ---
PT RESTING WITH EYES CLOSED, RESP QUIET, NO DISTRESS NOTED, LEFT UNDISTURBED AT THIS TIME, FALL PRECAUTIONS IN PLACE
--- NOTE | 2021-03-09 03:33 | NUR ---
PT WATER RESOURCE ENGINEERING SPECIALIST LIGHT, PT UP TO BR VIA WC WITH ASSISTANCE, VOIDED AND HAD LOOSE STOOL, PT OFF COMMODE, TO SINK TO WASH HANDS, PT BACK TO BED, DENIES FURTHER NEEDS OR PAIN, FALL PRECAUTIONS IN PLACE
--- NOTE | 2021-03-09 04:30 | NUR ---
PT RESTING WITH EYES CLOSED, RESP QUIET, NO DISTRESS NOTED, LEFT UNDISTURBED AT THIS TIME, PUMPS CLEARED, FALL PRECAUTIONS IN PLACE
[2021-03-09 06:16] LABS: ANION GAP 11.4 mmol/L (8-16); CALCIUM 9.7 mg/dL (8.5-10.1); CARBON DIOXIDE 32.6 mmol/L (21.0-32.0); CREATININE - SERUM 1.5 mg/dL (0.6-1.3)
[2021-03-09 06:28] LABS: BASOPHILS 2.4 % (0-2); EOSINOPHILS 6.7 % (0-7); HEMATOCRIT 33.7 % (42.0-54.0); HEMOGLOBIN 10.8 g/dL (13.5-17.5); LYMPHOCYTES 16.5 % (15-50); MCH 24.7 pg (26.0-34.0); MCV 77.2 fL (80.0-100.0); MEAN PLATELET VOLUME 8.9 fL (7.4-10.4); MONOCYTES 8.5 % (2-11); NEUTROPHILS 65.9 % (40-80); PLATELET COUNT 302 10x3/uL (130-400); RBC 4.37 10x6/uL (4.20-6.10); RDW 17.2 % (11.5-14.5)
[2021-03-09 07:00] VITALS: BP 128/63
--- NOTE | 2021-03-09 09:00 | NUR ---
HE IS ALERT, TALKING. HAS A SOFT VOICE. PEG TUBE FEEDING INFUSING. HE IS DISCHARGING TODAY. HE HAS A STAGE 2 ON HIS COCCYX, CLEANSED AND APPLIED MILE. DENIES ANY NEEDS. THE CALL LIGHT IS WITHIN REACH AND THE BED ALARM IS ON.
--- NOTE | 2021-03-09 11:50 | NUR ---
PATIENT DISCHARGING HOME TODAY WITH FAMILY. [facility] WILL RESUME THERAPY AT HOME. NO NEW DME NEEDED AT THIS TIME. [facility] WILL DO FOLLOW UP WITH PATIENT AND PATIENT WILL SEE DR. RAM NEEDED. DOREEN SIGNED, IMM SERVED AND EXPLAINED ONE FILED IN CHART AND ONE GIVEN TO PATIENT. DISCHARGE INSTUCTIONS FAXED TO PCP, HOME HEALTH AND REVIEWED WITH PATIENT. NO COMPARE DATA REVIEWED PATIENT IS A A CLIENT OF [facility] AND WISHES TO CONTINUE WITH THEIR SERVICE.
--- NOTE | 2021-03-09 13:48 | NUR ---
PAPER WORK GONE OVER WITH THE PATIENT AND HIS DAUGHTER. THE PEG TUBE IS FLUSHED FOR HIM TO GO HOME TODAY. QUESTIONS ANSWERED AND FOLLOW UP APPOINTMENTS WITH PAPERWORK. HE WAS TAKEN OUT TO THE FRONT DOOR VIA WHEELCHAIR.
== END 2021-03-09 13:50 | disposition home health service (06) | DRG 70 ==
LOC: D.REHAB 23:19
PROVIDERS: ADMIT Emergency Medicine; ATTEND Emergency Medicine
DX: G93.41 Metabolic encephalopathy (principal); E43 Unspecified severe protein-calorie malnutrition; N17.9 Acute kidney failure, unspecified; E87.1 Hypo-osmolality and hyponatremia; N39.0 Urinary tract infection, site not specified; J96.11 Chronic respiratory failure with hypoxia; I12.9 Hypertensive chronic kidney disease with stage 1 through stage 4 chronic kidney disease, or unspecified chronic kidney disease; N18.9 Chronic kidney disease, unspecified; G89.29 Other chronic pain; R53.81 Other malaise; R13.10 Dysphagia, unspecified; E87.8 Other disorders of electrolyte and fluid balance, not elsewhere classified; K21.9 Gastro-esophageal reflux disease without esophagitis; R73.9 Hyperglycemia, unspecified; R32 Unspecified urinary incontinence; Z86.73 Personal history of transient ischemic attack (TIA), and cerebral infarction without residual deficits; E78.5 Hyperlipidemia, unspecified; Z68.21 Body mass index [BMI] 21.0-21.9, adult